=== PATIENT | male | born 1970 | race Caucasian/White ===

== ENCOUNTER 2020-10-02 16:03 | Outpatient (CLI) | payer OTHER, SELFPAY | END 2020-10-02 16:04 | disposition home or self-care (01) | LOC: ANHCOVIDVC 16:03 | PROVIDERS: PCP Internal Medicine | DX: Z23 Encounter for immunization (principal) | CPT/HCPCS: 0001A; 91300 ==

== ENCOUNTER 2020-10-09 09:29 | Emergency (ER) | payer OTHER, SELFPAY ==
--- NOTE | ~2020-10-09 | CT_ITS ---
EXAMINATION: CT abdomen pelvis w con DATE: 10/09/2020 10:46 INDICATION: Left flank pain for 2 months. Nausea, vomiting. TECHNIQUE: Computed tomography (CT) of the abdomen and pelvis was performed with 100 cc Omnipaque 350 intravenous contrast. Automated exposure control and iterative reconstruction technique were employe d. Exam dose: 753.35 mGy-cm total exam DLP. COMPARISON: 10/12/2018 CT abdomen pelvis FINDINGS: The lung bases are clear of infiltrate or consolidation. Normal heart size. No pericardial or pleural effusion. The liver, gallbladder, bile ducts, spleen, pancreas, pancreatic duct, and adrenal glands and kidneys appear normal. Moderate prostate enlargement. Prostate calcification. The urinary bladder is unremarkable. Normal caliber of the abdominal aorta. No intraperitoneal or retroperitoneal or pelvic mass lesion or adenopathy or ascites. Normal appendix. Diverticulosis of the colon; no CT evidence of diverticulitis. No polyps or signific ant bowel wall thickening, pneumatosis or intraperitoneal free air. There is degenerative spurring of the thoracic and lumbar spine. No suspicious osteolytic or osteobla stic lesion IMPRESSION: No urinary tract calculus or hydroureteronephrosis Normal appendix Diverticulosis of the colon; no CT evidence of diverticulitis Reviewed, dictated and finalized at [facility]. Reviewed, dictated and finalized at location A.
[2020-10-09 09:37] VITALS: BP 140/93; PULSE 92; RESP 20; TEMP 37.2; O2SAT 99
--- NOTE | 2020-10-09 09:52 | ED.ABDPAIN ---
HPI - Abdominal Pain General Chief Complaint: Abdominal Pain Stated Complaint: back pain Time Seen by Provider: 10/09/20 09:41 Source: patient Mode of arrival: ambulatory Limitations: no limitations History of Present Illness HPI narrative: This is a 50 year old male that presents to the ER for left flank pain over the last couple of months. Reports pain in the left flank and abdomen. It is achy in nature. Associated with nausea and vomiting. Reports he has also lost weight the last couple of months. Denies fever, dysuria, or hematuria. Related Data Home Medications Medication Instructions Recorded Confirmed aspirin 81 mg tablet,delayed 81 mg PO DAILY 06/11/19 09/18/20 release diclofenac sodium 1 % topical gel 2 gm TOPICAL QID 06/11/19 09/18/20 loratadine 10 mg tablet 10 mg PO DAILY 06/11/19 09/18/20 multivitamin,pt-udrn-xlrgrmcy 1 tablet PO DAILY 06/11/19 09/18/20 celecoxib 200 mg capsule 200 mg PO BID 11/09/19 09/18/20 cholecalciferol (vitamin D3) 125 2,000 unit PO DAILY cap 11/09/19 09/18/20 mcg (5,000 unit) capsule lactobacillus combination no.9 4 4,000 mmu cells PO DAILY 11/09/19 09/18/20 billion cell capsule mecobalamin (vitamin B12) 1,000 1,000 mcg PO DAILY 11/09/19 09/18/20 mcg chewable tablet prednisone 5 mg tablet 5 mg PO DAILY PRN 11/09/19 09/18/20 tofacitinib 11 mg tablet,extended 11 mg PO DAILY 11/09/19 09/18/20 release 24 hr folic acid 1 mg tablet 1 mg PO DAILY 05/30/20 09/18/20 gabapentin 300 mg capsule 900 mg PO DAILY cap 05/30/20 09/18/20 methotrexate sodium 2.5 mg tablet 2.5 mg PO WEEKLY tablet 05/30/20 09/18/20 tizanidine 4 mg tablet 4 mg PO ONCE tablet 05/30/20 09/18/20 Allergies Allergy/AdvReac Type Severity Reaction Status Date / Time No Known Allergies Allergy Verified 10/09/20 09:42 Review of Systems Review of Systems: Narrative: CONSTITUTIONAL: Denies fever CARDIOVASCULAR: Denies chest pain, or edema. RESPIRATORY: Denies dyspnea. GASTROINTESTINAL: Reports abdominal pain, nausea, vomiting GENITOURINARY: Denies dysuria or hematuria. SKIN: Denies rash MUSCULOSKELETAL: Reports back pain, joint pain, and myalgia. All systems reviewed & are unremarkable except as noted in HPI and below PMFSH Past Medical History Medical History (Updated 10/09/20 @ 11:38 by Samantha Martinez PA-C) Depression Encounter for monitoring testosterone replacement therapy GERD (gastroesophageal reflux disease) Heart murmur Hyperlipidemia due to dietary fat intake Hypertension Hypogonadism in male Insomnia Rheumatoid arthritis Sleep apnea Surgical History Surgical History (Updated 06/11/19 @ 13:22 by Izabela Lagunas, [facility]) H/O hernia repair Family History Family History (Updated 12/18/17 @ 11:14 by DOCTOR UNKNOWN) Father Hypertension Family history of elevated blood lipids Acute myocardial infarction Family history of malignant neoplasm of stomach Mother Hypertension Family history of elevated blood lipids Social History Social History Smoking status: Former smoker Smoking end date: 06/23/98 Alcohol intake: never Gender identity (if verbalized by the patient): Male Exam Narrative: Exam Narrative: GENERAL: Well-appearing, well-nourished, and in no acute distress. HEAD: Normocephalic, atraumatic. EYES: EOMI. CHEST: Clear to auscultation. No respiratory distress. No wheezes rales or rhonchi HEART: Regular rate and rhythm. No murmur heard. Normal peripheral pulses. ABDOMEN: Soft, nondistended, normal active bowel sounds. Tender to palpation of the left abdomen, without guarding. No CVA tenderness EXTREMITIES: Normal range of motion. No edema. SKIN: Warm, dry, no rash. NEURO: No focal deficits. Alert and oriented x3. PSYCH: Normal mood and affect Course Vital Signs Vital signs: Vital Signs Temperature 98.9 F 10/09/20 09:37 Pulse Rate 92 10/09/20 09:37 Respiratory Rate 20 10/09/20 09:37 Blood Pressure 140/93 H 10/09/20 09:37 Pulse Oximetr
[2020-10-09] MEDS: ONDANSETRON INJ 4 MG/2 ML VIAL IV PUSH (10:04)
[2020-10-09 10:15] LABS: Basophils Percent Auto 0.4 % (0.2-1.2); Eosinophils Absolute Auto 0.1 K/mm3 (0-0.3); Eosinophils Percent Auto 0.7 % (0-4.4); Hematocrit 49.5 % (42.0-52.0); Hemoglobin 16.5 g/dL (14.0-18.0); Immature Granulocyte Absolute 0.05 K/mm3 (0.00-0.031); Immature Granulocyte Percent A 0.6 % (0-0.5); Lymphocytes Absolute Auto 0.87 K/mm3 (0.9-3.2); Lymphocytes Percent Auto 10.3 % (18.3-44.2); Mean Corpuscular HGB Conc 33.3 g/dl (32-36); Mean Corpuscular Hemoglobin 30.4 pg (26-34); Mean Corpuscular Volume 91.3 fl (80-100); Mean Platelet Volume 10.2 fl (7.4-10.4); Monocytes Absolute Auto 0.8 K/mm3 (0.1-0.6); Monocytes Percent Auto 9.9 % (2.6-8.5); Neutrophils Absolute Auto 6.6 K/mm3 (1.3-6.7); Neutrophils Percent Auto 78.1 % (45.5-73.1); Platelet Count Result 314 k/mm3 (150-375); Red Blood Count 5.42 M/mm3 (4.6-6.20); Red Cell Distribution Width 14.2 % (11.5-14.5); White Blood Count 8.5 K/mm3 (4.5-10.0)
[2020-10-09 10:20] LABS: Add Urine Microscopic? YES; Appearance Urine Clear (Clear); Bacteria Urine Trace /hpf; Bilirubin Urine Negative (Negative); Blood Urine Negative (Negative); Color Urine Yellow (Yellow); Glucose Urine UA Negative (Negative); Ketones Urine 1+ mg/dL (Negative); Leukocyte Esterase Ur Negative LEU/UL (Negative); Mucus Urine Rare /lpf; Nitrate Urine Negative (Negative); Protein Urine Negative (Negative); RBC Urine 0-2 /hpf (0-2); Specific Grav Ur 1.018 (1.001-1.035); WBC Urine 0-3 /hpf
[2020-10-09 10:36] LABS: Potassium 3.9 mmol/L (3.4-5.0)
[2020-10-09 10:38] LABS: Alanine Aminotransferase 27 U/L (4-50); Albumin Level 4.8 g/dL (3.5-5.1); Alkaline Phosphatase 74 U/L (38-126); Anion Gap 8 mmol/L (8-16); Aspartate Amino Transferase 36 U/L (17-59); Bilirubin,Total 0.9 mg/dL (0.2-1.3); Blood Urea Nitrogen 20 mg/dL (9-20); Calcium 9.2 mg/dL (8.4-10.2); Carbon Dioxide 29 mmol/L (22-30); Chloride 101 mmol/L (98-107); Estimated CRCL calculation 82 ml/min; Estimated Glomerular Filt Rate > 60; Glucose 113 mg/dL (75-110); Lipase 113 U/L (23-300); Sodium 138 mmol/L (137-145)
[2020-10-09 10:59] LABS: Estimated CRCL calculation 74 ml/min; Estimated Glomerular Filt Rate > 60
[2020-10-09 11:51] VITALS: BP 143/66; PULSE 78; RESP 18; O2SAT 97
== END 2020-10-09 11:54 | disposition home or self-care (01) ==
PROVIDERS: Physician Assistant; Emergency Provider Emergency Medicine; PCP Internal Medicine
DX: R10.32 Left lower quadrant pain (principal); K21.9 Gastro-esophageal reflux disease without esophagitis; E78.5 Hyperlipidemia, unspecified; I10 Essential (primary) hypertension; M06.9 Rheumatoid arthritis, unspecified; R09.2 Respiratory arrest; F32.9 Major depressive disorder, single episode, unspecified; Z79.82 Long term (current) use of aspirin; Z87.891 Personal history of nicotine dependence; K57.90 Diverticulosis of intestine, part unspecified, without perforation or abscess without bleeding
CPT/HCPCS: 36415; 74177; 80053; 81001; 83690; 85025; 96374; 99284; J2405; Q9967

== ENCOUNTER 2020-10-10 10:27 | Outpatient (CLI) | payer OTHER, SELFPAY ==
--- NOTE | ~2020-10-10 | XR_ITS ---
EXAMINATION: XR chest 2V DATE: 10/10/2020 11:12 INDICATION: Abnormal weight loss. TECHNIQUE: Frontal and lateral views of the chest were obtained. COMPARISON: CT abdomen and pelvis 10/09/2020 FINDINGS: The chest demonstrates clear lungs without pneumonia, pleural effusion, or pneumothorax. Th e heart size is normal. IMPRESSION: 1. No acute cardiopulmonary disease. Reviewed, dictated and finalized at location B.
[2020-10-10 11:38] LABS: Prostate Specific Antigen 1.8 ng/mL (< OR = 4.0); Thyroid Stimulating Hormone 0.561 uIU/mL (0.465-4.680)
[2020-10-10 11:45] LABS: HIV 1/2 Ab P24 Ag Result Negative (Negative)
[2020-10-10 12:38] LABS: Hepatitis C Virus Antibody Negative (Negative)
== END 2020-10-10 10:28 | disposition home or self-care (01) ==
LOC: ANHLAB 10:29 → ANHIMG 11:02
PROVIDERS: PCP Internal Medicine; Visit Provider Nurse Practitioner
DX: R63.4 Abnormal weight loss (principal)
CPT/HCPCS: 36415; 71046; 84153; 84443; 86703; 86803; G0432

== ENCOUNTER 2020-10-16 11:22 | Outpatient (CLI) | payer OTHER, SELFPAY ==
--- NOTE | ~2020-10-16 | NM_ITS ---
EXAMINATION: NM hepatobiliary wo pharm DATE: 10/16/2020 14:18 CDT INDICATION: Right upper quadrant pain COMPARISON: Abdominal pain. TECHNIQUE: For mCi Tc-99m mebrofenin (Choletec) was administered intravenously. Scintigraphic images of the abdomen were obtained for one hour. At the 1 hour time point, the patient drank 8 oz Ensure, and imaging was continued for [60 minutes. Gallbladder ejection fraction was calculated by the techno logist. FINDINGS: There is normal clearance of radiotracer from the blood pool. There is homogeneous tracer u ptake by the liver. Activity progresses to the bowel and gallbladder. The gallbladder ejection fract ion is 67%. Note that with this technique, normal GBEF >= 33%. IMPRESSION: 1. Normal hepatobiliary scan. Reviewed, dictated and finalized at location B.
== END 2020-10-16 11:23 | disposition home or self-care (01) ==
PROVIDERS: PCP Internal Medicine; Visit Provider Nurse Practitioner
DX: K81.9 Cholecystitis, unspecified (principal)
CPT/HCPCS: 78226; A9537

== ENCOUNTER 2020-10-23 15:38 | Outpatient (CLI) | payer OTHER, SELFPAY | END 2020-10-23 15:39 | disposition home or self-care (01) | LOC: ANHCOVIDVC 15:38 | PROVIDERS: PCP Internal Medicine | DX: Z23 Encounter for immunization (principal) | CPT/HCPCS: 0002A; 91300 ==

== ENCOUNTER 2023-04-07 10:23 | Inpatient (IN) | payer OTHER, SELFPAY ==
[2023-04-07] VITALS (13 sets, daily range): BP systolic 135–168; BP diastolic 71–98; PULSE 114–137; RESP 16–26; TEMP 36.4–39.3; O2SAT 95–98; BMI 29.7
--- NOTE | ~2023-04-07 | XR_ITS ---
XR chest 1V portable 04/14/2023 11:09 Indication: Pulmonary edema. Postdialysis. Procedure: AP portable chest Comparison: 04/12/2023 Findings: Heart size normal. Left basilar atelectasis/scarring. No focal pneumonia, edema, pleural ef fusion or pneumothorax. Right IJ central line tip in the condyle aspect of the SVC. No acute osseous abnormality. Impression: 1: Left basilar atelectasis/scarring. Reviewed, dictated and finalized at location B. Impression: 1: Left basilar atelectasis/scarring.
--- NOTE | ~2023-04-07 | CT_ITS ---
EXAMINATION: CT abdomen pelvis wo con DATE: 04/13/2023 08:42 INDICATION: Salmonella. Bacteremia. TECHNIQUE: Computed tomography (CT) of the abdomen and pelvis was performed without intravenous contr ast. The dose-length product was 723.62 mGy-cm. Automated exposure control and iterative reconstruction technique were employed. COMPARISON: CT dated 04/07/2023. FINDINGS: Heart size normal. The liver, spleen, pancreas, adrenal glands and kidneys are unremarkable . Gallbladder wall is thickened with possible pericholecystic fluid. There is fluid throughout the sm all bowel and colon with air-fluid levels in the small bowel and colon. There is a rectal catheter pr esent. There is a Umanzor catheter present present. Mild-moderate lower thoracic and lumbar spondylosis . No acute osseous abnormality. There is mesenteric and ileocolic lymphadenopathy, likely reactive. IMPRESSION: 1. Air-fluid levels throughout the upper GI tract and colon without focal transitional obstructive si te. Mild colonic wall thickening distally. Findings suspicious for enterocolitis. 2: Gallbladder wall thickening with possible pericholecystic fluid. This could indicate interstitial edema, chronic liver disease or cholecystitis. 3: Trace pleural effusions with dependent atelectasis. 4: Mesenteric lymphadenopathy, likely reactive. Reviewed, dictated and finalized at location A. IMPRESSION: 1. Air-fluid levels throughout the upper GI tract and colon without focal trans itional obstructive site. Mild colonic wall thickening distally. Findings suspi cious for enterocolitis. 2: Gallbladder wall thickening with possible pericholecystic fluid. This could indicate interstitial edema, chronic liver disease or cholecystitis. 3: Trace pleural effusions with dependent atelectasis. 4: Mesenteric lymphadenopathy, likely reactive.
--- NOTE | ~2023-04-07 | XR_ITS ---
Portable chest x-ray Comparison: 10/10/2020 Clinical History: Abscess Findings: Lungs are clear, without focal consolidation or pleural effusion. Cardiomediastinal silho uette is stable. Bones and soft tissues are unremarkable. Impression: Clear lungs. Reviewed, dictated and finalized at location . Impression: Clear lungs.
--- NOTE | ~2023-04-07 | US_ITS ---
Limited Abdominal Sonogram: Real-time sonographic imaging of the right upper quadrant was performed. Clinical History: Right upper quadrant pain Findings: The liver appears normal with no evidence of mass lesion or bile duct dilatation. Main por niya vein demonstrates normal direction of flow. The gallbladder is well distended, and appears normal with no evidence of gallstone or wall thickening. The common bile duct measures 5 mm. The visualize d pancreas, aorta, and IVC are unremarkable. Impression: No significant abnormality seen. Reviewed, dictated and finalized at location M. Impression: No significant abnormality seen.
--- NOTE | ~2023-04-07 | CT_ITS ---
EXAMINATION: CTA chest abdomen pelvis DATE: 04/07/2023 11:57 INDICATION: Chest and abdominal pain. Nausea, vomiting and diarrhea. TECHNIQUE: Computed tomography angiography (CTA) of the chest, abdomen and pelvis was performed with 100 mL Omnipaque-350 intravenous contrast timed to evaluate the pulmonary arteries. Coronal maximum i ntensity projection 3D-reconstructions were created by the technologist. Automated exposure control a nd iterative reconstruction technique were employed. Exam dose: 1077.37 mGy-cm total exam DLP. COMPARISON: October 10, 2020 2 view chest October 09, 2020 CT abdomen pelvis FINDINGS: There is no evidence of pulmonary embolism. No thoracic aortic aneurysm or dissection. Normal heart size. No pericardial or pleural effusion. The esophagus is distended throughout with fluid. No pulmonary infiltrate or consolidation or pulmonary mass lesion is detected. There is diffuse hepatic steatosis. No hepatic, splenic, pancreatic, adrenal or renal space occupying mass lesion is detected. Normal caliber of the abdominal aorta. No intraperitoneal or retroperitoneal or pelvic mass lesion o r lymphadenopathy is detected. Moderate prostate enlargement and moderate diffuse thickening of the urinary bladder wall. Fluid levels are noted in the small bowel and particularly: Suggesting enterocolitis or adynamic ileu s. No bowel wall thickening, pneumatosis or intraperitoneal free air or portal venous gas. Normal appendix. Small fat-containing umbilical hernia. Small fat-containing left inguinal hernia. No suspicious osteolytic or osteoblastic lesions are noted. Spurring of the thoracic spine. Chronic appearing mild anterior wedging and loss of height of T12. Pr ominent degenerative disc disease in the lower cervical spine. IMPRESSION: Fluid levels in small bowel and particularly colon, suggesting enterocolitis Diffuse fluid distention of the esophagus suggesting reflux. Prominent fluid level in the stomach. Hepatic steatosis Moderate prostate enlargement Normal appendix Reviewed, dictated and finalized at [facility]. Reviewed, dictated and finalized at location B. IMPRESSION: Fluid levels in small bowel and particularly colon, suggesting ent erocolitis Diffuse fluid distention of the esophagus suggesting reflux. Prominent fluid le eliezer in the stomach. Hepatic steatosis Moderate prostate enlargement Normal appendix
--- NOTE | ~2023-04-07 | XR_ITS ---
XR chest port-a-cath/central 04/12/2023 10:13 Indication: Dialysis catheter insertion Procedure: AP portable chest Comparison: 04/11/2023 Findings: Heart size normal. No pulmonary edema, pleural effusion or suspected pneumothorax. Right IJ central venous catheter tip in the condyle aspect of the SVC. No acute osseous abnormality. There is left basilar atelectasis/scarring. Impression: 1: Left basilar atelectasis/scarring. Reviewed, dictated and finalized at location A. Impression: 1: Left basilar atelectasis/scarring.
--- NOTE | ~2023-04-07 | US_ITS ---
EXAMINATION: US renal BI DATE: 04/08/2023 13:35 INDICATION: Acute renal injury TECHNIQUE: Multiple ultrasound grayscale images of the kidneys were obtained. COMPARISON: None. FINDINGS: The right kidney measures 12.5 x 5.7 x 4.9 cm. The left kidney measures 4.2 x 6.0 x 4.9 cm. The kidne ys demonstrate normal echogenicity. There is no hydronephrosis in either kidney. No stones identifie d. The bladder is normal. IMPRESSION: 1. Normal kidneys without hydronephrosis. Reviewed, dictated and finalized at location A.
--- NOTE | ~2023-04-07 | XR_ITS ---
EXAMINATION: XR abdomen/kub 1V DATE: 04/08/2023 23:14 INDICATION: Generalized abdominal pain. TECHNIQUE: A supine view of the abdomen on 2 radiographs was obtained. COMPARISON: CT abdomen and pelvis 04/07/2023 FINDINGS: There are multiple dilated loops of small bowel. The colon is normal in caliber. IMPRESSION: 1. Dilated small bowel, likely adynamic ileus. Reviewed, dictated and finalized at location E.
--- NOTE | 2023-04-07 11:03 | ECG_ITS ---
Measurements Intervals [place] Rate: 133 P: 60 MT: 143 QRS: 90 QRSD: 106 T: 25 QT: 332 QTc: 496 Interpretive Statements SINUS TACHYCARDIA WITH OCCASIONAL SUPRAVENTRICULAR PREMATURE COMPLEXES ST DEVIATION AND MODERATE T-WAVE ABNORMALITY, CONSIDER ANTEROLATERAL ISCHEMIA [-0.1+ mV T WAVE IN V3-V6] RSR' V1 ST DEVIATION AND MODERATE T-WAVE ABNORMALITY, CONSIDER INFERIOR ISCHEMIA [-0.1+ mV T WAVE IN II/aVF] ABNORMAL ECG NO PREVIOUS ECG AVAILABLE FOR COMPARISON Electronically Signed On 04-07-2023 17:04:37 CDT by Juan Carlos Mcgovern M.D.
[2023-04-07] MEDS: LACTATED RINGERS 1,000 ML 999 ML IV CONT (11:17)
[2023-04-07] MEDS: MORPHINE SULFATE (*CRX) 4 MG/ML INJ IV PUSH (11:17)
[2023-04-07] MEDS: ONDANSETRON INJ 4 MG/2 ML VIAL IV PUSH ×3 (11:29→21:15)
[2023-04-07 11:30] LABS: Hematocrit 54.6 % (42.0-52.0); Hemoglobin 18.4 g/dL (14.0-18.0); Mean Corpuscular HGB Conc 33.7 g/dl (32-36); Mean Corpuscular Hemoglobin 31.4 pg (26-34); Mean Corpuscular Volume 93.2 fl (80-100); Mean Platelet Volume 9.9 fl (7.4-10.4); Platelet Count Result 322 k/mm3 (150-375); Red Blood Count 5.86 M/mm3 (4.6-6.20); Red Cell Distribution Width 14.1 % (11.5-14.5); White Blood Count 11.1 K/mm3 (4.5-10.0)
--- NOTE | 2023-04-07 11:40 | PC.NURSE ---
pt taken to CT at this time
[2023-04-07 11:42] LABS: Alanine Aminotransferase 94 U/L (6-50); Albumin Level 5.3 g/dL (3.5-5.1); Alkaline Phosphatase 67 U/L (38-126); Anion Gap 20 mmol/L (8-16); Aspartate Amino Transferase 51 U/L (17-59); Bilirubin,Total 1.1 mg/dL (0.2-1.3); Blood Urea Nitrogen 38 mg/dL (9-20); Calcium 9.6 mg/dL (8.4-10.2); Carbon Dioxide 19 mmol/L (22-30); Chloride 93 mmol/L (98-107); Estimated CRCL calculation 35 ml/min; Estimated Glomerular Filt Rate 28; Glucose 162 mg/dL (65-110); Lipase 23 U/L (23-300); Potassium 3.3 mmol/L (3.4-5.0); Sodium 132 mmol/L (137-145)
[2023-04-07 11:44] LABS: Prothrombin Time 14.1 Seconds (11.1-14.7)
[2023-04-07 11:45] LABS: Estimated CRCL calculation 33 ml/min; Estimated Glomerular Filt Rate 27
[2023-04-07 11:45] LABS: Partial Thromboplastin Time 29.4 SECONDS (22.3-36.8)
[2023-04-07 11:48] LABS: Appearance Urine Cloudy (Clear); Bacteria Urine None Seen /hpf; Bilirubin Urine 2+ (Negative); Blood Urine Trace (Negative); Color Urine Dark Yellow (Yellow); Glucose Urine UA Trace mg/dL (Negative); Hyaline Casts Urine Present /lpf; Ketones Urine Trace mg/dL (Negative); Leukocyte Esterase Ur Trace LEU/UL (Negative); Mucus Urine Present /lpf; Nitrate Urine Negative (Negative); Non Pathogenic Casts >20; Protein Urine 2+ mg/dL (Negative); Specific Grav Ur 1.033 (1.001-1.035); Squamous Epithelial Cell Urine Many /hpf (Few); WBC Urine 0-5 /hpf; White Blood Cell Casts Urine Present /lpf; pH Urine 5.5 (5.0-9.0)
[2023-04-07 11:53] LABS: Add Urine Microscopic? YES
--- NOTE | 2023-04-07 11:55 | PC.NURSE ---
pt returned to room 6 at this time
[2023-04-07 12:05] LABS: Band Neutrophils Percent 50 % (0-6); Basophils Absolute Manual 0.11 K/mm3 (0.0-0.1); Basophils Percent Manual 1 % (0-1); Lymphocytes Absolute Manual 0.77 K/mm3 (1.1-4.5); Metamyelocytes Percent 2 %; Monocytes Absolute Manual 1.11 K/mm3 (0.1-0.90); Monocytes Percent Manual 10 % (3-9); Myelocytes Percent 1 %; Neutrophils Absolute Manual 8.76 K/mm3 (1.3-6.7); Neutrophils Percent Manual 29 % (46-73); Nucleated Red Blood Cells 1 %; Platelet Estimate Adequate (Adequate); Total Cells Counted 100
[2023-04-07 12:06] LABS: Schistocytes None Seen (NORMAL)
--- NOTE | 2023-04-07 12:44 | ED.ABDPAIN ---
HPI - Abdominal Pain General Chief Complaint: Abdominal Pain Stated Complaint: abd pain Time Seen by Provider: 04/07/23 10:54 History of Present Illness HPI narrative: Patient is a 53-year-old male with history of rheumatoid arthritis who is on Humira that presents the ER with abdominal pain. Ongoing over the last 4 days. Epigastric radiating to the back. Associated with diarrhea. Reports anytime he eats or drinks something immediately comes out the other side. No known sick contacts. He has not been on antibiotics. Symptoms have continued to worsen so he presented to the ER. No reports of fever but has had chills. Denies chest pain/pressure. Related Data Home Medications Medication Instructions Recorded Confirmed diclofenac sodium 1 % topical gel 2 gm topical QID PRN Pain 06/11/19 04/07/23 (Voltaren) multivitamin,bh-qjyx-lynkkcoz 1 tablet PO DAILY 06/11/19 04/07/23 (Complete Multivitamin tablet) cholecalciferol (vitamin D3) 125 2,000 unit PO DAILY 11/09/19 04/07/23 mcg (5,000 unit) capsule mecobalamin (vitamin B12) 1,000 1,000 mcg PO DAILY 11/09/19 04/07/23 mcg chewable tablet prednisone 5 mg tablet 5 mg PO DAILY PRN joint stiffness 11/09/19 04/07/23 folic acid 1 mg tablet 1 mg PO DAILY 05/30/20 04/07/23 gabapentin 300 mg capsule 900 mg PO DAILY 05/30/20 04/07/23 methotrexate sodium 2.5 mg tablet 2.5 mg PO WEEKLY 05/30/20 04/07/23 tizanidine 4 mg tablet 4 mg PO HS 05/30/20 04/07/23 quetiapine 25 mg tablet (Seroquel) 25 mg PO QHS 11/13/20 04/07/23 metoclopramide HCl 5 mg tablet 10 mg PO DAILY 04/02/21 04/07/23 (Reglan) omeprazole 40 mg capsule,delayed 40 mg PO DAILY 04/02/21 04/07/23 release adalimumab 40 mg/0.8 mL See Rx Instructions subcut .COMPLEX 09/03/22 04/07/23 subcutaneous pen kit (Humira Pen) diclofenac sodium 75 mg 75 mg PO BID 11/25/22 04/07/23 tablet,delayed release Tylenol 1,000 mg PO DAILY 04/07/23 04/07/23 adalimumab 40 mg/0.4 mL 40 mg subcut PER PKG DIR 04/07/23 04/07/23 subcutaneous pen kit (Humira(CF) Pen) amitriptyline 25 mg tablet 25 mg PO DAILY 04/07/23 04/07/23 azelastine 137 mcg (0.1 %) nasal 1 spray intranasal Q12H PRN 04/07/23 04/07/23 spray aerosol allergies evolocumab 140 mg/mL subcutaneous 140 mg subcut MONTHLY 04/07/23 04/07/23 pen injector (Repatha SureClick) ezetimibe 10 mg tablet 10 mg PO DAILY 04/07/23 04/07/23 fexofenadine 180 mg tablet 180 mg PO DAILY 04/07/23 04/07/23 fluticasone propionate 50 2 spray intranasal BID PRN 04/07/23 04/07/23 mcg/actuation nasal allergies spray,suspension (Flonase Allergy Relief) hydrocodone 5 mg-acetaminophen 325 5 - 325 tablet PO Q6H PRN Pain 04/07/23 04/07/23 mg tablet lisinopril 10 mg tablet 10 mg PO DAILY 04/07/23 04/07/23 ondansetron 4 mg disintegrating 8 mg PO Q8H PRN nausea and vomiting 04/07/23 04/07/23 tablet tramadol 100 mg tablet,extended 100 mg PO DAILY 04/07/23 04/07/23 release 24 hr Allergies Allergy/AdvReac Type Severity Reaction Status Date / Time No Known Allergies Allergy Verified 04/07/23 10:50 Review of Systems Review of Systems: All systems reviewed & are unremarkable except as noted in HPI and below Constitutional: Constitutional: Reports chills, Reports fatigue and Denies fever(s) ENT: Denies nasal congestion and Denies sore throat Cardiovascular: Cardiovascular: Reports no additional cardiovascular complaints Respiratory: Respiratory: Reports no additional respiratory complaints Gastrointestinal: Gastrointestinal: Reports abdominal pain, Denies constipation, Reports diarrhea, Reports nausea and Denies vomiting Genitourinary: Genitourinary: Reports no additional male genitourinary complaints Musculoskeletal: Musculoskeletal: Reports no additional musculoskeletal complaints PMFSH Past Medical History Medical History Abdominal pain Chronic sinus complaints Depression Encounter for monitoring testosterone replacemen
[2023-04-07] MEDS: PIPERACILLN/TAZ 3.375GM/NS50ML 3.375 GM/50 ML BAG IVPB (13:11)
[2023-04-07 14:26] LABS: Reflex Lactic Acid Yes or No Add Lactic
[2023-04-07 14:56] LABS: Lactic Acid 3.3 mmol/L (0.7-2.0)
[2023-04-07 15:15] LABS: Troponin I 0.038 ng/mL (0.000-0.034)
--- NOTE | 2023-04-07 16:46 | ADMGEN ---
This patient, Dev Amaya, was admitted to IMU Room 214-01. Patient/family oriented to hospital policies and general routines including ID bracelet, bed and alarms, visiting hours, pain management, procedures, bathroom and other care routines, personal items, smoking policy, room service/diet, and visiting hours. Information on how to activate the Rapid Response Team has been discussed. Patient/Family are encouraged to report perceived risks to care and to ask questions if they do not understand what they are told or what they should do.
[2023-04-07] MEDS: SODIUM CHLORIDE 0.9% IV 1,000 ML 125 ML IV CONT (17:23)
[2023-04-07 17:36] LABS: Troponin I 0.045 ng/mL (0.000-0.034)
[2023-04-07] MEDS: ACETAMINOPHEN 325 MG TABLET 650 MG PO ×2 (17:45→19:25)
[2023-04-07 17:54] LABS: Toxigenic C. Diff NEGATIVE (NEGATIVE)
[2023-04-07] MEDS: PIPERACILLIN/TAZ 2.25G/NS 50ML 2.25 GM/50 ML BAG IVPB ×2 (18:41→23:31)
[2023-04-07 18:48] LABS: Lactic Acid Reflex 2.6 mmol/L (0.7-2.0)
[2023-04-07 18:55] LABS: Anion Gap 11 mmol/L (8-16); Blood Urea Nitrogen 34 mg/dL (9-20); Calcium 8.6 mg/dL (8.4-10.2); Carbon Dioxide 23 mmol/L (22-30); Chloride 95 mmol/L (98-107); Creatine Kinase 201 U/L (55-170); Estimated CRCL calculation 43 ml/min; Estimated Glomerular Filt Rate 42; Glucose 124 mg/dL (65-110); Magnesium 1.1 mg/dL (1.6-2.3); Potassium 2.9 mmol/L (3.4-5.0); Sodium 129 mmol/L (137-145)
--- NOTE | 2023-04-07 18:59 | PM.IMHP ---
H&P: HPI History of Present Illness Date/Time: 04/07/23 18:00 Chief Complaint: Abdominal pain, diarrhea. Narrative: This is a 53-year-old male with rheumatoid arthritis, obstructive sleep apnea, hypertension, hyperlipidemia, and gastroesophageal reflux disease who presented to the emergency department via private vehicle from home for evaluation of abdominal pain and diarrhea. The patient provides the following history. His provides additional information, with the patient's permission. Friday he complained to his that his stomach was upset and he had a couple of episodes of emesis that night. Friday he began having diarrhea and he reports having too numerous to count episodes of watery, yellow diarrhea. He has continued to have nausea and vomiting as well. He has also had chills, sweats, and subjective fevers. He has become increasingly weak and reports that he seems a bit confused with the fever. Antidiarrheals, Zofran, and ibuprofen have not helped. In the ED he had another episode of emesis which was dark dark brown. He has not had any recent travel and denies sick contacts. No recent antibiotic use. In the ED: Temperature has been as high as 102.8? F. Blood pressures have been stable. He has been in a sinus tachycardia since arrival with rates in the 1 teens to 130s. Labs were significant for WBC count of 11.1 (29% neutrophils and 50% bands noted on manual differential), hemoglobin 18.4, sodium 132, potassium 3.3, chloride 93, carbon dioxide 19, anion gap 20, BUN 38, creatinine 2.40, lactic acid 3.0, ALT 94, total CK 201, troponin 0.040, CRP 31.1, total protein 9.0, albumin 5.3, procalcitonin 2.8. CT of the chest, abdomen, pelvis showed fluid levels in the small bowel in particularly colon suggesting enterocolitis and diffuse fluid distention of the esophagus suggesting reflux with prominent fluid level in the stomach, hepatic steatosis, and moderate prostate enlargement. Review of Systems Review of Systems: Twelve systems were reviewed. No sinus congestion, sore throat, or cough. He does have occasional GERD symptoms which seems to have been worse recently. He does not typically take ibuprofen but did have some today. He is normally on acetaminophen and takes [place] and tramadol at home for his RA pain if needed. No history of ulcers. He has not noticed any dark stools or blood in the stool. Except as documented, all other systems were reviewed and are negative. [facility] Past Medical History Medical History (Updated 04/07/23 @ 23:21 by Shanda Dixon PA-C) Chronic sinus complaints Depression Gastroesophageal reflux disease Heart murmur Hyperlipidemia Hypertension Hypogonadism in male Immunocompromised patient Insomnia Rheumatoid arthritis Sleep apnea Surgical History Surgical History (Updated 04/07/23 @ 23:18 by Shanda Dixon PA-C) History of ventral hernia repair Family History Family History Father Hypertension Family history of elevated blood lipids Acute myocardial infarction Family history of malignant neoplasm of stomach Mother Hypertension Family history of elevated blood lipids Social History Social History (Updated 04/07/23 @ 23:19 by Shanda Dixon PA-C) Social History: Surrogate medical decision maker: Santo Amaya, spouse. Code status: Full code. Smoking packs per day: 1 Smoking cigarettes per day: 20.0 Years smoked: 20 Smoking pack-years: 20.00 Smoking status: Former smoker Smoking end date: 06/23/98 Alcohol intake: never Alcohol use details: Very rare alcohol use in moderation. Substance use: never Lack of Transportation: No Lack of Food: Never True Current Housing: Decline to Answer Concerned About Future Housing: No Difficulty Paying Gas/Electric Bills: No Difficulty Paying for Meds: No Currently Unemployed: YES Education: Decline to Answer Difficulty w/ Child
--- NOTE | 2023-04-07 19:19 | PC.NURSE ---
Mag 1.1. Message left with BERTHA Land. Report given to LUCRETIA Allan.
[2023-04-07 19:26] LABS: CRP 31.1 mg/dL (<1.0); Procalcitonin 2.8 ng/mL
[2023-04-07] MEDS: MAGNESIUM SULF 4 GM/WATER100ML 4 GM/100 ML BAG IVPB (20:50)
[2023-04-07] MEDS: POTASSIUM CHLORIDE 20 MEQ PACKET (FOR LIQUID) 40 MEQ PO (20:51)
[2023-04-07] MEDS: QUEtiapine FUMARATE 25 MG TABLET PO (20:52)
[2023-04-07] MEDS: PANTOPRAZOLE SODIUM IV 40 MG VIAL IV PUSH (20:53)
[2023-04-07] MEDS: POTASSIUM CHLORIDE INJ 40 MEQ in SODIUM CHLORIDE 0.9% IV 500 ML 130 MEQ IVPB (22:11)
[2023-04-08] VITALS (16 sets, daily range): BP systolic 144–165; BP diastolic 85–100; PULSE 96–135; RESP 20–22; TEMP 36.3–36.6; O2SAT 96–97
[2023-04-08] MEDS: ONDANSETRON INJ 4 MG/2 ML VIAL IV PUSH ×3 (01:50→20:38)
[2023-04-08 05:18] LABS: Hematocrit 46.1 % (42.0-52.0); Hemoglobin 16.4 g/dL (14.0-18.0); Mean Corpuscular HGB Conc 35.6 g/dl (32-36); Mean Corpuscular Hemoglobin 31.7 pg (26-34); Mean Corpuscular Volume 89.2 fl (80-100); Mean Platelet Volume 9.7 fl (7.4-10.4); Platelet Count Result 276 k/mm3 (150-375); Red Blood Count 5.17 M/mm3 (4.6-6.20); Red Cell Distribution Width 13.4 % (11.5-14.5); White Blood Count 12.7 K/mm3 (4.5-10.0)
[2023-04-08] MEDS: SODIUM CHLORIDE 0.9% IV 1,000 ML 100 ML IV CONT ×2 (05:22→18:09)
[2023-04-08] MEDS: PIPERACILLIN/TAZ 2.25G/NS 50ML 2.25 GM/50 ML BAG IVPB (05:22)
[2023-04-08 05:38] LABS: Alanine Aminotransferase 69 U/L (6-50); Albumin Level 4.4 g/dL (3.5-5.1); Alkaline Phosphatase 59 U/L (38-126); Anion Gap 17 mmol/L (8-16); Aspartate Amino Transferase 47 U/L (17-59); Bilirubin,Total 1.3 mg/dL (0.2-1.3); Blood Urea Nitrogen 38 mg/dL (9-20); Calcium 8.6 mg/dL (8.4-10.2); Carbon Dioxide 17 mmol/L (22-30); Chloride 95 mmol/L (98-107); Creatine Kinase 305 U/L (55-170); Estimated CRCL calculation 44 ml/min; Estimated Glomerular Filt Rate 37; Glucose 162 mg/dL (65-110); Magnesium 2.5 mg/dL (1.6-2.3); Phosphorus 2.3 mg/dL (2.5-4.5); Potassium 3.1 mmol/L (3.4-5.0); Sodium 129 mmol/L (137-145)
[2023-04-08 06:03] LABS: Band Neutrophils Percent 39 % (0-6); Basophils Absolute Manual 0.25 K/mm3 (0.0-0.1); Basophils Percent Manual 2 % (0-1); Lymphocytes Absolute Manual 2.15 K/mm3 (1.1-4.5); Metamyelocytes Percent 4 %; Monocytes Absolute Manual 2.03 K/mm3 (0.1-0.90); Monocytes Percent Manual 16 % (3-9); Neutrophils Absolute Manual 7.74 K/mm3 (1.3-6.7); Neutrophils Percent Manual 22 % (46-73); Platelet Estimate Adequate (Adequate); Schistocytes None Seen (NORMAL); Total Cells Counted 100
[2023-04-08 06:04] LABS: Atypical Lymphocytes Present
[2023-04-08 07:11] LABS: Free T4 Free Thyroxine Reflex 0.67 ng/dL (0.78-2.19)
[2023-04-08] MEDS: PANTOPRAZOLE SODIUM IV 40 MG VIAL IV PUSH ×2 (09:30→20:38)
--- NOTE | 2023-04-08 10:01 | PM.CNCAR ---
Assessment and Plan Assessment and plan (1) Elevated troponin: Code(s): R79.89 - Other specified abnormal findings of blood chemistry Status: Acute Assessment and Plan: Troponin levels minimally elevated and flat, not consistent with ACS. Probably related to sepsis. Could also be secondary to tachycardia. Cannot rule out underlying CAD. He does have some risk factors for CAD, so could consider outpatient stress testing to risk stratify him. Echo has been ordered and will be reviewed. Further recommendations to follow. For now, no further cardiac workup is indicated or recommended. (2) Tachycardia: Code(s): R00.0 - Tachycardia, unspecified Status: Acute Assessment and Plan: Probably related to physiologic stress/pain. Check thyroid levels. Monitor BMP daily and replace electrolytes as appropriate. (3) Acute kidney injury: Code(s): N17.9 - Acute kidney failure, unspecified Status: Acute Assessment and Plan: Secondary to dehydration from diarrhea, vomiting. Improving today. [facility] History of Present Illness History of Present Illness Consult date/time: 04/08/23 10:01 Requesting physician: Yakov Salazar MD Consult reason: Other (elevated troponin) Reason For Visit: Enteritis/KALPANA/Sepsis/Elevated Trop Narrative: Mr. Amyaa is a 53 year old male with rheumatoid arthritis, obstructive sleep apnea, hypertension, hyperlipidemia, and gastroesophageal reflux disease. He denies any cardiac history. He comes to the hospital because of abdominal pain, nausea, and diarrhea since Friday. He complained of some chest discomfort in the emergency department which prompted troponin levels to be drawn. He has not had any chest discomfort since his initial evaluation in the emergency department and denies any chest pain now. I have been asked to see him because of elevated troponin levels. Review of Systems Review of Systems: All systems reviewed & are unremarkable except as noted in HPI and below PMFSH Past Medical History Medical History Chronic sinus complaints Depression Gastroesophageal reflux disease Heart murmur Hyperlipidemia Hypertension Hypogonadism in male Immunocompromised patient Insomnia Rheumatoid arthritis Sleep apnea Surgical History Surgical History History of ventral hernia repair Family History Family History Father Hypertension Family history of elevated blood lipids Acute myocardial infarction Family history of malignant neoplasm of stomach Mother Hypertension Family history of elevated blood lipids Social History Social History Social History: Surrogate medical decision maker: Santo Amaya, spouse. Code status: Full code. Smoking packs per day: 1 Smoking cigarettes per day: 20.0 Years smoked: 20 Smoking pack-years: 20.00 Smoking status: Former smoker Smoking end date: 06/23/98 Alcohol intake: never Alcohol use details: Very rare alcohol use in moderation. Substance use: never Lack of Transportation: No Lack of Food: Never True Current Housing: Decline to Answer Concerned About Future Housing: No Difficulty Paying Gas/Electric Bills: No Difficulty Paying for Meds: No Currently Unemployed: YES Education: Decline to Answer Difficulty w/ Childcare or Family Care: No Additional living arrangements comments: Lives with spouse in [place]. They have a 17-year-old daughter. 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 Spiritual care concerns: No Meds Home Medications and Allergies Home Medications Medication Instructions Recorded Confirmed Type diclofenac sodium 1 % topical gel 2 gm topical QID PRN Pain 1
[2023-04-08] MEDS: MORPHINE SULFATE (*CRX) 2 MG/ML INJ IV PUSH (12:49)
[2023-04-08] MEDS: PIPERACILLN/TAZ 3.375GM/NS50ML 3.375 GM/50 ML BAG IVPB ×2 (12:50→18:09)
[2023-04-08] MEDS: POTASSIUM CHLORIDE INJ 40 MEQ in SODIUM CHLORIDE 0.9% IV 500 ML 130 MEQ IVPB (13:43)
--- NOTE | 2023-04-08 14:49 | PM.IMPN ---
Progress Note: A&P Assessment and Plan (1) Sepsis: Code(s): A41.9 - Sepsis, unspecified organism Status: Acute Assessment and Plan: The patient meets sepsis criteria with fever, tachycardia, leukocytosis with bandemia, lactic acidosis, and acute kidney injury. Secondary to enterocolitis. Lactic acid level has improved with IV fluids. Blood pressures have been stable. Blood in stool studies pending. Continue IV fluid, Zosyn (2) Enterocolitis: Code(s): K52.9 - Noninfective gastroenteritis and colitis, unspecified Status: Acute Assessment and Plan: Patient has acute abdomen pain, associated with nausea vomiting diarrhea Possible acute infective gastroenteritis Continue Zosyn. Stool studies pending. (3) Acute kidney injury: Code(s): N17.9 - Acute kidney failure, unspecified Status: Acute Assessment and Plan: Possible prerenal versus ATN due to sepsis Avoid nephrotoxin medication Monitor strict I/O. Renal ultrasound ordered, pending report (4) Gastroesophageal reflux disease: Code(s): K21.9 - Gastro-esophageal reflux disease without esophagitis Status: Acute Assessment and Plan: Has dark brown emesis in the ED concerning for coffee-ground emesis. Occult blood pending Start Protonix 40 mg IV b.i.d.. GI consulted. (5) Dehydration: Code(s): E86.0 - Dehydration Status: Acute Assessment and Plan: As above continue aggressive IV fluid rehydration (6) Elevated troponin: Code(s): R79.89 - Other specified abnormal findings of blood chemistry Status: Acute Assessment and Plan: troponins have been flat. EKG however shows ST deviation and moderate T-wave abnormalities concerning for possible anterolateral ischemia. Echocardiogram ordered. Cardiology was consulted by the ED physician and their input is appreciated. (7) Rheumatoid arthritis: Qualifiers: Rheumatoid arthritis location: unspecified site Rheumatoid factor presence: unspecified presence Qualified Code(s): M06.9 - Rheumatoid arthritis, unspecified Code(s): M06.9 - Rheumatoid arthritis, unspecified Status: Acute Assessment and Plan: Patient has chronic pain related to the same. He is immunocompromised as he is on biologics and prednisone. Continue steroids (may need to stress dose though not at this time). Hold methotrexate and Humira. (8) Immunocompromised patient: Code(s): D84.9 - Immunodeficiency, unspecified Status: Acute Assessment and Plan: As is above. (9) Hypertension: Qualifiers: Hypertension type: essential hypertension Qualified Code(s): I10 - Essential (primary) hypertension Code(s): I10 - Essential (primary) hypertension Status: Acute Assessment and Plan: Blood pressures were reviewed and they are stable. Hold antihypertensives for now and monitor closely. Subjective Date/time seen: 04/08/23 14:49 Exam Narrative: General: Ill-appearing male supine in bed. Weight: 90.6 kg. BMI: 30.4. HEENT: PERRL, EOMI. Sclera anicteric. Conjunctiva mildly injected. Tacky mucous membranes. Neck: Supple. Respiratory: Lungs are clear to auscultation bilaterally. Cardiovascular: Tachycardic with normal S1-S2. Soft murmur at the upper sternal border. Gastrointestinal: Abdomen is soft and nondistended with positive bowel sounds. He has mild tenderness to palpation throughout the abdomen. No guarding or rebound tenderness. Skin: Warm and dry. No rash or lesions on limited exam. Normal capillary refill. Extremities: No cyanosis, clubbing, or edema. Radial and pedal pulses intact. Neurological: Alert. Cranial nerves 2-12 are grossly intact. No gross focal deficits to casual conversation. Psychiatric: Cooperative with appropriate mood and flat affect. Objective Data Vital Signs Vital Signs: Vital Signs - 24 hr
--- NOTE | 2023-04-08 15:10 | WPDGICN ---
Assessment and Plan Assessment and plan (1) Enterocolitis: Code(s): K52.9 - Noninfective gastroenteritis and colitis, unspecified Status: Acute Assessment and Plan: Patient and his give a history of diarrhea for week or [address] scan imaging shows fluid in the small bowel raising the question of a enterocolitis. Plan is for stool cultures. Empiric antibiotics may be beneficial. Is uncertain if this is the etiology for his sepsis and confusion. Would defer invasive evaluation at present. Continue to monitor. (2) Confusion: Code(s): R41.0 - Disorientation, unspecified Status: Acute Assessment and Plan: Patient with significant confusion. He appears to be encephalopathic. Etiology for this unclear. He may benefit from tox screen or other analysis for other etiologic factors for his encephalopathy. (3) Severe sepsis: Code(s): A41.9 - Sepsis, unspecified organism; R65.20 - Severe sepsis without septic shock Status: Acute Assessment and Plan: Patient felt to be sepsis because of fever tachycardia leukocytosis. Empiric antibiotics in progress. Continue to monitor closely. (4) KALPANA (acute kidney injury): Code(s): N17.9 - Acute kidney failure, unspecified Status: Acute (5) Rheumatoid arthritis: Qualifiers: Rheumatoid arthritis location: unspecified site Rheumatoid factor presence: unspecified presence Qualified Code(s): M06.9 - Rheumatoid arthritis, unspecified Code(s): M06.9 - Rheumatoid arthritis, unspecified Status: Acute GI Consult Note Consult date/time: 04/08/23 15:10 Reason for consult: Diarrhea and possible coffee-ground emesis. HPI: Dev Amaya is a 53 year old male I am asked to see because of possible coffee-ground emesis. Patient history is obtained with the assistance of patient's . Patient is very confused unable to give any useful history. Apparently over the weekend Friday patient became confused with vague abdominal discomfort. For this reason he went to the emergency room. He was felt to have sepsis and was admitted the hospital. He is very confused unable to give any useful history. Patient's reports that over the last week or so he may have had loose diarrhea stools. He apparently had some nausea. Patient currently is confused and unable to add any history. Apparently gave a history of vomiting dark material that was concerning for possible coffee-ground material. In the emergency room a CT scan was performed. Fluid was noted in the small bowel suggesting an enterocolitis. Review of Systems Review of Systems: Review of systems noncontributory. [facility] Past Medical History Medical History Chronic sinus complaints Depression Gastroesophageal reflux disease Heart murmur Hyperlipidemia Hypertension Hypogonadism in male Immunocompromised patient Insomnia Rheumatoid arthritis Sleep apnea Surgical History Surgical History History of ventral hernia repair Family History Family History Father Hypertension Family history of elevated blood lipids Acute myocardial infarction Family history of malignant neoplasm of stomach Mother Hypertension Family history of elevated blood lipids Social History Social History Social History: Surrogate medical decision maker: Santo Amaya, spouse. Code status: Full code. Smoking packs per day: 1 Smoking cigarettes per day: 20.0 Years smoked: 20 Smoking pack-years: 20.00 Smoking status: Former smoker Smoking end date: 06/23/98 Alcohol intake: never Alcohol use details: Very rare alcohol use in moderation. Substance use: never Lack of Transportation: No Lack of
[2023-04-08] MEDS: METOCLOPRAMIDE HCL INJ 10 MG/2 ML VIAL IV PUSH (18:08)
[2023-04-08] MEDS: MORPHINE SULFATE (*CRX) 4 MG/ML INJ IV PUSH (20:38)
[2023-04-08] MEDS: QUEtiapine FUMARATE 25 MG TABLET PO (20:38)
[2023-04-08 21:24] LABS: Glucose Point of Care 174 mg/dl (65-105)
[2023-04-08 21:25] LABS: Hematocrit 51.9 % (42.0-52.0); Hemoglobin 18.3 g/dL (14.0-18.0); Mean Corpuscular HGB Conc 35.3 g/dl (32-36); Mean Corpuscular Hemoglobin 31.6 pg (26-34); Mean Corpuscular Volume 89.5 fl (80-100); Mean Platelet Volume 10.3 fl (7.4-10.4); Platelet Count Result 272 k/mm3 (150-375); Red Cell Distribution Width 14.2 % (11.5-14.5)
[2023-04-08 21:36] LABS: Alanine Aminotransferase 77 U/L (6-50); Albumin Level 4.8 g/dL (3.5-5.1); Alkaline Phosphatase 73 U/L (38-126); Anion Gap 24 mmol/L (8-16); Aspartate Amino Transferase 59 U/L (17-59); Bilirubin,Total 1.9 mg/dL (0.2-1.3); Blood Urea Nitrogen 55 mg/dL (9-20); Carbon Dioxide 14 mmol/L (22-30); Chloride 86 mmol/L (98-107); Estimated CRCL calculation 18 ml/min; Estimated Glomerular Filt Rate 13; Glucose 158 mg/dL (65-110); Potassium 3.2 mmol/L (3.4-5.0); Sodium 124 mmol/L (137-145)
[2023-04-08 21:36] LABS: Lactic Acid Reflex 2.1 mmol/L (0.7-2.0)
[2023-04-08 21:51] LABS: Creatine Kinase 654 U/L (55-170)
[2023-04-08] MEDS: HYDROcodone/acetaminophen (*CRX) 5-325 MG TABLET 1 TAB PO (22:15)
[2023-04-08 22:17] LABS: Alveolar/Arterial O2 Gradient 31.1 mmHg; Base Excess ABG -3.9 mEq/l (+/-2.0); Carboxyhemoglobin 0.2 % THb (0-2.0); Fractional Inspired Oxygen 21 %; HCO3 ABG 16.7 mEq/l (22.0-26.0); Methemoglobin ABG 0.4 %THb (0-1.5); Oxygen Content ABG 26.3 %vol (16.0-22.0); Oxygen Saturation ABG 97.6 % (95.0-100.0); Oxyhemoglobin 95.6 % THb (90.0-100.0); PO2 FiO2 Ratio Arterial Blood 4.33 %; Reduced Hemoglobin 3.8 %THb (0-5.0); Total Hemoglobin 19.6 g/dL (12.0-18.0); pH ABG 7.476 (7.350-7.450)
[2023-04-08 22:18] LABS: PCO2 ABG 23.1 mmHg (35.0-45.0)
[2023-04-08 22:19] LABS: Device ROOM AIR; Modified Allen's Test Pass; Site Drawn LEFT RADIAL
--- NOTE | 2023-04-08 23:12 | PM.EVENT ---
Event Note Event Note Event Note: 04/08/2023 at 22:25 Patient was admitted for intractable diarrhea, dehydration, sepsis with acute kidney injury. Nursing staff called because patient was experiencing increased muscle tightness and mottling to lower extremities. Stat labs were obtained which demonstrated significantly worsening BUN and creatinine his well as climbing white count and hemoglobin. I went to evaluate the patient. The patient's chart was reviewed. Patient is on normal saline at 100 mL an hour. Nursing staff tells me the patient had at least 2 L of stool output the night before. The exact amount of stool output throughout the day is not recorded as just the number of stools with documented. They had not been able to measure output of urine and due to patient's diarrhea. Patient has had essentially no urine output from the Umanzor catheter since placement. Patient has remained tachycardic since admission with heart rates in the 110s to 120s and respiratory rate has been around 22 persistently. Patient's (Santo) was at bedside and help provide some history. She became concerned because the patient seemed more confused. She also noticed that his legs were discolored any was noted to be mottled up to the thigh. The patient was able to answer orientation questions but was generally slow to respond. He reports that his abdominal pain is been pretty much stable since admission. He noted to have hyperactive bowel sounds slightly tympanic abdominal exam with generalized tenderness to palpation and nondistended. His lung sounds were still clear. He is currently afebrile. He is not diaphoretic his skin was cool to touch. The patient had 4-5 second cap refill of feet and 2-3 second cap refill of the fingers. [place] [address] hemoglobin had climbed from 16.4 -18.3. ABG demonstrated pH of 7.47 with pCO2 of 23 PO2 of 91 on room air. Like dry panel demonstrated worsening sodium 124 potassium 3.2 chloride 86 CO2 dropped from 20/3 down to 17 and now is 14. Lactic acid was relatively stable at 2.1. ALT was mildly increased and CK had doubled to 654. BUN had increased from 38-55 and creatinine at increased from 1.9-4.6 Telemetry was reviewed. KUB was performed and demonstrated possible adynamic ileus. Assessment and Plan: 1. Severe dehydration--patient has elevated BUN creatinine and hemoconcentration noted on other labs consistent with severe volume depletion. Patient is probably having more stool output the knees receiving in replacement. Will stop normal saline. Will give patient 2 L in LR bolus. Will change patient to a bicarb drip with 150 mEq sodium bicarb to run at 200 mL an hour after bolus completed. Will also give the patient 2 amps of sodium bicarb. 2. Severe sepsis due to Gram-negative bacteremia--will continue Zosyn but pharmacy will need to renally adjust given the patient's acutely worsening creatinine. Patient's blood pressures are remaining stable and tachycardia stable at this time. Will monitor closely. Patient is at high risk for decompensation. Will repeat CBC and CMP in a.m.. Will trend lactic acid. 3. Respiratory alkalosis secondary to metabolic acidosis--metabolic acidosis due to acute kidney injury likely ATN from sepsis, GI bicarb losses and volume depletion. Also some component of rhabdomyolysis is likely setting in. Will treat underlying acidosis with bicarb pushes and infusion as discussed above. Will monitor strict I&O's. Umanzor catheter has been placed to monitor urine output. Patient may need fecal management system. 4. Adynamic ileus--patient is not actively vomiting at this time. Will continue clear liquids if tolerated. 5. Metabolic encephalopathy--treat underlying causes as discussed above. Continue monitor. 6. Patient does have some mild hypokalemia. Will hold off on replacement at this time given the patient's acutely worsening renal function. Will reas
[2023-04-08] MEDS: LACTATED RINGERS 1,000 ML 999 ML IV CONT (23:14)
[2023-04-08] MEDS: SODIUM BICARBONATE 8.4% 50 MEQ/50 ML SYRINGE IV PUSH ×2 (23:15)
--- NOTE | 2023-04-08 23:27 | ECHO_ITS ---
Patient Info Name: Dev Amaya Age: 53 years : 1970 Gender: Male Ht: 68 in Wt: 199 lbs BSA: 2.11 m2 HR: 125 bpm BP: 153 / 85 mmHg Heart Rhythm: Sinus Rhythm, Tachycardia Technical Quality: Good Exam Date: 04/08/2023 11:15 AM Exam Location: [facility] Card Pulmonary Patient Status: Inpatient Admit Date: 04/07/2023 Staff Ordering Physician: Shanda Dixon PA-C [employer] Craftsman: Torrie Mckeon RDCS Attending Provider: Larry Nunn MD Referring Physician: Destiny TAVARES; Exam Type: CA echo doppler color flow Study Info Indications - ABN EKG, elevated troponin Complete two-dimensional, color flow and Doppler transthoracic echocardiogram is performed. Summary 1. Complete two-dimensional, color flow and Doppler transthoracic echocardiogram is performed. 2. Left ventricular chamber dimension is normal. 3. Left ventricular systolic function is normal, estimated at 60-65%. 4. There is mildly increased left ventricular wall thickness. 5. The left ventricular diastolic function is grade I diastolic dysfunction. 6. Right ventricular systolic function is normal. 7. There is trace mitral valve regurgitation. 8. There is trace tricuspid valve regurgitation. 9. There is trivial pericardial effusion. Left Ventricle Left ventricular chamber dimension is normal. Left ventricular systolic function is normal, estimated at 60-65%. There is mildly increased left ventricular wall thickness. The left ventricular diastolic function is grade I diastolic dysfunction. Right Ventricle Right ventricular chamber dimension is normal. Right ventricular systolic function is normal. Left Atria Left atrial chamber dimension is normal. Right Atria Right atrial chamber dimension is normal. Atrial Septum Intact interatrial septum visualized by color flow imaging. Aortic Valve The aortic valve is probable trileaflet. There is no aortic valve stenosis. There is no aortic valve regurgitation. There is mild aortic valve calcification. Pulmonic Valve The pulmonic valve is not well visualized. Mitral Valve There is trace mitral valve regurgitation. Tricuspid Valve There is trace tricuspid valve regurgitation. Pericardium/Pleural The pericardium appears epicardial fat pad. There is trivial pericardial effusion. Inferior Vena Cava Normal inferior vena cava with >50% collapse upon inspiration consistent with normal right atrial pressure, 3 mmHg. Aorta The aortic root size at the sinus of Valsalva is normal. Left Ventricular Outflow Tract Name Value Normal LVOT 2D LVOT Diameter 1.9 cm LVOT Doppler LVOT Peak Gradient 3 mmHg LVOT Mean Gradient 2 mmHg LVOT VTI 15 cm LVOT VTI/AV VTI Ratio 1.1 LVOT Stroke Volume 44 ml LVOT CO 10.7 l/min LVOT CI 5.1 l/min/m2 Pulmonic Valve Name Value Normal RVOT Doppler --------
--- NOTE | 2023-04-08 23:29 | PC.NURSE ---
Patient noted to be experiencing increased muscle tightness, mottling to bilateral lower extremities, and diaphoresis. Blood glucose obtained to rule out hypoglycemia and was found to be within normal limits. Shanda Dixon notified and stat labs ordered as well as chiu catheter placement. Patient noted to have worsening BUN and Creatinine as well as WBC and Hgb. Dr. Leyva at bedside to evaluate patient. Orders received. PRN morphine and norco give some relief for pain. Patient resting in bed and at bedside. All vitals stable at this time. Will continue to monitor.
[2023-04-08] MEDS: SODIUM BICARBONATE 8.4% 150 MEQ in DEXTROSE 5% 1,000 ML 950 ML IV CONT (23:38)
[2023-04-09] VITALS (18 sets, daily range): BP systolic 131–152; BP diastolic 93–110; PULSE 76–115; RESP 15–22; TEMP 36.3–36.6; O2SAT 95–98
[2023-04-09 00:23] LABS: Reflex Lactic Acid Yes or No Add Lactic
[2023-04-09] MEDS: LACTATED RINGERS 1,000 ML 999 ML IV CONT ×3 (00:28→14:05)
[2023-04-09 00:49] LABS: Lactic Acid 1.9 mmol/L (0.7-2.0)
[2023-04-09] MEDS: PIPERACILLIN/TAZ 2.25G/NS 50ML 2.25 GM/50 ML BAG IVPB ×2 (02:03→09:10)
[2023-04-09 03:05] LABS: Hematocrit 43.2 % (42.0-52.0); Hemoglobin 15.4 g/dL (14.0-18.0); Mean Corpuscular HGB Conc 35.6 g/dl (32-36); Mean Corpuscular Volume 87.1 fl (80-100); Mean Platelet Volume 10.2 fl (7.4-10.4); Platelet Count Result 211 k/mm3 (150-375); Red Blood Count 4.96 M/mm3 (4.6-6.20); Red Cell Distribution Width 13.8 % (11.5-14.5); White Blood Count 15.5 K/mm3 (4.5-10.0)
[2023-04-09 03:30] LABS: Alanine Aminotransferase 54 U/L (6-50); Alkaline Phosphatase 54 U/L (38-126); Anion Gap 14 mmol/L (8-16); Aspartate Amino Transferase 53 U/L (17-59); Bilirubin,Total 1.5 mg/dL (0.2-1.3); Blood Urea Nitrogen 61 mg/dL (9-20); Calcium 7.5 mg/dL (8.4-10.2); Carbon Dioxide 29 mmol/L (22-30); Chloride 83 mmol/L (98-107); Estimated CRCL calculation 17 ml/min; Estimated Glomerular Filt Rate 12; Glucose 161 mg/dL (65-110); Potassium 2.7 mmol/L (3.4-5.0); Sodium 126 mmol/L (137-145)
[2023-04-09 03:42] LABS: Total Cells Counted 100
[2023-04-09 03:43] LABS: Band Neutrophils Percent 22 % (0-6); Lymphocytes Percent Manual 11 % (18-44); Monocytes Absolute Manual 3.56 K/mm3 (0.1-0.90); Monocytes Percent Manual 23 % (3-9); Myelocytes Percent 3 %; Neutrophils Absolute Manual 8.52 K/mm3 (1.3-6.7); Neutrophils Percent Manual 33 % (46-73); Promyelocytes Percent 3 %
[2023-04-09 03:45] LABS: Atypical Lymphocytes Present; Platelet Estimate Adequate (Adequate); Schistocytes None Seen (NORMAL)
[2023-04-09 04:03] LABS: Creatine Kinase 520 U/L (55-170)
[2023-04-09] MEDS: METOCLOPRAMIDE HCL INJ 10 MG/2 ML VIAL IV PUSH (04:55)
[2023-04-09] MEDS: POTASSIUM CHLORIDE 20 MEQ ER TABLET 40 MEQ PO (04:55)
[2023-04-09] MEDS: SODIUM BICARBONATE 8.4% 150 MEQ in DEXTROSE 5% 1,000 ML 950 ML IV CONT (06:26)
--- NOTE | 2023-04-09 08:15 | WPDGIPROGNO ---
Progress Note: A&P Assessment and Plan (1) Enterocolitis: Code(s): K52.9 - Noninfective gastroenteritis and colitis, unspecified Status: Acute Assessment and Plan: Patient with apparent enterocolitis by imaging studies. Rather significant ongoing diarrhea. Associated with diffuse abdominal pain. This may be source of infection. Stool cultures are pending. Patient currently on broad-spectrum intravenous antibiotics. will continue to follow and treat conservatively for now. Await cultures. (2) Severe sepsis: Code(s): A41.9 - Sepsis, unspecified organism; R65.20 - Severe sepsis without septic shock Status: Acute Assessment and Plan: Patient appears to be septic. G negative bacilli noted on blood cultures. Etiology uncertain. Urinalysis and stool cultures are pending. (3) KALPANA (acute kidney injury): Code(s): N17.9 - Acute kidney failure, unspecified Status: Acute Assessment and Plan: Patient with significant renal insufficiency. Creatinine now 4.9. continue IV rehydration. Nephrology consult pending. (4) Confusion: Code(s): R41.0 - Disorientation, unspecified Status: Acute Assessment and Plan: Patient with significant confusion and encephalopathy yesterday. This appears to be improving. Hopefully with treatment of infection this will continue to improve. Subjective Date/time seen: 04/09/23 08:15 Interval history: Patient more alert today. Able to put together sentences. He appears to be appropriate at present. Much improved from yesterday. He still complains rather frequent ongoing diarrhea. He notes rather diffuse abdominal pain. Review of Systems Review of Systems: Review of systems noncontributory. Exam Narrative: Physical exam reveals patient be alert. Oriented x3. Vital signs stable. HEENT exam reveals no icterus. Lungs are clear to auscultation and percussion. Heart is without murmur or extra sounds. Abdomen bowel sounds are present soft but diffusely tender. No masses organomegaly appreciated. Objective Data Vital Signs Vital Signs: Vital Signs - 24 hr 04/08/23 12:00 04/08/23 16:22 04/08/23 10:00 Temperature 97.4 F L 97.5 F L Pulse Rate 120 H 114 H 124 H Respiratory Rate 20 22 H Blood Pressure 154/93 H 164/100 H Pulse Oximetry 97 97 Oxygen Delivery 04/08/23 12:00 04/08/23 14:00 04/08/23 16:00 Temperature Pulse Rate 121 H 120 H 117 H Respiratory Rate Blood Pressure Pulse Oximetry Oxygen Delivery 04/08/23 18:00 04/08/23 12:00 04/08/23 16:00 Temperature Pulse Rate 122 H Respiratory Rate Blood Pressure Pulse Oximetry Oxygen Delivery Room Air Room Air 04/08/23 19:27 04/08/23 20:00 04/08/23 22:31 Temperature 97.5 F L 97.7 F Pulse Rate 121 H 134 H 115 H Respiratory Rate 22 H 22 H 22 H Blood Pressure 144/98 H 146/90 H Pulse Oximetry 96 96 97 Oxygen Delivery Room Air 04/08/23 20:00 04/08/23 22:00 04/09/23 00:00 Temperature Pulse Rate 121 H 110 H 115 H Respiratory Rate 22 H Blood Pressure Pulse Oximetry 97 Oxygen Delivery Room Air 04/09/23 00:00 04/09/23 02:00 04/09/23 04:00 Temperature 97.8 F Pulse Rate 96 86 97 Respiratory Rate 22 H Blood Pressure 149/99 H Pulse Oximetry 98 Oxygen Delivery 04/09/23 04:00 04/09/23 04:00 04/09/23 06:00 Temperature Pulse Rate 97 101 H 111 H Respiratory Rate 22 H Blood Pressure Pulse Oximetry 98 Oxygen Delivery Room Air 04/09/23 08:11 Temperature 97.5 F L Pulse Rate 106 H Respiratory Rate 20 Blood Pressure 144/94 H Pulse Oximetry 95 Oxygen Delivery Intake/Output Intake/Output: Intake & Output 04/06/23 04/07/23 04/08/23 04/09/23 23:59 23:59 23:59 23:59 Intake Total 3200 4880 3700 Output Total 100 2200 2900 Balance 3100 2680 800 Meds/Results Medications: Active Medications Generic Name Dose Route Start Last
[2023-04-09] MEDS: PANTOPRAZOLE SODIUM IV 40 MG VIAL IV PUSH ×2 (09:03→21:16)
[2023-04-09] MEDS: GABAPENTIN 300 MG CAPSULE 900 MG PO (09:03)
[2023-04-09] MEDS: METOCLOPRAMIDE HCL 10 MG TABLET PO (09:05)
[2023-04-09] MEDS: DULoxetine HCL 60 MG CAPSULE.DR PO (09:05)
[2023-04-09] MEDS: FOLIC ACID 1 MG TABLET PO (09:05)
[2023-04-09] MEDS: LORATADINE 10 MG TABLET PO (09:06)
[2023-04-09] MEDS: predniSONE 5 MG TABLET PO (09:07)
[2023-04-09] MEDS: ONDANSETRON INJ 4 MG/2 ML VIAL IV PUSH ×3 (09:28→21:16)
--- NOTE | 2023-04-09 11:37 | ECG_ITS ---
Measurements Intervals Irene Rate: 99 P: 67 MA: 136 QRS: 78 QRSD: 114 T: 1 QT: 333 QTc: 429 Interpretive Statements SINUS RHYTHM LEFT ATRIAL ENLARGEMENT [-0.15mV P WAVE IN V1/V2] INCOMPLETE RIGHT BUNDLE BRANCH BLOCK [90+ ms QRS DURATION, TERMINAL R IN V1/V2, 40+ ms S IN I/aVL/V4/V5/V6] NONSPECIFIC ST ABNORMALITY ABNORMAL ECG COMPARED TO ECG 04/07/2023 11:12:04 HEART RATE HAS DECREASED AND ST ABNORMALITIES LESS PROMINENT Electronically Signed On 04-09-2023 18:30:49 CDT by Juan Carlos Mcgovern M.D.
[2023-04-09] MEDS: SULFAMETHOXAZOLE/TRIMETHOPRIM 400/80 MG TABLET 1 TAB PO ×2 (12:18→21:17)
[2023-04-09 12:27] LABS: Hematocrit 45.8 % (42.0-52.0); Hemoglobin 16.7 g/dL (14.0-18.0); Mean Corpuscular HGB Conc 36.5 g/dl (32-36); Mean Corpuscular Hemoglobin 31.2 pg (26-34); Mean Corpuscular Volume 85.4 fl (80-100); Mean Platelet Volume 10.8 fl (7.4-10.4); Platelet Count Result 213 k/mm3 (150-375); Red Blood Count 5.36 M/mm3 (4.6-6.20); Red Cell Distribution Width 13.6 % (11.5-14.5); White Blood Count 20.5 K/mm3 (4.5-10.0)
[2023-04-09 12:36] LABS: Lactic Acid Reflex 2.9 mmol/L (0.7-2.0)
[2023-04-09 12:40] LABS: Band Neutrophils Percent 20 % (0-6); INR 1.1; Lymphocytes Absolute Manual 3.69 K/mm3 (1.1-4.5); Lymphocytes Percent Manual 18 % (18-44); Monocytes Percent Manual 20 % (3-9); Neutrophils Absolute Manual 12.71 K/mm3 (1.3-6.7); Neutrophils Percent Manual 42 % (46-73); Platelet Estimate Adequate (Adequate); Prothrombin Time 14.9 Seconds (11.1-14.7); Total Cells Counted 100
[2023-04-09 12:41] LABS: Atypical Lymphocytes Present; Partial Thromboplastin Time 29.6 SECONDS (22.3-36.8); Schistocytes None Seen (NORMAL)
--- NOTE | 2023-04-09 12:44 | WPDCNINT ---
Assessment and Plan Assessment and plan (1) Enterocolitis: Code(s): K52.9 - Noninfective gastroenteritis and colitis, unspecified Status: Acute Assessment and Plan: Patient presented on 04/07 with severe diarrhea and abdominal pain after eating a pizza, denies any travel or sick contacts. Patient is on Humira so his immunocompromised -04/07: CTA abdomen and pelvis showed fluid levels in small bowel and particularly: Suggesting enterocolitis. Diffuse fluid distention of the esophagus suggesting reflux, prominent fluid level in the stomach, hepatic steatosis, moderate prostatic enlargement normal appendix 04/07/2023: Blood cultures positive for somnolent species -will switch Zosyn to ceftriaxone and Bactrim (04/09) -04/07 C diff is negative -04/09: Stool culture obtained and pending for some with Jaycee/again a, E coli, Campylobacter, Cryptosporidium and Giardia -fecal management system has been placed, -continue aggressive IV fluid hydration -with balance the GI losses and in insensible fluid losses with IV fluids (2) KALPANA (acute kidney injury): Code(s): N17.9 - Acute kidney failure, unspecified Status: Acute Assessment and Plan: Acute kidney injury likely related to dehydration, ATN, hypovolemia -metabolic acidosis due to bicarb losses in the stool -continue bicarb infusion at 50 mL/hour -continue LR at 150 mL/hour -total amount of fluids at 200 mL/hour -patient given 1 L IV fluid of LR in the ICU -monitor urine output, renal function electrolytes -nephrology has been consulted, agrees with above plan at this time 04/08: Ultrasound with normal kidneys without hydronephrosis (3) Dehydration: Code(s): E86.0 - Dehydration Status: Acute Assessment and Plan: Continue IV fluids as above (4) Severe sepsis: Code(s): A41.9 - Sepsis, unspecified organism; R65.20 - Severe sepsis without septic shock Status: Acute Assessment and Plan: Severe sepsis likely related to hypovolemia, Salmonella bacteremia -continue antibiotics as above -blood pressures have been stable -lactic acid is 2.9, will trend -continue aggressive IV fluids -discussed with Nephrology 04/08: Echocardiogram Summary ? 1. Complete two-dimensional, color flow and Doppler transthoracic echocardiogram is performed. ? 2. Left ventricular chamber dimension is normal. ? 3. Left ventricular systolic function is normal, estimated at 60-65%. ? 4. There is mildly increased left ventricular wall thickness. ? 5. The left ventricular diastolic function is grade I diastolic dysfunction. ? 6. Right ventricular systolic function is normal. ? 7. There is trace mitral valve regurgitation. ? 8. There is trace tricuspid valve regurgitation. ? 9. There is trivial pericardial effusion. (5) Electrolyte imbalance: Code(s): E87.8 - Other disorders of electrolyte and fluid balance, not elsewhere classified Status: Acute Assessment and Plan: Will replete potassium aggressively, likely due acidosis in GI losses (6) Elevated liver enzymes: Code(s): R74.8 - Abnormal levels of other serum enzymes Status: Acute Assessment and Plan: Elevated LFTs with elevated bilirubin -could be related to Salmonella hepatitis infection 04/07: Right upper quadrant ultrasound with no significant abnormality seen Plan DVT prophylaxis: Heparin SQ Stress ulcer prophylaxis: Protonix Nutrition: Clear liquids Code Status: Full code Critical Care Time Spent: 55 minute Discuss with hospitalist, Nephrology Due to a high probability of clinically significant, life threatening deterioration, the patient required my highest level of preparedness to intervene emergently and I personally spent this critical care time directly and personally managing the patient. This critical care time included obtaining a history; examining the patient; pulse oximetry; ordering and review of studies; arrangi
[2023-04-09 12:45] LABS: Alanine Aminotransferase 63 U/L (6-50); Albumin Level 4.3 g/dL (3.5-5.1); Alkaline Phosphatase 70 U/L (38-126); Anion Gap 23 mmol/L (8-16); Aspartate Amino Transferase 75 U/L (17-59); Bilirubin,Total 2.3 mg/dL (0.2-1.3); Blood Urea Nitrogen 70 mg/dL (9-20); Calcium 7.7 mg/dL (8.4-10.2); Carbon Dioxide 33 mmol/L (22-30); Chloride 66 mmol/L (98-107); Estimated CRCL calculation 13 ml/min; Estimated Glomerular Filt Rate 9; Glucose 155 mg/dL (65-110); Potassium 2.5 mmol/L (3.4-5.0); Sodium 122 mmol/L (137-145)
--- NOTE | 2023-04-09 12:45 | P.CONNP_ITS ---
Assessment and Plan Assessment and plan (1) KALPANA (acute kidney injury): Code(s): N17.9 - Acute kidney failure, unspecified Status: Acute Assessment and Plan: * suspect multifactorial etiology: * dehydration/volume depletion * ATN from infection (complicated by immunosuppression) * contrast exposure (CTA of abdomen on 04/07/23) * complicated by NSAID use SENIOR SUSTAINABILITY CONSULTANT * TIP-I use SENIOR SUSTAINABILITY CONSULTANT * trend of creatinine noted since admission: * 2.4mg/dl on admission * trended down to 1.7mg/dl * up to 4.9mg/dl this AM (04/09/23) * now 6.6mg/dl by most recent labs * since acidosis better, can back off/decreased bicarb fluid rate * initial metabolic acidosis on admission likely for KALPANA and GI loss * agree with aggressive volume resuscitation * renal ultrasound without obstruction * check urine studies and follow-up on CPK * remains at risk for CAMERA PROTOTYPING ENGINEER/dialysis -- however, still making good urine output * follow trend of repeat labs and UOP (2) Severe sepsis: Code(s): A41.9 - Sepsis, unspecified organism; R65.20 - Severe sepsis without septic shock Status: Acute Assessment and Plan: * secondary to severe hypovolemia from GI losses and Salmonella bactremia * complicated by immunocompromised status * on antibiotics * blood pressure stable at this time - no need for vasopressors * continue current therapy (3) Enterocolitis: Code(s): K52.9 - Noninfective gastroenteritis and colitis, unspecified Status: Acute Assessment and Plan: * severe diarrhea and abdominal pain on admission * admission imaging of CTA of abd/pelvis results noted * C.diff toxin negative * stool culture pending * follow stool output * continue agressive IVF hydration (4) Hypokalemia: Code(s): E87.6 - Hypokalemia Status: Acute Assessment and Plan: * due to bicarb fluids and ongoing GI losses * aggressively replete as needed * follow repeat K+ levels (5) Hyponatremia: Code(s): E87.1 - Hypo-osmolality and hyponatremia Status: Acute Assessment and Plan: * likely due to fluctuation volume status * checking urine electrolytes, TSH, cortisol, and SPEP/UPEP * follow trend with IVF hydration (6) Elevated liver enzymes: Code(s): R74.8 - Abnormal levels of other serum enzymes Status: Acute Assessment and Plan: * secondary to infection/bacteremia * RUQ ultrasound negative * follow trend of LFTs (7) Rheumatoid arthritis: Qualifiers: Rheumatoid arthritis location: unspecified site Rheumatoid factor presence: unspecified presence Qualified Code(s): M06.9 - Rheumatoid arthritis, unspecified Code(s): M06.9 - Rheumatoid arthritis, unspecified Status: Chronic Assessment and Plan: * holding immunosuppression medications (except prednisone) * continue supportive therapy Discussed case with Dr. Limon. Long extensive discussion (greater than 20 minutes) with the patient as well as his family at bedside regarding his acute kidney injury/acute renal failure in the context of volume depletion/dehydration from significant GI losses (diarrhea) complicated by his immunocompromised status and bacteremia/infection. The hope is with aggressive IV fluid resuscitation, antibiotic therapy, and ongoing supportive therapy that his renal function will recover. He appeared to voice understanding. I will continue follow the patient with you while he remains hospitalized and make further recommendations as deemed necessary. Thank you for allowing m
--- NOTE | 2023-04-09 12:45 | PM.CNNEP ---
Assessment and Plan Assessment and plan (1) KALPANA (acute kidney injury): Code(s): N17.9 - Acute kidney failure, unspecified Status: Acute Assessment and Plan: suspect multifactorial etiology: dehydration/volume depletion ATN from infection (complicated by immunosuppression) contrast exposure (CTA of abdomen on 04/07/23) complicated by NSAID use EVALUATION ANALYST TIP-I use EVALUATION ANALYST trend of creatinine noted since admission: 2.4mg/dl on admission trended down to 1.7mg/dl up to 4.9mg/dl this AM (04/09/23) now 6.6mg/dl by most recent labs since acidosis better, can back off/decreased bicarb fluid rate initial metabolic acidosis on admission likely for KALPANA and GI loss agree with aggressive volume resuscitation renal ultrasound without obstruction check urine studies and follow-up on CPK remains at risk for PRINTER SLOTTER OPERATOR/dialysis -- however, still making good urine output follow trend of repeat labs and UOP (2) Severe sepsis: Code(s): A41.9 - Sepsis, unspecified organism; R65.20 - Severe sepsis without septic shock Status: Acute Assessment and Plan: secondary to severe hypovolemia from GI losses and Salmonella bactremia complicated by immunocompromised status on antibiotics blood pressure stable at this time - no need for vasopressors continue current therapy (3) Enterocolitis: Code(s): K52.9 - Noninfective gastroenteritis and colitis, unspecified Status: Acute Assessment and Plan: severe diarrhea and abdominal pain on admission admission imaging of CTA of abd/pelvis results noted C.diff toxin negative stool culture pending follow stool output continue agressive IVF hydration (4) Hypokalemia: Code(s): E87.6 - Hypokalemia Status: Acute Assessment and Plan: due to bicarb fluids and ongoing GI losses aggressively replete as needed follow repeat K+ levels (5) Hyponatremia: Code(s): E87.1 - Hypo-osmolality and hyponatremia Status: Acute Assessment and Plan: likely due to fluctuation volume status checking urine electrolytes, TSH, cortisol, and SPEP/UPEP follow trend with IVF hydration (6) Elevated liver enzymes: Code(s): R74.8 - Abnormal levels of other serum enzymes Status: Acute Assessment and Plan: secondary to infection/bacteremia RUQ ultrasound negative follow trend of LFTs (7) Rheumatoid arthritis: Qualifiers: Rheumatoid arthritis location: unspecified site Rheumatoid factor presence: unspecified presence Qualified Code(s): M06.9 - Rheumatoid arthritis, unspecified Code(s): M06.9 - Rheumatoid arthritis, unspecified Status: Chronic Assessment and Plan: holding immunosuppression medications (except prednisone) continue supportive therapy Discussed case with Dr. Limon. Long extensive discussion (greater than 20 minutes) with the patient as well as his family at bedside regarding his acute kidney injury/acute renal failure in the context of volume depletion/dehydration from significant GI losses (diarrhea) complicated by his immunocompromised status and bacteremia/infection. The hope is with aggressive IV fluid resuscitation, antibiotic therapy, and ongoing supportive therapy that his renal function will recover. He appeared to voice understanding. I will continue follow the patient with you while he remains hospitalized and make further recommendations as deemed necessary. Thank you for allowing me to participate in the care of this patient. History of Present Illness Reason for Consult Consult date: 04/09/23 Reason for consult: acute renal failure Chief Complaint Chief complaint: Enteritis/KALPANA/Sepsis/Elevated Trop History of Present Illness Narrative: The patient is a 53-year-old male with a past medical history as outlined below who presented to [facility] Emergency Room approximately 2 days ago with complaints of abdo
[2023-04-09] MEDS: cefTRIAXone 2 GM/NS 100 ML 2 GM/100 ML BAG IVPB ×2 (12:53→21:17)
[2023-04-09] MEDS: LACTATED RINGERS 1,000 ML 150 ML IV CONT (13:33)
[2023-04-09] MEDS: POTASSIUM CHLORIDE INJ 40 MEQ in SODIUM CHLORIDE 0.9% IV 500 ML 130 MEQ IVPB ×2 (13:34→18:30)
[2023-04-09 13:43] LABS: Toxigenic C. Diff NEGATIVE (NEGATIVE)
--- NOTE | 2023-04-09 14:50 | PC.NURSE ---
This patient, Dev Amaya, was received from [ IMU [id number]] on 04/09/23 at 1223. Patient/family oriented to unit policies and routines
[2023-04-09 15:22] LABS: Reflex Lactic Acid Yes or No Add Lactic
--- NOTE | 2023-04-09 15:24 | PC.NURSE ---
1208- Dr. Limon( ICU prototype carpenter in room to assess pt) -New orders received and Orders to transfer pt to ICU; 1225 Pt transferred to ICU to room 7 via bed accompanied by and staff-Report given to Anjana BOYKIN
[2023-04-09] MEDS: ACETAMINOPHEN 325 MG TABLET 650 MG PO (15:34)
[2023-04-09] MEDS: HYDROcodone/acetaminophen (*CRX) 5-325 MG TABLET 1 TAB PO (16:41)
[2023-04-09] MEDS: SODIUM BICARBONATE 8.4% 150 MEQ in DEXTROSE 5% 1,000 ML 950 ML 50 MEQ IV CONT (16:43)
--- NOTE | 2023-04-09 16:44 | PM.IMPN ---
Progress Note: A&P Assessment and Plan (1) Sepsis: Code(s): A41.9 - Sepsis, unspecified organism Status: Acute Assessment and Plan: The patient meets sepsis criteria with fever, tachycardia, leukocytosis with bandemia, lactic acidosis, and acute kidney injury. Secondary to enterocolitis. monitor vitals BP HR etc lactic improving WCC still high stool culture show Samonella continue iv fluids continue iv rocephin and oral bactrim (2) Enterocolitis: Code(s): K52.9 - Noninfective gastroenteritis and colitis, unspecified Status: Acute Assessment and Plan: Patient has acute abdomen pain, associated with nausea vomiting diarrhea Possible acute infective gastroenteritis likely secondary to salmonella (3) Acute kidney injury: Code(s): N17.9 - Acute kidney failure, unspecified Status: Acute Assessment and Plan: Possible prerenal versus ATN due to sepsis Avoid nephrotoxin medication Creat worsening nephrology on board continue iv fluids continue iv sodium bicarbonate (4) Gastroesophageal reflux disease: Code(s): K21.9 - Gastro-esophageal reflux disease without esophagitis Status: Acute Assessment and Plan: Has dark brown emesis in the ED concerning for coffee-ground emesis. Occult blood pending Started Protonix 40 mg IV b.i.d.. GI consulted. (5) Dehydration: Code(s): E86.0 - Dehydration Status: Acute Assessment and Plan: As above continue aggressive IV fluid rehydration (6) Elevated troponin: Code(s): R79.89 - Other specified abnormal findings of blood chemistry Status: Acute Assessment and Plan: troponins have been flat. EKG however shows ST deviation and moderate T-wave abnormalities concerning for possible anterolateral ischemia. Echocardiogram ordered. Cardiology was consulted by the ED physician and their input is appreciated. (7) Rheumatoid arthritis: Qualifiers: Rheumatoid arthritis location: unspecified site Rheumatoid factor presence: unspecified presence Qualified Code(s): M06.9 - Rheumatoid arthritis, unspecified Code(s): M06.9 - Rheumatoid arthritis, unspecified Status: Acute Assessment and Plan: Patient has chronic pain related to the same. He is immunocompromised as he is on biologics and prednisone. Continue steroids (may need to stress dose though not at this time). Hold methotrexate and Humira. (8) Immunocompromised patient: Code(s): D84.9 - Immunodeficiency, unspecified Status: Acute Assessment and Plan: As is above. (9) Hypertension: Qualifiers: Hypertension type: essential hypertension Qualified Code(s): I10 - Essential (primary) hypertension Code(s): I10 - Essential (primary) hypertension Status: Acute Assessment and Plan: Blood pressures were reviewed and they are stable. Hold antihypertensives for now and monitor closely. Watch blood pressures carefully Plan HYpokalaemnia watch potassium levels correct with potassium rider Subjective Date/time seen: 04/09/23 16:44 Interval history: 53-year-old male with rheumatoid arthritis, obstructive sleep apnea, hypertension, hyperlipidemia, and gastroesophageal reflux disease who presented to the emergency department via private vehicle from home for evaluation of abdominal pain and diarrhea. The patient provides the following history. His provides additional information, with the patient's permission. Friday evening he complained to his that his stomach was upset and he had a couple of episodes of emesis that night. Friday he began having diarrhea and he reports having too numerous to count episodes of watery, yellow diarrhea. Pt having prefuse diarrhea today stool cultures positive for salmonella KALPANA, creat is going up slightly nephrology consulted hydrate with fluids and sodium bicarbona
--- NOTE | 2023-04-09 16:55 | PC.NURSE ---
1130- dr. anthony into see pt - updated md on decreased urine output, continues to have large amt liquid stool- BP elevated, and chest tightness. pt c/o generalized pain /cramping
[2023-04-09 17:39] LABS: Lactic Acid 1.8 mmol/L (0.7-2.0)
[2023-04-09 17:41] LABS: Anion Gap 16 mmol/L (8-16); Blood Urea Nitrogen 74 mg/dL (9-20); Carbon Dioxide 33 mmol/L (22-30); Chloride 73 mmol/L (98-107); Estimated CRCL calculation 14 ml/min; Estimated Glomerular Filt Rate 10; Glucose 122 mg/dL (65-110); Magnesium 2.6 mg/dL (1.6-2.3); Potassium 3.3 mmol/L (3.4-5.0); Sodium 122 mmol/L (137-145)
[2023-04-09] MEDS: LOPERAMIDE HCL 2 MG CAPSULE PO ×2 (18:04→21:16)
[2023-04-09] MEDS: CHOLESTYRAMINE (W/ SUGAR) 4 GM POWD.PACK PO (18:04)
[2023-04-09] MEDS: PROCHLORPERAZINE EDISYLATE 10 MG/2 ML VIAL IV PUSH (18:30)
[2023-04-09 18:38] LABS: Appearance Urine Cloudy (Clear); Bilirubin Urine 2+ (Negative); Blood Urine 3+ (Negative); Color Urine Dark Yellow (Yellow); Glucose Urine UA Negative (Negative); Ketones Urine Trace mg/dL (Negative); Leukocyte Esterase Ur Negative LEU/UL (NEGATIVE); Nitrate Urine Negative (Negative); Protein Urine 3+ mg/dL (Negative); Urobilinogen Urine 0.2 mg/dL (<2.0); pH Urine 5.5 (5.0-9.0)
[2023-04-09 18:46] LABS: Bacteria Urine None Seen /hpf; Need Manual Microscopic Reviewed; RBC Urine >100 /hpf (0-2); Squamous Epithelial Cell Urine Moderate /hpf (Few); WBC Urine 21-50 /hpf (0-3)
[2023-04-09 18:47] LABS: Add Urine Microscopic? YES
[2023-04-09 19:24] LABS: Creatinine Urine 91.5 mg/dL; Urea Random Urine 116 MG/DL
[2023-04-09 19:30] LABS: Sodium Urine Random 36 meq/L
[2023-04-09 19:31] LABS: Total Protein Urine Random 502 mg/dL; Ur Ttl Prot Creatinine Ratio 5.49 mg/mg (0-0.20)
[2023-04-09 20:05] LABS: Eosinophil Urine None Seen % (None Seen); Urine Eos QC 2nd Tech Confirmed
[2023-04-09] MEDS: HEPARIN SODIUM 5,000 UNITS/ML VIAL 5000 UNITS SUB-Q (21:15)
[2023-04-09] MEDS: MORPHINE SULFATE (*CRX) 4 MG/ML INJ IV PUSH (21:16)
[2023-04-09] MEDS: QUEtiapine FUMARATE 25 MG TABLET PO (21:17)
[2023-04-09] MEDS: LACTATED RINGERS 1,000 ML 170 ML IV CONT (21:17)
[2023-04-10] VITALS (17 sets, daily range): BP systolic 142–162; BP diastolic 87–110; PULSE 74–88; RESP 12–22; TEMP 36.4–36.9; O2SAT 92–98
[2023-04-10] MEDS: MORPHINE SULFATE (*CRX) 4 MG/ML INJ IV PUSH ×2 (01:58→08:43)
[2023-04-10] MEDS: LOPERAMIDE HCL 2 MG CAPSULE PO ×2 (01:58→20:53)
[2023-04-10] MEDS: LACTATED RINGERS 1,000 ML 170 ML IV CONT ×3 (03:18→15:43)
[2023-04-10] MEDS: HYDROcodone/acetaminophen (*CRX) 5-325 MG TABLET 1 TAB PO (04:33)
[2023-04-10 04:53] LABS: Mean Corpuscular HGB Conc 35.7 g/dl (32-36); Mean Corpuscular Hemoglobin 31.1 pg (26-34); Mean Corpuscular Volume 87.1 fl (80-100); Mean Platelet Volume 11.4 fl (7.4-10.4); Platelet Count Result 172 k/mm3 (150-375); Red Blood Count 4.82 M/mm3 (4.6-6.20); Red Cell Distribution Width 13.9 % (11.5-14.5); White Blood Count 21.2 K/mm3 (4.5-10.0)
[2023-04-10 05:19] LABS: Alanine Aminotransferase 58 U/L (6-50); Albumin Level 3.8 g/dL (3.5-5.1); Alkaline Phosphatase 67 U/L (38-126); Anion Gap 20 mmol/L (8-16); Aspartate Amino Transferase 71 U/L (17-59); Bilirubin,Total 1.9 mg/dL (0.2-1.3); Blood Urea Nitrogen 81 mg/dL (9-20); Calcium 6.9 mg/dL (8.4-10.2); Carbon Dioxide 34 mmol/L (22-30); Chloride 71 mmol/L (98-107); Creatine Kinase 357 U/L (55-170); Estimated CRCL calculation 10 ml/min; Estimated Glomerular Filt Rate 7; Glucose 122 mg/dL (65-110); Lipase 91 U/L (23-300); Magnesium 2.8 mg/dL (1.6-2.3); Phosphorus 8.9 mg/dL (2.5-4.5); Potassium 2.9 mmol/L (3.4-5.0); Sodium 125 mmol/L (137-145)
[2023-04-10 05:36] LABS: CRP 26.3 mg/dL (<1.0)
[2023-04-10 05:49] LABS: Band Neutrophils Percent 17 % (0-6); Hypochromasia 1+ (NORMAL); Lymphocytes Absolute Manual 4.45 K/mm3 (1.1-4.5); Monocytes Percent Manual 17 % (3-9); Neutrophils Absolute Manual 13.14 K/mm3 (1.3-6.7); Neutrophils Percent Manual 45 % (46-73); Platelet Estimate Adequate (Adequate); Schistocytes None Seen (NORMAL); Total Cells Counted 100
[2023-04-10 05:50] LABS: Tear Drop Cells 1+ (NORMAL)
[2023-04-10 06:53] LABS: Lactic Acid Reflex 1.8 mmol/L (0.7-2.0)
[2023-04-10] MEDS: predniSONE 5 MG TABLET PO (08:31)
[2023-04-10] MEDS: LORATADINE 10 MG TABLET PO (08:31)
[2023-04-10] MEDS: SULFAMETHOXAZOLE/TRIMETHOPRIM 400/80 MG TABLET 1 TAB PO ×2 (08:31→20:53)
[2023-04-10] MEDS: FOLIC ACID 1 MG TABLET PO (08:31)
[2023-04-10] MEDS: HEPARIN SODIUM 5,000 UNITS/ML VIAL 5000 UNITS SUB-Q ×2 (08:32→20:53)
[2023-04-10] MEDS: GABAPENTIN 300 MG CAPSULE 900 MG PO (08:32)
[2023-04-10] MEDS: cefTRIAXone 2 GM/NS 100 ML 2 GM/100 ML BAG IVPB ×2 (08:32→21:11)
[2023-04-10] MEDS: PANTOPRAZOLE SODIUM IV 40 MG VIAL IV PUSH ×2 (08:32→20:53)
[2023-04-10] MEDS: DULoxetine HCL 60 MG CAPSULE.DR PO (08:32)
[2023-04-10] MEDS: ONDANSETRON INJ 4 MG/2 ML VIAL IV PUSH ×3 (08:43→20:53)
[2023-04-10] MEDS: POTASSIUM CHLORIDE 20 MEQ ER TABLET 40 MEQ PO (10:03)
[2023-04-10] MEDS: POTASSIUM CHLORIDE INJ 40 MEQ in SODIUM CHLORIDE 0.9% IV 500 ML 130 MEQ IVPB ×2 (10:03→17:04)
--- NOTE | 2023-04-10 12:36 | PM.PNNEP ---
Progress Note: A&P Assessment and Plan (1) KALPANA (acute kidney injury): Code(s): N17.9 - Acute kidney failure, unspecified Status: Acute Assessment and Plan: renal function continues to worsen... suspect multifactorial etiology: dehydration/volume depletion ATN from infection (complicated by immunosuppression) contrast exposure (CTA of abdomen on 04/07/23) complicated by NSAID use EXTERMINATOR TERMITE TIP-I use EXTERMINATOR TERMITE since acidosis better, can back off/decrease bicarb fluid rate initial metabolic acidosis on admission likely for KALPANA and GI loss agree with ongoing aggressive volume resuscitation evaluation to date: renal ultrasound without obstruction urine electrolytes prerenal urine eosinophils negative CPK trending down remains at risk for NURSING PROGRAM DIRECTOR/dialysis follow trend of repeat labs and UOP (2) Severe sepsis: Code(s): A41.9 - Sepsis, unspecified organism; R65.20 - Severe sepsis without septic shock Status: Acute Assessment and Plan: secondary to severe hypovolemia from GI losses and Salmonella bactremia complicated by immunocompromised status on antibiotics blood pressure stable at this time - no need for vasopressors continue current therapy (3) Enterocolitis: Code(s): K52.9 - Noninfective gastroenteritis and colitis, unspecified Status: Acute Assessment and Plan: severe diarrhea and abdominal pain on admission admission imaging of CTA of abd/pelvis results noted C.diff toxin negative stool culture pending follow stool output continue agressive IVF hydration (4) Hypokalemia: Code(s): E87.6 - Hypokalemia Status: Acute Assessment and Plan: due to bicarb fluids and ongoing GI losses aggressively replete as needed follow repeat K+ levels (5) Hyponatremia: Code(s): E87.1 - Hypo-osmolality and hyponatremia Status: Acute Assessment and Plan: likely due to fluctuation volume status TSH and cortisol okay SPEP/UPEP pending follow trend with IVF hydration (6) Elevated liver enzymes: Code(s): R74.8 - Abnormal levels of other serum enzymes Status: Acute Assessment and Plan: secondary to infection/bacteremia RUQ ultrasound negative follow trend of LFTs (7) Rheumatoid arthritis: Qualifiers: Rheumatoid arthritis location: unspecified site Rheumatoid factor presence: unspecified presence Qualified Code(s): M06.9 - Rheumatoid arthritis, unspecified Code(s): M06.9 - Rheumatoid arthritis, unspecified Status: Chronic Assessment and Plan: holding immunosuppression medications (except prednisone) continue supportive therapy Discussed case with Dr. Limon. Long extensive discussion (greater than 20 minutes) with the patient as well as his family at bedside regarding his deteriorating renal function and my concern that he may require renal replacement therapy/dialysis if his kidney function continues to deteriorate, he runs into issues with volume overload, or uremia. He continues to maintain stable hemodynamics and remains on room air so I think we can continue aggressive IV fluid resuscitation for now. I explained in detail to the patient as well as family at bedside regarding what dialysis is, what would involve, the risks, benefits, pros, cons...etc. and they appeared to voice understanding. We will continue current therapy and follow the trend of repeat labs as well as his overall clinical status. Will continue to follow. Subjective Date/time seen: 04/10/23 12:36 Interval history: Follow-up for acute kidney injury/acute renal failure. Noted to have significant GI losses/diarrhea in the last 24 hours (5.5L); continues on aggressive IVF hydration; unfortunately, despite current therapy, renal function continues to deteriorate with fluctuating urine output; still has some abdominal pain and muscle aches but feels diarrhea has slowed justus
--- NOTE | 2023-04-10 12:36 | P.PNNP_ITS ---
Progress Note: A&P Assessment and Plan (1) KALPANA (acute kidney injury): Code(s): N17.9 - Acute kidney failure, unspecified Status: Acute Assessment and Plan: * renal function continues to worsen... * suspect multifactorial etiology: * dehydration/volume depletion * ATN from infection (complicated by immunosuppression) * contrast exposure (CTA of abdomen on 04/07/23) * complicated by NSAID use PALM AND BACK FORGER * TIP-I use PALM AND BACK FORGER * since acidosis better, can back off/decrease bicarb fluid rate * initial metabolic acidosis on admission likely for KALPANA and GI loss * agree with ongoing aggressive volume resuscitation * evaluation to date: * renal ultrasound without obstruction * urine electrolytes prerenal * urine eosinophils negative * CPK trending down * remains at risk for MANUFACTURERS AGENT/dialysis * follow trend of repeat labs and UOP (2) Severe sepsis: Code(s): A41.9 - Sepsis, unspecified organism; R65.20 - Severe sepsis without septic shock Status: Acute Assessment and Plan: * secondary to severe hypovolemia from GI losses and Salmonella bactremia * complicated by immunocompromised status * on antibiotics * blood pressure stable at this time - no need for vasopressors * continue current therapy (3) Enterocolitis: Code(s): K52.9 - Noninfective gastroenteritis and colitis, unspecified Status: Acute Assessment and Plan: * severe diarrhea and abdominal pain on admission * admission imaging of CTA of abd/pelvis results noted * C.diff toxin negative * stool culture pending * follow stool output * continue agressive IVF hydration (4) Hypokalemia: Code(s): E87.6 - Hypokalemia Status: Acute Assessment and Plan: * due to bicarb fluids and ongoing GI losses * aggressively replete as needed * follow repeat K+ levels (5) Hyponatremia: Code(s): E87.1 - Hypo-osmolality and hyponatremia Status: Acute Assessment and Plan: * likely due to fluctuation volume status * TSH and cortisol okay * SPEP/UPEP pending * follow trend with IVF hydration (6) Elevated liver enzymes: Code(s): R74.8 - Abnormal levels of other serum enzymes Status: Acute Assessment and Plan: * secondary to infection/bacteremia * RUQ ultrasound negative * follow trend of LFTs (7) Rheumatoid arthritis: Qualifiers: Rheumatoid arthritis location: unspecified site Rheumatoid factor presence: unspecified presence Qualified Code(s): M06.9 - Rheumatoid arthritis, unspecified Code(s): M06.9 - Rheumatoid arthritis, unspecified Status: Chronic Assessment and Plan: * holding immunosuppression medications (except prednisone) * continue supportive therapy Discussed case with Dr. Limon. Long extensive discussion (greater than 20 minutes) with the patient as well as his family at bedside regarding his deteriorating renal function and my concern that he may require renal replacement therapy/dialysis if his kidney function c ontinues to deteriorate, he runs into issues with volume overload, or uremia. He continues to maintain stable hemodynamics and remains on room air so I think we can continue aggressive IV fluid resuscitation for now. I explained in detail to the patient as well as family at bedside regarding what dialysis is, what would involve, the risks, benefits, pros, cons...etc. and they appeared to voice understanding. We will continue current therapy and follow the trend of repeat labs as well as his overall clinical status. Wi
--- NOTE | 2023-04-10 14:19 | WPDGIPROGNO ---
Progress Note: A&P Assessment and Plan (1) Salmonella enteritis: Code(s): A02.0 - Salmonella enteritis Status: Acute Assessment and Plan: Patient with salmonella sepsis. Salmonella growing in blood cultures. This is likely etiology for his infection. Will continue broad-spectrum antibiotics with Bactrim orally. Discussed with infection control nurse. Patient did eat at a restaurant several days prior to presentation which will be reviewed with [facility]. Continue broad-spectrum antibiotics and intensive care unit setting. (2) Confusion: Code(s): R41.0 - Disorientation, unspecified Status: Acute Assessment and Plan: Patient still with some confusion. Not thinking well but gradually improving compared to 2 days ago. (3) Immunocompromised patient: Code(s): D84.9 - Immunodeficiency, unspecified Status: Acute Assessment and Plan: Patient on Humira for RA. This may may made him immunocompromised more susceptible to infection potentially. (4) Rheumatoid arthritis: Qualifiers: Rheumatoid arthritis location: unspecified site Rheumatoid factor presence: unspecified presence Qualified Code(s): M06.9 - Rheumatoid arthritis, unspecified Code(s): M06.9 - Rheumatoid arthritis, unspecified Status: Chronic (5) Acute kidney injury: Code(s): N17.9 - Acute kidney failure, unspecified Status: Acute Assessment and Plan: Patient with acute renal injury. Nephrology following may have ATN. Appreciate their insight. Subjective Date/time seen: 04/10/23 14:19 Interval history: Patient alert. Able to converse. Quite a bit more oriented. Still states he is somewhat foggy. Difficulty with some details. He reports diarrhea has lessened. Still complains rather diffuse abdominal pain. Cultures have shown salmonella sepsis. Review of Systems Review of Systems: Review of systems noncontributory. Exam Narrative: Physical exam reveals patient to be alert. Vital signs stable. HEENT exam reveals no icterus. Lungs are clear. Heart without murmur. Abdomen bowel sounds are present soft he is diffusely tender. Extremities also without clubbing cyanosis or edema. Objective Data Vital Signs Vital Signs: Vital Signs - 24 hr 04/09/23 16:00 04/09/23 16:00 04/09/23 16:00 Temperature Pulse Rate 93 80 Respiratory Rate 16 Blood Pressure 148/97 H Pulse Oximetry 96 Oxygen Delivery Room Air 04/09/23 18:00 04/09/23 18:00 04/09/23 19:43 Temperature Pulse Rate 83 83 80 Respiratory Rate 18 18 Blood Pressure 146/99 H Pulse Oximetry 95 95 Oxygen Delivery Room Air 04/09/23 20:00 04/09/23 20:00 04/09/23 21:30 Temperature 97.3 F L Pulse Rate 76 78 80 Respiratory Rate 15 15 Blood Pressure 151/110 H 144/100 H Pulse Oximetry 98 97 Oxygen Delivery 04/09/23 22:00 04/09/23 22:00 04/09/23 23:28 Temperature Pulse Rate 78 78 79 Respiratory Rate 17 19 Blood Pressure 132/93 H Pulse Oximetry 95 96 Oxygen Delivery Room Air 04/10/23 00:00 04/10/23 00:00 04/10/23 02:00 Temperature 97.5 F L Pulse Rate 78 79 78 Respiratory Rate 16 Blood Pressure 145/88 H Pulse Oximetry 96 Oxygen Delivery 04/10/23 02:00 04/10/23 03:27 04/10/23 04:00 Temperature 97.7 F Pulse Rate 77 78 78 Respiratory Rate 16 16 15 Blood Pressure 145/100 H 150/102 H Pulse Oximetry 95 95 94 Oxygen Delivery Room Air 04/10/23 04:00 04/10/23 06:00 04/10/23 06:00 Temperature Pulse Rate 79 74 76 Respiratory Rate 16 Blood Pressure 144/99 H Pulse Oximetry 95 Oxygen Delivery 04/10/23 08:00 04/10/23 08:00 04/10/23 08:00 Temperature 97.9 F Pulse Rate 78 78 Respiratory Rate 19 Blood Pressure 147/107 H Pulse Oximetry 95 95 Oxygen Delivery Room Air 04/10/23 10:00 04/10/23 10:00 04/10/23 12:00 Temperature Pulse Rate 78 78 78 Respiratory Rate
--- NOTE | 2023-04-10 14:35 | WPDINTPN ---
Progress Note: A&P Assessment and Plan (1) Enterocolitis: Code(s): K52.9 - Noninfective gastroenteritis and colitis, unspecified Status: Acute Assessment and Plan: Patient presented on 04/07 with severe diarrhea and abdominal pain after eating a pizza, denies any travel or sick contacts. Patient is on Humira so his immunocompromised -04/07: CTA abdomen and pelvis showed fluid levels in small bowel and particularly: Suggesting enterocolitis. Diffuse fluid distention of the esophagus suggesting reflux, prominent fluid level in the stomach, hepatic steatosis, moderate prostatic enlargement normal appendix 04/07/2023: Blood cultures positive for Salmonella (sensitive to ceftriaxone and Bactrim) -continue ceftriaxone and Bactrim (04/09) -04/07 & 04/09 C diff is negative -04/09: Stool culture obtained and pending for some with some salmonella, Shigella, E coli, Campylobacter, Cryptosporidium and Giardia -fecal management system has been placed, -continue aggressive IV fluid hydration -will balance the GI losses and in insensible fluid losses with IV fluids (2) KALPANA (acute kidney injury): Code(s): N17.9 - Acute kidney failure, unspecified Status: Acute Assessment and Plan: Acute kidney injury likely related to dehydration, ATN, hypovolemia -metabolic acidosis due to bicarb losses in the stool -continue bicarb infusion at 30 mL/hour -continue LR at 170 mL/hour -total amount of fluids at 200 mL/hour -04/10: Will give additional IV fluid bolus of LR -monitor urine output, renal function electrolytes -discussed with Nephrology continue current management, if patient BUN creatinine continue to rise patient may require dialysis 04/08: Ultrasound with normal kidneys without hydronephrosis (3) Dehydration: Code(s): E86.0 - Dehydration Status: Acute Assessment and Plan: Continue IV fluids as above (4) Severe sepsis: Code(s): A41.9 - Sepsis, unspecified organism; R65.20 - Severe sepsis without septic shock Status: Acute Assessment and Plan: Severe sepsis likely related to hypovolemia, Salmonella bacteremia -continue antibiotics as above -blood pressures have been stable -lactic acid Ev -continue aggressive IV fluids -discussed with Nephrology 04/08: Echocardiogram Summary ? 1. Complete two-dimensional, color flow and Doppler transthoracic echocardiogram is performed. ? 2. Left ventricular chamber dimension is normal. ? 3. Left ventricular systolic function is normal, estimated at 60-65%. ? 4. There is mildly increased left ventricular wall thickness. ? 5. The left ventricular diastolic function is grade I diastolic dysfunction. ? 6. Right ventricular systolic function is normal. ? 7. There is trace mitral valve regurgitation. ? 8. There is trace tricuspid valve regurgitation. ? 9. There is trivial pericardial effusion. (5) Electrolyte imbalance: Code(s): E87.8 - Other disorders of electrolyte and fluid balance, not elsewhere classified Status: Acute Assessment and Plan: Will replete potassium aggressively, likely due acidosis in GI losses (6) Elevated liver enzymes: Code(s): R74.8 - Abnormal levels of other serum enzymes Status: Acute Assessment and Plan: Elevated LFTs with elevated bilirubin -could be related to Salmonella hepatitis infection -LFTs and bilirubin trending down, continue to monitor 04/07: Right upper quadrant ultrasound with no significant abnormality seen Plan DVT prophylaxis: Heparin SQ Stress ulcer prophylaxis: Protonix Nutrition: Clear liquids Code Status: Full code Critical Care Time Spent: 55 minute Discuss with hospitalist, Nephrology -discussed with patient and his at bedside and updated with patient's condition and plan of care. I also discussed with him regarding continue IV fluids at this time, the aware that patient may require dialysis if he does not start lilliam
[2023-04-10] MEDS: LACTATED RINGERS 1,000 ML 999 ML IV CONT (15:43)
[2023-04-10] MEDS: CHOLESTYRAMINE (W/ SUGAR) 4 GM POWD.PACK PO (17:04)
[2023-04-10] MEDS: QUEtiapine FUMARATE 25 MG TABLET PO (20:53)
[2023-04-10] MEDS: LACTATED RINGERS 1,000 ML 180 ML IV CONT (22:15)
[2023-04-11] VITALS (17 sets, daily range): BP systolic 116–168; BP diastolic 67–110; PULSE 90–102; RESP 14–23; TEMP 36.8–37.9; O2SAT 93–99
[2023-04-11] MEDS: LACTATED RINGERS 1,000 ML 180 ML IV CONT (03:48)
[2023-04-11] MEDS: HYDROmorphone HCL INJ (*CRX) 1 MG/ML SYR IV PUSH (04:43)
[2023-04-11 04:56] LABS: Hematocrit 38.7 % (42.0-52.0); Hemoglobin 13.5 g/dL (14.0-18.0); Mean Corpuscular HGB Conc 34.9 g/dl (32-36); Mean Corpuscular Volume 88.8 fl (80-100); Mean Platelet Volume 11.9 fl (7.4-10.4); Platelet Count Result 113 k/mm3 (150-375); Red Blood Count 4.36 M/mm3 (4.6-6.20); Red Cell Distribution Width 14.1 % (11.5-14.5); White Blood Count 24.9 K/mm3 (4.5-10.0)
[2023-04-11 05:04] LABS: Lactic Acid Reflex 1.5 mmol/L (0.7-2.0)
[2023-04-11 05:18] LABS: Alanine Aminotransferase 48 U/L (6-50); Albumin Level 3.5 g/dL (3.5-5.1); Alkaline Phosphatase 76 U/L (38-126); Anion Gap 17 mmol/L (8-16); Aspartate Amino Transferase 61 U/L (17-59); Bilirubin,Total 1.7 mg/dL (0.2-1.3); Blood Urea Nitrogen 93 mg/dL (9-20); Carbon Dioxide 35 mmol/L (22-30); Chloride 69 mmol/L (98-107); Creatine Kinase 236 U/L (55-170); Estimated CRCL calculation 9 ml/min; Estimated Glomerular Filt Rate 6; Glucose 91 mg/dL (65-110); Magnesium 2.6 mg/dL (1.6-2.3); Phosphorus 8.5 mg/dL (2.5-4.5); Potassium 3.1 mmol/L (3.4-5.0); Sodium 121 mmol/L (137-145)
[2023-04-11 06:18] LABS: Hepatitis B Surface Anti Res Negative
[2023-04-11 06:46] LABS: Hepatitis B Surface Antigen Negative (Negative)
[2023-04-11 07:53] LABS: Band Neutrophils Percent 11 % (0-6); Eosinophils Absolute Manual 0.49 K/mm3 (0.02-0.5); Eosinophils Percent Manual 2 % (0-4); Lymphocytes Absolute Manual 2.24 K/mm3 (1.1-4.5); Metamyelocytes Percent 6 %; Monocytes Absolute Manual 1.24 K/mm3 (0.1-0.90); Monocytes Percent Manual 5 % (3-9); Myelocytes Percent 4 %; Neutrophils Absolute Manual 18.42 K/mm3 (1.3-6.7); Neutrophils Percent Manual 63 % (46-73); Nucleated Red Blood Cells 1 %; Total Cells Counted 100
[2023-04-11 07:54] LABS: Platelet Estimate Decreased (Adequate); Schistocytes None Seen (NORMAL); Toxic Granulation Present (NORMAL)
[2023-04-11] MEDS: GABAPENTIN 300 MG CAPSULE 900 MG PO (08:11)
[2023-04-11] MEDS: CALCIUM GLUC 2,000 MG/NS 100ML 2,000 MG/100 ML BAG 100 MG IVPB (08:11)
[2023-04-11] MEDS: PANTOPRAZOLE SODIUM IV 40 MG VIAL IV PUSH ×2 (08:11→20:09)
[2023-04-11] MEDS: cefTRIAXone 2 GM/NS 100 ML 2 GM/100 ML BAG IVPB ×2 (08:11→20:09)
[2023-04-11] MEDS: DULoxetine HCL 60 MG CAPSULE.DR PO (08:11)
[2023-04-11] MEDS: POTASSIUM CHLORIDE INJ 40 MEQ in SODIUM CHLORIDE 0.9% IV 500 ML 130 MEQ IVPB ×2 (08:11→13:27)
[2023-04-11] MEDS: FOLIC ACID 1 MG TABLET PO (08:12)
[2023-04-11] MEDS: HEPARIN SODIUM 5,000 UNITS/ML VIAL 5000 UNITS SUB-Q ×2 (08:12→20:10)
[2023-04-11] MEDS: SULFAMETHOXAZOLE/TRIMETHOPRIM 400/80 MG TABLET 1 TAB PO (08:14)
[2023-04-11] MEDS: CHOLESTYRAMINE (W/ SUGAR) 4 GM POWD.PACK PO ×2 (08:30→17:44)
[2023-04-11] MEDS: SODIUM BICARBONATE 8.4% 150 MEQ in DEXTROSE 5% 1,000 ML 950 ML 30 MEQ IV CONT (08:31)
[2023-04-11] MEDS: POTASSIUM CHLORIDE 20 MEQ ER TABLET 40 MEQ PO ×2 (08:56→20:35)
--- NOTE | 2023-04-11 09:15 | P.PNNP_ITS ---
Progress Note: A&P Assessment and Plan (1) KALPANA (acute kidney injury): Code(s): N17.9 - Acute kidney failure, unspecified Status: Acute Assessment and Plan: * renal function continues to worsen... 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 * follow trend of repeat labs and UOP (2) Severe sepsis: Code(s): A41.9 - Sepsis, unspecified organism; R65.20 - Severe sepsis without septic shock Status: Acute Assessment and Plan: * secondary to severe hypovolemia from GI losses and Salmonella bactremia * complicated by immunocompromised status * on antibiotics * blood pressure stable at this time - no need for vasopressors * continue current therapy (3) Enterocolitis: Code(s): K52.9 - Noninfective gastroenteritis and colitis, unspecified Status: Acute Assessment and Plan: * severe diarrhea and abdominal pain on admission * admission imaging of CTA of abd/pelvis results noted * C.diff toxin negative * stool culture pending * follow stool output * continue agressive IVF hydration (4) Hypokalemia: Code(s): E87.6 - Hypokalemia Status: Acute Assessment and Plan: * due to bicarb fluids and ongoing GI losses * aggressively replete as needed * follow repeat K+ levels (5) Hyponatremia: Code(s): E87.1 - Hypo-osmolality and hyponatremia Status: Acute Assessment and Plan: * likely due to fluctuations volume status, GI losses, and fluid resuscitation * prerenal urine electrolytes noted * TSH and cortisol okay * SPEP/UPEP pending * follow trend with IVF hydration * may need to consider 3% saline use (6) Elevated liver enzymes: Code(s): R74.8 - Abnormal levels of other serum enzymes Status: Acute Assessment and Plan: * secondary to infection/bacteremia * RUQ ultrasound negative * follow trend of LFTs (7) Rheumatoid arthritis: Qualifiers: Rheumatoid arthritis location: unspecified site Rheumatoid factor presence: unspecified presence Qualified Code(s): M06.9 - Rheumatoid arthritis, unspecified Code(s): M06.9 - Rheumatoid arthritis, unspecified Status: Chronic Assessment and Plan: * holding immunosuppression medications (except prednisone) * continue supportive therapy Discussed case with Dr. Limon. Will continue to follow. Subjective Date/time seen: 04/11/23 09:15 Interval history: Follow-up for acute kidney injury/acute renal failure. Renal function continues to deteriorate but more urine output noted in the last 24 hours; however, he is now requiring 2L of supplemental oxygen; still with significant GI lossess/diarrhea but the patient thinks it seems to be slowing down; no acute distress noted at the time of my visit. Exam
--- NOTE | 2023-04-11 09:15 | PM.PNNEP ---
Progress Note: A&P Assessment and Plan (1) KALPANA (acute kidney injury): Code(s): N17.9 - Acute kidney failure, unspecified Status: Acute Assessment and Plan: renal function continues to worsen... 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 follow trend of repeat labs and UOP (2) Severe sepsis: Code(s): A41.9 - Sepsis, unspecified organism; R65.20 - Severe sepsis without septic shock Status: Acute Assessment and Plan: secondary to severe hypovolemia from GI losses and Salmonella bactremia complicated by immunocompromised status on antibiotics blood pressure stable at this time - no need for vasopressors continue current therapy (3) Enterocolitis: Code(s): K52.9 - Noninfective gastroenteritis and colitis, unspecified Status: Acute Assessment and Plan: severe diarrhea and abdominal pain on admission admission imaging of CTA of abd/pelvis results noted C.diff toxin negative stool culture pending follow stool output continue agressive IVF hydration (4) Hypokalemia: Code(s): E87.6 - Hypokalemia Status: Acute Assessment and Plan: due to bicarb fluids and ongoing GI losses aggressively replete as needed follow repeat K+ levels (5) Hyponatremia: Code(s): E87.1 - Hypo-osmolality and hyponatremia Status: Acute Assessment and Plan: likely due to fluctuations volume status, GI losses, and fluid resuscitation prerenal urine electrolytes noted TSH and cortisol okay SPEP/UPEP pending follow trend with IVF hydration may need to consider 3% saline use (6) Elevated liver enzymes: Code(s): R74.8 - Abnormal levels of other serum enzymes Status: Acute Assessment and Plan: secondary to infection/bacteremia RUQ ultrasound negative follow trend of LFTs (7) Rheumatoid arthritis: Qualifiers: Rheumatoid arthritis location: unspecified site Rheumatoid factor presence: unspecified presence Qualified Code(s): M06.9 - Rheumatoid arthritis, unspecified Code(s): M06.9 - Rheumatoid arthritis, unspecified Status: Chronic Assessment and Plan: holding immunosuppression medications (except prednisone) continue supportive therapy Discussed case with Dr. Limon. Will continue to follow. Subjective Date/time seen: 04/11/23 09:15 Interval history: Follow-up for acute kidney injury/acute renal failure. Renal function continues to deteriorate but more urine output noted in the last 24 hours; however, he is now requiring 2L of supplemental oxygen; still with significant GI lossess/diarrhea but the patient thinks it seems to be slowing down; no acute distress noted at the time of my visit. Exam Narrative: General: ill apearring male in NAD Heart: normal S1 and S2; no rub Lungs: clear to auscultation Abdomen: soft, +TTP, nondistended, hypoactive bowel sounds Extremities: no cyanosis or clubbing; no edema Skin: warm and intact Objective Data Vital Signs Vital Signs: Vital Signs Temp Pulse Resp BP Pulse Ox O2 Del Method O2 Flow Rate 04/11/23 08:00 94 04/11/23 08:00 94 Nasal Cannula 2 04/11/23 08:21 99.1 F 95 19 147/102 H 94 04/11/23 06:00
--- NOTE | 2023-04-11 09:46 | WPDINTPN ---
Progress Note: A&P Assessment and Plan (1) Enterocolitis: Code(s): K52.9 - Noninfective gastroenteritis and colitis, unspecified Status: Acute Assessment and Plan: Patient presented on 04/07 with severe diarrhea and abdominal pain after eating a pizza, denies any travel or sick contacts. Patient is on Humira so his immunocompromised -04/07: CTA abdomen and pelvis showed fluid levels in small bowel and particularly: Suggesting enterocolitis. Diffuse fluid distention of the esophagus suggesting reflux, prominent fluid level in the stomach, hepatic steatosis, moderate prostatic enlargement normal appendix 04/07/2023: Blood cultures positive for Salmonella (sensitive to ceftriaxone and Bactrim) -04/07 & 04/09 C diff is negative -04/09: Stool culture negative for E coli, Shiga toxins, Campylobacter, Cryptosporidium and Giardia. Salmonella and shigella culture pending 04/10: Repeat blood cultures pending -continue ceftriaxone (04/09). Discontinue Bactrim 04/11: Added Levaquin IV (renally dosed) -fecal management system in place with green liquid stool -continue aggressive IV fluid hydration -will balance the GI losses and in insensible fluid losses with IV fluids (2) KALPANA (acute kidney injury): Code(s): N17.9 - Acute kidney failure, unspecified Status: Acute Assessment and Plan: Acute kidney injury likely related to dehydration, ATN, hypovolemia -metabolic acidosis due to bicarb losses in the stool -discontinue bicarb infusion (04/11) -continue LR at 200 mL/hour -courage p.o. intake -monitor urine output, renal function electrolytes -discussed with Nephrology continue current management, if patient BUN creatinine continue to rise patient may require dialysis 04/08: Ultrasound with normal kidneys without hydronephrosis (3) Dehydration: Code(s): E86.0 - Dehydration Status: Acute Assessment and Plan: Continue aggressive IV fluid hydration (4) Severe sepsis: Code(s): A41.9 - Sepsis, unspecified organism; R65.20 - Severe sepsis without septic shock Status: Acute Assessment and Plan: Severe sepsis likely related to hypovolemia, Salmonella bacteremia -continue antibiotics as above -blood pressures have been stable -lactic acid has been normal -continue aggressive IV fluids -discussed with Nephrology 04/08: Echocardiogram Summary ? 1. Complete two-dimensional, color flow and Doppler transthoracic echocardiogram is performed. ? 2. Left ventricular chamber dimension is normal. ? 3. Left ventricular systolic function is normal, estimated at 60-65%. ? 4. There is mildly increased left ventricular wall thickness. ? 5. The left ventricular diastolic function is grade I diastolic dysfunction. ? 6. Right ventricular systolic function is normal. ? 7. There is trace mitral valve regurgitation. ? 8. There is trace tricuspid valve regurgitation. ? 9. There is trivial pericardial effusion. (5) Electrolyte imbalance: Code(s): E87.8 - Other disorders of electrolyte and fluid balance, not elsewhere classified Status: Acute Assessment and Plan: Will replete potassium aggressively, likely due acidosis in GI losses (6) Elevated liver enzymes: Code(s): R74.8 - Abnormal levels of other serum enzymes Status: Acute Assessment and Plan: Elevated LFTs with elevated bilirubin -could be related to Salmonella hepatitis infection -LFTs and bilirubin trending down, continue to monitor 04/07: Right upper quadrant ultrasound with no significant abnormality seen Plan DVT prophylaxis: Heparin SQ Stress ulcer prophylaxis: Protonix Nutrition: Clear liquids Code Status: Full code Critical Care Time Spent: 34 minutes Discuss with Nephrology -discussed with patient and his at bedside and updated with patient's condition and plan of care. I also discussed with him regarding continue IV fluids at this time, the aware th
[2023-04-11] MEDS: LACTATED RINGERS 1,000 ML 200 ML IV CONT ×3 (09:48→20:34)
[2023-04-11] MEDS: LOPERAMIDE HCL 2 MG CAPSULE PO ×2 (09:50→20:23)
[2023-04-11] MEDS: levoFLOXacin 750 MG/D5W 150 ML 750 MG/150 ML BAG 100 MG IVPB (11:34)
[2023-04-11] MEDS: LORATADINE 10 MG TABLET PO (11:34)
--- NOTE | 2023-04-11 15:42 | PM.IMPN ---
Progress Note: A&P Assessment and Plan (1) Sepsis: Code(s): A41.9 - Sepsis, unspecified organism Status: Acute (2) Enterocolitis: Code(s): K52.9 - Noninfective gastroenteritis and colitis, unspecified Status: Acute (3) Acute kidney injury: Code(s): N17.9 - Acute kidney failure, unspecified Status: Acute (4) Gastroesophageal reflux disease: Code(s): K21.9 - Gastro-esophageal reflux disease without esophagitis Status: Acute (5) Dehydration: Code(s): E86.0 - Dehydration Status: Acute (6) Elevated troponin: Code(s): R79.89 - Other specified abnormal findings of blood chemistry Status: Acute (7) Rheumatoid arthritis: Qualifiers: Rheumatoid arthritis location: unspecified site Rheumatoid factor presence: unspecified presence Qualified Code(s): M06.9 - Rheumatoid arthritis, unspecified Code(s): M06.9 - Rheumatoid arthritis, unspecified Status: Chronic (8) Immunocompromised patient: Code(s): D84.9 - Immunodeficiency, unspecified Status: Acute (9) Hypertension: Qualifiers: Hypertension type: essential hypertension Qualified Code(s): I10 - Essential (primary) hypertension Code(s): I10 - Essential (primary) hypertension Status: Acute Plan 53-year-old male with rheumatoid arthritis, obstructive sleep apnea, hypertension, hyperlipidemia, and gastroesophageal reflux disease who presented to the emergency department via private vehicle from home for evaluation of abdominal pain and diarrhea. The patient provides the following history. His provides additional information, with the patient's permission. Friday evening he complained to his that his stomach was upset and he had a couple of episodes of emesis that night. Friday he began having diarrhea and he reports having too numerous to count episodes of watery, yellow diarrhea. Stool culture positive for Salmonella CTA levels in small bowel suggesting colitis. Diffuse fluid distention of the esophagus suggesting reflux, prominent fluid level in stomach hepatic steatosis moderate prostatic enlargement normal appendix. Blood culture positive for Salmonella C diff negative Stool culture negative for E coli Shiga toxin Campylobacter Cryptosporidium and Giardia all negative. KALPANA nephrology on board creatinine continues to worsen and 9.3 today. Ultrasound with normal kidneys without hydronephrosis On bicarbonate drip Hyponatremia Hyperkalemia Severe sepsis related to diarrhea and hypovolemia EF 60-65% grade 1 diastolic dysfunction This electrolyte immediate replace as needed Elevated liver enzymes DVT prophylaxis heparin Code status full code Subjective Date/time seen: 04/11/23 15:42 Interval history: 53-year-old male with rheumatoid arthritis, obstructive sleep apnea, hypertension, hyperlipidemia, and gastroesophageal reflux disease who presented to the emergency department via private vehicle from home for evaluation of abdominal pain and diarrhea. The patient provides the following history. His provides additional information, with the patient's permission. Friday evening he complained to his that his stomach was upset and he had a couple of episodes of emesis that night. Friday he began having diarrhea and he reports having too numerous to count episodes of watery, yellow diarrhea. Pt having prefuse diarrhea today stool cultures positive for salmonella KALPANA, creat is going up slightly nephrology consulted hydrate with fluids and sodium bicarbonate drip lactate [place] [id number] continue to hydrate start bactrim and iv rocephin prednisone started since pt has history of RA cdiff is negative ct abdomen reviewed by GI Pt accepted to ICU for closer monitoring 04/11/2023:feels weak, abdomen is sore, stillhavign diarrhea. some nausea, no vomiting. Review of Systems Review of Systems: Al
--- NOTE | 2023-04-11 15:46 | WPDGIPROGNO ---
Progress Note: A&P Assessment and Plan (1) Salmonella enteritis: Code(s): A02.0 - Salmonella enteritis Status: Acute Assessment and Plan: Patient with Salmonella in the blood stream. Appears to be the etiology for his sepsis. Broad-spectrum antibiotic coverage present. Continue antibiotics and close observation. Will need IV rehydration. (2) Elevated liver enzymes: Code(s): R74.8 - Abnormal levels of other serum enzymes Status: Acute Assessment and Plan: Elevated LFTs are gradually improving. Suspect this is related to sepsis. Plan to continue monitor LFTs. (3) Severe sepsis: Code(s): A41.9 - Sepsis, unspecified organism; R65.20 - Severe sepsis without septic shock Status: Acute Assessment and Plan: Patient now in the ICU because rather severe sepsis. Continued ICU observation therapy. WBC 24.9 today. (4) KALPANA (acute kidney injury): Code(s): N17.9 - Acute kidney failure, unspecified Status: Acute Assessment and Plan: Patient's renal function has deteriorated. BUN 93 creatinine 9.3 today nephrology service following. May have ATN. Subjective Date/time seen: 04/11/23 15:46 Interval history: Patient alert and well oriented at present. He states he still feels a little bit foggy. Removed ports no significant diarrhea over the last day. Still complains rather diffuse abdominal pain. Pain appears well controlled with pain medications. Review of Systems Review of Systems: Review of systems noncontributory. Exam Narrative: Physical exam reveals patient be alert. Vital signs stable. Comfortable at rest. HEENT exam reveals no icterus. Lungs are clear. Heart without murmur. Abdomen is somewhat quiet. Abdomen is somewhat tense. No localized tenderness at present. He may have recently received pain medications. Objective Data Vital Signs Vital Signs: Vital Signs - 24 hr 04/10/23 16:00 04/10/23 16:00 04/10/23 16:00 Temperature 98.2 F Pulse Rate 84 81 Respiratory Rate 16 Blood Pressure 149/87 H Pulse Oximetry 97 94 Oxygen Delivery Room Air Oxygen Flow Rate 04/10/23 18:00 04/10/23 18:00 04/10/23 20:00 Temperature 98.5 F Pulse Rate 87 87 87 Respiratory Rate 18 19 Blood Pressure 162/102 H 155/96 H Pulse Oximetry 98 94 Oxygen Delivery Oxygen Flow Rate 04/10/23 20:00 04/10/23 20:00 04/10/23 20:00 Temperature Pulse Rate 88 85 87 Respiratory Rate 19 Blood Pressure Pulse Oximetry 94 Oxygen Delivery Room Air Oxygen Flow Rate 04/10/23 22:00 04/10/23 22:00 04/10/23 23:14 Temperature Pulse Rate 83 83 87 Respiratory Rate 14 13 Blood Pressure 142/99 H Pulse Oximetry 94 94 Oxygen Delivery CPAP Oxygen Flow Rate 0 04/10/23 21:55 04/10/23 21:50 04/11/23 00:00 Temperature 98.3 F Pulse Rate 86 90 Respiratory Rate 19 19 Blood Pressure 149/101 H Pulse Oximetry 94 94 94 Oxygen Delivery Autopap Room Air Oxygen Flow Rate 04/11/23 00:00 04/11/23 02:00 04/11/23 02:00 Temperature Pulse Rate 91 94 95 Respiratory Rate 23 H Blood Pressure Pulse Oximetry 94 Oxygen Delivery Oxygen Flow Rate 04/11/23 03:41 04/11/23 01:30 04/11/23 04:00 Temperature 99.0 F Pulse Rate 94 91 97 Respiratory Rate 14 16 23 H Blood Pressure 142/94 H Pulse Oximetry 94 94 93 Oxygen Delivery CPAP Autopap Oxygen Flow Rate 04/11/23 04:00 04/11/23 06:00 04/11/23 06:00 Temperature Pulse Rate 95 93 93 Respiratory Rate 18 Blood Pressure 142/78 H Pulse Oximetry 94 Oxygen Delivery Oxygen Flow Rate 04/11/23 08:21 04/11/23 08:00 04/11/23 08:00 Temperature 99.1 F Pulse Rate 95 94 Respiratory Rate 19 Blood Pressure 147/102 H Pulse Oximetry 94 94 Oxygen Delivery Nasal Cannula Oxygen Flow Rate 2 04/11/23 10:00 04/11/23 12:00 04/11/23 10:00 Temperature 99.8 F H 99.7 F H Pulse Rate 93 100 93 R
[2023-04-11] MEDS: ONDANSETRON INJ 4 MG/2 ML VIAL IV PUSH (20:02)
[2023-04-11] MEDS: QUEtiapine FUMARATE 25 MG TABLET PO (20:23)
[2023-04-11] MEDS: HYDROcodone/acetaminophen (*CRX) 5-325 MG TABLET 1 TAB PO (20:24)
[2023-04-12] VITALS (28 sets, daily range): BP systolic 140–179; BP diastolic 88–116; PULSE 78–97; RESP 13–22; TEMP 36.6–37.7; O2SAT 90–98
[2023-04-12 00:54] LABS: Glucose Point of Care 77 mg/dl (65-105)
[2023-04-12] MEDS: LOPERAMIDE HCL 2 MG CAPSULE PO ×4 (02:28→20:29)
[2023-04-12] MEDS: LACTATED RINGERS 1,000 ML 200 ML IV CONT ×4 (02:28→18:56)
[2023-04-12] MEDS: HYDROcodone/acetaminophen (*CRX) 5-325 MG TABLET 1 TAB PO ×3 (02:28→14:01)
[2023-04-12 02:36] LABS: Glucose Point of Care 83 mg/dl (65-105)
[2023-04-12] MEDS: ONDANSETRON INJ 4 MG/2 ML VIAL IV PUSH (03:54)
[2023-04-12 04:18] LABS: Hematocrit 39.3 % (42.0-52.0); Hemoglobin 13.9 g/dL (14.0-18.0); Immature Platelet Fraction Pct 20.3 % (0.9-11.2); Mean Corpuscular HGB Conc 35.4 g/dl (32-36); Mean Corpuscular Hemoglobin 30.9 pg (26-34); Mean Corpuscular Volume 87.3 fl (80-100); Platelet Count Result 78 k/mm3 (150-375); Red Cell Distribution Width 14.3 % (11.5-14.5)
[2023-04-12 04:26] LABS: Lactic Acid Reflex 1.6 mmol/L (0.7-2.0)
[2023-04-12 04:31] LABS: Alanine Aminotransferase 49 U/L (6-50); Albumin Level 3.6 g/dL (3.5-5.1); Alkaline Phosphatase 100 U/L (38-126); Aspartate Amino Transferase 70 U/L (17-59); Bilirubin,Total 2.3 mg/dL (0.2-1.3); Blood Urea Nitrogen 106 mg/dL (9-20); Calcium 6.6 mg/dL (8.4-10.2); Carbon Dioxide 30 mmol/L (22-30); Chloride 67 mmol/L (98-107); Creatine Kinase 198 U/L (55-170); Glucose 72 mg/dL (65-110); Magnesium 2.8 mg/dL (1.6-2.3); Phosphorus 9.6 mg/dL (2.5-4.5); Potassium 4.1 mmol/L (3.4-5.0)
[2023-04-12 04:32] LABS: Anion Gap 22 mmol/L (8-16); Sodium 119 mmol/L (137-145)
[2023-04-12 04:49] LABS: Band Neutrophils Percent 5 % (0-6); Eosinophils Percent Manual 1 % (0-4); Metamyelocytes Percent 6 %; Monocytes Percent Manual 18 % (3-9); Neutrophils Percent Manual 61 % (46-73); Total Cells Counted 100
[2023-04-12 04:50] LABS: Nucleated Red Blood Cells 3 %; Platelet Estimate Decreased (Adequate)
[2023-04-12 04:51] LABS: Schistocytes None Seen (NORMAL)
[2023-04-12 04:56] LABS: CRP 22.4 mg/dL (<1.0)
[2023-04-12] MEDS: hydrALAZINE HCL 20 MG/ML VIAL 10 MG IV PUSH ×2 (05:07→18:52)
[2023-04-12 05:20] LABS: Estimated CRCL calculation 8 ml/min; Estimated Glomerular Filt Rate 5
[2023-04-12 07:41] LABS: Glucose Point of Care 84 mg/dl (65-105)
[2023-04-12] MEDS: GABAPENTIN 300 MG CAPSULE 900 MG PO (08:09)
[2023-04-12] MEDS: DULoxetine HCL 60 MG CAPSULE.DR PO (08:10)
[2023-04-12] MEDS: SACCHAROMYCES BOULARDII 250 MG CAPSULE PO ×3 (08:10→16:41)
[2023-04-12] MEDS: LORATADINE 10 MG TABLET PO (08:10)
[2023-04-12] MEDS: LOPERAMIDE HCL 2 MG CAPSULE 4 MG PO (08:10)
[2023-04-12] MEDS: FOLIC ACID 1 MG TABLET PO (08:10)
[2023-04-12] MEDS: predniSONE 5 MG TABLET PO (08:10)
[2023-04-12] MEDS: HEPARIN SODIUM 5,000 UNITS/ML VIAL 5000 UNITS SUB-Q (08:11)
[2023-04-12] MEDS: PANTOPRAZOLE SODIUM IV 40 MG VIAL IV PUSH ×2 (08:11→20:29)
[2023-04-12] MEDS: cefTRIAXone 2 GM/NS 100 ML 2 GM/100 ML BAG IVPB ×2 (08:11→20:28)
--- NOTE | 2023-04-12 08:45 | WPDINTPN ---
Progress Note: A&P Assessment and Plan (1) Enterocolitis: Code(s): K52.9 - Noninfective gastroenteritis and colitis, unspecified Status: Acute Assessment and Plan: Patient presented on 04/07 with severe diarrhea and abdominal pain after eating a pizza, denies any travel or sick contacts. Patient is on Humira so his immunocompromised -04/07: CTA abdomen and pelvis showed fluid levels in small bowel and particularly: Suggesting enterocolitis. Diffuse fluid distention of the esophagus suggesting reflux, prominent fluid level in the stomach, hepatic steatosis, moderate prostatic enlargement normal appendix 04/07/2023: Blood cultures positive for Salmonella (sensitive to ceftriaxone and Bactrim) -04/07 & 04/09 C diff is negative -04/09: Stool culture negative for E coli, Shiga toxins, Campylobacter, Cryptosporidium and Giardia. Salmonella and shigella culture pending 04/10: Repeat blood cultures, preliminary results are negative x2 -continue ceftriaxone (04/09). Continue Levaquin (04/11) 04/11 Bactrim discontinue -Florastor added -continue cholestyramine -will discuss with GI regarding octreotide -fecal management system in place with green liquid stool -continue aggressive IV fluid hydration -will balance the GI losses and in insensible fluid losses with IV fluids (2) KALPANA (acute kidney injury): Code(s): N17.9 - Acute kidney failure, unspecified Status: Acute Assessment and Plan: Acute kidney injury likely related to dehydration, ATN, hypovolemia -metabolic acidosis due to bicarb losses in the stool -discontinue bicarb infusion (04/11) -continue LR at 200 mL/hour -courage p.o. intake -monitor urine output, renal function electrolytes -discussed with Nephrology continue current management, -04/[address] dialysis catheter today and start dialysis 04/08: Ultrasound with normal kidneys without hydronephrosis (3) Dehydration: Code(s): E86.0 - Dehydration Status: Acute Assessment and Plan: Continue aggressive IV fluid hydration (4) Severe sepsis: Code(s): A41.9 - Sepsis, unspecified organism; R65.20 - Severe sepsis without septic shock Status: Acute Assessment and Plan: Severe sepsis likely related to hypovolemia, Salmonella bacteremia -continue antibiotics as above -blood pressures have been stable -lactic acid has been normal -continue aggressive IV fluids -discussed with Nephrology 04/08: Echocardiogram Summary ? 1. Complete two-dimensional, color flow and Doppler transthoracic echocardiogram is performed. ? 2. Left ventricular chamber dimension is normal. ? 3. Left ventricular systolic function is normal, estimated at 60-65%. ? 4. There is mildly increased left ventricular wall thickness. ? 5. The left ventricular diastolic function is grade I diastolic dysfunction. ? 6. Right ventricular systolic function is normal. ? 7. There is trace mitral valve regurgitation. ? 8. There is trace tricuspid valve regurgitation. ? 9. There is trivial pericardial effusion. (5) Electrolyte imbalance: Code(s): E87.8 - Other disorders of electrolyte and fluid balance, not elsewhere classified Status: Acute Assessment and Plan: Hypokalemia resolved, likely due acidosis and GI loss (6) Elevated liver enzymes: Code(s): R74.8 - Abnormal levels of other serum enzymes Status: Acute Assessment and Plan: Elevated LFTs with elevated bilirubin -could be related to Salmonella hepatitis infection -LFTs and bilirubin trending down, continue to monitor 04/07: Right upper quadrant ultrasound with no significant abnormality seen Plan DVT prophylaxis: Heparin SQ Stress ulcer prophylaxis: Protonix Nutrition: Clear liquids Code Status: Full code Critical Care Time Spent: 35 minutes Discussed with Nephrology, will dialyze today -discussed with patient and his at bedside and updated with patient's co
--- NOTE | 2023-04-12 09:03 | WPDGIPROGNO ---
Progress Note: A&P Assessment and Plan (1) Salmonella enteritis: Code(s): A02.0 - Salmonella enteritis Status: Acute Assessment and Plan: Salmonella sepsis identified with Salmonella in the bloodstream. Imaging studies reveal enteritis presumed to be secondary to Salmonella. Stool cultures in progress. Diarrhea persists. Patient currently on broad-spectrum antibiotic coverage which will continue. (2) Confusion: Code(s): R41.0 - Disorientation, unspecified Status: Acute Assessment and Plan: Patient markedly confused disoriented on presentation this appears to be improving. (3) Immunocompromised patient: Code(s): D84.9 - Immunodeficiency, unspecified Status: Acute Assessment and Plan: Patient has been on Humira for rheumatoid arthritis. Perhaps this may have predisposed to infection. (4) Sepsis: Code(s): A41.9 - Sepsis, unspecified organism Status: Acute Assessment and Plan: Salmonella sepsis identified. Currently on antibiotics. WBC remains elevated. WBC 30 K today. (5) KALPANA (acute kidney injury): Code(s): N17.9 - Acute kidney failure, unspecified Status: Acute Assessment and Plan: Acute renal failure. Nephrology following. This he has subsequent electrolyte imbalance and significant azotemia. (6) Elevated liver enzymes: Code(s): R74.8 - Abnormal levels of other serum enzymes Status: Acute Assessment and Plan: LFTs likely elevated because of sepsis, Will continue to monitor. Subjective Date/time seen: 04/12/23 09:03 Interval history: Patient alert and appears oriented today. States his abdominal pain has lessened. Still having diarrhea. Review of Systems Review of Systems: Review of systems noncontributory. Exam Narrative: Physical exam reveals patient to be alert. He is afebrile and anicteric. Lungs are clear. Heart without murmur. Abdomen modestly softer. Significant tenderness at present. Extremities without clubbing or edema. Objective Data Vital Signs Vital Signs: Vital Signs - 24 hr 04/11/23 10:00 04/11/23 12:00 04/11/23 10:00 Temperature 99.8 F H 99.7 F H Pulse Rate 93 100 93 Respiratory Rate 18 19 Blood Pressure 168/105 H 168/105 H Pulse Oximetry 94 93 Oxygen Delivery Oxygen Flow Rate Fraction of Inspired Oxygen 04/11/23 12:00 04/11/23 12:00 04/11/23 14:00 Temperature Pulse Rate 98 99 Respiratory Rate Blood Pressure Pulse Oximetry 93 Oxygen Delivery Nasal Cannula Oxygen Flow Rate 2 Fraction of Inspired Oxygen 04/11/23 14:00 04/11/23 16:00 04/11/23 16:00 Temperature 99.4 F Pulse Rate 98 102 H Respiratory Rate 22 H Blood Pressure 152/98 H Pulse Oximetry 95 95 Oxygen Delivery Nasal Cannula Oxygen Flow Rate 2 Fraction of Inspired Oxygen 04/11/23 16:00 04/11/23 18:00 04/11/23 18:00 Temperature 99.9 F H 99.8 F H Pulse Rate 97 101 H 102 H Respiratory Rate 20 19 Blood Pressure 116/67 167/98 H Pulse Oximetry 99 93 Oxygen Delivery Oxygen Flow Rate Fraction of Inspired Oxygen 04/11/23 20:15 04/11/23 20:30 04/11/23 20:00 Temperature 100.2 F H Pulse Rate 98 101 H Respiratory Rate 18 Blood Pressure 167/110 H Pulse Oximetry 93 94 Oxygen Delivery Nasal Cannula Autopap Oxygen Flow Rate 1 Fraction of Inspired Oxygen 04/11/23 20:00 04/11/23 20:30 04/11/23 22:00 Temperature 99.6 F Pulse Rate 96 98 Respiratory Rate 17 21 H Blood Pressure 140/86 Pulse Oximetry 94 94 93 Oxygen Delivery Nasal Cannula Autopap Oxygen Flow Rate 1 Fraction of Inspired Oxygen 04/12/23 00:00 04/12/23 00:00 04/11/23 20:00 Temperature 99.4 F Pulse Rate 81 101 H Respiratory Rate 18 Blood Pressure 159/88 H Pulse Oximetry 92 92 Oxygen Delivery Nasal Cannula Oxygen Flow Rate 1 Fraction of Inspired Oxygen 04/11/23 22:00 04/12/23
[2023-04-12] MEDS: LORazepam INJ (*CRX) 2 MG/ML VIAL 1 MG IV PUSH (09:43)
--- NOTE | 2023-04-12 10:51 | P.PCNBED_ITS ---
Procedures Hemodialysis Catheter Placement Right IJ: Discussed w/ patient and/or surrogate, the non-emergent placement of a hemodialysis catheter, including it's clinincal necessity/indication & associated potential risks & complications.: Yes The patient and/or surrogate understand(s) and acknowledge(s) the need to proceed with hemodialysis catheter insertion as an important element of the patient's clinical management.: Yes Consent: Consent was obtained from the and his . HD Catheter Date: 04/12/23 HD Catheter Time: 09:25 Pre-procedural Time-Out was completed immediately before starting the procedure and confirmed: Patient Identification, Site, Procedure, Patient Position and the Availability of Requisite Equipment.: Yes Patient Position: supine Patient Placed on Monitor/Pulse Ox: Yes Provider Prep: mask, sterile gown, sterile gloves, Max. sterile barrier precautions, cap and hand hygiene Hemodialysis Catheter Prep: Chlorhexidine scrub Local Anesthesia Used: lidocaine 1% Amount of anesthesia used (mL): 4 Ultrasound Used for Placement: Yes Hemodialysis Catheter Inserted: triple Kyr[place]z: 14 Length (cm): 16 Depth of Insertion (cm): 16 Post Procedure: sutured in place, good blood return, all ports aspirated, flushed, capped, transparent dressing, hemostatic product, antimicrobial product, securement product and aseptic technique maintained throughout procedure Post Procedure X-Ray: tip of catheter in good position and no pneumothorax seen Patient Tolerated Procedure: well Complications: none
[2023-04-12] MEDS: CHOLESTYRAMINE (W/ SUGAR) 4 GM POWD.PACK PO ×2 (11:31→16:42)
[2023-04-12] MEDS: CENTRAL LINE FLUSH 10 ML IV PUSH ×3 (14:19→20:29)
--- NOTE | 2023-04-12 14:35 | PM.IMPN ---
Progress Note: A&P Assessment and Plan (1) Sepsis: Code(s): A41.9 - Sepsis, unspecified organism Status: Acute (2) Enterocolitis: Code(s): K52.9 - Noninfective gastroenteritis and colitis, unspecified Status: Acute (3) Acute kidney injury: Code(s): N17.9 - Acute kidney failure, unspecified Status: Acute (4) Gastroesophageal reflux disease: Code(s): K21.9 - Gastro-esophageal reflux disease without esophagitis Status: Acute (5) Dehydration: Code(s): E86.0 - Dehydration Status: Acute (6) Elevated troponin: Code(s): R79.89 - Other specified abnormal findings of blood chemistry Status: Acute (7) Rheumatoid arthritis: Qualifiers: Rheumatoid arthritis location: unspecified site Rheumatoid factor presence: unspecified presence Qualified Code(s): M06.9 - Rheumatoid arthritis, unspecified Code(s): M06.9 - Rheumatoid arthritis, unspecified Status: Chronic (8) Immunocompromised patient: Code(s): D84.9 - Immunodeficiency, unspecified Status: Acute (9) Hypertension: Qualifiers: Hypertension type: essential hypertension Qualified Code(s): I10 - Essential (primary) hypertension Code(s): I10 - Essential (primary) hypertension Status: Acute Plan 53-year-old male with rheumatoid arthritis, obstructive sleep apnea, hypertension, hyperlipidemia, and gastroesophageal reflux disease who presented to the emergency department via private vehicle from home for evaluation of abdominal pain and diarrhea. The patient provides the following history. His provides additional information, with the patient's permission. Friday evening he complained to his that his stomach was upset and he had a couple of episodes of emesis that night. Friday he began having diarrhea and he reports having too numerous to count episodes of watery, yellow diarrhea. Stool culture positive for Salmonella Blood culture positive for Salmonella CTA levels in small bowel suggesting colitis. Diffuse fluid distention of the esophagus suggesting reflux, prominent fluid level in stomach hepatic steatosis moderate prostatic enlargement normal appendix. Blood culture positive for Salmonella C diff negative Stool culture negative for E coli Shiga toxin Campylobacter Cryptosporidium and Giardia all negative. Stool culture positive for Salmonella KALPANA nephrology on board creatinine continues to worsen. The urine output has picked up some creatinine continues to increase. Plans for dialysis noted Ultrasound with normal kidneys without hydronephrosis On bicarbonate drip Hyponatremia worsened plans for dialysis noted Hyperkalemia Severe sepsis related to diarrhea and hypovolemia EF 60-65% grade 1 diastolic dysfunction This electrolyte immediate replace as needed Elevated liver enzymes DVT prophylaxis heparin Code status full code Subjective Date/time seen: 04/12/23 14:35 Interval history: 53-year-old male with rheumatoid arthritis, obstructive sleep apnea, hypertension, hyperlipidemia, and gastroesophageal reflux disease who presented to the emergency department via private vehicle from home for evaluation of abdominal pain and diarrhea. The patient provides the following history. His provides additional information, with the patient's permission. Friday evening he complained to his that his stomach was upset and he had a couple of episodes of emesis that night. Friday he began having diarrhea and he reports having too numerous to count episodes of watery, yellow diarrhea. Pt having prefuse diarrhea today stool cultures positive for salmonella KALPANA, creat is going up slightly nephrology consulted hydrate with fluids and sodium bicarbonate drip lactate [place] [id number] continue to hydrate start bactrim and iv rocephin prednisone started since pt has history of RA cdiff is negative ct abdomen
--- NOTE | 2023-04-12 15:30 | PM.PNNEP ---
Progress Note: A&P Assessment and Plan (1) KALPANA (acute kidney injury): Code(s): N17.9 - Acute kidney failure, unspecified Status: Acute Assessment and Plan: renal function continues to worsen... suspect multifactorial etiology: dehydration/volume depletion ATN from infection (complicated by immunosuppression) contrast exposure (CTA of abdomen on 04/07/23) complicated by NSAID use RISK CONTROL SPECIALIST TIP-I use RISK CONTROL SPECIALIST agree with ongoing aggressive volume resuscitation evaluation to date: renal ultrasound without obstruction urine electrolytes prerenal urine eosinophils negative CPK trending down due to worsening renal function with possible uremia (due to confusion), initiate HD today plan further fluid boluses during dialysis treatment follow trend of repeat labs and UOP for possible recovery (2) Severe sepsis: Code(s): A41.9 - Sepsis, unspecified organism; R65.20 - Severe sepsis without septic shock Status: Acute Assessment and Plan: secondary to severe hypovolemia from GI losses/diarrhea and Salmonella bacteremia complicated by immunocompromised status on antibiotics blood pressure stable at this time - no need for vasopressors continue current therapy (3) Enterocolitis: Code(s): K52.9 - Noninfective gastroenteritis and colitis, unspecified Status: Acute Assessment and Plan: severe diarrhea and abdominal pain on admission admission imaging of CTA of abd/pelvis results noted C.diff toxin negative stool culture with Salmonella follow stool output continue aggressive IVF hydration (4) Hypokalemia: Code(s): E87.6 - Hypokalemia Status: Acute Assessment and Plan: due to bicarb fluids and ongoing GI losses aggressively replete as needed follow repeat K+ levels (5) Hyponatremia: Code(s): E87.1 - Hypo-osmolality and hyponatremia Status: Acute Assessment and Plan: likely due to fluctuations volume status, GI losses, and fluid resuscitation prerenal urine electrolytes noted TSH and cortisol okay SPEP/UPEP pending follow trend with IVF hydration dialysis should help -- adjust sodium bath to prevent overcorrection (6) Elevated liver enzymes: Code(s): R74.8 - Abnormal levels of other serum enzymes Status: Acute Assessment and Plan: secondary to infection/bacteremia RUQ ultrasound negative follow trend of LFTs (7) Rheumatoid arthritis: Qualifiers: Rheumatoid arthritis location: unspecified site Rheumatoid factor presence: unspecified presence Qualified Code(s): M06.9 - Rheumatoid arthritis, unspecified Code(s): M06.9 - Rheumatoid arthritis, unspecified Status: Chronic Assessment and Plan: holding immunosuppression medications (except prednisone) continue supportive therapy Discussed case with Dr. Limon. Will continue to follow. Subjective Date/time seen: 04/12/23 15:30 Interval history: Follow-up for acute kidney injury/acute renal failure. Seen earlier today and currently -- tolerating dialysis treatment at the time of my visit (seen on HD at ~ 3:20PM); urine output a bit better but continues to have significant GI losses/diarrhea ans notge by I/Os; renal function continues to deteriorated as well and night nurses report patient was having on/off issues with confusion; drinking fluids including Gatorade and is not as thirsty as he once was; family at bedside and we discussed the situation. Exam Narrative: General: ill appearing male in NAD Heart: normal S1 and S2; no rub Lungs: clear to auscultation Abdomen: soft, +TTP, nondistended, hypoactive bowel sounds Extremities: no cyanosis or clubbing; no edema Skin: no rash Objective Data Vital Signs Vital Signs: Vital Signs Temp Pulse Resp BP Pulse Ox O2 Del Method O2 Flow Rate 04/12/23 15:30 96 155/99 H 04/12/23 14:50 1
--- NOTE | 2023-04-12 15:30 | P.PNNP_ITS ---
Progress Note: A&P Assessment and Plan (1) KALPANA (acute kidney injury): Code(s): N17.9 - Acute kidney failure, unspecified Status: Acute Assessment and Plan: * renal function continues to worsen... * suspect multifactorial etiology: * dehydration/volume depletion * ATN from infection (complicated by immunosuppression) * contrast exposure (CTA of abdomen on 04/07/23) * complicated by NSAID use NAIL FEEDER * TIP-I use NAIL FEEDER * agree with ongoing aggressive volume resuscitation * evaluation to date: * renal ultrasound without obstruction * urine electrolytes prerenal * urine eosinophils negative * CPK trending down * due to worsening renal function with possible uremia (due to confusion), initiate HD today * plan further fluid boluses during dialysis treatment * follow trend of repeat labs and UOP for possible recovery (2) Severe sepsis: Code(s): A41.9 - Sepsis, unspecified organism; R65.20 - Severe sepsis without septic shock Status: Acute Assessment and Plan: * secondary to severe hypovolemia from GI losses/diarrhea and Salmonella bacteremia * complicated by immunocompromised status * on antibiotics * blood pressure stable at this time - no need for vasopressors * continue current therapy (3) Enterocolitis: Code(s): K52.9 - Noninfective gastroenteritis and colitis, unspecified Status: Acute Assessment and Plan: * severe diarrhea and abdominal pain on admission * admission imaging of CTA of abd/pelvis results noted * C.diff toxin negative * stool culture with Salmonella * follow stool output * continue aggressive IVF hydration (4) Hypokalemia: Code(s): E87.6 - Hypokalemia Status: Acute Assessment and Plan: * due to bicarb fluids and ongoing GI losses * aggressively replete as needed * follow repeat K+ levels (5) Hyponatremia: Code(s): E87.1 - Hypo-osmolality and hyponatremia Status: Acute Assessment and Plan: * likely due to fluctuations volume status, GI losses, and fluid resuscitation * prerenal urine electrolytes noted * TSH and cortisol okay * SPEP/UPEP pending * follow trend with IVF hydration * dialysis should help -- adjust sodium bath to prevent overcorrection (6) Elevated liver enzymes: Code(s): R74.8 - Abnormal levels of other serum enzymes Status: Acute Assessment and Plan: * secondary to infection/bacteremia * RUQ ultrasound negative * follow trend of LFTs (7) Rheumatoid arthritis: Qualifiers: Rheumatoid arthritis location: unspecified site Rheumatoid factor presence: unspecified presence Qualified Code(s): M06.9 - Rheumatoid arthritis, unspecified Code(s): M06.9 - Rheumatoid arthritis, unspecified Status: Chronic Assessment and Plan: * holding immunosuppression medications (except prednisone) * continue supportive therapy Discussed case with Dr. Limon. Will continue to follow. Subjective Date/time seen: 04/12/23 15:30 Interval history: Follow-up for acute kidney injury/acute renal failure. Seen earlier today and currently -- tolerating dialysis treatment at the time of my visit (seen on HD at ~ 3:20PM); urine output a bit better but continues to have significant GI losses/diarrhea ans notge by I/Os; renal function continues to deteriorated as well and night nurses report patient was having on/off issues with confusion; drinking fluids including Gatorade and is not as thirsty as he once was; fami
[2023-04-12] MEDS: SODIUM CHLORIDE 0.9% IV 1,000 ML 999 ML IV CONT (16:37)
[2023-04-12] MEDS: SODIUM CHLORIDE 0.9% IV 1,000 ML 500 ML (16:37)
[2023-04-12] MEDS: FLUTICASONE PROPIONATE 0.05% NA SPR 16 GM BTL (*BKC) 2 SPRAY NASAL (20:28)
[2023-04-12] MEDS: QUEtiapine FUMARATE 25 MG TABLET PO (20:29)
[2023-04-12] MEDS: LABETALOL HCL INJ 100 MG/20 ML VIAL 20 MG IV PUSH (20:30)
[2023-04-13] VITALS (27 sets, daily range): BP systolic 120–186; BP diastolic 53–126; PULSE 80–104; RESP 12–24; TEMP 35.6–37.9; O2SAT 95–97
[2023-04-13] MEDS: LACTATED RINGERS 1,000 ML 200 ML IV CONT ×5 (00:16→20:29)
[2023-04-13] MEDS: LOPERAMIDE HCL 2 MG CAPSULE PO (00:16)
[2023-04-13 00:57] LABS: Glucose Point of Care 89 mg/dl (65-105)
[2023-04-13 04:28] LABS: Glucose Point of Care 93 mg/dl (65-105)
[2023-04-13] MEDS: CENTRAL LINE FLUSH 10 ML IV PUSH ×3 (06:16→20:10)
[2023-04-13 06:25] LABS: Hematocrit 40.8 % (42.0-52.0); Immature Platelet Fraction Pct 27.6 % (0.9-11.2); Mean Corpuscular HGB Conc 34.3 g/dl (32-36); Mean Corpuscular Hemoglobin 30.7 pg (26-34); Mean Corpuscular Volume 89.5 fl (80-100); Platelet Count Result 87 k/mm3 (150-375); Red Blood Count 4.56 M/mm3 (4.6-6.20); Red Cell Distribution Width 14.7 % (11.5-14.5); White Blood Count 36.5 K/mm3 (4.5-10.0)
[2023-04-13 06:33] LABS: Lactic Acid Reflex 1.6 mmol/L (0.7-2.0)
[2023-04-13 06:51] LABS: Alanine Aminotransferase 52 U/L (6-50); Albumin Level 3.6 g/dL (3.5-5.1); Alkaline Phosphatase 142 U/L (38-126); Anion Gap 17 mmol/L (8-16); Aspartate Amino Transferase 73 U/L (17-59); Bilirubin,Total 2.4 mg/dL (0.2-1.3); Blood Urea Nitrogen 74 mg/dL (9-20); Calcium 7.5 mg/dL (8.4-10.2); Carbon Dioxide 27 mmol/L (22-30); Chloride 80 mmol/L (98-107); Creatine Kinase 136 U/L (55-170); Glucose 90 mg/dL (65-110); Magnesium 2.9 mg/dL (1.6-2.3); Phosphorus 8.5 mg/dL (2.5-4.5); Potassium 4.2 mmol/L (3.4-5.0); Sodium 124 mmol/L (137-145)
[2023-04-13 07:10] LABS: CRP 23.7 mg/dL (<1.0); Estimated CRCL calculation 9 ml/min; Estimated Glomerular Filt Rate 6
[2023-04-13 07:18] LABS: Band Neutrophils Percent 12 % (0-6); Lymphocytes Absolute Manual 1.09 K/mm3 (1.1-4.5); Lymphocytes Percent Manual 3 % (18-44); Monocytes Absolute Manual 5.84 K/mm3 (0.1-0.90); Monocytes Percent Manual 16 % (3-9); Neutrophils Absolute Manual 26.64 K/mm3 (1.3-6.7); Neutrophils Percent Manual 61 % (46-73); Total Cells Counted 100
[2023-04-13 07:19] LABS: Blastocytes 1 %; Metamyelocytes Percent 2 %; Myelocytes Percent 1 %; Nucleated Red Blood Cells 4 %; Platelet Estimate Decreased (Adequate); Promyelocytes Percent 4 %; Schistocytes None Seen (NORMAL)
--- NOTE | 2023-04-13 08:46 | WPDINTPN ---
Progress Note: A&P Assessment and Plan (1) Enterocolitis: Code(s): K52.9 - Noninfective gastroenteritis and colitis, unspecified Status: Acute Assessment and Plan: Patient presented on 04/07 with severe diarrhea and abdominal pain after eating a pizza, denies any travel or sick contacts. Patient is on Humira so his immunocompromised -04/07: CTA abdomen and pelvis showed fluid levels in small bowel and particularly: Suggesting enterocolitis. Diffuse fluid distention of the esophagus suggesting reflux, prominent fluid level in the stomach, hepatic steatosis, moderate prostatic enlargement normal appendix 04/07/2023: Blood cultures positive for Salmonella (sensitive to ceftriaxone and Bactrim) -04/07 & 04/09 C diff is negative -04/09: Stool culture negative for E coli, Shiga toxins, Campylobacter, Cryptosporidium and Giardia. Salmonella positive and shigella culture pending 04/10: Repeat blood cultures, negative x2 -continue ceftriaxone (04/09). 04/13: Will discontinue Levaquin as monotherapy should be adequate as dual coverage carries a risk of C. Diff 04/11 Bactrim discontinue - -continue cholestyramine and Florastor -discussed with GI, Dr Daigle stated there no ruled of octreotide at this time -fecal management system in place with green liquid stool -continue aggressive IV fluid hydration -will balance the GI losses and in insensible fluid losses with IV fluids (2) Salmonella enteritis: Code(s): A02.0 - Salmonella enteritis Status: Acute Assessment and Plan: Repeat CT scan of abdomen pelvis on 04/13/2023 IMPRESSION: 1. Air-fluid levels throughout the upper GI tract and colon without focal transitional obstructive site. Mild colonic wall thickening distally. Findings suspicious for enterocolitis. 2: Gallbladder wall thickening with possible pericholecystic fluid. This could indicate interstitial edema, chronic liver disease or cholecystitis. 3: Trace pleural effusions with dependent atelectasis. 4:? Mesenteric lymphadenopathy, likely reactive. Continue treatment as above (3) KALPANA (acute kidney injury): Code(s): N17.9 - Acute kidney failure, unspecified Status: Acute Assessment and Plan: Acute kidney injury likely related to dehydration, ATN, hypovolemia -metabolic acidosis due to bicarb losses in the stool -discontinue bicarb infusion (04/11) -continue LR at 200 mL/hour -courage p.o. intake -monitor urine output, renal function electrolytes -discussed with Nephrology continue current management, -04/[address] dialysis catheter and started on dialysis without fluid removal -dialysis per Nephrology 04/08: Ultrasound with normal kidneys without hydronephrosis (4) Dehydration: Code(s): E86.0 - Dehydration Status: Acute Assessment and Plan: Continue aggressive IV fluid hydration (5) Severe sepsis: Code(s): A41.9 - Sepsis, unspecified organism; R65.20 - Severe sepsis without septic shock Status: Acute Assessment and Plan: Severe sepsis likely related to hypovolemia, Salmonella bacteremia -continue antibiotics as above -blood pressures have been stable -WBC count and CRP continue to be elevated -continue aggressive IV fluids -discussed with Nephrology 04/08: Echocardiogram Summary ? 1. Complete two-dimensional, color flow and Doppler transthoracic echocardiogram is performed. ? 2. Left ventricular chamber dimension is normal. ? 3. Left ventricular systolic function is normal, estimated at 60-65%. ? 4. There is mildly increased left ventricular wall thickness. ? 5. The left ventricular diastolic function is grade I diastolic dysfunction. ? 6. Right ventricular systolic function is normal. ? 7. There is trace mitral valve regurgitation. ? 8. There is trace tricuspid valve regurgitation. ? 9. There is trivial pericardial effusion. (6) Electrolyte imbalance: Code(s): E87.8 - Other disorders of electroly
[2023-04-13] MEDS: PANTOPRAZOLE SODIUM IV 40 MG VIAL IV PUSH ×2 (09:03→20:10)
[2023-04-13] MEDS: cefTRIAXone 2 GM/NS 100 ML 2 GM/100 ML BAG IVPB ×2 (09:03→20:10)
[2023-04-13] MEDS: GABAPENTIN 300 MG CAPSULE 900 MG PO (09:10)
[2023-04-13] MEDS: LORATADINE 10 MG TABLET PO (09:11)
[2023-04-13] MEDS: DULoxetine HCL 60 MG CAPSULE.DR PO (09:11)
[2023-04-13] MEDS: FOLIC ACID 1 MG TABLET PO (09:12)
[2023-04-13] MEDS: SACCHAROMYCES BOULARDII 250 MG CAPSULE PO ×2 (09:12→14:44)
--- NOTE | 2023-04-13 09:59 | WPDGIPROGNO ---
Progress Note: A&P Assessment and Plan (1) Salmonella enteritis: Code(s): A02.0 - Salmonella enteritis Status: Acute Assessment and Plan: Salmonella enteritis confirmed. Stool cultures positive for Salmonella as are blood cultures. Continue broad-spectrum antibiotic coverage. Likely this contributes to his ongoing profuse diarrhea. May benefit from Lomotil to diminish frequency of stools. I am somewhat concerned about off-label use of octreotide which has been discussed. Patient's sepsis may be ongoing. White count now at 36 K. (2) Confusion: Code(s): R41.0 - Disorientation, unspecified Status: Acute Assessment and Plan: Patient's mental status has improved. No longer appears confused. (3) Immunocompromised patient: Code(s): D84.9 - Immunodeficiency, unspecified Status: Acute Assessment and Plan: Patient may have some difficulty fighting infection with his probable immunocompromised state. He has been on Humira for rheumatoid arthritis. (4) Acute kidney injury: Code(s): N17.9 - Acute kidney failure, unspecified Status: Acute Assessment and Plan: Patient with acute renal failure. Nephrology service following. Dialysis has been implemented. Under their direction. (5) Rheumatoid arthritis: Qualifiers: Rheumatoid arthritis location: unspecified site Rheumatoid factor presence: unspecified presence Qualified Code(s): M06.9 - Rheumatoid arthritis, unspecified Code(s): M06.9 - Rheumatoid arthritis, unspecified Status: Chronic (6) Leukocytosis: Code(s): D72.829 - Elevated white blood cell count, unspecified Status: Acute Subjective Date/time seen: 04/13/23 09:59 Interval history: Patient remains in the ICU. Comfortable at rest today. Fecal containment bag in place. Patient reports abdominal pain has improved. Now on dialysis. Review of Systems Review of Systems: Review of systems noncontributory. Exam Narrative: Physical exam reveals patient comfortable at rest. HEENT exam unremarkable. Vital signs are stable. Lungs are clear. Heart without murmur. Abdomen softer than previous exams. Bowel sounds are present no localized tenderness. Fecal containment bag with large amount liquid stool. Extremities without clubbing cyanosis or edema. Objective Data Vital Signs Vital Signs: Vital Signs - 24 hr 04/12/23 10:00 04/12/23 10:00 04/12/23 12:00 Temperature Pulse Rate 96 95 Respiratory Rate 16 Blood Pressure 152/104 H Pulse Oximetry 94 95 Oxygen Delivery Nasal Cannula Oxygen Flow Rate 1 04/12/23 12:00 04/12/23 12:00 04/12/23 14:00 Temperature 98.5 F Pulse Rate 88 92 90 Respiratory Rate 13 17 Blood Pressure 145/104 H 153/102 H Pulse Oximetry 90 95 Oxygen Delivery Oxygen Flow Rate 04/12/23 14:00 04/12/23 15:00 04/12/23 15:15 Temperature Pulse Rate 90 93 95 Respiratory Rate Blood Pressure 154/101 H 155/97 H Pulse Oximetry Oxygen Delivery Oxygen Flow Rate 04/12/23 14:50 04/12/23 14:50 04/12/23 15:30 Temperature 97.8 F Pulse Rate 87 96 Respiratory Rate 22 H Blood Pressure 155/108 H 155/99 H Pulse Oximetry 96 Oxygen Delivery Oxygen Flow Rate 1 04/12/23 15:45 04/12/23 16:00 04/12/23 16:15 Temperature Pulse Rate 97 93 93 Respiratory Rate Blood Pressure 158/101 H 163/100 H 151/91 H Pulse Oximetry Oxygen Delivery Oxygen Flow Rate 04/12/23 16:30 04/12/23 16:00 04/12/23 16:00 Temperature 98.4 F Pulse Rate 92 93 92 Respiratory Rate 13 Blood Pressure 161/98 H 163/100 H Pulse Oximetry 97 Oxygen Delivery Oxygen Flow Rate 04/12/23 16:00 04/12/23 16:45 04/12/23 17:00 Temperature Pulse Rate 95 92 Respiratory Rate Blood Pressure 171/100 H 157/110 H Pulse Oximetry 96 Oxygen Delivery Nasal Cannula Oxygen Flow Rate 1 04/12/23 17:15 04/12/23 17:30
[2023-04-13] MEDS: CHOLESTYRAMINE (W/ SUGAR) 4 GM POWD.PACK PO ×2 (12:00→18:48)
--- NOTE | 2023-04-13 12:11 | PM.PNNEP ---
Progress Note: A&P Assessment and Plan (1) KALPANA (acute kidney injury): Code(s): N17.9 - Acute kidney failure, unspecified Status: Acute Assessment and Plan: suspect multifactorial etiology: dehydration/volume depletion ATN from infection (complicated by immunosuppression) contrast exposure (CTA of abdomen on 04/07/23) complicated by NSAID use [employer] TIP-I use [employer] HE[employer] agree with ongoing aggressive volume resuscitation evaluation to date: renal ultrasound without obstruction urine electrolytes prerenal urine eosinophils negative CPK trending down due to worsening renal function with possible uremia (due to confusion), initiated on HD on 04/12/23 HD today as well (to maximize clearance of uremic toxins) follow trend of repeat labs and UOP for possible recovery (2) Severe sepsis: Code(s): A41.9 - Sepsis, unspecified organism; R65.20 - Severe sepsis without septic shock Status: Acute Assessment and Plan: secondary to severe hypovolemia from GI losses/diarrhea and Salmonella bacteremia complicated by immunocompromised status on antibiotics blood pressure stable at this time - no need for vasopressors continue current therapy (3) Enterocolitis: Code(s): K52.9 - Noninfective gastroenteritis and colitis, unspecified Status: Acute Assessment and Plan: severe diarrhea and abdominal pain on admission admission imaging of CTA of abd/pelvis results noted C.diff toxin negative stool culture with Salmonella follow stool output continue aggressive IVF hydration (4) Hypokalemia: Code(s): E87.6 - Hypokalemia Status: Acute Assessment and Plan: due to bicarb fluids and ongoing GI losses aggressively replete as needed follow repeat K+ levels (5) Hyponatremia: Code(s): E87.1 - Hypo-osmolality and hyponatremia Status: Acute Assessment and Plan: likely due to fluctuations volume status, GI losses, and fluid resuscitation prerenal urine electrolytes noted TSH and cortisol okay SPEP/UPEP pending follow trend with IVF hydration dialysis should help -- adjusting sodium bath to prevent overcorrection (6) Elevated liver enzymes: Code(s): R74.8 - Abnormal levels of other serum enzymes Status: Acute Assessment and Plan: secondary to infection/bacteremia RUQ ultrasound negative follow trend of LFTs (7) Rheumatoid arthritis: Qualifiers: Rheumatoid arthritis location: unspecified site Rheumatoid factor presence: unspecified presence Qualified Code(s): M06.9 - Rheumatoid arthritis, unspecified Code(s): M06.9 - Rheumatoid arthritis, unspecified Status: Chronic Assessment and Plan: holding immunosuppression medications (except prednisone) continue supportive therapy Will continue to follow. Subjective Date/time seen: 04/13/23 12:11 Interval history: Follow-up for acute kidney injury/acute renal failure. Tolerated dialysis yesterday and tolerating dialysis treatment at this time (seen on HD at 12:00PM); still with signicant stool output of almost 9000cc in the last 24 hours; concerning that his urine output has dropped off in the last 24 hours as well; reports improvement in abdominal pain as well; still with elevated WBC and CRP; no acute distress voiced. Exam Narrative: General: ill appearing male in NAD Heart: normal S1 and S2; no rub Lungs: clear to auscultation Abdomen: soft, mild TTP, nondistended, hypoactive bowel sounds Extremities: no cyanosis or clubbing; no edema Skin: no nodules Objective Data Vital Signs Vital Signs: Vital Signs Temp Pulse Resp BP Pulse Ox O2 Del Method O2 Flow Rate 04/13/23 12:00 99.0 F 91 21 H 162/101 H 96 04/13/23 10:00 99.4 F 94 22 H 156/98 H 96 04/13/23 12:00 95 04/13/23 10:00 94 04/13/23 12:45 96 142/93 H 04/13/23 12:30 87 152/1
--- NOTE | 2023-04-13 12:11 | P.PNNP_ITS ---
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 use [employer]ICIAL * TIP-I use [employer] * agree with ongoing aggressive volume resuscitation * evaluation to date: * renal ultrasound without obstruction * urine electrolytes prerenal * urine eosinophils negative * CPK trending down * due to worsening renal function with possible uremia (due to confusion), initiated on HD on 04/12/23 * HD today as well (to maximize clearance of uremic toxins) * follow trend of repeat labs and UOP for possible recovery (2) Severe sepsis: Code(s): A41.9 - Sepsis, unspecified organism; R65.20 - Severe sepsis without septic shock Status: Acute Assessment and Plan: * secondary to severe hypovolemia from GI losses/diarrhea and Salmonella bacteremia * complicated by immunocompromised status * on antibiotics * blood pressure stable at this time - no need for vasopressors * continue current therapy (3) Enterocolitis: Code(s): K52.9 - Noninfective gastroenteritis and colitis, unspecified Status: Acute Assessment and Plan: * severe diarrhea and abdominal pain on admission * admission imaging of CTA of abd/pelvis results noted * C.diff toxin negative * stool culture with Salmonella * follow stool output * continue aggressive IVF hydration (4) Hypokalemia: Code(s): E87.6 - Hypokalemia Status: Acute Assessment and Plan: * due to bicarb fluids and ongoing GI losses * aggressively replete as needed * follow repeat K+ levels (5) Hyponatremia: Code(s): E87.1 - Hypo-osmolality and hyponatremia Status: Acute Assessment and Plan: * likely due to fluctuations volume status, GI losses, and fluid resuscitation * prerenal urine electrolytes noted * TSH and cortisol okay * SPEP/UPEP pending * follow trend with IVF hydration * dialysis should help -- adjusting sodium bath to prevent overcorrection (6) Elevated liver enzymes: Code(s): R74.8 - Abnormal levels of other serum enzymes Status: Acute Assessment and Plan: * secondary to infection/bacteremia * RUQ ultrasound negative * follow trend of LFTs (7) Rheumatoid arthritis: Qualifiers: Rheumatoid arthritis location: unspecified site Rheumatoid factor presence: unspecified presence Qualified Code(s): M06.9 - Rheumatoid arthritis, unspecified Code(s): M06.9 - Rheumatoid arthritis, unspecified Status: Chronic Assessment and Plan: * holding immunosuppression medications (except prednisone) * continue supportive therapy Will continue to follow. Subjective Date/time seen: 04/13/23 12:11 Interval history: Follow-up for acute kidney injury/acute renal failure. Tolerated dialysis yesterday and tolerating dialysis treatment at this time (seen on HD at 12:00PM); still with signicant stool output of almost 9000cc in the last 24 hours; concerning that his urine output has dropped off in the last 24 hours as well; reports improvement in abdominal pain as well; still with elevated WBC and CRP; no acute distress voiced. Exam Narrative: General: ill appearing male in NAD Heart: normal S1 and
--- NOTE | 2023-04-13 12:38 | PM.IMPN ---
Progress Note: A&P Assessment and Plan (1) Sepsis: Code(s): A41.9 - Sepsis, unspecified organism Status: Acute (2) Enterocolitis: Code(s): K52.9 - Noninfective gastroenteritis and colitis, unspecified Status: Acute (3) Acute kidney injury: Code(s): N17.9 - Acute kidney failure, unspecified Status: Acute (4) Gastroesophageal reflux disease: Code(s): K21.9 - Gastro-esophageal reflux disease without esophagitis Status: Acute (5) Dehydration: Code(s): E86.0 - Dehydration Status: Acute (6) Elevated troponin: Code(s): R79.89 - Other specified abnormal findings of blood chemistry Status: Acute (7) Rheumatoid arthritis: Qualifiers: Rheumatoid arthritis location: unspecified site Rheumatoid factor presence: unspecified presence Qualified Code(s): M06.9 - Rheumatoid arthritis, unspecified Code(s): M06.9 - Rheumatoid arthritis, unspecified Status: Chronic (8) Immunocompromised patient: Code(s): D84.9 - Immunodeficiency, unspecified Status: Acute (9) Hypertension: Qualifiers: Hypertension type: essential hypertension Qualified Code(s): I10 - Essential (primary) hypertension Code(s): I10 - Essential (primary) hypertension Status: Acute Plan 53-year-old male with rheumatoid arthritis, obstructive sleep apnea, hypertension, hyperlipidemia, and gastroesophageal reflux disease who presented to the emergency department via private vehicle from home for evaluation of abdominal pain and diarrhea. The patient provides the following history. His provides additional information, with the patient's permission. Friday evening he complained to his that his stomach was upset and he had a couple of episodes of emesis that night. Friday he began having diarrhea and he reports having too numerous to count episodes of watery, yellow diarrhea. Stool culture positive for Salmonella Blood culture positive for Salmonella CTA levels in small bowel suggesting colitis. Diffuse fluid distention of the esophagus suggesting reflux, prominent fluid level in stomach hepatic steatosis moderate prostatic enlargement normal appendix. Blood culture positive for Salmonella C diff negative Stool culture negative for E coli Shiga toxin Campylobacter Cryptosporidium and Giardia all negative. Stool culture positive for Salmonella Repeat CT 04/13 with findings of enterocolitis KALPANA nephrology on board creatinine continues to worsen. The urine output has picked up some creatinine continues to increase. Initiation of dialysis 04/12/2023. Urine output continues to be poor Ultrasound with normal kidneys without hydronephrosis On receive IV hydration Hyponatremia worsened started on dialysis 04/12/2023. Hyperkalemia Severe sepsis related to diarrhea and hypovolemia EF 60-65% grade 1 diastolic dysfunction This electrolyte immediate replace as needed Elevated liver enzymes DVT prophylaxis heparin Code status full code Subjective Date/time seen: 04/13/23 12:38 Interval history: 53-year-old male with rheumatoid arthritis, obstructive sleep apnea, hypertension, hyperlipidemia, and gastroesophageal reflux disease who presented to the emergency department via private vehicle from home for evaluation of abdominal pain and diarrhea. The patient provides the following history. His provides additional information, with the patient's permission. Friday evening he complained to his that his stomach was upset and he had a couple of episodes of emesis that night. Friday he began having diarrhea and he reports having too numerous to count episodes of watery, yellow diarrhea. Pt having prefuse diarrhea today stool cultures positive for salmonella KALPANA, creat is going up slightly nephrology consulted hydrate with fluids and sodium bicarbonate drip lactate [place] [id number] continue to hydrate start
[2023-04-13] MEDS: LABETALOL HCL INJ 100 MG/20 ML VIAL 20 MG IV PUSH (14:44)
[2023-04-13] MEDS: hydrALAZINE HCL 20 MG/ML VIAL 10 MG IV PUSH (16:31)
[2023-04-13] MEDS: DICLOFENAC SODIUM 1% 100 GM GEL (*BKC) 1 APPLIC TOPICAL (16:35)
[2023-04-13] MEDS: QUEtiapine FUMARATE 25 MG TABLET PO (20:10)
[2023-04-14] VITALS (16 sets, daily range): BP systolic 120–170; BP diastolic 65–110; PULSE 74–105; RESP 16–25; TEMP 36.5–37.5; O2SAT 94–97; BMI 27.6
[2023-04-14] MEDS: LACTATED RINGERS 1,000 ML 200 ML IV CONT ×2 (01:25→06:06)
[2023-04-14] MEDS: ONDANSETRON INJ 4 MG/2 ML VIAL IV PUSH ×3 (02:55→18:14)
[2023-04-14 05:28] LABS: Hematocrit 42.6 % (42.0-52.0); Hemoglobin 15.2 g/dL (14.0-18.0); Mean Corpuscular HGB Conc 35.7 g/dl (32-36); Mean Corpuscular Hemoglobin 30.8 pg (26-34); Mean Corpuscular Volume 86.4 fl (80-100); Platelet Count Result 103 k/mm3 (150-375); Red Blood Count 4.93 M/mm3 (4.6-6.20); Red Cell Distribution Width 14.4 % (11.5-14.5); White Blood Count 43.1 K/mm3 (4.5-10.0)
[2023-04-14 05:44] LABS: Alanine Aminotransferase 54 U/L (6-50); Albumin Level 3.9 g/dL (3.5-5.1); Alkaline Phosphatase 264 U/L (38-126); Anion Gap 20 mmol/L (8-16); Aspartate Amino Transferase 66 U/L (17-59); Bilirubin,Total 2.7 mg/dL (0.2-1.3); Blood Urea Nitrogen 66 mg/dL (9-20); Carbon Dioxide 26 mmol/L (22-30); Chloride 78 mmol/L (98-107); Creatine Kinase 79 U/L (55-170); Glucose 111 mg/dL (65-110); Magnesium 2.9 mg/dL (1.6-2.3); Phosphorus 10.4 mg/dL (2.5-4.5); Potassium 4.4 mmol/L (3.4-5.0); Sodium 124 mmol/L (137-145)
[2023-04-14 05:52] LABS: Estimated CRCL calculation 10 ml/min; Estimated Glomerular Filt Rate 6
[2023-04-14] MEDS: CENTRAL LINE FLUSH 10 ML IV PUSH ×3 (05:54→18:10)
[2023-04-14 05:58] LABS: CRP 21.4 mg/dL (<1.0)
[2023-04-14] MEDS: LABETALOL HCL INJ 100 MG/20 ML VIAL 20 MG IV PUSH (06:03)
[2023-04-14 08:00] LABS: Band Neutrophils Percent 14 % (0-6); Eosinophils Absolute Manual 0.43 K/mm3 (0.02-0.5); Eosinophils Percent Manual 1 % (0-4); Lymphocytes Absolute Manual 1.29 K/mm3 (1.1-4.5); Metamyelocytes Percent 4 %; Monocytes Absolute Manual 2.58 K/mm3 (0.1-0.90); Monocytes Percent Manual 6 % (3-9); Myelocytes Percent 2 %; Neutrophils Percent Manual 70 % (46-73); Nucleated Red Blood Cells 2 %; Total Cells Counted 100
[2023-04-14 08:01] LABS: Platelet Estimate Decreased (Adequate); Schistocytes None Seen (NORMAL)
[2023-04-14 08:03] LABS: Dohle Bodies Present (NORMAL); Toxic Granulation Present (NORMAL)
--- NOTE | 2023-04-14 08:10 | WPDINTPN ---
Progress Note: A&P Assessment and Plan (1) Enterocolitis: Code(s): K52.9 - Noninfective gastroenteritis and colitis, unspecified Status: Acute Assessment and Plan: Patient presented on 04/07 with severe diarrhea and abdominal pain after eating a pizza, denies any travel or sick contacts. Patient is on Humira so his immunocompromised -04/07: CTA abdomen and pelvis showed fluid levels in small bowel and particularly: Suggesting enterocolitis. Diffuse fluid distention of the esophagus suggesting reflux, prominent fluid level in the stomach, hepatic steatosis, moderate prostatic enlargement normal appendix 04/07/2023: Blood cultures positive for Salmonella (sensitive to ceftriaxone and Bactrim) -04/07 & 04/09 C diff is negative -04/09: Stool culture negative for E coli, Shiga toxins, Campylobacter, Cryptosporidium and Giardia. Salmonella positive and shigella culture pending 04/10: Repeat blood cultures, negative x2 -continue ceftriaxone (04/09). 04/13: Will discontinue Levaquin as monotherapy should be adequate as dual coverage carries a risk of C. Diff 04/11 Bactrim discontinued -continue cholestyramine and Florastor -discussed with GI, Dr Daigle stated there no ruled of octreotide at this time -check stool electrolytes -fecal management system in place with green liquid stool -continue aggressive IV fluid hydration -will balance the GI losses and in insensible fluid losses with IV fluids (2) Salmonella enteritis: Code(s): A02.0 - Salmonella enteritis Status: Acute Assessment and Plan: Repeat CT scan of abdomen pelvis on 04/13/2023 IMPRESSION: 1. Air-fluid levels throughout the upper GI tract and colon without focal transitional obstructive site. Mild colonic wall thickening distally. Findings suspicious for enterocolitis. 2: Gallbladder wall thickening with possible pericholecystic fluid. This could indicate interstitial edema, chronic liver disease or cholecystitis. 3: Trace pleural effusions with dependent atelectasis. 4:? Mesenteric lymphadenopathy, likely reactive. Continue treatment as above (3) KALPANA (acute kidney injury): Code(s): N17.9 - Acute kidney failure, unspecified Status: Acute Assessment and Plan: Acute kidney injury likely related to dehydration, ATN, hypovolemia -metabolic acidosis due to bicarb losses in the stool -discontinue bicarb infusion (04/11) -continue LR at 200 mL/hour -courage p.o. intake -monitor urine output, renal function electrolytes -discussed with Nephrology continue current management, -04/[address] dialysis catheter and started on dialysis without fluid removal -dialysis per Nephrology 04/08: Ultrasound with normal kidneys without hydronephrosis (4) Dehydration: Code(s): E86.0 - Dehydration Status: Acute Assessment and Plan: Continue aggressive IV fluid hydration (5) Severe sepsis: Code(s): A41.9 - Sepsis, unspecified organism; R65.20 - Severe sepsis without septic shock Status: Acute Assessment and Plan: Severe sepsis likely related to hypovolemia, Salmonella bacteremia -continue antibiotics as above -blood pressures have been stable -WBC count and CRP continues to be elevated -continue aggressive IV fluids -discussed with Nephrology 04/08: Echocardiogram Summary ? 1. Complete two-dimensional, color flow and Doppler transthoracic echocardiogram is performed. ? 2. Left ventricular chamber dimension is normal. ? 3. Left ventricular systolic function is normal, estimated at 60-65%. ? 4. There is mildly increased left ventricular wall thickness. ? 5. The left ventricular diastolic function is grade I diastolic dysfunction. ? 6. Right ventricular systolic function is normal. ? 7. There is trace mitral valve regurgitation. ? 8. There is trace tricuspid valve regurgitation. ? 9. There is trivial pericardial effusion. (6) Electrolyte imbalance: Code(s): E87.8 -
[2023-04-14] MEDS: GABAPENTIN 300 MG CAPSULE 900 MG PO (08:25)
[2023-04-14] MEDS: DULoxetine HCL 60 MG CAPSULE.DR PO (08:25)
[2023-04-14] MEDS: LORATADINE 10 MG TABLET PO (08:25)
[2023-04-14] MEDS: PANTOPRAZOLE SODIUM IV 40 MG VIAL IV PUSH (08:25)
[2023-04-14] MEDS: FOLIC ACID 1 MG TABLET PO (08:25)
[2023-04-14] MEDS: cefTRIAXone 2 GM/NS 100 ML 2 GM/100 ML BAG IVPB (08:25)
[2023-04-14] MEDS: LOPERAMIDE HCL 2 MG CAPSULE PO ×2 (08:25→16:54)
[2023-04-14] MEDS: SACCHAROMYCES BOULARDII 250 MG CAPSULE PO ×3 (08:25→16:54)
--- NOTE | 2023-04-14 09:38 | ECG_ITS ---
Measurements Intervals [place] Rate: 75 P: 44 [place]: 144 QRS: 81 QRSD: 108 T: 23 QT: 377 QTc: 423 Interpretive Statements SINUS RHYTHM WITHIN NORMAL LIMITS COMPARED TO ECG 04/09/2023 11:42:31 T-WAVE ABNORMALITY HAS IMPROVED Electronically Signed On 04-14-2023 14:53:11 CDT by Mino Storm M.D.
[2023-04-14] MEDS: ALTEPLASE 2 MG VIAL (CATHFLO) IV PUSH ×2 (10:14→10:15)
--- NOTE | 2023-04-14 10:34 | P.PNNP_ITS ---
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 * agree with ongoing aggressive volume resuscitation * evaluation to date: * renal ultrasound without obstruction * urine electrolytes prerenal * urine eosinophils negative * CPK trending down * due to worsening renal function with possible uremia (due to confusion), initiated on HD on 04/12/23 * attempted HD today but discontinued -- will reassess tomorrow * follow trend of repeat labs and UOP for possible recovery (2) Severe sepsis: Code(s): A41.9 - Sepsis, unspecified organism; R65.20 - Severe sepsis without septic shock Status: Acute Assessment and Plan: * secondary to severe hypovolemia from GI losses/diarrhea and Salmonella bacteremia * complicated by immunocompromised status * on antibiotics * blood pressure stable at this time - no need for vasopressors * continue current therapy (3) Enterocolitis: Code(s): K52.9 - Noninfective gastroenteritis and colitis, unspecified Status: Acute Assessment and Plan: * severe diarrhea and abdominal pain on admission * admission imaging of CTA of abd/pelvis results noted * C.diff toxin negative * stool culture with Salmonella * follow stool output * continue aggressive IVF hydration (4) Hypokalemia: Code(s): E87.6 - Hypokalemia Status: Acute Assessment and Plan: * due to bicarb fluids and ongoing GI losses * aggressively replete as needed * follow repeat K+ levels (5) Hyponatremia: Code(s): E87.1 - Hypo-osmolality and hyponatremia Status: Acute Assessment and Plan: * likely due to fluctuations volume status, GI losses, and fluid resuscitation * prerenal urine electrolytes noted * TSH and cortisol okay * SPEP/UPEP pending * follow trend with IVF hydration * dialysis should help -- adjusting sodium bath to prevent overcorrection (6) Elevated liver enzymes: Code(s): R74.8 - Abnormal levels of other serum enzymes Status: Acute Assessment and Plan: * secondary to infection/bacteremia * RUQ ultrasound negative * follow trend of LFTs (7) Rheumatoid arthritis: Qualifiers: Rheumatoid arthritis location: unspecified site Rheumatoid factor presence: unspecified presence Qualified Code(s): M06.9 - Rheumatoid arthritis, unspecified Code(s): M06.9 - Rheumatoid arthritis, unspecified Status: Chronic Assessment and Plan: * holding immunosuppression medications (except prednisone) * continue supportive therapy Discussed case with Dr. Limon. Will continue to follow. Subjective Date/time seen: 04/14/23 10:34 Interval history: Follow-up for acute kidney injury/acute renal failure. Tolerated dialysis yesterday without any issues/porblems; attempted dialysis earlier this morning but aborted due to patient's complaints of chest tightness along with diaphoresis; still with significant stool output of almost [id number] in the last 24 hours; concerning that his urine output has dropped off in the last 24 - 48 hours as well; no other issues/events overnight or earlier this AM. Exam Narrative:
--- NOTE | 2023-04-14 10:34 | PM.PNNEP ---
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 APICULTURE TEACHER agree with ongoing aggressive volume resuscitation evaluation to date: renal ultrasound without obstruction urine electrolytes prerenal urine eosinophils negative CPK trending down due to worsening renal function with possible uremia (due to confusion), initiated on HD on 04/12/23 attempted HD today but discontinued -- will reassess tomorrow follow trend of repeat labs and UOP for possible recovery (2) Severe sepsis: Code(s): A41.9 - Sepsis, unspecified organism; R65.20 - Severe sepsis without septic shock Status: Acute Assessment and Plan: secondary to severe hypovolemia from GI losses/diarrhea and Salmonella bacteremia complicated by immunocompromised status on antibiotics blood pressure stable at this time - no need for vasopressors continue current therapy (3) Enterocolitis: Code(s): K52.9 - Noninfective gastroenteritis and colitis, unspecified Status: Acute Assessment and Plan: severe diarrhea and abdominal pain on admission admission imaging of CTA of abd/pelvis results noted C.diff toxin negative stool culture with Salmonella follow stool output continue aggressive IVF hydration (4) Hypokalemia: Code(s): E87.6 - Hypokalemia Status: Acute Assessment and Plan: due to bicarb fluids and ongoing GI losses aggressively replete as needed follow repeat K+ levels (5) Hyponatremia: Code(s): E87.1 - Hypo-osmolality and hyponatremia Status: Acute Assessment and Plan: likely due to fluctuations volume status, GI losses, and fluid resuscitation prerenal urine electrolytes noted TSH and cortisol okay SPEP/UPEP pending follow trend with IVF hydration dialysis should help -- adjusting sodium bath to prevent overcorrection (6) Elevated liver enzymes: Code(s): R74.8 - Abnormal levels of other serum enzymes Status: Acute Assessment and Plan: secondary to infection/bacteremia RUQ ultrasound negative follow trend of LFTs (7) Rheumatoid arthritis: Qualifiers: Rheumatoid arthritis location: unspecified site Rheumatoid factor presence: unspecified presence Qualified Code(s): M06.9 - Rheumatoid arthritis, unspecified Code(s): M06.9 - Rheumatoid arthritis, unspecified Status: Chronic Assessment and Plan: holding immunosuppression medications (except prednisone) continue supportive therapy Discussed case with Dr. Limon. Will continue to follow. Subjective Date/time seen: 04/14/23 10:34 Interval history: Follow-up for acute kidney injury/acute renal failure. Tolerated dialysis yesterday without any issues/porblems; attempted dialysis earlier this morning but aborted due to patient's complaints of chest tightness along with diaphoresis; still with significant stool output of almost [id number] in the last 24 hours; concerning that his urine output has dropped off in the last 24 - 48 hours as well; no other issues/events overnight or earlier this AM. Exam Narrative: General: ill appearing male in NAD Heart: normal S1 and S2; no rub Lungs: clear to auscultation Abdomen: soft, mild TTP, nondistended, hypoactive bowel sounds Extremities: no cyanosis or clubbing; no edema Skin: fluctuating LE mottling noted Objective Data Vital Signs Vital Signs: Vital Signs Temp Pulse Resp BP Pulse Ox O2 Del Method O2 Flow Rate 04/14/23 08:00 84 04/14/23 08:00 97 Room Air 04/14/23 08:00 98.7 F 84 23 H 139/94 H 97 04/14/23 06
[2023-04-14] MEDS: CHOLESTYRAMINE (W/ SUGAR) 4 GM POWD.PACK PO ×2 (10:50→18:10)
[2023-04-14] MEDS: LACTATED RINGERS 1,000 ML 250 ML IV CONT ×2 (11:15→17:45)
[2023-04-14 11:34] LABS: Toxigenic C. Diff NEGATIVE (NEGATIVE)
--- NOTE | 2023-04-14 14:32 | PM.TDS ---
Transfer Discharge Sum: Prov Provider Date of admission: 04/07/23 14:15 Primary care physician: Hi Salmon DO Admitting clinician: Larry Nunn MD Consults: 04/07/23 Consult to Physician Routine Comment: Consulting Provider: Husam Daigle calliope player/MD group to consult: GI promotions intern Reason for consultation: enterocolitis, possible coffee ground emesis Has provider been notified: Yes Consult to Physician Routine Comment: spoke with Afia Hoover @[id number](,) Consulting Provider: Afia Hoover calliope player/MD group to consult: dimmitt Reason for consultation: elevated trop Has provider been notified: Yes 04/09/23 Consult to Physician Routine Comment: Consulting Provider: Susanna Limon Reason for consultation: Sepsis, lactic acidosis Has provider been notified: Yes Consult to Physician Routine Comment: Spoke with the Dr and notified them of consult Consulting Provider: Estefania Fonseca calliope player/MD group to consult: nephrology Reason for consultation: KALPANA, azotemia, creat 4.9 Has provider been notified: Yes DS: Admitting Diagnosis Discharge Date 04/14/2023 Admitting Diagnosis sepsis DS: Discharge Diagnosis Discharge Diagnosis (1) Sepsis: Code(s): A41.9 - Sepsis, unspecified organism Status: Acute (2) Enterocolitis: Code(s): K52.9 - Noninfective gastroenteritis and colitis, unspecified Status: Acute (3) Acute kidney injury: Code(s): N17.9 - Acute kidney failure, unspecified Status: Acute (4) Gastroesophageal reflux disease: Code(s): K21.9 - Gastro-esophageal reflux disease without esophagitis Status: Acute (5) Dehydration: Code(s): E86.0 - Dehydration Status: Acute (6) Elevated troponin: Code(s): R79.89 - Other specified abnormal findings of blood chemistry Status: Acute (7) Rheumatoid arthritis: Qualifiers: Rheumatoid arthritis location: unspecified site Rheumatoid factor presence: unspecified presence Qualified Code(s): M06.9 - Rheumatoid arthritis, unspecified Code(s): M06.9 - Rheumatoid arthritis, unspecified Status: Chronic (8) Immunocompromised patient: Code(s): D84.9 - Immunodeficiency, unspecified Status: Acute (9) Hypertension: Qualifiers: Hypertension type: essential hypertension Qualified Code(s): I10 - Essential (primary) hypertension Code(s): I10 - Essential (primary) hypertension Status: Acute Transfer Discharge Sum: Med Medications Active and Home Medications: Home Medications diclofenac sodium 1 % topical gel (Voltaren) 2 gm topical QID PRN Pain 06/11/19 [History Confirmed 04/07/23] multivitamin,[id number] (Complete Multivitamin tablet) 1 tablet PO DAILY 06/11/19 [History Confirmed 04/07/23] cholecalciferol (vitamin D3) 125 mcg (5,000 unit) capsule 2,000 unit PO DAILY 11/09/19 [History Confirmed 04/07/23] mecobalamin (vitamin B12) 1,000 mcg chewable tablet 1,000 mcg PO DAILY 11/09/19 [History Confirmed 04/07/23] prednisone 5 mg tablet 5 mg PO DAILY PRN joint stiffness 11/09/19 [History Confirmed 04/07/23] folic acid 1 mg tablet 1 mg PO DAILY 05/30/20 [History Confirmed 04/07/23] gabapentin 300 mg capsule 900 mg PO DAILY 05/30/20 [History Confirmed 04/07/23] methotrexate sodium 2.5 mg tablet 2.5 mg PO WEEKLY 05/30/20 [History Confirmed 04/07/23] tizanidine 4 mg tablet 4 mg PO HS 05/30/20 [History Confirmed 04/07/23] quetiapine 25 mg tablet (Seroquel) 25 mg PO QHS 11/13/20 [History Confirmed 04/07/23] metoclopramide HCl 5 mg tablet (Reglan) 10 mg PO DAILY 04/02/21 [History Confirmed 04/07/23] needle (disp) 18 G 18 gauge x 1 1/2 (BD Regular Bevel [place]) #100 ea 04/02/21 [Rx Confirmed 04/07/23] omeprazole 40 mg capsule,delayed release 40 mg PO DAILY 04/02/21 [History Confirmed 04/07/23] syringe with needle 3 mL 25 x 1 1/2 (BD Luer-Renata Syringe) #100 ea 04/02/21 [Rx Confirmed 04/07/23] syringe with needle
--- NOTE | 2023-04-14 14:51 | WPDGIPROGNO ---
Progress Note: A&P Assessment and Plan (1) Salmonella enteritis: Code(s): A02.0 - Salmonella enteritis Status: Acute Assessment and Plan: patient with salmonella enteritis. Salmonella in blood stream and stool samples. Currently on broad-spectrum antibiotic coverage. He continues to have rather perfuse watery stools. Fecal containment bag in place. Continue supportive care for now. I understand patient is be transferred to [facility] for ongoing care with Infectious Disease consultants available at that institution. (2) Leukocytosis: Code(s): D72.829 - Elevated white blood cell count, unspecified Status: Acute Assessment and Plan: Markedly elevated leukocytosis. Continue to monitor. Continue antibiotics. (3) Immunocompromised patient: Code(s): D84.9 - Immunodeficiency, unspecified Status: Acute Assessment and Plan: Patient has been on Humira for RA. Likely this contributes to immuno deficiency and likely susceptible to infections. (4) Acute kidney injury: Code(s): N17.9 - Acute kidney failure, unspecified Status: Acute Assessment and Plan: Patient with ATN. Acute renal failure. Nephrology following. Attempted dialysis today we limited by patient's symptoms. (5) Rheumatoid arthritis: Qualifiers: Rheumatoid arthritis location: unspecified site Rheumatoid factor presence: unspecified presence Qualified Code(s): M06.9 - Rheumatoid arthritis, unspecified Code(s): M06.9 - Rheumatoid arthritis, unspecified Status: Chronic (6) Elevated liver enzymes: Code(s): R74.8 - Abnormal levels of other serum enzymes Status: Acute Assessment and Plan: Elevated LFTs noted. Suspect this is related to infectious process. Continue to monitor and follow. Subjective Date/time seen: 04/14/23 14:51 Interval history: Patient alert and relatively comfortable. Fecal containment bag in place. He got somewhat sick with dialysis today. Denies any significant abdominal pain. He remains afebrile. Review of Systems Review of Systems: Review of systems noncontributory. Exam Narrative: Physical exam reveals patient to be alert. Vital signs stable. HEENT exam reveals no icterus. Lungs are clear to auscultation and percussion. Heart is without murmur or extra sounds. Abdomen is soft bowel sounds are present. No localized tenderness. No masses noted Objective Data Vital Signs Vital Signs: Vital Signs - 24 hr 04/13/23 14:57 04/13/23 16:00 04/13/23 16:00 Temperature 100 F H 100.3 F H Pulse Rate 80 85 Respiratory Rate 19 16 Blood Pressure 149/97 H 151/101 H Pulse Oximetry 96 96 96 Oxygen Delivery Nasal Cannula Oxygen Flow Rate 2 Fraction of Inspired Oxygen 04/13/23 16:00 04/13/23 18:00 04/13/23 18:00 Temperature 99.7 F H Pulse Rate 88 88 84 Respiratory Rate 12 Blood Pressure 142/90 H Pulse Oximetry 97 Oxygen Delivery Oxygen Flow Rate Fraction of Inspired Oxygen 04/13/23 20:00 04/13/23 20:00 04/13/23 20:00 Temperature 100 F H Pulse Rate 99 92 92 Respiratory Rate 18 18 Blood Pressure 147/91 H Pulse Oximetry 95 95 Oxygen Delivery Nasal Cannula Oxygen Flow Rate 2 Fraction of Inspired Oxygen 24 04/13/23 22:00 04/13/23 22:00 04/14/23 00:00 Temperature 99.8 F H 99.3 F Pulse Rate 98 97 100 Respiratory Rate 16 18 Blood Pressure 135/74 140/95 H Pulse Oximetry 97 96 Oxygen Delivery Oxygen Flow Rate Fraction of Inspired Oxygen 04/14/23 00:00 04/14/23 00:00 04/14/23 02:00 Temperature Pulse Rate 100 102 H 94 Respiratory Rate 18 Blood Pressure Pulse Oximetry 96 Oxygen Delivery Nasal Cannula Oxygen Flow Rate 3 Fraction of Inspired Oxygen 04/14/23 02:00 04/14/23 04:00 04/14/23 04:00 Temperature 99.3 F 99.2 F Pulse Rate 95 95 96 Respiratory Rate 20 20 16 Blood Pressure 152/95 H 152/97 H Pulse
[2023-04-14 16:15] LABS: Abnormal Protein Band 1 0.1 g/dL; Albumin 3.1 g/dL (3.8-4.8); Alpha 1 Globulin 0.8 g/dL (0.2-0.3); Alpha 2 Globulin 1.1 g/dL (0.5-0.9); Beta 1 Globulin 0.4 g/dL (0.4-0.6); Gamma Globulin 0.6 g/dL (0.8-1.7); Protein, Total 6.3 g/dL (6.1-8.1)
[2023-04-15 19:35] LABS: Hepatitis B Core Ab Total Nonreactive (Nonreactive)
[2023-04-17 11:37] LABS: Chloride, Feces 90; Potassium, Feces 5.1
[2023-04-17 11:38] LABS: Sodium, Feces 88
[2023-04-21 20:46] LABS: Creatinine, Random Urine 117 mg/dL (20-320); Total Protein/Creatinine Ratio 6017 mg/g creat (25-148)
== END 2023-04-14 19:10 | disposition short-term general hospital (02) | DRG 871 ==
LOC: ANHED 11:18 → ANHIMU 15:19 → ANHICU 04-09 12:25
PROVIDERS: Family Medicine; Hospitalist; Internal Medicine; Internal Medicine Gastroenterology; Internal Medicine Nephrology; Physician Assistant; Admitting Provider Internal Medicine; Emergency Provider Emergency Medicine; PCP Internal Medicine; Visit Provider Internal Medicine
DX: A02.1 Salmonella sepsis (principal); G93.41 Metabolic encephalopathy; N17.0 Acute kidney failure with tubular necrosis; K56.0 Paralytic ileus; E87.20 Acidosis, unspecified; E87.1 Hypo-osmolality and hyponatremia; A02.0 Salmonella enteritis; R65.20 Severe sepsis without septic shock; E87.6 Hypokalemia; E86.1 Hypovolemia; E86.0 Dehydration; E78.5 Hyperlipidemia, unspecified; I10 Essential (primary) hypertension; M06.9 Rheumatoid arthritis, unspecified; K21.9 Gastro-esophageal reflux disease without esophagitis; R01.1 Cardiac murmur, unspecified; R07.89 Other chest pain; R74.8 Abnormal levels of other serum enzymes; R79.89 Other specified abnormal findings of blood chemistry; G47.30 Sleep apnea, unspecified; F32.A Depression, unspecified; Z87.891 Personal history of nicotine dependence; Z79.620 Long term (current) use of immunosuppressive biologic
CPT/HCPCS: 36415; 36600; 71045; 71275; 74018; 74174; 74176; 76705; 76775; 80048; 80053; 81001; 81050; 82375; 82438; 82533; 82550; 82570; 82805; 82948; 83050; 83605; 83690; 83735; 84100; 84145; 84155; 84156; 84165; 84166; 84300; 84302; 84311; 84439; 84443; 84484; 84540; 85025; 85027; 85055; 85610; 85730; 85999; 86140; 86704; 86706; 87040; 87045; 87077; 87186; 87269; 87272; 87340; 87427; 87449; 87493; 93005; 93306; 96365; 96375; 99285; A9270; C1751; C1752; C9113; G0257; J0360; J0613; J0696; J0780; J1170; J1644; J1956; J2060; J2270; J2405; J2543; J2765; J2997; J3475; J3480; J7030; J7040; J7070; J7120; J7512; P9047; Q9967

== ENCOUNTER 2023-09-19 08:18 | Outpatient (CLI) | payer OTHER, SELFPAY ==
[2023-09-19 08:51] LABS: Basophils Absolute Auto 0.1 K/mm3 (0.0-0.1); Basophils Percent Auto 0.6 % (0.2-1.2); Eosinophils Absolute Auto 0.2 K/mm3 (0-0.3); Eosinophils Percent Auto 1.2 % (0-4.4); Hematocrit 33.2 % (42.0-52.0); Hemoglobin 10.4 g/dL (14.0-18.0); Immature Granulocyte Absolute 0.21 K/mm3 (0.00-0.031); Immature Granulocyte Percent A 1.3 % (0-0.5); Lymphocytes Absolute Auto 3.33 K/mm3 (0.9-3.2); Lymphocytes Percent Auto 20.4 % (18.3-44.2); Mean Corpuscular HGB Conc 31.3 g/dl (32-36); Mean Corpuscular Hemoglobin 28.6 pg (26-34); Mean Corpuscular Volume 91.2 fl (80-100); Mean Platelet Volume 10.9 fl (7.4-10.4); Monocytes Absolute Auto 1.8 K/mm3 (0.1-0.6); Neutrophils Absolute Auto 10.7 K/mm3 (1.3-6.7); Neutrophils Percent Auto 65.5 % (45.5-73.1); Platelet Count Result 388 k/mm3 (150-375); Red Blood Count 3.64 M/mm3 (4.6-6.20); Red Cell Distribution Width 17.7 % (11.5-14.5); Reticulocyte Hemoglobin Conten 31.8 pg (28.2-36.6); Reticulocyte Percent 3.96 % (0.7-4.3); Reticulocytes Absolute 0.14 10^6/uL (0.02-0.10); White Blood Count 16.3 K/mm3 (4.5-10.0)
[2023-09-19 09:07] LABS: Alanine Aminotransferase 25 U/L (6-50); Albumin Level 1.6 g/dL (3.5-5.1); Alkaline Phosphatase 120 U/L (38-126); Anion Gap -1 mmol/L (4-12); Aspartate Amino Transferase 30 U/L (17-59); Bilirubin,Total 0.1 mg/dL (0.2-1.3); Blood Urea Nitrogen 18 mg/dL (9-20); Calcium 7.1 mg/dL (8.4-10.2); Carbon Dioxide 21 mmol/L (22-30); Chloride 113 mmol/L (98-107); Cholesterol 102 mg/dL (0-200); Estimated Glomerular Filt Rate > 60; Glucose 86 mg/dL (65-110); HDL Direct 32 mg/dL; Magnesium 1.1 mg/dL (1.6-2.3); Potassium 3.1 mmol/L (3.4-5.0); Sodium 133 mmol/L (137-145); Triglycerides 80 mg/dL (<150)
[2023-09-19 09:16] LABS: Iron 38 ug/dL (49-181)
[2023-09-19 09:27] LABS: LDL Cholesterol Direct 71 mg/dL
[2023-09-19 09:29] LABS: Percent Iron Saturation 23 % (20-50)
[2023-09-19 12:27] LABS: Folic Acid > 20.0 ng/mL (2.76->20); Vitamin B12 > 1000.0 pg/mL (239-931)
== END 2023-09-19 08:19 | disposition home or self-care (01) ==
LOC: ANHLAB 08:20
PROVIDERS: PCP Internal Medicine; Visit Provider Clinical Nurse Specialist
DX: E78.5 Hyperlipidemia, unspecified (principal); A02.0 Salmonella enteritis; A41.9 Sepsis, unspecified organism; E87.1 Hypo-osmolality and hyponatremia; E87.6 Hypokalemia; I10 Essential (primary) hypertension; M06.9 Rheumatoid arthritis, unspecified; R74.8 Abnormal levels of other serum enzymes
CPT/HCPCS: 36415; 80053; 80061; 82607; 82746; 83540; 83550; 83735; 84443; 85025; 85046

== ENCOUNTER 2023-09-23 09:59 | Outpatient (CLI) | payer OTHER, SELFPAY ==
[2023-09-23 14:39] LABS: Appearance Urine Clear (Clear); Bilirubin Urine Negative (Negative); Blood Urine Negative (Negative); Color Urine Yellow (Yellow); Glucose Urine UA Negative (Negative); Ketones Urine Negative (Negative); Leukocyte Esterase Ur Negative LEU/UL (Negative); Nitrate Urine Negative (Negative); Protein Urine Negative (Negative); Specific Grav Ur 1.013 (1.001-1.035); Urobilinogen Urine 0.2 mg/dL (<2.0); pH Urine 5.5 (5.0-9.0)
[2023-09-23 14:57] LABS: Add Urine Microscopic? NO
[2023-09-23 14:58] LABS: Creatinine Urine 66.7 mg/dL; Total Protein Urine Random 10 mg/dL; Ur Ttl Prot Creatinine Ratio 0.15 mg/mg (0-0.20)
== END 2023-09-23 10:00 | disposition home or self-care (01) ==
LOC: ANHGOSHLAB 10:01
PROVIDERS: PCP Internal Medicine; Visit Provider Internal Medicine
DX: N17.9 Acute kidney failure, unspecified (principal); E88.09 Other disorders of plasma-protein metabolism, not elsewhere classified
CPT/HCPCS: 81003; 82570; 84156

== ENCOUNTER 2023-09-25 13:57 | Outpatient (CLI) | payer OTHER, SELFPAY ==
--- NOTE | ~2023-09-25 | MR_ITS ---
EXAMINATION: MR brain/brain stem wo/w con DATE: 09/25/2023 14:56 INDICATION: Disorientation, unspecified. Generalized headache. Memory loss. TECHNIQUE: Magnetic resonance imaging (MRI) of the brain and brainstem was performed without and with 14 mL MultiHance intravenous contrast. COMPARISON: None. FINDINGS: There is no intracranial hemorrhage, acute infarction, or abnormal intracranial mass lesion . The ventricles are normal in size. There is mild mucosal thickening in the paranasal sinuses. The o rbits are normal. The mastoid air cells are normal. IMPRESSION: 1. Normal brain. Reviewed, dictated and finalized at location A. IMPRESSION: 1. Normal brain.
== END 2023-09-25 13:58 ==
LOC: MICIMG 13:59
PROVIDERS: PCP Internal Medicine; Visit Provider Clinical Nurse Specialist
DX: R41.0 Disorientation, unspecified (principal); R41.3 Other amnesia
CPT/HCPCS: 70553; A9577

== ENCOUNTER 2023-10-17 07:43 | Outpatient (CLI) | payer OTHER, SELFPAY ==
[2023-10-17 08:20] LABS: Anion Gap -3 mmol/L (4-12); Blood Urea Nitrogen 23 mg/dL (9-20); Calcium 7.4 mg/dL (8.4-10.2); Carbon Dioxide 29 mmol/L (22-30); Chloride 109 mmol/L (98-107); Estimated Glomerular Filt Rate 53; Glucose 75 mg/dL (65-110); Magnesium 1.8 mg/dL (1.6-2.3); Potassium 4.1 mmol/L (3.4-5.0); Sodium 135 mmol/L (137-145)
== END 2023-10-17 07:44 | disposition home or self-care (01) ==
PROVIDERS: PCP Internal Medicine
DX: R19.7 Diarrhea, unspecified (principal)
CPT/HCPCS: 36415; 80048; 83735; 84100

== ENCOUNTER 2023-12-22 08:30 | Outpatient (CLI) | payer OTHER, SELFPAY ==
[2023-12-22 08:56] LABS: Basophils Absolute Auto 0.1 K/mm3 (0.0-0.1); Basophils Percent Auto 1.1 % (0.2-1.2); Eosinophils Absolute Auto 0.3 K/mm3 (0-0.3); Eosinophils Percent Auto 2.4 % (0-4.4); Hematocrit 39.4 % (42.0-52.0); Hemoglobin 12.4 g/dL (14.0-18.0); Immature Granulocyte Absolute 0.36 K/mm3 (0.00-0.031); Immature Granulocyte Percent A 3.1 % (0-0.5); Lymphocytes Absolute Auto 2.42 K/mm3 (0.9-3.2); Lymphocytes Percent Auto 21.2 % (18.3-44.2); Mean Corpuscular HGB Conc 31.5 g/dl (32-36); Mean Corpuscular Hemoglobin 29.5 pg (26-34); Mean Corpuscular Volume 93.8 fl (80-100); Mean Platelet Volume 9.4 fl (7.4-10.4); Neutrophils Absolute Auto 7.2 K/mm3 (1.3-6.7); Neutrophils Percent Auto 63.2 % (45.5-73.1); Platelet Count Result 275 k/mm3 (150-375); Red Cell Distribution Width 16.5 % (11.5-14.5); White Blood Count 11.4 K/mm3 (4.5-10.0)
[2023-12-22 09:36] LABS: Free T4 Free Thyroxine 0.57 ng/mL (0.78-2.19)
[2023-12-22 10:04] LABS: Anion Gap 5 mmol/L (4-12); Blood Urea Nitrogen 25 mg/dL (9-20); Calcium 9.5 mg/dL (8.4-10.2); Carbon Dioxide 27 mmol/L (22-30); Chloride 106 mmol/L (98-107); Estimated Glomerular Filt Rate 45; Glucose 92 mg/dL (65-110); Potassium 4.3 mmol/L (3.4-5.0); Sodium 138 mmol/L (137-145)
[2023-12-27 08:28] LABS: Testosterone Free 125.7 pg/mL (35.0-155.0); Testosterone Total 810 ng/dL (250-1100)
== END 2023-12-22 08:31 | disposition home or self-care (01) ==
LOC: ANHLAB 08:31
PROVIDERS: PCP Internal Medicine; Visit Provider Internal Medicine
DX: R60.1 Generalized edema (principal); E87.1 Hypo-osmolality and hyponatremia; N17.9 Acute kidney failure, unspecified; D64.9 Anemia, unspecified
CPT/HCPCS: 36415; 80048; 82728; 84402; 84403; 84439; 85025

== ENCOUNTER 2024-01-06 07:10 | Outpatient (CLI) | payer OTHER, SELFPAY ==
[2024-01-06 08:03] LABS: Prostate Specific Antigen 1.2 ng/mL (< OR = 4.0)
== END 2024-01-06 07:11 | disposition home or self-care (01) ==
LOC: ANHLAB 07:11
PROVIDERS: PCP Internal Medicine; Visit Provider Internal Medicine
DX: Z12.5 Encounter for screening for malignant neoplasm of prostate (principal)
CPT/HCPCS: 36415; 84153; G0103

== ENCOUNTER 2024-02-16 07:03 | Outpatient (CLI) | payer OTHER, SELFPAY ==
[2024-02-16 07:26] LABS: Basophils Absolute Auto 0.2 K/mm3 (0.0-0.1); Basophils Percent Auto 1.2 % (0.2-1.2); Eosinophils Absolute Auto 0.6 K/mm3 (0-0.3); Eosinophils Percent Auto 4.4 % (0-4.4); Hematocrit 36.9 % (42.0-52.0); Hemoglobin 12.5 g/dL (14.0-18.0); Immature Granulocyte Absolute 0.18 K/mm3 (0.00-0.031); Immature Granulocyte Percent A 1.2 % (0-0.5); Lymphocytes Absolute Auto 2.15 K/mm3 (0.9-3.2); Lymphocytes Percent Auto 14.7 % (18.3-44.2); Mean Corpuscular HGB Conc 33.9 g/dl (32-36); Mean Corpuscular Hemoglobin 29.6 pg (26-34); Mean Corpuscular Volume 87.2 fl (80-100); Mean Platelet Volume 9.2 fl (7.4-10.4); Monocytes Absolute Auto 1.6 K/mm3 (0.1-0.6); Neutrophils Absolute Auto 9.9 K/mm3 (1.3-6.7); Neutrophils Percent Auto 67.5 % (45.5-73.1); Platelet Count Result 376 k/mm3 (150-375); Red Blood Count 4.23 M/mm3 (4.6-6.20); White Blood Count 14.7 K/mm3 (4.5-10.0)
[2024-02-16 07:41] LABS: Alanine Aminotransferase 30 U/L (6-50); Albumin Level 4.3 g/dL (3.5-5.1); Alkaline Phosphatase 117 U/L (38-126); Anion Gap 11 mmol/L (4-12); Aspartate Amino Transferase 45 U/L (17-59); Bilirubin,Total 0.5 mg/dL (0.2-1.3); Blood Urea Nitrogen 34 mg/dL (9-20); Calcium 9.2 mg/dL (8.4-10.2); Carbon Dioxide 26 mmol/L (22-30); Chloride 100 mmol/L (98-107); Estimated Glomerular Filt Rate 28; Glucose 82 mg/dL (65-110); Potassium 4.2 mmol/L (3.4-5.0); Sodium 137 mmol/L (137-145)
== END 2024-02-16 07:04 | disposition home or self-care (01) ==
LOC: ANHLAB 07:04
PROVIDERS: PCP Internal Medicine; Visit Provider Internal Medicine
DX: D64.9 Anemia, unspecified (principal); D72.829 Elevated white blood cell count, unspecified; N18.9 Chronic kidney disease, unspecified
CPT/HCPCS: 36415; 80053; 85025

== ENCOUNTER 2024-05-04 06:37 | Outpatient (CLI) | payer OTHER, SELFPAY ==
[2024-05-04 08:15] LABS: Basophils Absolute Auto 0.1 K/mm3 (0.0-0.1); Basophils Percent Auto 0.9 % (0.2-1.2); Eosinophils Absolute Auto 0.2 K/mm3 (0-0.3); Eosinophils Percent Auto 2.1 % (0-4.4); Hematocrit 39.3 % (42.0-52.0); Immature Granulocyte Absolute 0.12 K/mm3 (0.00-0.031); Immature Granulocyte Percent A 1.3 % (0-0.5); Lymphocytes Absolute Auto 2.59 K/mm3 (0.9-3.2); Lymphocytes Percent Auto 27.2 % (18.3-44.2); Mean Corpuscular HGB Conc 33.1 g/dl (32-36); Mean Corpuscular Hemoglobin 30.4 pg (26-34); Mean Corpuscular Volume 91.8 fl (80-100); Mean Platelet Volume 10.1 fl (7.4-10.4); Monocytes Percent Auto 10.2 % (2.6-8.5); Neutrophils Absolute Auto 5.6 K/mm3 (1.3-6.7); Neutrophils Percent Auto 58.3 % (45.5-73.1); Nucleated Red Blood Cells Perc 0.2 % (0.0-0.2); Platelet Count Result 283 k/mm3 (150-375); Red Blood Count 4.28 M/mm3 (4.6-6.20); Red Cell Distribution Width 16.7 % (11.5-14.5); White Blood Count 9.5 K/mm3 (4.5-10.0)
[2024-05-04 08:31] LABS: Alanine Aminotransferase 30 U/L (6-50); Albumin Level 4.3 g/dL (3.5-5.1); Alkaline Phosphatase 76 U/L (38-126); Anion Gap 8 mmol/L (4-12); Aspartate Amino Transferase 40 U/L (17-59); Bilirubin,Total 0.7 mg/dL (0.2-1.3); Blood Urea Nitrogen 24 mg/dL (9-20); Calcium 9.1 mg/dL (8.4-10.2); Carbon Dioxide 28 mmol/L (22-30); Chloride 101 mmol/L (98-107); Estimated Glomerular Filt Rate 45; Glucose 85 mg/dL (65-110); Potassium 4.2 mmol/L (3.4-5.0); Sodium 137 mmol/L (137-145)
[2024-05-04 08:55] LABS: Prostate Specific Antigen 1.6 ng/mL (< OR = 4.0)
== END 2024-05-04 06:38 | disposition home or self-care (01) ==
LOC: ANHLAB 06:37
PROVIDERS: PCP Internal Medicine; Visit Provider Internal Medicine
DX: E29.1 Testicular hypofunction (principal); N18.31 Chronic kidney disease, stage 3a; Z51.81 Encounter for therapeutic drug level monitoring; Z79.890 Hormone replacement therapy
CPT/HCPCS: 36415; 80053; 84153; 84402; 84403; 85025; G0103

== ENCOUNTER 2024-06-03 06:37 | Outpatient (CLI) | payer OTHER, SELFPAY ==
[2024-06-03 07:30] LABS: Cholesterol 323 mg/dL (0-200); HDL Direct 42 mg/dL; Triglycerides 399 mg/dL (<150)
[2024-06-03 07:31] LABS: Anion Gap 5 mmol/L (4-12); Blood Urea Nitrogen 30 mg/dL (9-20); Calcium 9.3 mg/dL (8.4-10.2); Carbon Dioxide 27 mmol/L (22-30); Chloride 105 mmol/L (98-107); Estimated Glomerular Filt Rate 45; Glucose 95 mg/dL (65-110); Lipase 102 U/L (23-300); Potassium 4.2 mmol/L (3.4-5.0); Sodium 137 mmol/L (137-145)
[2024-06-03 07:40] LABS: LDL Cholesterol Direct 183 mg/dL
[2024-06-03 07:49] LABS: Hemoglobin A1C 5.8 % (<5.7)
[2024-06-12 18:23] LABS: Apolipoprotein B 174 mg/dL
== END 2024-06-03 06:38 | disposition home or self-care (01) ==
PROVIDERS: PCP Internal Medicine; Visit Provider Internal Medicine Gastroenterology
DX: N18.9 Chronic kidney disease, unspecified (principal); R10.84 Generalized abdominal pain; E78.5 Hyperlipidemia, unspecified; R73.9 Hyperglycemia, unspecified
CPT/HCPCS: 36415; 80048; 80061; 82172; 83036; 83690

== ENCOUNTER 2024-08-09 06:59 | Outpatient (CLI) | payer OTHER, SELFPAY ==
--- OUTSIDE RECORDS SUMMARY | 2024-08-09 07:02 | XMS_ITS | Clinical Summary ---
Author Organization [facility] al Address [address] [place] [address] Care Team Providers Care Fig Caprifier Name Role Phone Hi Salmon DO Primary Care Provider [phone] Estefani Ch MD Unavailable [phone] Gabe Luna MD Unavailable [phone] Allergies Active Allergy Reactions Criticality Noted Date Comments Ceftriaxone Hives,Itching,Rash,O ther (See comments) High 04/16/2023 Medications acidophilus-pec tin, citrus 100 million cell-10 mg capsuleIndicati ons:adjunct therapy for irritable bowel syndrome Take by mouth Active folic acid (FOLVITE) 1 mg tabletIndicatio ns:Folate Deficiency Take 1 tablet (1,000 mcg total) by mouth daily Active QUEtiapine (SEROquel) 25 mg tabletIndicatio ns:Generalized Anxiety Disorder Take 1 tablet (25 mg total) by mouth nightly Active azelastine (ASTELIN) 137 mcg (0.1 %) nasal sprayIndication s:Seasonal Allergic Rhinitis Administer 1 spray into each nostril 2 (two) times a day Use in each nostril as directed Active amitriptyline (ELAVIL) 25 mg tabletIndicatio ns:anxiety Take 1 tablet (25 mg total) by mouth nightly Active predniSONE (DELTASONE) 5 mg tabletIndicatio ns:Anti-inflamm atory Take 1 tablet (5 mg) by mouth daily Take by mouth as directed 30 tablet [address] (CYMBALTA) 60 mg capsuleIndicati ons:Generalized Anxiety Disorder Take 1 capsule (60 mg total) by mouth daily 30 capsule 1 4 Active cyanocobalamin (Vitamin B-12) 1,000 mcg tabletIndicatio ns:Prevention of Vitamin B12 Deficiency Take 0.5 tablets (500 mcg total) by mouth daily 30 tablet 5 4 Active tocilizumab (ACTEMRA) 200 mg/10 mL (20 mg/mL) solution Infuse 8 mg/kg into a venous catheter every 28 (twenty-eight) days Active azaTHIOprine (IMURAN) 50 mg tablet Take 1 tablet (50 mg total) by mouth daily Active traMADoL (ULTRAM) 50 mg tablet Take 2 tablets (100 mg total) by mouth daily Active acetaminophen 500 mg capsule Take 2 capsules (1,000 mg total) by mouth daily Active ze-ova-lxfan-K1 -lycopen-lutein 135-29-274-300 mcg tablet Take 1 tablet by mouth daily Active diclofenac sodium (VOLTAREN) 1 % gel Apply 2 g topically daily Active testosterone cypionate (DEPO-TESTOTERO NE) 200 mg/mL injection Inject 0.6 mL (120 mg total) into the muscle as instructed every 7 days 4 Active gabapentin (NEURONTIN) 600 mg tabletIndicatio ns:Neuropathic Pain Take 1 tablet (600 mg total) by mouth nightly Pt takes 3 tablets- 900 mg 30 capsule 4 Active cholecalciferol (VITAMIN D-3) 2000 unit capsuleIndicati ons:Vitamin D Deficiency Take 1 capsule (2,000 Units total) by mouth daily 30 capsule 5 4 Active copper gluconate 2 mg tablet Take 2 mg by mouth daily Recheck copper level in 4-6 months. 4 Active tiZANidine (ZANAFLEX) 4 mg tablet Take 1 tablet (4 mg total) by mouth nightly 4 Active rOPINIRole (REQUIP) 0.5 mg tablet Take 1 tablet by mouth nightly 30 tablet 4 Active sodium bicarbonate 650 mg tabletIndicatio ns:metabolic acidosis Take 1 tablet (650 mg total) by mouth daily 60 tablet 2 4 Active hyoscyamine (LEVSIN) 0.125 mg SL tablet Take 1 tablet (0.125 mg total) by mouth every 8 (eight) hours as needed for cramping (abdominal pain) Place under the tongue 30 tablet 4 Active pancrelipase (Creon) 24,000 units of lipase capsule Take 3 capsules by mouth 3 (three) times a day with meals AND 2 capsules 3 (three) times a day. With snacks.. 450 capsule 2 5 Active ezetimibe (ZETIA) 10 mg tablet Take 1 tablet (10 mg total) by mouth daily 5 Active hydroCHLOROthia zide (HYDRODIURIL) 25 mg tablet 1 tablet (25 mg total) 4 Active nebivoloL (BYSTOLIC) 5 mg tablet 1 tablet (5 mg total) 5 Active amLODIPine (NORVASC) 10 mg tablet 1 tablet (10 mg total) 5 Active famotidine (PEPCID) 40 mg tablet Take 1 tablet (40 mg total) by mouth daily 30 tablet 5 5 07/20/19 26 Active lidocaine (LIDODERM) 5 % Place 1 patch on the skin daily Remove & discard patch within 12 hours or as directed by . 20 patch 4 07/20/19 25 Discontin ued(Thera py completed ) colestipoL (COLESTID) 1 gram tablet Take 2 tablets by mouth twice daily 120 tablet 5 4 07/20/19 25 Discontin ued(Thera py completed ) scopolamine 1 mg over 3 days patch 3 day 4 07/20/19 25 Discontin ued(Thera py completed ) omeprazole (PriLOSEC) 20 mg capsule Take 1 capsule (20 mg total) by mouth daily 30 minutes before breakfast. 30 capsule 2 4 07/20/19 25 Discontin ued(Alter sharda therapy) Active Problems Problem Noted Date Diagnosed Date Intellectual disability 03/22/2024 Mood disorder 03/22/2024 Fever with chills 02/17/2024 Assessment & Plan (02/20/2024 2:33 PM CDT): Patient presents with a couple of days of fatigue, malaise, chest tightness and fever to 101.5 the evening of 02/15 in setting of citrobacter bacteremia earlier this month attributed to CVC since removed. Possibly recurrent bacteremia vs viral illness; ED work-up largely unremarkable with neg RVP, UA, CXR, CT CAP non-con though increased leukocytosis - blood cx BGTD - ID consulted - TTE which was normal - MRI spine given back pain which showed no discitis/OM. However, with active synovitis in facets of L5. Degenerative changes of C spine with severe spinal canal stenosis at c5-c6. Degenerative changes L spine, most prominent at l4-l5. - sent fungal serologies with histoplasma urine Ag, histoplasma serum Ab, blastomyces antibody, cryptococcal antigen, and coccidioides - sent bartonella given exposures and immunocompromised status -Empiric rishi started (02/16-02/17)--> erta (02/17-02/18)--> cipro (02/18- ) per ID recs. Likely 2 week course and monitor clinical course Neuropathy 02/17/2024 Assessment & Plan (02/20/2024 10:57 AM CDT): -Continue home gabapentin, cymbalta, requip, amitriptyline - stop tizanidine while on Cipro given side effect profile Gram-negative bacteremia 01/27/2024 Assessment & Plan (01/31/2024 11:37 AM CDT): Patient with fever overnight with rigors, chills. No localizing symptoms except for mild URI symptoms preceding admission which have resolved. Patient does have spencer catheter which on presentation was concerning for infectious source which has been removed by IR. Did have recurrent fevers after initiation of antibiotics, with cultures re-drawn 24 hr afterwards -f/u blood cultures from catheter -- now growing citrobacter freundii, and peripheral x2 - NGTD -serial blood cultures daily until clearance -vanc/zosyn --> vanc/meropenem --> meropenem --> ertapenem for ease of dosing -ID consulted: ok to switch to ciprofloxacin 750 mg BID x14 days total course Acute renal failure superimp osed on stage 3 chronic kidney disease 01/27/2024 Assessment & Plan (02/19/2024 12:43 PM CDT): Cr up to 3 last admit from BL ~1.3-1.8. Improved to 2 on discharge. Stable on this presentation at 2.0 -S/p IVF in ED; encourage po intake -Trend renal function -Avoid renal toxins, NSAIDs, renally dose meds Assessment & Plan (01/31/2024 11:37 AM CDT): History of CKD after acute renal failure requiring HD in setting of salmonella enteritis c/b sepsis. Patient with baseline Cr appearing to be in the range of 1.5-1.6. -Cr elevated though now downtrending from peak 3.00 -> 2.00 -d/c vanc and zosyn, started meropenem -started LR with Cr elevation and new diarrhea likely also contributing -managing diarrhea with PRN loperamide with C diff negative; improving -continue to monitor, avoid nephrotoxins Odynophagia 12/09/2023 Elevated alkaline phosphatase level 10/29/2023 Assessment & Plan (10/31/2023 10:46 AM CDT): ALP, GGT elevated. MRE in 07/2023 showed chronic left hemiliver atrophy, biliary dilation and portal occlusion. - MRCP with mild prominence of proximal CBD, but otherwise unrevealing. No further work-up indicated at this time. Malnutrition compromising bodily function (CMS/H CC) 10/27/2023 Assessment & Plan (10/31/2023 10:45 AM CDT): Multiple micronutrient deficiencies likely related to diarrhea with significant anasarca. - GI consulted, SB enteroscopy 10/27 & biopsy unrevealing. Pending: AMA, ASMA, serum A1AT as well as 24h stool A1AT (if possible). - No PICC d/t CKD. S/p Spencer placement 10/28 by IR. - RD consult for TPN initiation: started TPN 10/28. No e/o refeeding. - D/c home today Anemia 10/27/2023 Assessment & Plan (10/27/2023 8:08 PM CDT): Folate and B12 normal. Iron labs consistent with AOCD - continue folate/B12 supplementation - transfuse for Hgb < 7 Lower extremity edema 08/11/2023 Assessment & Plan (10/31/2023 10:46 AM CDT): With significant lower extremity pain. 2/ hypoalbuminemia. - Continue Lasix 20 mg every other day - Continue tizanidine, ropinirole, gabapentin Assessment & Plan (08/12/2023 4:58 PM FLOORS BUFFER): After receiving IVF for KALPANA, patient developed pitting b/l LUCHO likely due to hypoalbuminemia Normal echo 05/09/23 -OT lymphedema c/s Esophageal candidiasis (CMS/HCC) 08/07/2023 Assessment & Plan (08/14/2023 3:35 PM FLOORS BUFFER): - EGD (08/07) w/concerns for esophageal candidiasis. Biopsies taken. - Pt given 400mg PO fluconazole on 08/07. Plan: Continue 200mg fluconazole daily (08/08 - 08/28). Plan 21d course Asymptomatic bacteriuria 08/04/2023 Assessment & Plan (08/07/2023 12:54 PM FLOORS BUFFER): UA showing 11-20 WBC and 1+ LE however patient is asymptomatic denying dysuria, urinary frequency/urgency, difficulty urinating, or other urinary symptoms. Likely asymptomatic bacteriuria not requiring treatment at this time. - Urine Cx with NGTD - Started tamsulosin 0.4mg (08/05) with no improvement in symptoms, stopped 08/07 KALPANA (acute kidney injury) 08/03/2023 Assessment & Plan (08/20/2023 8:32 AM FLOORS BUFFER): Noted to have elevated Cr to 1.66 on 08/02 with baseline ~1. Suspect pre-renal initially given ongoing watery diarrhea as well as periods of NPO status for diagnostic procedures. Was hypotensive on 08/01 and received 1 L NS with BP improvement however Cr nichelle to 1.8 now 1.75. Suspect possible ATN. - Avoid hypotension - Given 1 L LR on 08/04 - Renal US (08/08) with no acute abnormalities. - FeNa >1% indicating intrinsic KALPANA. - S/p mIVF with LR @ 75 cc/hr (08/07-08/08). -S/p to 25% albumin 25g X3 doses due to BLE pitting edema. - Cr 1.66 -> 1.8 -> 1.75 -> 1.51 -> 1.63 -> 2.03 -> 1.85 -> 1.81->1.71-->1.39-->1.46--> 1.73 -> 1.43 -> 1.39 - CTM Electrolyte imbalance 07/30/2023 Assessment & Plan (08/16/2023 12:44 PM FLOORS BUFFER): Improved All resolved Hypokalemia, hypophosphatemia, hypomagnesemia Continue to monitor and replace Chronic diarrhea 07/24/2023 Assessment & Plan (02/20/2024 10:55 AM CDT): F/b GI Dr Ch -Continue home creon, colestipol -Monitor while on ABX - ordered c diff given fever of unknown origin; although lab unable to run d/t formed sample Assessment & Plan (01/30/2024 3:00 PM CDT): Chronic diarrhea for which he follows with Dr. Ch with GI. This has improved greatly chronically and currently is well controlled. No recent worsening of symptoms at this time prior to admission. -continue pancrelipase 53634 units TID, colestipol 2g BID -with worsening diarrhea with antibiotics, suspect abx mediated though also some concern for c diff -c diff negative -started loperamide PRN with improvement in symptoms Assessment & Plan (10/27/2023 8:09 PM CDT): - Continue Lomotil, Imodium, Creon, tincture of opium, colestipol, fiber Assessment & Plan (08/18/2023 10:09 AM FLOORS BUFFER): Improving a little bit following deterioration 08/14/23, per patient, related to PET scan contrast The patient presents with 3 years of diarrhea that significantly worsened in March 2023. On admission reports 15 to 20 bowel movements per day and an associated 70-pound weight loss. His condition deteriorated in March 2023 when he was hospitalized for Salmonella gastroenteritis and bacteremia, which was complicated by severe sepsis and acute kidney injury requiring temporary hemodialysis. A colonoscopy performed on 05/01/23 revealed a single ulcer in the terminal ileum (identified as an aphthous ulcer via biopsy) and a grossly normal colon with negative biopsies. MR enterography conducted on 05/14/23 showed possible mild colitis. Previous workups were notable for negative Celiac disease labs, negative stool O&P and Giardia tests, a negative tagged WBC scan on 05/14, and elevated Saccharomyces cerevisiae IgG and IgA antibodies (37.4 and 38.9, respectively). An EGD performed on 07/07/23 revealed a normal esophagus, stomach, and duodenum. There has been no improvement in his symptoms with antibiotics or steroids. The patient presents for a second opinion regarding his persistent diarrhea; he also reports intermittent facial flushing, headaches, and difficulty swallowing since his diarrhea worsened in March. Differential diagnosis includes gastrointestinal amyloidosis (highest suspicion per GI), neuroendocrine tumor/carcinoid syndrome, other neuroendocrine processes related to an occult malignancy, and GI vasculitis. GI is following Diagnostic Workup --CT neck/chest (07/23): No evidence of malignancy --Serum chromogranin A: Elevated at 272 --MARIEL: Negative --ANCA: Negative --SPEP: small IgG paraproteinemia --24-hour urine 5-HIAA: 7.4, normal --UPEP: No paraprotein detected --S/p Flexible sigmoidoscopy on 07/31 with biopsies taken with normal pathology, neg congo red --S/p EGD and colonoscopy on 08/07. EGD was suspicious for esophageal candidiasis, biopsies taken. Colonoscopy demonstrated congestion and irregularity in the terminal ileum, biopsies taken. --Pathology results: reactive changes, no celiac, no H pylori, no amyloidosis, no microscopic colitis --VCE prelim 08/07/23: No discrete mass, very prominent intestinal lymphangectasia +/- villous edema throughout the small intestine. --PET/dotatate scan 08/13/23: no neuroendocrine lesion --Alpha 1 antitrypsin serum 178. stool alpha 1 antitrypsin 47. --Calcitonin 08/13/23: 5.2 WNL --Pending VIP, and enterocyte Ab, ordered 08/13/23 -S/p MRI enterogram 08/16/23: Interval improvement in small bowel dilatation without transition point or mass identified. Interval development of nonspecific pancolitis. Findings outside sales representative insurance of remote injury to the left hemiliver. -Follow up with GI. Ordered fecal fat and fecal elastase. Possible dc this week -Follow VIP, enterocyte Ab(28-56 days, GI ordered and will follow) -Continue loperamide 4 mg QID, lomotil 2.5 mg QID, opium 6mg Q6, psyllium BID Normal anion gap metabolic acidosis 07/24/2023 Assessment & Plan (02/17/2024 8:54 PM CDT): Likely 2/2 CKD -Cont sodium bicarb Assessment & Plan (08/12/2023 4:46 PM FLOORS BUFFER): Resolved Most likely 2/2 ongoing severe diarrhea, diarrhea improved Continue sodium bicarb Rheumatoid arthritis 07/24/2023 Assessment & Plan (02/20/2024 10:56 AM CDT): -Continue pred 5 - cont voltaren gel -Home Imuran remains on hold since last admit -Last dose of Actemra reportedly ~1.5 months ago - hold meds until abx course complete Assessment & Plan (01/27/2024 7:06 PM CDT): Patient with history of RA on azathioprine + prednisone. Patient currently presenting with fever, though is well appearing, will hold azathioprine pending infectious workup. -continue prednisone 5 -hold azathioprine Assessment & Plan (07/29/2023 3:03 PM FLOORS BUFFER): Follows with Dr. Gabe Luna ([facility]). He was previously on MTX and Humira which were both stopped during his admission for septic shock in March 2023. 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 He was eventually transitioned to prednisone 60 mg q day. His outpatient ID physician had been tapering his dose by 5 mg every 2 weeks; he was taking 30 mg of prednisone q day at the time of admission -Endocrine consult: recommended decreasing prednisone dose by 5 mg q week until he is down to a maintenance dose of 5 mg q day - Prednisone taper: 20 mg (08/02-08/08), 15 mg (08/09-08/15), 10mg (08/16-08/21), 5mg daily (08/22 - till outpatient follow up Difficulty swallowing 07/24/2023 Assessment & Plan (08/12/2023 4:54 PM FLOORS BUFFER): Possible due to esophageal candidiasis, versus motility disorder, versus mechanical cause S/p EGD 08/07/23 showing esoph candidiasis The patient's reported several months of intermittent difficulty with swallowing foods and liquids. Patient reports feeling that solids and liquids get stuck in his throat and that his symptoms improve with repeat swallows --METER/RELAY TECHNICIAN evaluation: oral mechanism evaluation is within functional limits; no signs or symptoms of aspiration with thin liquids. Recommend regular diet with regular/thin liquids -- niacin and zinc pending for tongue pain -Fluconazole for esoph candidiasis Leukocytosis 07/24/2023 Assessment & Plan (10/27/2023 8:07 PM CDT): Chronic, stable, appears to be driven by whatever process is driving his diarrheal illness/malnutrition - daily monitoring Assessment & Plan (08/04/2023 2:00 PM FLOORS BUFFER): Likely 2/ steroids Negative infectious workup, continue to monitor, improving Severe protein-calorie malnutrition (CMS/HCC) Assessment & Plan (08/02/2023 2:25 PM FLOORS BUFFER): Follow dietitian service recommendation Hypocalcemia 07/22/2023 Assessment & Plan (08/12/2023 4:49 PM FLOORS BUFFER): Normal when corrected for mild hypoalbuminemia, around 8.3 Possible due to nutritional deficiency from diarrhea/absorption Hypomagnesemia 06/18/2023 Hypokalemia 05/29/2023 Atrial fibrillation (CMS/HCC) 04/16/2023 Hemodialysis patient (CMS/HCC) 04/15/2023 Immunocompromised patient 04/15/2023 Salmonella enteritis 04/14/2023 Generalized abdominal pain 10/16/2020 Overview (10/16/2020): Added automatically from request for surgery [id number] Chronic pain syndrome 10/12/2020 Carpal tunnel syndrome on right 03/27/2020 Spondylosis of cervical spine 03/27/2020 Encounter for therapeutic drug monitoring 2017 Upper respiratory tract infection 05/25/2012 Encounters Date Type Department Care Team Description 07/26/2024 6:25 AM FLOORS BUFFER - 07/26/2024 11:59 PM FLOORS BUFFER Hospital Encounter [id number] [place] [address] Chronic kidney disease, unspecified CKD stage Discharge Disposition: Discharge to home or self care 07/21/2024 Telephone [facility] Nephrology [address] [place] [address] Advanced Medicine 5th [place] [address] Cynthia Bustamante 07/20/2024 5:45 PM FLOORS BUFFER Lab [facility] [address] [place] [phone] Chronic kidney disease, unspecified CKD stage 07/20/2024 2:15 PM FLOORS BUFFER Office Visit [facility] Nephrology [address] [place] [address] Advanced Medicine 5th [place] [address] [place] [address] Calixto Cr MD Hypomagnesemia (Primary Dx); Chronic kidney disease, unspecified CKD stage 05/11/2024 2:19 PM FLOORS BUFFER - 05/11/2024 11:59 PM FLOORS BUFFER Hospital Encounter [facility] [address] [place] [address] Estefani Ch MD LLQ abdominal pain Discharge Disposition: Discharge to home or self care 05/11/2024 2:00 PM FLOORS BUFFER Office Visit [facility] Gastroenterology [address] [facility] Medicine [address]th [place] [address] [place] [address] Estefani Ch MD Chronic kidney disease, unspecified CKD stage 05/11/2024 Documentation [facility] Gastroenterology [address] [facility] [address]th [place] [address] [place] [address] Lucio Nicolas, ASSESSMENT NURSE Lab Results from Last 3 Months Immunizations Immunization Administration Dates Next Due Influenza, Quadrivalent, Spl it, Intramuscular 02/14/2019 Influenza, Quadrivalent, Spl it, Preservative Free, Intramuscular 03/16/2023,03/03/2022,02/27/2020,03/16 Influenza, Trivalent, IM (MDV) 03/25/2021,2016,04/05/2013 Influenza, Trivalent, Preser vative Free, Intramuscular 03/30/2016,04/10/2015,05/25/2012 PPD TEST 09/20/2011 Pfizer SARS-CoV-2 Monovalent Vaccination (12+ Yrs) PURPLE 10/02/2020 Pneumococcal Polysaccharide PPV23 03/27/2019 Tdap 05/28/2017 ZOSTER Recombinant 04/18/2019,02/14/2019 Surgical History Surgery Date Site/Laterality Comments HERNIA REPAIR TUNNELED LINE PLACEMENT > 5 YEARS 10/29/2023 N/A UPPER GASTROINTESTINAL ENDOSCOPY COLONOSCOPY REMOVE TUNNELED LINE 01/27/2024 Left Medical History Medical History Date Comments Sleep apnea Hypertension High cholesterol GERD (gastroesophageal reflux disease) Colon polyp Dysphagia Odynophagia Family History Medical History Relation Name Comments Arthritis Father Family history of arthritis - (Added by TW Conv) Cancer Father Esophageal cancer Father Stomach cancer Father Relation Name Status Comments Father Social History Tobacco Use Types Packs/Day Years Used Date Smoking Tobacco: Former Cigarettes Q uit: 10/16/1998 Smokeless Tobacco: Never Tobacco Cessation:Counseling Given: Not Answered Alcohol Use Standard Drinks/Week Comments Not Currently 0 (1 standard drink = 0.6 oz pur e alcohol) OASIS D0700: Social Isolation Answer Da te Recorded Frequency of experiencing loneliness or isolatio n Never 12/26/2023 [facility] Utilities Answer Date Recorded In the past 12 months has th e electric, gas, oil, or water company threatened to shut off services in your home? No 02/18/2024 Social Connection and Isolat ion Panel [NHANES] Answer Date Recorded In a typical week, how many times do you talk on the phone with family, friends, or neighbors? More than three times a week 02/18/2024 How often do you get togethe r with friends or relatives? More than three times a week 02/18/2024 How often do you attend chur ch or yarsani services? More than 4 times per year 02/18/2024 Do you belong to any clubs o r organizations such as mandaeism groups, unions, fraternal or athletic groups, or school groups? No 02/18/2024 How often do you attend meet ings of the clubs or organizations you belong to? Never 02/18/2024 Are you , , di vorced, , never , or living with a partner? 02/18/2024 AUDIT-C Answer Date Recorded Q1: How often do you have a drink containing alcohol? Never 12/31/2023 Q2: How many drinks containi ng alcohol do you have on a typical day when you are drinking? Patient does not drink Q3: How often do you have si x or more drinks on one occasion? Never 12/31/2023 Overall Financial Resource Strain (CARDIA) Answe r Date Recorded How hard is it for you to pa y for the very basics like food, housing, medical care, and heating? Not very hard 02/18/2024 PHQ-2 Answer Date Recorded PHQ-2 Total Score 0 10/29/2023 Hunger Vital Sign Answer Date Recorded Within the past 12 months, y ou worried that your food would run out before you got the money to buy more. Never true 02/18/20 24 Within the past 12 months, t he food you bought just didn't last and you didn't have money to get more. Never true 02/18/2024 PRAPARE - Transportation Answer Date Re corded In the past 12 months, has l ack of transportation kept you from medical appointments or from getting medications? No 01/22 In the past 12 months, has l ack of transportation kept you from meetings, work, or from getting things needed for daily living? No 02/18/2024 Housing Stability Vital Sign Answer Jomar e Recorded In the last 12 months, was t here a time when you were not able to pay the mortgage or rent on time? No 11/03/2023 In the last 12 months, how many places have you lived? 1 11/03/2023 In the last 12 months, was t here a time when you did not have a steady place to sleep or slept in a nursing home (including now)? No 11/03/2023 Housing Stability Vital Sign Answer Jomar e Recorded In the last 12 months, was t here a time when you were not able to pay the mortgage or rent on time? No 02/18/2024 In the past 12 months, how m any times have you moved where you were living? 0 02/18/2024 At any time in the past 12 m [facility], were you homeless or living in a nursing home (including now)? No 02/18/2024 Personal Safety Answer Date Recorded Have you ever been in or are you currently in a harmful physical or emotional relationship or is someone making you feel afraid or unsafe? Denies 02/17/2024 Sex and Gender Information Value Date Recorded Sex Assigned at Not on file Legal Sex Male 1:31 AM FLOORS BUFFER Gender Identity Male 09/30/2023 7:18 AM CDT Sexual Orientation Straight 09/30/2023 7: 18 AM CDT Obstetrics History Last Filed Vital Signs Vital Sign Reading Time Taken Comments Blood Pressure 135/83 07/20/2024 2:09 PM FLOORS BUFFER Pulse 62 07/20/2024 2:09 PM FLOORS BUFFER Temperature 36.7 C (98 F) 05/11/2024 1:13 PM FLOORS BUFFER Respiratory Rate 16 05/11/2024 1:13 PM FLOORS BUFFER Oxygen Saturation 96% 05/11/2024 1:13 PM FLOORS BUFFER Inhaled Oxygen Concentration - - Weight 98 kg (216 lb) 07/20/2024 2:09 PM FLOORS BUFFER Height 172.7 cm (5' 8 ) 07/20/2024 2:09 PM FLOORS BUFFER Body Mass Index 32.84 07/20/2024 2:09 PM FLOORS BUFFER Plan of Treatment Health Maintenance Due Date Last Done Comments Hepatitis C Screening 1970 Prostate Cancer Screening-PSA 1970 Hepatitis B Screening 02/24/1986 Regular Well Visit/Exam 18-64 02/24/1986 Pneumococcal vaccine <65 (2 of 2 - PCV) 03/27/2020 03/27/2019 Covid-19 Vaccine (2 - Pfizer risk series) 10/23/2020 10/02/2020 Influenza Vaccine (#1) 2024 , 03/03/2022, 03/25/2021, Additional history exists Depression Screening 10/20/2024 10/21/2023, 07/21/19 DTaP/Tdap/Td Vaccine (2 - Td or Tdap) 05/28/2027 05/28/2017 Colon Cancer Screening-Colonoscopy 08/07/2033 08/07/2023 Zoster Vaccine Completed 04/18/2019, 02/14/2019 Colon Cancer Screening-CT Colonography Discontinued 08/07/2023, 07/31/2023 Colon Cancer Screening-DNA Stool Discontinued 08/07/19, 07/31/2023 Colon Cancer Screening-FIT Discontinued 08/07/2023, Colon Cancer Screening-Sigmoidoscopy Discontinued 08/07/2023, 07/31/2023 Procedures Procedure Name Priority Date/Time Associated Diagnosis Comments US RETROPERITONEAL COMPLETE Schedule Routine, Read Routine (OP Routine) 07/26/2024 7:36 AM FLOORS BUFFER Chronic kidney disease, unspecified CKD stage EGFR Routine 07/20/2024 3:16 PM FLOORS BUFFER Chronic kidney disease, unspecified CKD stage PTH Routine 07/20/2024 3:16 PM FLOORS BUFFER Chronic kidney disease, unspecified CKD stage VITAMIN D 25 HYDROXY Routine 07/20/2024 3:16 PM FLOORS BUFFER Chronic kidney disease, unspecified CKD stage COMPREHENSIVE METABOLIC PANEL Routine 07/20/2024 3:16 PM FLOORS BUFFER Chronic kidney disease, unspecified CKD stage CRP (ACUTE PHASE) Routine 07/20/2024 3:1 6 PM FLOORS BUFFER Chronic kidney disease, unspecified CKD stage URIC ACID Routine 07/20/2024 3:16 PM FLOORS BUFFER Chronic kidney disease, unspecified CKD stage PHOSPHORUS Routine 07/20/2024 3:16 PM FLOORS BUFFER Chronic kidney disease, unspecified CKD stage CT ABDOMEN PELVIS WO CONTRAST Schedule Routine, Read Routine (OP Routine) 05/11/2024 3:05 PM FLOORS BUFFER LLQ abdominal pain COLONOSCOPY 08/07/2023 8:46 AM FLOORS BUFFER from Last 3 Months or Most Recently Relevant to Health Maintenance Results * US Retroperitoneal Complete (07/26/2024 7:36 AM FLOORS BUFFER) Anatomical Region Laterality Modality Abdomen N/A Ultrasound 07/26/2024 8:33 AM FLOORS BUFFER Impressions 07/26/2024 8:33 AM FLOORS BUFFER NO SIGN OF RENAL CYSTS, NO MASS, NO EVIDENCE OF RENAL CALCIFICATION. PROSTATOMEGALY WITH POSSIBLE URINARY RETENTION Electronically signed by: Rajesh Oliveira M.D. Narrative 07/26/2024 8:33 AM FLOORS BUFFER EXAMINATION: US RETROPERITONEAL COMPLETE HISTORY: Chronic renal disease ORDER DATE: 07/26/2024 7:15 AM TECHNIQUE: The ultrasound study of both kidneys was performed with vascular duplex imaging with Doppler color flow and spectral analysis. Measurements were obtained and the collecting systems were evaluated. FINDINGS: The right renal outline was normal in appearance. Echogenicity of the renal cortex is unremarkable. The right kidney measured 118 x 48 x 58 mm . The left renal outline was normal in appearance. Echogenicity of the renal cortex is unremarkable. The left kidney measured 16 x 52 x 51 mm . There was no hydronephrosis. Renal vascular duplex imaging indicated perfusion within each kidney. The urinary bladder was unremarkable. Prevoid volume 732 mL enlarged prostate noted volume 28.5 mL Procedure Note Rajesh Oliveira MD - 07/26/2024 EXAMINATION: US RETROPERITONEAL COMPLETE HISTORY: Chronic renal disease ORDER DATE: 07/26/2024 7:15 AM TECHNIQUE: The ultrasound study of both kidneys was performed with vascular duplex imaging with Doppler color flow and spectral analysis. Measurements were obtained and the collecting systems were evaluated. FINDINGS: The right renal outline was normal in appearance. Echogenicity of the renal cortex is unremarkable. The right kidney measured 118 x 48 x 58 mm . The left renal outline was normal in appearance. Echogenicity of the renal cortex is unremarkable. The left kidney measured 16 x 52 x 51 mm . There was no hydronephrosis. Renal vascular duplex imaging indicated perfusion within each kidney. The urinary bladder was unremarkable. Prevoid volume 732 mL enlarged prostate noted volume 28.5 mL IMPRESSION: NO SIGN OF RENAL CYSTS, NO MASS, NO EVIDENCE OF RENAL CALCIFICATION. PROSTATOMEGALY WITH POSSIBLE URINARY RETENTION Electronically signed by: Rajesh Oliveira M.D. us Jerod Hathaway MD IMG US PROCEDURES Final Resu lt * (ABNORMAL) eGFR (07/20/2024 3:16 PM FLOORS BUFFER) eGFR 48(L) >=60 mL/min/1. 73 m2 Comment: Interpretive Data Reference Interval Normal >/= 90 mL/min/1.73m2 Mildly decreased* 60 - 89 mL/min/1.73m2 Mildly to moderately decreased 45 - 59 mL/min/1.73m2 Moderately to severely decreased 30 - 44 mL/min/1.73m2 Severely decreased 15 - 29 mL/min/1.73m2 Kidney Failure < 15 mL/min/1.73m2 *Relative to young adult level Estimated glomerular filtration rate is determined by the 2020 CKD-EPI equation recommended by the National Kidney Foundation (A Unifying Approach to GFR Estimation: Recommendations of the NKF-ASK Task Force on Reassessing the Inclusion of Race in Diagnosing Kidney Disease, JASN 202). The CKD-EPI equation should not be used for patients with unstable renal function and has not been validated in children and those over 70. Current interpretive data was last reviewed 2021. Blood 07/20/2024 3:16 PM FLOORS BUFFER 07/20/2024 3:53 PM FLOORS BUFFER us Jerod Hathaway MD LAB BLOOD ORDERABLES Final R esult Performing Organization Address City/[facility]/ZIP Co de Phone Number [facility] [place] [address] * Vitamin D 25 hydroxy (07/20/2024 3:16 PM FLOORS BUFFER) Vitamin D 25-OH 45 30 - 80 ng/mL Blood 07/20/2024 3:16 PM FLOORS BUFFER 07/20/2024 3:43 PM FLOORS BUFFER us Jerod Hathaway MD LAB BLOOD ORDERABLES Final R esult Performing Organization Address [facility] Co de Phone Number [facility] [place] [address] * CRP (acute phase) (07/20/2024 3:16 PM FLOORS BUFFER) CRP 0.8 <=10.0 mg/L Blood 07/20/2024 3:16 PM FLOORS BUFFER 07/20/2024 3:43 PM FLOORS BUFFER us Jerod Hathaway MD LAB BLOOD ORDERABLES Final R esult Performing Organization Address City/[facility] Co de Phone Number [facility] [place] [address] * Uric acid (07/20/2024 3:16 PM FLOORS BUFFER) Uric acid 7.9 3.0 - 8.0 mg/dL Blood 07/20/2024 3:16 PM FLOORS BUFFER 07/20/2024 3:43 PM FLOORS BUFFER us Jerod Hathaway MD LAB BLOOD ORDERABLES Final R esult Performing Organization Address City/[facility]/ZIP Co de Phone Number [facility] [place] [address] * Phosphorus (07/20/2024 3:16 PM FLOORS BUFFER) [facility] Phosphorus, pl 3.3 2.3 - 4.5 mg/dL Blood 07/20/2024 3:1 6 PM FLOORS BUFFER 07/20/2024 3:43 PM FLOORS BUFFER Jerod Hathaway MD LAB BLOOD ORDERABLES Final R esult Performing Organization Address City/[facility] Co de Phone Number [facility] Department [place] [address] * PTH (07/20/2024 3:16 PM FLOORS BUFFER) [facility] PTH 33 15 - 65 pg/mL Blood 07/20/2024 3:16 PM FLOORS BUFFER 07/20/2024 3:43 PM FLOORS BUFFER Jerod Hathaway MD LAB BLOOD ORDERABLES Final R esult Performing Organization Address City/[facility] de Phone Number [facility] [place] [address] * (ABNORMAL) Comprehensive metabolic panel (07/20/2024 3:16 PM FLOORS BUFFER) [facility] Sodium 137 135 - 145 mmol/L Potassium, pl 4.6 3.3 - 4.9 mmol/L [facility] Chloride 98 97 - 110 mmol/L [facility] CO2 29 22 - 32 mmol/L [facility] Anion gap 10 2 - 15 mmol/L [facility] BUN 28(H) 6 - 25 mg/dL [facility] Creatinine 1.65(H) 0.80 - 1.30 mg/dL [facility] Glucose 85 70 - 199 mg/dL [facility] Comment: Interpretive Data Fasting glucose >/= 126 mg/dl is diagnostic for diabetes. Fasting is defined as no caloric intake for at least 8 hours. Fasting glucose between 100 mg/dl to 125 mg/dl is diagnostic of prediabetes. In a patient with classic symptoms of hyperglycemia or hyperglycemic crisis, a random glucose >/= 200 mg/dl is diagnostic for diabetes. In the absence of unequivocal hyperglycemia, results should be confirmed by repeat testing. The classification and Diagnosis of Diabetes Diabetes Care 2021; 46: S19-S40. Current interpretive data was last revised 2022. Calcium 9.9 8.5 - 10.3 mg/dL [facility] Bilirubin, total 0.4 0.1 - 1.2 mg/dL [facility] Protein, pl 8.0 6.5 - 8.5 g/dL [facility] Albumin 4.6 3.5 - 5.0 g/dL [facility] Alk phos 83 40 - 130 Units/L [facility] ALT 40 7 - 55 Units/L [facility] AST 38 10 - 50 Units/L [facility] Blood 07/20/2024 3:16 PM FLOORS BUFFER 07/20/2024 3:43 PM FLOORS BUFFER us Jerod Hathaway MD LAB BLOOD ORDERABLES Final R esult [facility] Department [place] [address] * CT Abd/Pelvis w/o contrast (05/11/2024 3:05 PM FLOORS BUFFER) Anatomical Region Laterality Modality Body N/A Computed Tomogra phy 05/11/2024 3:08 PM FLOORS BUFFER Impressions 05/11/2024 3:08 PM FLOORS BUFFER [address]. No CT correlate for abdominal pain. Electronically signed by: Nav Hernadez M.D. Narrative 05/11/2024 3:08 PM FLOORS BUFFER EXAMINATION: Computed tomography of the abdomen/pelvis without intravenous contrast HISTORY: Left lower quadrant abdominal pain TECHNIQUE: Transaxial computed tomographic images of the abdomen/pelvis were obtained without intravenous contrast according to the standard protocol after the uneventful administration of 0 mL Opti-Ray 350 intravenous contrast. COMPARISON: 02/17/2024 FINDINGS: The lung bases are clear. Heart size is normal. There is no pericardial effusion. No focal liver lesions or biliary ductal dilatation. Normal appearance of the gallbladder. The pancreas is normal. Normal appearance of the spleen. Both adrenal glands are normal. There is no hydronephrosis. There is mild bilateral perinephric stranding, unchanged, likely related to prior inflammatory or infectious process. No renal calculi. Normal appearance of the bladder. The prostate is mildly enlarged. There is no abnormal bowel wall thickening or dilatation. Stool and gas is seen throughout the colon. The appendix is normal appearing. There is a tiny fat-containing umbilical hernia which is unchanged. Mild stranding within the represent sequela prior fat necrosis. No abdominal or pelvic lymphadenopathy. No free fluid or gas. Bone windows show no suspicious lytic or blastic lesions. Procedure Note Nav Hernadez MD - 05/11/2024 EXAMINATION: Computed tomography of the abdomen/pelvis without intravenous contrast HISTORY: Left lower quadrant abdominal pain TECHNIQUE: Transaxial computed tomographic images of the abdomen/pelvis were obtained without intravenous contrast according to the standard protocol after the uneventful administration of 0 mL Opti-Ray 350 intravenous contrast. COMPARISON: 02/17/2024 FINDINGS: The lung bases are clear. Heart size is normal. There is no pericardial effusion. No focal liver lesions or biliary ductal dilatation. Normal appearance of the gallbladder. The pancreas is normal. Normal appearance of the spleen. Both adrenal glands are normal. There is no hydronephrosis. There is mild bilateral perinephric stranding, unchanged, likely related to prior inflammatory or infectious process. No renal calculi. Normal appearance of the bladder. The prostate is mildly enlarged. There is no abnormal bowel wall thickening or dilatation. Stool and gas is seen throughout the colon. The appendix is normal appearing. There is a tiny fat-containing umbilical hernia which is unchanged. Mild stranding within the represent sequela prior fat necrosis. No abdominal or pelvic lymphadenopathy. No free fluid or gas. Bone windows show no suspicious lytic or blastic lesions. IMPRESSION: 1. No CT correlate for abdominal pain. Electronically signed by: Nav Hernadez M.D. us Estefani Ch MD IMG CT PROCEDURES Final Resu lt * COLONOSCOPY (08/07/2023 8:46 AM FLOORS BUFFER) Anatomical Region Laterality Modality Other Narrative Procedure Note Alexandra Flaherty MD - 08/07/2023 8:46 AM [facility] Patient Name: Dev Amaya Procedure Date: 08/07/2023 8:46 AM Date of : 1970 Admit Type: Inpatient Age: 53 Gender: Male Attending MD: Alexandra Flaherty M.D. Room: [facility] ENDOSCOPY Note Status: Finalized Procedure: Colonoscopy Indications: Chronic diarrhea Referring MD: Providers: Alexandra Flaherty M.D., Juan Piña M.D. Medicines: Monitored Anesthesia Care Complications: No immediate complications. Estimated Blood Loss: Estimated blood loss: none. Procedure: Pre-Anesthesia Assessment: - ASA Grade Assessment: III - A patient with severe systemic disease. - The risks and benefits of the procedure and the sedation options and risks were discussed with the patient. All questions were answered and informed consent was obtained. - Immediately prior to administration ofmedications, the patient was re-assessed for adequacy to receive sedatives. The benefits, risks and alternatives of theprocedure and sedation were discussed and informed consentwas obtained. All questions were answered. Please referto the signed informed consent document in the medical record. The scope was passed under direct vision.The CF [id number] Endoscope was introduced through the anus and advanced to the the terminal ileum,with identification of the appendiceal orifice and IC valve. The colonoscopy was performed without difficulty. The patient tolerated the procedurewell. The quality of the bowel preparation was adequateto identify polyps 6 mm and larger in size. The bowel preparation used was GoLYTELY via split dose instruction. Findings: The perianal and digital rectal examinations were normal. The colon (entire examined portion) appeared normal. Biopsies weretaken with a cold forceps for histology. A patchy area of the terminal ileum was congested. Biopsies weretaken with a cold forceps for histology. The exam was otherwise without abnormality on direct and retroflexion views. Impression: - The entire examined colon is normal. Biopsied. - Congested mucosa in the terminal ileum.Biopsied. - The examination was otherwise normal on directand retroflexion views. Recommendation: - [facility] - Advance diet as tolerated. - Continue present medications. - Await pathology results. Electronically signed by Alexandra Flaherty MD Alexandra Flaherty M.D. 08/07/2023 9:19:52 AM Number of Addenda: 0 Note Initiated On: 08/07/2023 8:46 AM Recognized by the [employer] for promoting quality in endoscopy us Alexandra Flaherty MD ENDOSCOPY PROCEDURES Final Res ult from Last 3 Months or Most Recently Relevant to Health Maintenance Insurance [facility] PL[facility] Advance Directives For more information, please contact: [phone] * Full Code (Latest Code Status on File) Date Activated Date Inactivated Comments 02/17/2024 8:30 PM 02/20/2024 5:50 PM * Full Code Date Activated Date Inactivated Comments 01/27/2024 6:14 PM 01/31/2024 4:48 PM * Full Code Date Activated Date Inactivated Comments 12/31/2023 10:39 AM 12/31/2023 4:31 PM * Full Code Date Activated Date Inactivated Comments 10/27/2023 7:51 PM 10/31/2023 2:31 PM * Full Code Date Activated Date Inactivated Comments 08/07/2023 8:01 AM 08/20/2023 3:03 PM Care Teams Fig Caprifier Relationship Specialty Start Date End Date Hi Salmon DO PCP - General Internal Medicine 07/30/23 Estefani Ch MD [address] [facility] [address] [place] [address] Referring Physician Gastroenterology 09/10/23 Gabe Luna MD [address] [address] Consulting Physician Rheumatology 10/22/23
--- OUTSIDE RECORDS SUMMARY | 2024-08-09 07:03 | XMS_ITS | Encounter Summary ---
Author Organization [facility] Address [address] [place] [address] Phone Care Team Providers Care Aerophysicist Name Role Phone Hi Salmon DO Primary Care Provider [phone] Estefani Ch MD Unavailable [phone] Gabe Luna MD Unavailable [phone] Encounter Details Date Type Department Care Team (Late st Contact Info) Description 01/02/2024 Documentation [facility] Gastroenterology [address] [facility] [address] 12th [place] [address] [place] [id number] Estefani Ch MD [address] [place] [address] Social History Tobacco Use Types Packs/Day Years Used Date Smoking Tobacco: Former Cigarettes Q uit: 10/16/1998 Smokeless Tobacco: Never Alcohol Use Standard Drinks/Week Comments Not Currently 0 (1 standard drink = 0.6 oz pur e alcohol) OASIS D0700: Social Isolation Answer Da te Recorded Frequency of experiencing loneliness or isolatio n Never 12/26/2023 [facility] Utilities Answer Date Recorded In the past 12 months has th e electric, gas, oil, or water [employer] threatened to shut off services in your home? No 11/03/2023 Social Connection and Isolat ion Panel [NHANES] Answer Date Recorded In a typical week, how many times do you talk on the phone with family, friends, or neighbors? More than three times a week 11/03/2023 How often do you get togethe r with friends or relatives? More than three times a week 11/03/2023 How often do you attend chur ch or methodist services? More than 4 times per year 11/03/2023 Do you belong to any clubs o r organizations such as zoroastrianism groups, unions, fraternal or athletic groups, or school groups? No 11/03/2023 How often do you attend meet ings of the clubs or organizations you belong to? Never 11/03/2023 Are you , , di vorced, , never , or living with a partner? 11/03/2023 AUDIT-C Answer Date Recorded Q1: How often [...] food, housing, medical care, and heating? Not hard at all 11/03/2023 PHQ-2 Answer Date Recorded PHQ-2 Total Score 0 10/29/2023 Hunger Vital Sign Answer Date Recorded Within the past 12 months, y ou worried that your food would run out before you got the money to buy more. Never true 11/03/19 24 Within the past 12 months, t he food you bought just didn't last and you didn't have money to get more. Never true 11/03/2023 PRAPARE - Transportation Answer Date Re corded In the past 12 months, has l ack of transportation kept you from medical appointments or from getting medications? No 10/21 In the past 12 months, has l ack of transportation kept you from meetings, work, or from getting things needed for daily living? No 11/03/2023 Housing Stability Vital Sign Answer [...] place to sleep or slept in a half-way (including now)? No 11/03/2023 Personal Safety Answer Date Recorded Have you ever been in or are you currently in a harmful physical or emotional relationship or is someone making you feel afraid or unsafe? 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 difficile suspected 01/28/2024 01/28/202401/27 5:30 PM CDT COVID: Suspected 02/17/2024 02/17/2024 02/17/2024 5:45 PM CDT C. difficile suspected 02/19/2024 02/19/202402/18 9:43 PM CDT Diarrhea Comment:Having formed stool, diarrhea is resolved 02/20/2024 02/20/2024 02/20/2024 6:47 AM CDT documented as of this encounter Care Teams Aerophysicist Relationship Specialty Start Date End Date Hi Salmon DO PCP - General Internal Medicine 07/30/23 Estefani Ch MD [address] [place] [address] Referring Physician Gastroenterology 09/10/23 Gabe Luna MD [address] [id number] Consulting Physician Rheumatology 10/22/23 documented as of this encounter
--- OUTSIDE RECORDS SUMMARY | 2024-08-09 07:03 | XMS_ITS | Clinical Summary ---
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 Gender Identity Not on file Sexual Orientation Not on file Plan of Treatment Health Maintenance Due Date Last Done Comments Hepatitis C Virus (HCV) Screening 1970 Hepatitis B Immunization (1 of 3 - 19+ 3-dose series) 02/24/1987 Colonoscopy 02/24/2013 Colorectal Cancer Screening 02/24/2013 Cologuard 02/24/2018 Immunochemical Fecal Occult Blood 02/24/2018 Pneumococcal Immunization (50+ years) (2 of 2 - PCV) 03/27/2020 03/27/2019 PSA Discussion 02/24/2023 Influenza Immunization (#1) 02/22/202411/2019, 02/14/2019, 03/16/2018, Additional history exists SARS-COV-2 Immunization ( - 2023- season) 2024 Respiratory Syncytial Virus (RSV) Immunization (Adult) (1 - 1-dose 75+ series) 02/24/2043 DTaP/Tdap/Td Immunization Discontinued 05/28/2017 TdaP Immunization Completed 05/28/2017 Pneumococcal Immunization Combined Discontinued 03/27/2019 Zoster Immunization Completed 04/18/2019, 9 Meningococcal Immunization (ACWY) Aged Out No longer eligible based on patient's age to complete this topic Rotavirus Immunization Aged Out No lo nger eligible based on patient's age to complete this topic
--- OUTSIDE RECORDS SUMMARY | 2024-08-09 07:03 | XMS_ITS | Clinical Summary ---
Author Organization [facility] Address [facility] [place] [address] Care Team Providers Care Internet Site Designer Name Role Phone Unavailable Primary Care Provider Unavailabl e Social History Tobacco Use Types Packs/Day Years Used Date Smoking Tobacco: Never Assessed Sex and Gender Information Value Date Recorded Sex Assigned at Not on file Legal Sex Male 8:10 PM CDT Gender Identity Not on file Sexual Orientation Not on file Plan of Treatment Health Maintenance Due Date Last Done Comments Colorectal Cancer Screening Colonoscopy (10 Years) 1970 Annual Physical 02/24/1971 Hepatitis C 02/24/1986 DTaP, Tdap and Td Vaccines ( 1 - Tdap) 02/24/1987 Hepatitis B Vaccines (1 of 3 - 19+ 3-dose series) 02/24/1987 Zoster Vaccines (1 of 2) 02/24/2018 COVID-19 Vaccine (2023-2 5 season) 2024 Influenza Adult (#1) 2024 Meningococcal B Vaccine Aged Out No l onger eligible based on patient's age to complete this topic Meningococcal Vaccine Aged Out No juan jose harsh eligible based on patient's age to complete this topic Pneumococcal Vaccine: Pediat rics (0 to 5 Years) and At-Risk Patients (6 to 64 Years) Aged Out No longer eligible b ased on patient's age to complete this topic RSV Immunizations Under 20 Months Aged Out No longer eligible based on patient's age to complete this topic
--- OUTSIDE RECORDS SUMMARY | 2024-08-09 07:03 | XMS_ITS | Referral Summary ---
Author Organization [facility] [employer] Address [address] [place] [address] Care Team Providers Care Sausage Wrapper Name Role Phone Unavailable Primary Care Provider Unavailabl e Source Comments [facility],non-owned Affiliates and Associated Physician Practices is amultiple site organization consisting of ambulatory clinics and hospital sitesin [place], [place], [place] and [place]. This disclosure is being madepursuant to the Care Everywhere program and may not contain all information available regarding this patient. Last updated 18.[facility] [employer] Allergies Active Allergy Reactions Criticality Noted Date Comments Ceftriaxone Rash,Renal Injury High 04/16/2023 Medications * Be aware that medications may not be up to date on this document. Alwaysverify current medications with the patient. Medication Sig Dispensed Refills Start Date End Date Status QUEtiapine (SEROquel) 25 MG tablet Take 1 (one) tablet by mouth at bedtime Active petrolatum (Aquaphor;Hydroph or) Apply to affected area as needed for Dry Skin 454 g 06/11/2023 Active gabapentin (Neurontin) 300 MG capsule Take 1 (one) capsule by mouth 2 times daily 60 capsule 2 06/18/2023 Active simethicone (Mylicon) 80 MG chew tablet Take 1 (one) tablet by mouth 4 times daily as needed for Gas Pain 60 tablet 2 06/18/2023 Active rOPINIRole (Requip) 0.5 MG tabletIndications :Restless Leg Syndrome Take 1 (one) tablet by mouth at bedtime Reasons: Restless Leg Syndrome 30 tablet 2 06/18/2023 Active DULoxetine (Cymbalta) 60 MG capsuleIndication s:Rheumatoid arthritis involving multiple sites, unspecified whether rheumatoid factor present (HCC),Encounter for therapeutic drug monitoring,Encoun ter for long-term (current) use of high-risk medication Take 1 (one) capsule by mouth once daily 30 capsule 2 06/18/2023 Active ondansetron (Zofran) 4 MG tablet Take 2 (two) tablets by mouth every 6 hours as needed for Nausea/Vomiting 180 tablet 2 06/18/2023 Active thiamine (Vitamin B-1) 100 MG tablet Take 1 (one) tablet by mouth once daily 60 tablet 2 06/18/2023 Active famotidine (Pepcid) 20 MG tablet Take 1 (one) tablet by mouth at bedtime 30 tablet 4 06/18/2023 Active loperamide (Imodium) 2 MG capsule Take 2 (two) capsules by mouth 4 times daily 250 capsule 2 06/18/2023 Active Crofelemer 125 MG Take 125 mg by mouth 2 times daily 60 tablet 1 06/18/2023 Active opium (Opium Tincture) 10 MG/ML (1%) solutionIndicatio ns:Sepsis due to Salmonella species with acute renal failure without septic shock, unspecified acute renal failure type (HCC) Take 0.6 mL by mouth every 6 hours 118 mL 06/19/2023 Active predniSONE (Deltasone) 10 MG tablet Take 1 (one) tablet by mouth once daily 30 tablet 2 06/26/2023 Active predniSONE (Deltasone) 5 MG tablet Take 1 (one) tablet by mouth once daily 30 tablet 2 06/26/2023 Active predniSONE (Deltasone) 20 MG tablet Take 1 (one) tablet by mouth once daily 60 tablet 1 06/26/2023 Active baclofen (Lioresal) 10 MG tabletIndications :Intractable Hiccups,Muscle Spasm Take 1 (one) tablet by mouth 3 times daily as needed for Muscle Spasms May cause drowsiness. Reasons: Hiccups that are Hard to Cure, Muscle Spasm 90 tablet 2 07/10/2023 Active sodium bicarbonate 650 MG tablet Take 2 (two) tablets by mouth 3 times daily 180 tablet 2 07/10/2023 Active nystatin (Mycostatin) 973784 UNIT/ML suspension Take 1 mL by mouth 4 times daily 473 mL 07/10/2023 Active hydrocortisone (Anusol-HC) 25 MG suppository Insert 1 (one) suppository into the rectum 2 times daily 60 suppository 07/10/2023 Active Additional Information Patient not taking.Reported on 07/10/2023 diphenoxylate-atr opine (Lomotil) 2.5-0.025 MG tablet Take 1 (one) tablet by mouth 4 times daily as needed for Diarrhea 120 tablet 07/10/2023 Active amitriptyline (Elavil) 25 MG tablet Take 1 (one) tablet by mouth at bedtime 30 tablet 1 07/17/2023 Active potassium chloride ER (Klor-Con M) 20 MEQ tablet Take 1 (one) tablet by mouth once daily 6 tablet 07/17/2023 Active Active Problems Problem Noted Date Diagnosed Date Diarrhea, unspecified type 06/18/2023 Hypomagnesemia 06/18/2023 Hypokalemia 05/29/2023 Atrial fibrillation 04/16/2023 Salmonella bacteremia 04/15/2023 Acute kidney injury (KALPANA) with acute tubular nec rosis (ATN) 04/15/2023 Hemodialysis patient 04/15/2023 Immunocompromised patient 04/15/2023 Salmonella enteritis 04/14/2023 Rheumatoid arthritis involving multiple sites Encounter for long-term (cur rent) use of high-risk medication 10/28/2017 Encounter for therapeutic drug monitoring 2017 Resolved Problems Problem Noted Date Diagnosed Date Resolved Date Dehydration 05/29/2023 06/12/2023 Diarrhea 04/14/2023 05/28/2023 Immunizations Name Administration Dates Next Due FLU VACCINE TRI IIV3 SPLIT I M (FLUVIRIN) 03/25/2021,04/03/2017,04/05/2013 INFLUENZA VACCINE, QUADR. (A FLURIA, FLUZONE QUADRIVALENT; 6MO+) (IIV4) 02/14/2019 INFLUENZA VACCINE, QUADR. (F LUZONE; FLULAVAL; FLUARIX; AFLURIA QUADRIVALENT; 6MO+), 0.5 ML (IIV4) 03/16/2023,03/03/2022,02/27/2020,2017 INFLUENZA VACCINE, TRIV. (FL UZONE; FLULAVAL; FLUARIX; AFLURIA TRIVALENT; 6MO+), 0.5 ML (IIV3) 03/30/2016,04/10/2015 PNEUMOCOCCAL PPV VACCINE 03/27/2019 TDAP, HISTORIC VACCINE 05/28/2017 Zoster Hzv Vacc Recombinant Inj Im 04/18/2019, Social History Tobacco Use Types Packs/Day Years Used Date Smoking Tobacco: Never Passive Smoke Exposure: Never Smokeless Tobacco: Never Tobacco Cessation:Counseling Given: Not Answered Alcohol Use Standard Drinks/Week Comments Not Currently 0 (1 standard drink = 0.6 oz pur e alcohol) AUDIT-C Answer Date Recorded Q1: How often do you have a drink containing alcohol? Never 05/29/2023 Q2: How many drinks containi ng alcohol do you have on a typical day when you are drinking? Patient does not drink Q3: How often do you have si x or more drinks on one occasion? Never 05/29/2023 Overall Financial Resource Strain (CARDIA) Answe r Date Recorded How hard is it for you to pa y for the very basics like food, housing, medical care, and heating? Not hard at all 05/29/2023 PHQ-2 Answer Date Recorded Patient Health Questionnaire-2 Score 0 07/17/2023 [facility] - Occupational Stress Questionnaire Answer Date Recorded Do you feel stress - tense, restless, nervous, or anxious, or unable to sleep at night because your mind is troubled all the time - these days? Only a little 05/29/2023 Hunger Vital Sign Answer Date Recorded Within the past 12 months, y ou worried that your food would run out before you got the money to buy more. Never true 05/29/20 23 Within the past 12 months, t he food you bought just didn't last and you didn't have money to get more. Never true 05/29/2023 PRAPARE - Transportation Answer Date Re corded In the past 12 months, has l ack of transportation kept you from medical appointments or from getting medications? No 12/2022 In the past 12 months, has l ack of transportation kept you from meetings, work, or from getting things needed for daily living? No 05/29/2023 Housing Stability Vital Sign Answer Jomar e Recorded In the last 12 months, was t here a time when you were not able to pay the mortgage or rent on time? No 05/29/2023 In the last 12 months, how many places have you lived? 1 05/29/2023 In the last 12 months, was t here a time when you did not have a steady place to sleep or slept in a senior care (including now)? No 05/29/2023 Housing Stability Vital Sign Answer Jomar e Recorded In the last 12 months, was t here a time when you were not able to pay the mortgage or rent on time? No 05/29/2023 Number of Times Moved in the Last Year Not on fi le 05/29/2023 Homeless in the Last Year Not on file 2022 Sex and Gender Information Value Date Recorded Sex Assigned at Male 05/29/2023 8:17 AM CONTRACTING SUPPORT SPECIALIST Gender Identity Male 05/29/2023 8:17 AM CONTRACTING SUPPORT SPECIALIST Sexual Orientation Not on file Last Filed Vital Signs Vital Sign Reading Time Taken Comments Blood Pressure 132/77 07/17/2023 10:54 AM CONTRACTING SUPPORT SPECIALIST Pulse 103 07/17/2023 10:54 AM CONTRACTING SUPPORT SPECIALIST Temperature 37.3 C (99.1 F) 07/17/2023 10:54 AM CONTRACTING SUPPORT SPECIALIST Respiratory Rate 18 07/17/2023 10:54 AM CONTRACTING SUPPORT SPECIALIST Oxygen Saturation 100% 07/17/2023 10:54 AM CONTRACTING SUPPORT SPECIALIST Inhaled Oxygen Concentration - - Weight 73 kg (161 lb) 07/17/2023 9:27 AM CONTRACTING SUPPORT SPECIALIST Height 167.6 cm (5' 6 ) 07/17/2023 9:27 AM CONTRACTING SUPPORT SPECIALIST Body Mass Index 25.99 07/17/2023 9:27 AM CONTRACTING SUPPORT SPECIALIST Functional Status Functional Status Response Date of Assess ment Is person deaf or have serious hearing difficult y? No 05/29/2023 Is person blind or have serious difficulty seein g? No 05/29/2023 Does person have serious dif ficulty walking/climbing stairs? No 05/29/2023 Does person have difficulty dressing/bathing? No 05/29/2023 Does person have difficulty doing errands alone? No 05/29/2023 Cognitive Status Response Date of Assessm ent Does person have difficulty concentrating/remembering/making decisions? No 05/29/2023 Plan of Treatment Not on file Procedures Procedure Name Priority Date/Time Associated Diagnosis Comments COMPREHENSIVE METABOLIC PANEL STAT 07/17/2023 9:20 AM CONTRACTING SUPPORT SPECIALIST Diarrhea, unspecified type LIPID PROFILE Routine 05/12/2023 6:54 AM CONTRACTING SUPPORT SPECIALIST ENDOSCOPY, COLON, DIAGNOSTIC Routine 05/01/2023 11:19 AM CONTRACTING SUPPORT SPECIALIST HIV-1 HIV-2 ANTIBODY + HIV P24 AG PANEL AM Draw 04/15/2023 8:31 PM CDT HEPATITIS C ANTIBODY Routine 09/23/2017 3:56 PM CDT from Last 3 Months or Most Recently Relevant to Health Maintenance Results * (ABNORMAL) COMPREHENSIVE METABOLIC PANEL (07/17/2023 9:20 AM CONTRACTING SUPPORT SPECIALIST) Glucose 107(H) 70 - 105 mg/dL 07/17/2023 10:[address] [facility] Sodium 143 136 - 145 mmol/L 07/17/2023 10:[address] [facility] Potassium 3.5 3.5 - 5.1 mmol/L 07/17/2023 10:[address] [facility] Chloride 118(H) 98 - 107 mmol/L 07/17/2023 10:[address] [facility] CO2 17(L) 22 - 29 mmol/L 07/17/2023 10:[address] [facility] Calcium 7.5(L) 8.4 - 10.4 mg/dL 07/17/2023 10:[address] [facility] Anion Gap 8 6 - 16 mmol/L 07/17/2023 10:[address] [facility] BUN 13 7 - 26 mg/dL 07/17/2023 10:[address] [facility] Creatinine 0.93 0.72 - 1.25 mg/dL 07/17/2023 10:[address] [facility] Alkaline Phosphatase 214(H) 40 - 150 U/L 07/17/2023 10:[address] [facility] ALT 76(H) 0 - 55 U/L 07/17/2023 10:[address] [facility] AST 34 5 - 34 U/L 07/17/2023 10:[address] [facility] Protein Total 4.0(L) 6.4 - 8.3 gm/dL 07/17/2023 10:[address] [facility] Albumin 2.1(L) 3.4 - 5.0 gm/dL 07/17/2023 10:[address] [facility] Bilirubin Total 0.2 0.2 - 1.2 mg/dL 07/17/2023 10:[address] [facility] eGFR by CKD-EPI >90 >=90 mL/min/1.7 3 m2 07/17/2023 10:[address] [facility] Blood BLOOD SPECIMEN / Unknown Venipuncture / Unknown 07/17/2023 9:20 AM CONTRACTING SUPPORT SPECIALIST 07/17/2023 9:45 AM CONTRACTING SUPPORT SPECIALIST Torrie Martin MD LAB - CHEMIS TRY ORDERABLES Performing Organization Address [facility] de Phone Number [facility] [address] [place], [place] [id number] * (ABNORMAL) LIPID PROFILE (05/12/2023 6:54 AM CONTRACTING SUPPORT SPECIALIST) Cholesterol 124 <200 mg/dL 05/12/2023 7:[address] [facility] Triglycerides 195(H) <150 mg/dL 05/12/2023 7:[address] [facility] HDL Cholesterol 23(L) >40 mg/dL 3 7:[address] [facility] LDL Calculated 62 <130 mg/dL 05/12/2023 7:[address] [facility] VLDL Calculated 39(H) <=30 mg/dL 3 7:[address] [facility] Chol HDL Ratio 5.4(H) <4.5 05/12/2023 7:[address] [facility] LDL/HDL Ratio 2.7 <5.0 05/12/2023 7:[address] [facility] Blood BLOOD SPECIMEN / Unknown Lab Venipuncture / Unknown 05/12/2023 6:54 AM CONTRACTING SUPPORT SPECIALIST 05/12/2023 7:02 AM CONTRACTING SUPPORT SPECIALIST Daniel Croft MD LAB - CHEMISTRY [place] Performing Organization Address City/[facility]/ZIP Co de Phone Number [facility] [address] [phone] * ENDOSCOPY, COLON, DIAGNOSTIC (05/01/2023 11:19 AM CONTRACTING SUPPORT SPECIALIST) Report Endoscopy POC _ Patient Name: Dev Amaya Procedure Date: 05/01/2023 11:19 AM Date of : 1970 Admit Type: Inpatient Age: 53 Gender: Male Ethnicity: Not or Race: White Attending MD: Rickie Colon MD, [id number] _ Procedure: Colonoscopy Indications: Clinically significant diarrhea of unexplained origin Providers: Rickie Colon MD (Doctor), Zane Mijares RN Patient Profile: 53yo male with diarrhea. Negative work-up. On immunosuppressio n. Here for colonoscopy Referring MD: Hi Salmon (Referring MD) Medicines: Monitored Anesthesia Care Complications: No immediate complications. _ Estimated Blood Loss: Estimated blood loss: none. Procedure: Pre-Anesthesia Assessment: - Prior to the procedure, a History and Physical was performed, and patient medications, allergies and sensitivities were reviewed. The patient's tolerance of previous anesthesia was reviewed. - The risks and benefits of the procedure and the sedation options and risks were discussed with the patient. All questions were answered and informed consent was obtained. - Prior Anticoagulants: The patient has taken no anticoagulant or antiplatelet agents. - Prior Aspirin/ NSAID therapy: The patient has taken no aspirin or NSAID medications. After I obtained informed consent, the scope was passed under direct vision. Throughout the procedure, the patient's blood pressure, pulse, and oxygen saturations were monitored continuously. The Colonoscope was introduced through the anus and advanced to the terminal ileum. The colonoscopy was performed without difficulty. The patient tolerated the procedure well. The quality of the bowel preparation was evaluated using the BBPS ([place] Bowel Preparation Scale) with scores of: Right Colon = 3, Transverse Colon = 3 and Left Colon = 3 (entire mucosa seen well with no residual staining, small fragments of stool or opaque liquid). The total BBPS score equals 9. The terminal ileum, ileocecal valve, appendiceal orifice, and rectum were photographed. Impression: - A single (solitary) ulcer in the terminal ileum. Biopsied. - The entire examined colon is normal. Biopsied. - The distal rectum and anal verge are normal on retroflexion view. Findings: The perianal and digital rectal examinations were normal. The terminal ileum contained a single (solitary) two mm ulcer. No bleeding was present. No stigmata of recent bleeding were seen. Biopsies were taken in the terminal ileum with a cold forceps for histology. The colon (entire examined portion) appeared normal. Biopsies were taken with a cold forceps for histology. The retroflexed view of the distal rectum and anal verge was normal and showed no anal or rectal abnormalities. _ Recommendation: - Discharge patient to home. - Patient has a contact number available for emergencies. The signs and symptoms of potential delayed complications were discussed with the patient. Return to normal activities tomorrow. Written discharge instructions were provided to the patient. - Resume previous diet. - Await pathology results. - Repeat colonoscopy in 10 years for screening purposes. Procedure Code(s): --- Professional --- 89921, Colonoscopy, flexible; with biopsy, single or multiple --- Technical --- 69323, Colonoscopy, flexible; with biopsy, single or multiple Diagnosis Code(s): --- Professional --- K63.3, Ulcer of intestine R19.7, Diarrhea, unspecified --- Technical --- K63.3, Ulcer of intestine R19.7, Diarrhea, unspecified CPT copyright 2020 [employer]. All rights reserved. The codes documented in this report are preliminary and upon loan documents closer review may be revised to meet current compliance requirements. ___ Rickie Colon MD 05/01/2023 12:47:16 PM Number of Addenda: 0 Note Initiated On: 05/01/2023 11:19 AM [facility] 05/01/2023 11:1 9 AM CONTRACTING SUPPORT SPECIALIST Narrative Procedure Note Rickie Colon MD - 05/01/2023 12:48 PM CST Colonoscopy done for diarrhea. Normal colon. Single small ulcer in theTI. Biopsies taken from TI and random colon biopsies. f/u path. Rickie Colon MD GI PROCEDURE ORDER THOMAS Performing Organization Address City/State/[facility] Co de Phone Number [facility] * HIV-1 HIV-2 ANTIBODY + HIV P24 AG PANEL (04/15/2023 8:31 PM CDT) HIV1/2 Ab + P24 Ag Non Reactive Non Reactive 04/15/2023 9:16 PM CDT [facility] Blood BLOOD SPECIMEN / Unknown Lab Venipuncture / Unknown 04/15/2023 8:31 PM CDT 04/15/2023 8:36 PM CDT Narrative [facility] - 04/15/2023 9:16 PM CDT No Laboratory evidence of HIV infection. Uzma Bazzi MD LAB - CHEMISTRY [place] [facility] [address] [place] [address] * HEPATITIS C ANTIBODY (09/23/2017 3:56 PM CDT) Hepatitis C Virus Antibody 0.1 0.0 - 0.9 s/co ratio [facility] ([facility]) Comment: Negative: < 0.8 Indeterminate: 0.8 - 0.9 Positive: > 0.9 The CDC recommends that a positive HCV antibody result be followed up with a HCV Nucleic Acid Amplification test (124199). Blood specimen (specimen) BLOOD SPECIMEN / Unknown 09/23/2017 3:56 PM CDT 09/23/2017 Narrative [facility] ([facility]) - 09/24/2017 7:13 AM CDT Performed at: 01 - [facility] [address] [place], [place] [id number] Vice President Of Human Resources: Jarod Webster PhD, Phone: [phone] Kayla Cardona MD LAB - CHEMISTR Y ORDERABLES [facility] ([facility]) [address] [place] [address] from Last 3 Months or Most Recently Relevant to Health Maintenance Advance Directives * Full Code (Latest Code Status on File) Date Activated Date Inactivated Comments 06/18/2023 7:21 PM 06/19/2023 2:36 PM * Full Code Date Activated Date Inactivated Comments 05/29/2023 7:46 PM 06/11/2023 5:17 PM * Full Code Date Activated Date Inactivated Comments 04/14/2023 11:13 PM 05/23/2023 6:23 PM * Full Code Date Activated Date Inactivated Comments 04/14/2023 10:20 PM 04/14/2023 11:13 PM
--- OUTSIDE RECORDS SUMMARY | 2024-08-09 07:03 | XMS_ITS | Clinical Summary ---
Author Organization [facility] Mama Address [address] [place] [address] Care Team Providers Care Welfare Worker Name Role Phone Unavailable Primary Care Provider Unavailabl e Source Comments [facility],non-owned Affiliates and Associated Physician Practices is amultiple site organization consisting of ambulatory clinics and hospital sitesin [place], [place], [place] and [place]. This disclosure is being madepursuant to the Care Everywhere program and may not contain all information available regarding this patient. Last updated 18.[facility] Mama Allergies Active Allergy Reactions Criticality Noted Date [...] 180 tablet 2 07/10/2023 Active nystatin (Mycostatin) 818631 UNIT/ML suspension Take 1 mL by mouth [...] Recorded Patient Health Questionnaire-2 Score 0 07/17/2023 [facility] - Occupational Stress [...] place to sleep or slept in a [place] facility (including now)? No 05/29/2023 Housing Stability Vital [...] Sex Assigned at Male 05/29/2023 8:17 AM [employer] Gender Identity Male 05/29/2023 8:17 AM [employer] Sexual Orientation Not on file Last Filed Vital Signs Vital Sign Reading Time Taken Comments Blood Pressure 132/77 07/17/2023 10:54 AM [employer] Pulse 103 07/17/2023 10:54 AM [employer] Temperature 37.3 C (99.1 F) 07/17/2023 10:54 AM [employer] Respiratory Rate 18 07/17/2023 10:54 AM [employer] Oxygen Saturation 100% 07/17/2023 10:54 AM [employer] Inhaled Oxygen Concentration - - Weight 73 kg (161 lb) 07/17/2023 9:27 AM [employer] Height 167.6 cm (5' 6 ) 07/17/2023 9:27 AM [employer] Body Mass Index 25.99 07/17/2023 9:27 AM [employer] Plan of Treatment Health Maintenance Due Date Last Done Comments COLOGUARD (AGES 45-75) - COLON CA SCREENING 1970 CT COLONOGRAPHY - COLON CA SCREENING 1970 FIT - COLON CA SCREENING 1970 FLEX SIG - COLON CA SCREENING 1970 HEPATITIS B VACCINE (1 of 3 - Risk Dialysis 4-dose series) 1988 PNEUMOCOCCAL VACCINE 50+ (2 of 2 - PCV) 03/27/2020 03/27/2019 COVID-19 VACCINE ( season) 2024 02/15/2022, 05/20/2021, 10/23/2020, Additional history exists INFLUENZA VACCINE (#1) 2024 3, 03/03/2022, 03/25/2021, Additional history exists DEPRESSION SCREENING 06/23/2024 06/26/2023, 05/29/20 23 SCREENING FOR DIABETES 07/17/2026 4, 07/10/2023, 07/03/2023, Additional history exists DTAP/TDAP/TD VACCINES (2 - Td or Tdap) 05/28/2027 05/28/2017 LIPID TESTING 05/12/2028 05/12/2023 COLON MONITORING 05/01/2033 05/01/2023, 02/2023, 05/01/2023 COLONOSCOPY - COLON CA SCREENING 08/07/2033 08/07/2023, 05/01/2023, 05/01/2023, Additional history exists Colorectal Cancer Screening 08/07/2033 HEPATITIS C SCREENING Completed 09/23/2017, 018 ZOSTER VACCINE Completed 04/18/2019, 02/14/2019 HIV SCREENING Completed 04/15/2023 HIB VACCINE Aged Out No longer eligi ble based on patient's age to complete this topic HPV VACCINE Aged Out No longer eligi ble based on patient's age to complete this topic MENINGOCOCCAL (Group B) VACCINE Aged Out No longer eligible based on patient's age to complete this topic MENINGOCOCCAL VACCINE Aged Out No juan jose harsh eligible based on patient's age to complete this topic Procedures Procedure Name Priority Date/Time Associated Diagnosis Comments COMPREHENSIVE METABOLIC PANEL STAT 07/17/2023 9:20 AM [employer] Diarrhea, unspecified type LIPID PROFILE Routine 05/12/2023 6:54 AM [employer] ENDOSCOPY, COLON, DIAGNOSTIC Routine 05/01/2023 11:19 AM [employer] HIV-1 HIV-2 ANTIBODY + HIV P24 AG PANEL AM Draw 04/15/2023 8:31 PM CDT HEPATITIS C ANTIBODY Routine 09/23/2017 3:56 PM CDT from Last 3 Months or Most Recently Relevant to Health Maintenance Results * (ABNORMAL) COMPREHENSIVE METABOLIC PANEL (07/17/2023 9:20 AM [facility]) Glucose 107(H) 70 - 105 mg/dL 07/17/2023 10:13 AM [facility] Sodium 143 136 - 145 mmol/L 07/17/2023 10:13 AM [facility] Potassium 3.5 3.5 - 5.1 mmol/L 07/17/2023 10:13 AM [facility] Chloride 118(H) 98 - 107 mmol/L 07/17/2023 10:13 AM [facility] CO2 17(L) 22 - 29 mmol/L 07/17/2023 10:13 AM [facility] Calcium 7.5(L) 8.4 - 10.4 mg/dL 07/17/2023 10:13 AM [facility] Anion Gap 8 6 - 16 mmol/L 07/17/2023 10:13 AM [facility] BUN 13 7 - 26 mg/dL 07/17/2023 10:13 AM [facility] Creatinine 0.93 0.72 - 1.25 mg/dL 07/17/2023 10:13 AM [facility] Alkaline Phosphatase 214(H) 40 - 150 U/L 07/17/2023 10:13 AM [facility] ALT 76(H) 0 - 55 U/L 07/17/2023 10:13 AM [facility] AST 34 5 - 34 U/L 07/17/2023 10:13 AM [facility] Protein Total 4.0(L) 6.4 - 8.3 gm/dL 07/17/2023 10:13 AM [facility] Albumin 2.1(L) 3.4 - 5.0 gm/dL 07/17/2023 10:13 AM [facility] Bilirubin Total 0.2 0.2 - 1.2 mg/dL 07/17/2023 10:13 AM [facility] eGFR by CKD-EPI >90 >=90 mL/min/1.7 3 m2 07/17/2023 10:13 AM [facility] Blood BLOOD SPECIMEN / Unknown Venipuncture / Unknown 07/17/2023 9:20 AM [facility] 07/17/2023 9:45 AM [facility] Torrie Martin MD LAB - CHEMIS TRY ORDERABLES Performing Organization Address [facility] Co de Phone Number [facility] [address] [phone] * (ABNORMAL) LIPID PROFILE (05/12/2023 6:54 AM [employer]) Cholesterol 124 <200 mg/dL 05/12/2023 7:32 AM [employer] [facility] Triglycerides 195(H) <150 mg/dL 05/12/2023 7:32 AM [employer] [facility] HDL Cholesterol 23(L) >40 mg/dL 3 7:32 AM [employer] [facility] LDL Calculated 62 <130 mg/dL 05/12/2023 7:32 AM [employer] [facility] VLDL Calculated 39(H) <=30 mg/dL 3 7:32 AM [facility] Chol HDL Ratio 5.4(H) <4.5 05/12/2023 7:32 AM [employer] [facility] LDL/HDL Ratio 2.7 <5.0 05/12/2023 7:32 AM [facility] Blood BLOOD SPECIMEN / Unknown Lab Venipuncture / Unknown 05/12/2023 6:54 AM [employer] 05/12/2023 7:02 AM [employer] Daniel Croft MD LAB - CHEMISTRY [place] Performing Organization Address [facility] Co de Phone Number [facility] [address] [place], [place] [phone] * ENDOSCOPY, COLON, DIAGNOSTIC (05/01/2023 11:19 AM [employer]) Report Endoscopy POC _ Patient Name: Dev Amaya Procedure Date: 05/01/2023 11:19 AM Date of : 1970 Admit Type: Inpatient Age: 53 Gender: Male Ethnicity: Not or Race: White Attending MD: Rickie Colon MD, [id number] _ Procedure: Colonoscopy Indications: Clinically significant diarrhea [...] bowel preparation was evaluated using the BBPS ([place] Bowel Preparation Scale) with scores of: Right [...] screening purposes. Procedure Code(s): --- Professional --- 95061, Colonoscopy, flexible; with biopsy, single or multiple --- Technical --- 44922, Colonoscopy, flexible; with biopsy, single or multiple Diagnosis Code(s): --- Professional --- K63.3, Ulcer of intestine R19.7, Diarrhea, unspecified --- Technical --- K63.3, Ulcer of intestine R19.7, Diarrhea, unspecified CPT copyright 2020 [employer]. All rights reserved. The codes documented in this report are preliminary and upon camp recreation specialist review may be revised to meet current compliance requirements. ___ Rickie Colon MD 05/01/2023 12:47:16 PM Number of Addenda: 0 Note Initiated On: 05/01/2023 11:19 AM [facility] 05/01/2023 11:1 9 AM [employer] Narrative Procedure Note Rickie Colon MD - 05/01/2023 12:48 PM CST Colonoscopy done for diarrhea. Normal colon. Single small ulcer in theTI. Biopsies taken from TI and random colon biopsies. f/u path. Rickie Colon MD GI PROCEDURE ORDER [facility]OMAS [facility] * HIV-1 HIV-2 ANTIBODY + HIV P24 AG PANEL (04/15/2023 8:31 PM CDT) HIV1/2 Ab + P24 Ag Non Reactive Non Reactive 04/15/2023 9:16 PM CDT [facility] Blood BLOOD SPECIMEN / Unknown Lab Venipuncture / Unknown 04/15/2023 8:31 PM CDT 04/15/2023 8:36 PM CDT Narrative [facility] - 04/15/2023 9:16 PM CDT No Laboratory evidence of HIV infection. Uzma Bazzi MD LAB - CHEMISTRY [place] [facility] [address] [place] [address] * HEPATITIS C ANTIBODY (09/23/2017 3:56 PM CDT) Hepatitis C Virus Antibody 0.1 0.0 - 0.9 s/co ratio [facility] ([facility]) Comment: Negative: < 0.8 Indeterminate: 0.8 - 0.9 Positive: > 0.9 The CDC recommends that a positive HCV antibody result be followed up with a HCV Nucleic Acid Amplification test (588859). Blood specimen (specimen) BLOOD SPECIMEN / Unknown 09/23/2017 3:56 PM CDT 09/23/2017 Narrative [facility] ([facility]) - 09/24/2017 7:13 AM CDT Performed at: 01 - [facility] [address], [place] [id number] [facility] Supervisor: Jarod Webster PhD, Phone: [phone] Kayla Cardona MD LAB - CHEMISTR Y ORDERABLES [facility] ([facility]) [address] [place] [address] from Last 3 Months or Most [...]
--- OUTSIDE RECORDS SUMMARY | 2024-08-09 07:03 | XMS_ITS | Patient Health Summary ---
Author Organization [facility] Address [address] [place] [address] Care Team Providers Care Master Machinist Name Role Phone Unavailable Primary Care Provider Unavailabl e Note from [facility],non-owned Affiliates and Associated Physician Practices is amultiple site organization consisting of ambulatory clinics and hospital sitesin [place], [place], [place] and [place]. This disclosure is being madepursuant to the Care Everywhere program and may not contain all information available regarding this patient. Last updated 18.[facility] Allergies * Ceftriaxone(Rash,Renal Injury) -High Criticality Medications * Be aware that medications may not be up to date on this document. Alwaysverify current medications with the patient. * QUEtiapine (SEROquel) 25 MG tablet Take 1 (one) tablet by mouth at bedtime * petrolatum (Aquaphor;Hydrophor)(Started 06/11/2023) Apply to affected area as needed for Dry Skin * gabapentin (Neurontin) 300 MG capsule(Started 06/18/2023) Take 1 (one) capsule by mouth 2 times daily 2 refills by 06/17/2024 * simethicone (Mylicon) 80 MG chew tablet(Started 06/18/2023) Take 1 (one) tablet by mouth 4 times daily as needed for Gas Pain 2 refills by 06/17/2024 * rOPINIRole (Requip) 0.5 MG tablet(Started 06/18/2023) Take 1 (one) tablet by mouth at bedtime Reasons: Restless Leg Syndrome 2 refills by 06/17/2024 * DULoxetine (Cymbalta) 60 MG capsule(Started 06/18/2023) Take 1 (one) capsule by mouth once daily 2 refills by 06/17/2024 * ondansetron (Zofran) 4 MG tablet(Started 06/18/2023) Take 2 (two) tablets by mouth every 6 hours as needed for Nausea/Vomiting 2 refills by 06/17/2024 * thiamine (Vitamin B-1) 100 MG tablet(Started 06/18/2023) Take 1 (one) tablet by mouth once daily 2 refills by 06/17/2024 * famotidine (Pepcid) 20 MG tablet(Started 06/18/2023) Take 1 (one) tablet by mouth at bedtime 4 refills by 06/17/2024 * loperamide (Imodium) 2 MG capsule(Started 06/18/2023) Take 2 (two) capsules by mouth 4 times daily 2 refills by 06/17/2024 * Crofelemer 125 MG(Started 06/18/2023) Take 125 mg by mouth 2 times daily 1 refill by 06/17/2024 * opium (Opium Tincture) 10 MG/ML (1%) solution(Started 06/19/2023) Take 0.6 mL by mouth every 6 hours * predniSONE (Deltasone) 10 MG tablet(Started 06/26/2023) Take 1 (one) tablet by mouth once daily 2 refills by 06/25/2024 * predniSONE (Deltasone) 5 MG tablet(Started 06/26/2023) Take 1 (one) tablet by mouth once daily 2 refills by 06/25/2024 * predniSONE (Deltasone) 20 MG tablet(Started 06/26/2023) Take 1 (one) tablet by mouth once daily 1 refill by 06/25/2024 * baclofen (Lioresal) 10 MG tablet(Started 07/10/2023) Take 1 (one) tablet by mouth 3 times daily as needed for Muscle Spasms May cause drowsiness. Reasons: Hiccups that are Hard to Cure, Muscle Spasm 2 refills by 07/09/2024 * sodium bicarbonate 650 MG tablet(Started 07/10/2023) Take 2 (two) tablets by mouth 3 times daily 2 refills by 07/09/2024 * nystatin (Mycostatin) 519442 UNIT/ML suspension(Started 07/10/2023) Take 1 mL by mouth 4 times daily * hydrocortisone (Anusol-HC) 25 MG suppository(Started 07/10/2023) Insert 1 (one) suppository into the rectum 2 times daily * diphenoxylate-atropine (Lomotil) 2.5-0.025 MG tablet(Started 07/10/2023) Take 1 (one) tablet by mouth 4 times daily as needed for Diarrhea * amitriptyline (Elavil) 25 MG tablet(Started 07/17/2023) Take 1 (one) tablet by mouth at bedtime 1 refill by 07/16/2024 * potassium chloride ER (Klor-Con M) 20 MEQ tablet(Started 07/17/2023) Take 1 (one) tablet by mouth once daily Active Problems Problem Noted Date Diagnosed Date [...] Dehydration 05/29/2023 06/12/2023 Diarrhea 04/14/2023 05/28/2023 Immunizations * FLU VACCINE TRI IIV3 SPLIT IM (FLUVIRIN)(Given 03/25/2021, 04/03/2017, 04/05/2013) * INFLUENZA VACCINE, QUADR. (AFLURIA, FLUZONE QUADRIVALENT; 6MO+) (IIV4)(Given 02/14/2019) * INFLUENZA VACCINE, QUADR. (FLUZONE; FLULAVAL; FLUARIX; AFLURIA QUADRIVALENT; 6MO+), 0.5 ML (IIV4)(Given 03/16/2023, 03/03/2022, 02/27/2020, 03/16/2018) * INFLUENZA VACCINE, TRIV. (FLUZONE; FLULAVAL; FLUARIX; AFLURIA TRIVALENT; 6MO+), 0.5 ML (IIV3)(Given 03/30/2016, 04/10/2015) * PNEUMOCOCCAL PPV VACCINE(Given 03/27/2019) * TDAP, HISTORIC VACCINE(Given 05/28/2017) * Zoster Hzv Vacc Recombinant Inj Im(Given 04/18/2019, 02/14/2019) Social History Tobacco Use Types Packs/Day Years [...] Recorded Patient Health Questionnaire-2 Score 0 07/17/2023 [facility] - Occupational Stress [...] medical appointments or from getting medications? No 12/0 12/2022 In the past 12 months, has [...] place to sleep or slept in a group home (including now)? No 05/29/2023 Housing Stability Vital [...] Sex Assigned at Male 05/29/2023 8:17 AM REFRACTORY MANAGER Gender Identity Male 05/29/2023 8:17 AM REFRACTORY MANAGER Sexual Orientation Not on file Last Filed Vital Signs Vital Sign Reading Time Taken Comments Blood Pressure 132/77 07/17/2023 10:54 AM REFRACTORY MANAGER Pulse 103 07/17/2023 10:54 AM REFRACTORY MANAGER Temperature 37.3 C (99.1 F) 07/17/2023 10:54 AM REFRACTORY MANAGER Respiratory Rate 18 07/17/2023 10:54 AM REFRACTORY MANAGER Oxygen Saturation 100% 07/17/2023 10:54 AM REFRACTORY MANAGER Inhaled Oxygen Concentration - - Weight 73 kg (161 lb) 07/17/2023 9:27 AM REFRACTORY MANAGER Height 167.6 cm (5' 6 ) 07/17/2023 9:27 AM REFRACTORY MANAGER Body Mass Index 25.99 07/17/2023 9:27 AM REFRACTORY MANAGER Procedures * CK BLOOD(Performed 07/17/2023) Performed for Diarrhea, unspecified type * C-REACTIVE PROTEIN(Performed 07/17/2023) Performed for Diarrhea, unspecified type * ERYTHROCYTE SEDIMENTATION RATE(Performed 07/17/2023) Performed for Diarrhea, unspecified type * MAGNESIUM BLOOD(Performed 07/17/2023) Performed for Diarrhea, unspecified type * COMPREHENSIVE METABOLIC PANEL(Performed 07/17/2023) Performed for Diarrhea, unspecified type * CBC W/O DIFFERENTIAL(Performed 07/17/2023) Performed for Diarrhea, unspecified type * MAGNESIUM BLOOD(Performed 07/10/2023) Performed for Diarrhea, unspecified type * VITAMIN B12(Performed 07/10/2023) Performed for Diarrhea, unspecified type * FOLATE(Performed 07/10/2023) Performed for Diarrhea, unspecified type * COMPREHENSIVE METABOLIC PANEL(Performed 07/10/2023) Performed for Hypomagnesemia * CBC W AUTO DIFFERENTIAL(Performed 07/10/2023) Performed for Hypomagnesemia * PATHOLOGY TISSUE EXAM (STL)(Performed 07/07/2023) Performed for Diarrhea, unspecified type * TX EGD FLEX TRANSORAL W BX SNGL OR MULT(Performed 07/07/2023) * TX ED EGD FLEX TRANSORAL DX(Performed 07/07/2023) * EGD(Performed 07/07/2023) Performed for Dysphagia, unspecified type * HYDROXYINDOLACETIC ACID 5 URINE TIMED(Performed 07/06/2023) Performed for Hypomagnesemia, Diarrhea, unspecified type, Hypokalemia, Immunocompromised patient ([facility]), Hemodialysis patient ([facility]), Acute kidney injury ([place]) with acute tubular necrosis (ATN) ([facility]), Salmonella bacteremia, Salmonella enteritis, Encounter for therapeutic drug monitoring, Encounter for long-term (current) use of high-risk medication * CBC W AUTO DIFFERENTIAL(Performed 07/03/2023) Performed for Anemia, unspecified type * CHROMOGRANIN A(Performed 07/03/2023) Performed for Diarrhea, unspecified type * GASTRIN(Performed 07/03/2023) Performed for Diarrhea, unspecified type * MAGNESIUM BLOOD(Performed 07/03/2023) Performed for Diarrhea, unspecified type * COMPREHENSIVE METABOLIC PANEL(Performed 07/03/2023) Performed for Diarrhea, unspecified type * CULTURE BLOOD(Performed 06/26/2023) Performed for Diarrhea, unspecified type, Anemia, unspecified type, Hypomagnesemia, Hypokalemia, Immunocompromised patient (HCC), Hemodialysis patient (HCC), Acute kidney injury ([place]) with acute tubular necrosis (ATN) ([facility]), Salmonella bacteremia, Salmonella enteritis, Encounter for therapeutic drug monitoring, Encounter for long-term (current) use of high-risk medication * CULTURE BLOOD(Performed 06/26/2023) Performed for Diarrhea, unspecified type * E COLI SHIGA-LIKE TOXIN(Performed 06/26/2023) Performed for Diarrhea, unspecified type * CULTURE STOOL PANEL(Performed 06/26/2023) Performed for Diarrhea, unspecified type * CULTURE STOOL+ECOLI SHIGA-LIKE TOXIN (BEAKER)(Performed 06/26/2023) Performed for Diarrhea, unspecified type * CARDIAC RHYTHM STRIP ORDER(Performed 06/26/2023) * PHOSPHORUS BLOOD(Performed 06/26/2023) Performed for Diarrhea, unspecified type * MAGNESIUM BLOOD(Performed 06/26/2023) Performed for Diarrhea, unspecified type * COMPREHENSIVE METABOLIC PANEL(Performed 06/26/2023) Performed for Diarrhea, unspecified type * CBC W AUTO DIFFERENTIAL(Performed 06/26/2023) Performed for Anemia, unspecified type * PATHOLOGY PERIPHERAL SMEAR REVIEW(Performed 06/19/2023) Performed for Hypomagnesemia * DIFFERENTIAL MANUAL(Performed 06/19/2023) Performed for Hypomagnesemia * MAGNESIUM BLOOD(Performed 06/19/2023) Performed for Hypomagnesemia * COMPREHENSIVE METABOLIC PANEL(Performed 06/19/2023) Performed for Hypomagnesemia * CBC W AUTO DIFFERENTIAL(Performed 06/19/2023) Performed for Hypomagnesemia * MAGNESIUM BLOOD(Performed 06/18/2023) Performed for Hypomagnesemia * COMPREHENSIVE METABOLIC PANEL(Performed 06/18/2023) Performed for Hypomagnesemia * DIFFERENTIAL MANUAL(Performed 06/18/2023) Performed for Salmonella enteritis, Hypokalemia, Intractable diarrhea * CBC W AUTO DIFFERENTIAL(Performed 06/18/2023) Performed for Salmonella enteritis, Hypokalemia, Intractable diarrhea * PHOSPHORUS BLOOD(Performed 06/18/2023) Performed for Salmonella enteritis, Hypokalemia, Intractable diarrhea * COMPREHENSIVE METABOLIC PANEL(Performed 06/18/2023) Performed for Salmonella enteritis, Hypokalemia, Intractable diarrhea * MAGNESIUM BLOOD(Performed 06/18/2023) Performed for Salmonella enteritis, Hypokalemia, Intractable diarrhea * CBC W/O DIFFERENTIAL(Performed 06/11/2023) * BASIC METABOLIC PANEL (CALCIUM TOTAL)(Performed 06/11/2023) * CK BLOOD(Performed 06/10/2023) * MAGNESIUM BLOOD(Performed 06/10/2023) * CBC W/O DIFFERENTIAL(Performed 06/10/2023) * BASIC METABOLIC PANEL (CALCIUM TOTAL)(Performed 06/10/2023) * CARDIAC RHYTHM STRIP ORDER(Performed 06/09/2023) * MAGNESIUM BLOOD(Performed 06/09/2023) * BASIC METABOLIC PANEL (CALCIUM TOTAL)(Performed 06/09/2023) * DIFFERENTIAL MANUAL(Performed 06/09/2023) * CBC W AUTO DIFFERENTIAL(Performed 06/09/2023) * CBC W/O DIFFERENTIAL(Performed 06/08/2023) * BASIC METABOLIC PANEL (CALCIUM TOTAL)(Performed 06/08/2023) * CBC W/O DIFFERENTIAL(Performed 06/07/2023) * BASIC METABOLIC PANEL (CALCIUM TOTAL)(Performed 06/07/2023) * HGB HCT PANEL(Performed 06/06/2023) * FERRITIN(Performed 06/06/2023) * IRON + TRANSFERRIN PANEL(Performed 06/06/2023) * CBC W/O DIFFERENTIAL(Performed 06/06/2023) * BASIC METABOLIC PANEL (CALCIUM TOTAL)(Performed 06/06/2023) * BASIC METABOLIC PANEL (CALCIUM TOTAL)(Performed 06/05/2023) * DIFFERENTIAL MANUAL(Performed 06/04/2023) * CBC W AUTO DIFFERENTIAL(Performed 06/04/2023) * BASIC METABOLIC PANEL (CALCIUM TOTAL)(Performed 06/04/2023) * XR CHEST 1VW PORTABLE(Performed 06/03/2023) Performed for Shortness of breath * CBC W/O DIFFERENTIAL(Performed 06/03/2023) * RENAL FUNCTION PANEL(Performed 06/03/2023) * NM HEPATOBILIARY W EF(Performed 06/02/2023) Performed for Salmonella bacteremia, Abdominal pain, RUQ (right upper quadrant) * DIFFERENTIAL MANUAL(Performed 06/02/2023) * MAGNESIUM BLOOD(Performed 06/02/2023) * RENAL FUNCTION PANEL(Performed 06/02/2023) * CBC W AUTO DIFFERENTIAL(Performed 06/02/2023) * MAGNESIUM BLOOD(Performed 06/01/2023) * CBC W/O DIFFERENTIAL(Performed 06/01/2023) * RENAL FUNCTION PANEL(Performed 06/01/2023) * DIFFERENTIAL MANUAL(Performed 05/31/2023) * RENAL FUNCTION PANEL(Performed 05/31/2023) * CBC W AUTO DIFFERENTIAL(Performed 05/31/2023) * CULTURE BLOOD(Performed 05/30/2023) * CULTURE BLOOD(Performed 05/30/2023) * EKG 12-LEAD(Performed 05/30/2023) Performed for Dehydration * TSH REFLEX FREE T4(Performed 05/30/2023) * PHOSPHORUS BLOOD(Performed 05/30/2023) * MAGNESIUM BLOOD(Performed 05/30/2023) * COMPREHENSIVE METABOLIC PANEL(Performed 05/30/2023) * CBC W/O DIFFERENTIAL(Performed 05/30/2023) * DIFFERENTIAL MANUAL(Performed 05/29/2023) Performed for Salmonella enteritis * MAGNESIUM BLOOD(Performed 05/29/2023) Performed for Salmonella enteritis * CBC W AUTO DIFFERENTIAL(Performed 05/29/2023) Performed for Salmonella enteritis * COMPREHENSIVE METABOLIC PANEL(Performed 05/29/2023) Performed for Salmonella enteritis * CARDIAC RHYTHM STRIP ORDER(Performed 05/26/2023) * DIFFERENTIAL MANUAL(Performed 05/23/2023) * CBC W AUTO DIFFERENTIAL(Performed 05/23/2023) * MAGNESIUM BLOOD(Performed 05/23/2023) * RENAL FUNCTION PANEL(Performed 05/23/2023) * DIFFERENTIAL MANUAL(Performed 05/22/2023) * CBC W AUTO DIFFERENTIAL(Performed 05/22/2023) * MAGNESIUM BLOOD(Performed 05/22/2023) * RENAL FUNCTION PANEL(Performed 05/22/2023) * PT EVAL AND TREAT(Performed 05/21/2023) * OT EVAL AND TREAT(Performed 05/21/2023) * DIFFERENTIAL MANUAL(Performed 05/21/2023) * CBC W AUTO DIFFERENTIAL(Performed 05/21/2023) * MAGNESIUM BLOOD(Performed 05/21/2023) * RENAL FUNCTION PANEL(Performed 05/21/2023) * DIFFERENTIAL MANUAL(Performed 05/20/2023) * CBC W AUTO DIFFERENTIAL(Performed 05/20/2023) * MAGNESIUM BLOOD(Performed 05/20/2023) * RENAL FUNCTION PANEL(Performed 05/20/2023) * DIFFERENTIAL MANUAL(Performed 05/19/2023) * CBC W AUTO DIFFERENTIAL(Performed 05/19/2023) * MAGNESIUM BLOOD(Performed 05/19/2023) * RENAL FUNCTION PANEL(Performed 05/19/2023) * DIFFERENTIAL MANUAL(Performed 05/18/2023) * CBC W AUTO DIFFERENTIAL(Performed 05/18/2023) * MAGNESIUM BLOOD(Performed 05/18/2023) * RENAL FUNCTION PANEL(Performed 05/18/2023) * ERYTHROCYTE SEDIMENTATION RATE(Performed 05/17/2023) * DIFFERENTIAL MANUAL(Performed 05/17/2023) * CBC W AUTO DIFFERENTIAL(Performed 05/17/2023) * MAGNESIUM BLOOD(Performed 05/17/2023) * RENAL FUNCTION PANEL(Performed 05/17/2023) * DIFFERENTIAL MANUAL(Performed 05/16/2023) * CBC W AUTO DIFFERENTIAL(Performed 05/16/2023) * MAGNESIUM BLOOD(Performed 05/16/2023) * RENAL FUNCTION PANEL(Performed 05/16/2023) * O+P RST RFLXED(Performed 05/15/2023) * O+P PANEL(Performed 05/15/2023) * GIARDIA CRYPTOSPORIDIUM ANTIGEN PANEL(Performed 05/15/2023) * RENAL FUNCTION PANEL(Performed 05/15/2023) * DIFFERENTIAL MANUAL(Performed 05/15/2023) * CBC W AUTO DIFFERENTIAL(Performed 05/15/2023) * MAGNESIUM BLOOD(Performed 05/15/2023) * RENAL FUNCTION PANEL(Performed 05/15/2023) * MRI ENTEROGRAPHY(Performed 05/14/2023) Performed for Diarrhea, unspecified type * NM INFECTION SCAN(Performed 05/14/2023) Performed for Sepsis due to Salmonella species with acute renal failure without septic shock, unspecified acute renal failure type (HCC) * DIFFERENTIAL MANUAL(Performed 05/14/2023) * CBC W AUTO DIFFERENTIAL(Performed 05/14/2023) * MAGNESIUM BLOOD(Performed 05/14/2023) * RENAL FUNCTION PANEL(Performed 05/14/2023) * DIFFERENTIAL MANUAL(Performed 05/13/2023) * CBC W AUTO DIFFERENTIAL(Performed 05/13/2023) * MAGNESIUM BLOOD(Performed 05/13/2023) * RENAL FUNCTION PANEL(Performed 05/13/2023) * CELIAC DISEASE COMPREHENSIVE(Performed 05/12/2023) * VAS ISRA ABD DOPPLER AO IVC ILIAC(Performed 05/12/2023) Performed for Salmonella bacteremia * US ABDOMEN COMPLETE(Performed 05/12/2023) Performed for Salmonella enteritis, Gram-negative bacteremia * LIPID PROFILE(Performed 05/12/2023) * DIFFERENTIAL MANUAL(Performed 05/12/2023) * CBC W AUTO DIFFERENTIAL(Performed 05/12/2023) * MAGNESIUM BLOOD(Performed 05/12/2023) * RENAL FUNCTION PANEL(Performed 05/12/2023) * DIFFERENTIAL MANUAL(Performed 05/11/2023) * CBC W AUTO DIFFERENTIAL(Performed 05/11/2023) * MAGNESIUM BLOOD(Performed 05/11/2023) * RENAL FUNCTION PANEL(Performed 05/11/2023) * URINE MICROSCOPIC ONLY(Performed 05/10/2023) * URINALYSIS REFLEX TO MICROSCOPIC NO CULTURE(Performed 05/10/2023) * CULTURE URINE(Performed 05/10/2023) * DIFFERENTIAL MANUAL(Performed 05/10/2023) * CBC W AUTO DIFFERENTIAL(Performed 05/10/2023) * MAGNESIUM BLOOD(Performed 05/10/2023) * RENAL FUNCTION PANEL(Performed 05/10/2023) * ECHO RASTA COMPLETE(Performed 05/09/2023) Performed for Gram-negative bacteremia * CCL SOLUTION STRATEGIST DIAGNOSTIC RASTA(Performed 05/09/2023) * DIFFERENTIAL MANUAL(Performed 05/09/2023) * CBC W AUTO DIFFERENTIAL(Performed 05/09/2023) * MAGNESIUM BLOOD(Performed 05/09/2023) * RENAL FUNCTION PANEL(Performed 05/09/2023) * E COLI SHIGA-LIKE TOXIN(Performed 05/08/2023) * CULTURE STOOL PANEL(Performed 05/08/2023) * CULTURE STOOL+ECOLI SHIGA-LIKE TOXIN (BEAKER)(Performed 05/08/2023) * CULTURE BLOOD(Performed 05/08/2023) * CULTURE BLOOD(Performed 05/08/2023) * DIFFERENTIAL MANUAL(Performed 05/08/2023) Performed for Salmonella bacteremia * CBC W AUTO DIFFERENTIAL(Performed 05/08/2023) Performed for Salmonella bacteremia * CELIAC DISEASE COMPREHENSIVE(Performed 05/08/2023) * MAGNESIUM BLOOD(Performed 05/08/2023) * RENAL FUNCTION PANEL(Performed 05/08/2023) * OSZON-0-[id number] FECES(Performed 05/07/2023) * POTASSIUM FECES(Performed 05/07/2023) * SODIUM FECES(Performed 05/07/2023) * O+P RST RFLXED(Performed 05/07/2023) * O+P PANEL(Performed 05/07/2023) * DIFFERENTIAL MANUAL(Performed 05/07/2023) Performed for Salmonella bacteremia * CBC W AUTO DIFFERENTIAL(Performed 05/07/2023) Performed for Salmonella bacteremia * MAGNESIUM BLOOD(Performed 05/07/2023) * RENAL FUNCTION PANEL(Performed 05/07/2023) * POTASSIUM FECES(Performed 05/06/2023) * OSMOLALITY FECES(Performed 05/06/2023) * SODIUM FECES(Performed 05/06/2023) * DIFFERENTIAL MANUAL(Performed 05/06/2023) Performed for Sepsis due to Salmonella species with acute renal failure without septic shock, unspecified acute renal failure type (HCC) * INFLAMMATORY BOWEL DISEASE PANEL(Performed 05/06/2023) * CBC W AUTO DIFFERENTIAL(Performed 05/06/2023) Performed for Sepsis due to Salmonella species with acute renal failure without septic shock, unspecified acute renal failure type (HCC) * MAGNESIUM BLOOD(Performed 05/06/2023) * RENAL FUNCTION PANEL(Performed 05/06/2023) * MAGNESIUM BLOOD(Performed 05/05/2023) * RENAL FUNCTION PANEL(Performed 05/05/2023) * IRON + TRANSFERRIN PANEL(Performed 05/04/2023) * ERYTHROCYTE SEDIMENTATION RATE(Performed 05/04/2023) * MAGNESIUM BLOOD(Performed 05/04/2023) * RENAL FUNCTION PANEL(Performed 05/04/2023) * FAT QUALITATIVE FECES RANDOM(Performed 05/03/2023) * OSMOLALITY FECES(Performed 05/03/2023) * C-REACTIVE PROTEIN(Performed 05/03/2023) * TSH REFLEX FREE T4(Performed 05/03/2023) * MAGNESIUM BLOOD(Performed 05/03/2023) * RENAL FUNCTION PANEL(Performed 05/03/2023) * DIFFERENTIAL MANUAL(Performed 05/02/2023) * MAGNESIUM BLOOD(Performed 05/02/2023) * CBC W AUTO DIFFERENTIAL(Performed 05/02/2023) * RENAL FUNCTION PANEL(Performed 05/02/2023) * PATHOLOGY TISSUE EXAM (STL)(Performed 05/01/2023) Performed for Diarrhea, unspecified type * TX COLONOSCOPY,BIOPSY(Performed 05/01/2023) Performed for Diarrhea, unspecified type * TX COLONOSCOPY, DIAGNOSTIC(Performed 05/01/2023) Performed for Diarrhea, unspecified type * ENDOSCOPY, COLON, DIAGNOSTIC(Performed 05/01/2023) * DIFFERENTIAL MANUAL(Performed 05/01/2023) * MAGNESIUM BLOOD(Performed 05/01/2023) * CBC W AUTO DIFFERENTIAL(Performed 05/01/2023) * RENAL FUNCTION PANEL(Performed 05/01/2023) * DIFFERENTIAL MANUAL(Performed 04/30/2023) * MAGNESIUM BLOOD(Performed 04/30/2023) * CBC W AUTO DIFFERENTIAL(Performed 04/30/2023) * RENAL FUNCTION PANEL(Performed 04/30/2023) * CALPROTECTIN FECAL(Performed 04/29/2023) * C DIFFICILE GDH AG + TOXIN A+B(Performed 04/29/2023) * DIFFERENTIAL MANUAL(Performed 04/29/2023) * HERPES SIMPLEX 1+2 AB IGG SPEC(Performed 04/29/2023) * CYTOMEGALOVIRUS ANTIBODY IGG/IGM BLOOD(Performed 04/29/2023) * MAGNESIUM BLOOD(Performed 04/29/2023) * CBC W AUTO DIFFERENTIAL(Performed 04/29/2023) * RENAL FUNCTION PANEL(Performed 04/29/2023) * DIFFERENTIAL MANUAL(Performed 04/28/2023) * MAGNESIUM BLOOD(Performed 04/28/2023) * CBC W AUTO DIFFERENTIAL(Performed 04/28/2023) * RENAL FUNCTION PANEL(Performed 04/28/2023) * DIFFERENTIAL MANUAL(Performed 04/27/2023) * MAGNESIUM BLOOD(Performed 04/27/2023) * CBC W AUTO DIFFERENTIAL(Performed 04/27/2023) * RENAL FUNCTION PANEL(Performed 04/27/2023) * DIFFERENTIAL MANUAL(Performed 04/26/2023) * MAGNESIUM BLOOD(Performed 04/26/2023) * CBC W AUTO DIFFERENTIAL(Performed 04/26/2023) * RENAL FUNCTION PANEL(Performed 04/26/2023) * GLUCOSE - POINT OF CARE(Performed 04/25/2023) * DIFFERENTIAL MANUAL(Performed 04/25/2023) * MAGNESIUM BLOOD(Performed 04/25/2023) * CBC W AUTO DIFFERENTIAL(Performed 04/25/2023) * RENAL FUNCTION PANEL(Performed 04/25/2023) * E COLI SHIGA-LIKE TOXIN(Performed 04/24/2023) * CULTURE STOOL PANEL(Performed 04/24/2023) * CULTURE STOOL+ECOLI SHIGA-LIKE TOXIN (BEAKER)(Performed 04/24/2023) * DIFFERENTIAL MANUAL(Performed 04/24/2023) * CBC W AUTO DIFFERENTIAL(Performed 04/24/2023) * MAGNESIUM BLOOD(Performed 04/24/2023) * RENAL FUNCTION PANEL(Performed 04/24/2023) * DIFFERENTIAL MANUAL(Performed 04/23/2023) * MAGNESIUM BLOOD(Performed 04/23/2023) * CBC W AUTO DIFFERENTIAL(Performed 04/23/2023) * RENAL FUNCTION PANEL(Performed 04/23/2023) * DIFFERENTIAL MANUAL(Performed 04/22/2023) * MAGNESIUM BLOOD(Performed 04/22/2023) * CBC W AUTO DIFFERENTIAL(Performed 04/22/2023) * RENAL FUNCTION PANEL(Performed 04/22/2023) * DIFFERENTIAL MANUAL(Performed 04/21/2023) * MAGNESIUM BLOOD(Performed 04/21/2023) * CBC W AUTO DIFFERENTIAL(Performed 04/21/2023) * RENAL FUNCTION PANEL(Performed 04/21/2023) * DIFFERENTIAL MANUAL(Performed 04/20/2023) * MAGNESIUM BLOOD(Performed 04/20/2023) * CBC W AUTO DIFFERENTIAL(Performed 04/20/2023) * RENAL FUNCTION PANEL(Performed 04/20/2023) * EKG 12-LEAD(Performed 04/19/2023) Performed for Encounter for therapeutic drug monitoring * EKG 12-LEAD(Performed 04/19/2023) Performed for Encounter for therapeutic drug monitoring * DIFFERENTIAL MANUAL(Performed 04/19/2023) * MAGNESIUM BLOOD(Performed 04/19/2023) * CBC W AUTO DIFFERENTIAL(Performed 04/19/2023) * RENAL FUNCTION PANEL(Performed 04/19/2023) * DIFFERENTIAL MANUAL(Performed 04/18/2023) * COMPREHENSIVE METABOLIC PANEL(Performed 04/18/2023) * MAGNESIUM BLOOD(Performed 04/18/2023) * CBC W AUTO DIFFERENTIAL(Performed 04/18/2023) * RENAL FUNCTION PANEL(Performed 04/17/2023) * COMPREHENSIVE METABOLIC PANEL(Performed 04/17/2023) * BASIC METABOLIC PANEL (CALCIUM TOTAL)(Performed 04/17/2023) * HEMODIALYSIS INPATIENT(Performed 04/17/2023) * DIFFERENTIAL MANUAL(Performed 04/17/2023) * PHOSPHORUS BLOOD(Performed 04/17/2023) * MAGNESIUM BLOOD(Performed 04/17/2023) * COMPREHENSIVE METABOLIC PANEL(Performed 04/17/2023) * CBC W AUTO DIFFERENTIAL(Performed 04/17/2023) * BASIC METABOLIC PANEL (CALCIUM TOTAL)(Performed 04/16/2023) * BASIC METABOLIC PANEL (CALCIUM TOTAL)(Performed 04/16/2023) * ECHO COMPLETE W CONTRAST(Performed 04/16/2023) Performed for Sepsis due to Salmonella species with acute renal failure without septic shock, unspecified acute renal failure type (HCC) * EKG 12-LEAD(Performed 04/16/2023) Performed for Salmonella enteritis * PT EVAL AND TREAT(Performed 04/16/2023) * OT EVAL AND TREAT(Performed 04/16/2023) * LACTIC ACID BLOOD(Performed 04/16/2023) * BASIC METABOLIC PANEL (CALCIUM TOTAL)(Performed 04/16/2023) * PATHOLOGY PERIPHERAL SMEAR REVIEW(Performed 04/16/2023) * PHOSPHORUS BLOOD(Performed 04/16/2023) * DIFFERENTIAL MANUAL(Performed 04/16/2023) * MAGNESIUM BLOOD(Performed 04/16/2023) * COMPREHENSIVE METABOLIC PANEL(Performed 04/16/2023) * CBC W AUTO DIFFERENTIAL(Performed 04/16/2023) * COMPREHENSIVE METABOLIC PANEL(Performed 04/15/2023) * HIV-1 HIV-2 ANTIBODY + HIV P24 AG PANEL(Performed 04/15/2023) * BASIC METABOLIC PANEL (CALCIUM TOTAL)(Performed 04/15/2023) * BASIC METABOLIC PANEL (CALCIUM TOTAL)(Performed 04/15/2023) * US ABDOMEN LIMITED(Performed 04/15/2023) Performed for Gallbladder anomaly * HEPATITIS B SURFACE ANTIGEN W RFLX CONFIRMATION(Performed 04/15/2023) * HEPATITIS B SURFACE ANTIBODY QUANT(Performed 04/15/2023) * BASIC METABOLIC PANEL (CALCIUM TOTAL)(Performed 04/15/2023) * HEMODIALYSIS INPATIENT(Performed 04/15/2023) * PHOSPHORUS BLOOD(Performed 04/15/2023) * DIFFERENTIAL MANUAL(Performed 04/15/2023) * LACTIC ACID BLOOD(Performed 04/15/2023) * MAGNESIUM BLOOD(Performed 04/15/2023) * COMPREHENSIVE METABOLIC PANEL(Performed 04/15/2023) * CBC W AUTO DIFFERENTIAL(Performed 04/15/2023) * CULTURE BLOOD(Performed 04/15/2023) * LACTIC ACID BLOOD(Performed 04/14/2023) * CK BLOOD(Performed 04/14/2023) * DIFFERENTIAL MANUAL(Performed 04/14/2023) * COMPREHENSIVE METABOLIC PANEL(Performed 04/14/2023) * C-REACTIVE PROTEIN(Performed 04/14/2023) * MAGNESIUM BLOOD(Performed 04/14/2023) * CBC W AUTO DIFFERENTIAL(Performed 04/14/2023) * CULTURE BLOOD(Performed 04/14/2023) * US ABDOMEN COMPLETE(Performed 07/02/2018) Performed for Rheumatoid arthritis with rheumatoid factor of multiple sites without organ or systems involvement (HCC), Elevated liver enzymes * XR PELVIS W BILAT HIP 2VW(Performed 06/19/2018) Performed for Rheu arthritis w rheu factor mult site w/o org/sys involv (HCC), Low back pain, unspecified back pain laterality, unspecified chronicity, with sciatica presence unspecified, Other chronic pain, Insomnia due to medical condition * XR LUMBAR SPINE 2 OR 3VW(Performed 06/19/2018) Performed for Rheu arthritis w rheu factor mult site w/o org/sys involv (HCC), Low back pain, unspecified back pain laterality, unspecified chronicity, with sciatica presence unspecified, Other chronic pain, Insomnia due to medical condition * URINALYSIS MICROSCOPIC ONLY REFLEXED(Performed 04/29/2018) * URINALYSIS REFLEX MICROSCOPIC REFLEX CULTURE(Performed 04/29/2018) * ERYTHROCYTE SEDIMENTATION RATE(Performed 04/29/2018) Performed for Rheumatoid arthritis involving multiple sites, unspecified rheumatoid factor presence, Encounter for long-term (current) use of high-risk medication, Encounter for therapeutic drug monitoring * COMPREHENSIVE METABOLIC PANEL(Performed 04/29/2018) Performed for Rheumatoid arthritis involving multiple sites, unspecified rheumatoid factor presence, Encounter for long-term (current) use of high-risk medication, Encounter for therapeutic drug monitoring * C-REACTIVE PROTEIN(Performed 04/29/2018) Performed for Rheumatoid arthritis involving multiple sites, unspecified rheumatoid factor presence, Encounter for long-term (current) use of high-risk medication, Encounter for therapeutic drug monitoring * CBC W/O DIFFERENTIAL(Performed 04/29/2018) Performed for Rheumatoid arthritis involving multiple sites, unspecified rheumatoid factor presence, Encounter for long-term (current) use of high-risk medication, Encounter for therapeutic drug monitoring * URINALYSIS MICROSCOPIC ONLY REFLEXED(Performed 03/02/2018) * URINALYSIS REFLEX MICROSCOPIC REFLEX CULTURE(Performed 03/02/2018) * C-REACTIVE PROTEIN(Performed 03/02/2018) Performed for Rheumatoid arthritis involving multiple sites, unspecified rheumatoid factor presence, Encounter for long-term (current) use of high-risk medication, Encounter for therapeutic drug monitoring * ERYTHROCYTE SEDIMENTATION RATE(Performed 03/02/2018) Performed for Rheumatoid arthritis involving multiple sites, unspecified rheumatoid factor presence, Encounter for long-term (current) use of high-risk medication, Encounter for therapeutic drug monitoring * COMPREHENSIVE METABOLIC PANEL(Performed 03/02/2018) Performed for Rheumatoid arthritis involving multiple sites, unspecified rheumatoid factor presence, Encounter for long-term (current) use of high-risk medication, Encounter for therapeutic drug monitoring * CBC W/O DIFFERENTIAL(Performed 03/02/2018) Performed for Rheumatoid arthritis involving multiple sites, unspecified rheumatoid factor presence, Encounter for long-term (current) use of high-risk medication, Encounter for therapeutic drug monitoring * IMAGING/RADIOLOGY/XRAY RESULTS ORDER(Performed 01/21/2018) * URINALYSIS MICROSCOPIC ONLY REFLEXED(Performed 12/29/2017) * URINALYSIS REFLEX MICROSCOPIC REFLEX CULTURE(Performed 12/29/2017) * CBC W AUTO DIFFERENTIAL(Performed 12/29/2017) * C-REACTIVE PROTEIN(Performed 12/29/2017) Performed for Rheumatoid arthritis involving multiple sites, unspecified rheumatoid factor presence, Encounter for long-term (current) use of high-risk medication, Encounter for therapeutic drug monitoring * ERYTHROCYTE SEDIMENTATION RATE(Performed 12/29/2017) Performed for Rheumatoid arthritis involving multiple sites, unspecified rheumatoid factor presence, Encounter for long-term (current) use of high-risk medication, Encounter for therapeutic drug monitoring * COMPREHENSIVE METABOLIC PANEL(Performed 12/29/2017) Performed for Rheumatoid arthritis involving multiple sites, unspecified rheumatoid factor presence, Encounter for long-term (current) use of high-risk medication, Encounter for therapeutic drug monitoring * LAB RESULTS ORDER(Performed 11/20/2017) * LDH BLOOD(Performed 11/11/2017) Performed for Rheumatoid arthritis involving multiple sites, unspecified rheumatoid factor presence, Encounter for long-term (current) use of high-risk medication, Encounter for therapeutic drug monitoring * CK BLOOD(Performed 11/11/2017) Performed for Rheumatoid arthritis involving multiple sites, unspecified rheumatoid factor presence, Encounter for long-term (current) use of high-risk medication, Encounter for therapeutic drug monitoring * QUANTIFERON IN TUBE REFLEXED(Performed 09/23/2017) * MARIEL BLOOD SCREEN W/REFLEX TITER(Performed 09/23/2017) * C-REACTIVE PROTEIN(Performed 09/23/2017) * HEPATITIS B SURFACE ANTIGEN W RFLX CONFIRMATION(Performed 09/23/2017) * ALDOLASE(Performed 09/23/2017) * CK BLOOD(Performed 09/23/2017) * ERYTHROCYTE SEDIMENTATION RATE(Performed 09/23/2017) * URIC ACID BLOOD(Performed 09/23/2017) * QUANTIFERON TB-GOLD(Performed 09/23/2017) * CYCLIC CITRUL PEPTIDE ANTIBODY IGG/IGA (CCP)(Performed 09/23/2017) * HEPATITIS C ANTIBODY(Performed 09/23/2017) * VITAMIN D 25-HYDROXY(Performed 09/23/2017) * SCLERODERMA 70 (SCL) ANTIBODY(Performed 09/23/2017) * OLIVARES (SM) ANTIBODY AFIA(Performed 09/23/2017) * FERTILIZER PROCESSING SUPERVISOR ANTIBODY(Performed 09/23/2017) * CHROMATIN ANTIBODY(Performed 09/23/2017) * HISTONE ANTIBODY(Performed 09/23/2017) * HLA TYPING B27(Performed 09/23/2017) * RHEUMATOID FACTOR BLOOD QUANTITATIVE(Performed 09/23/2017) * COMPLEMENT C3(Performed 09/23/2017) * TSH(Performed 09/23/2017) * T4 FREE(Performed 09/23/2017) * COMPLEMENT C4(Performed 09/23/2017) * DNA ANTIBODY DS CRITHIDIA IFA(Performed 09/23/2017) * SS-A/SS-B (SJOGREN'S) ANTIBODY PANEL(Performed 09/23/2017) * CBC W/O DIFFERENTIAL(Performed 09/23/2017) * URINALYSIS MICROSCOPIC ONLY REFLEXED(Performed 09/23/2017) * URINALYSIS W/MICROSCOPIC NO CULTURE(Performed 09/23/2017) * COMPREHENSIVE METABOLIC PANEL(Performed 09/23/2017) * HLA TYPING B27(Performed 09/23/2017) * DNA ANTIBODY DS CRITHIDIA IFA(Performed 09/23/2017) * QUANTIFERON TB-GOLD(Performed 09/23/2017) * QUANTIFERON TB-GOLD(Performed 09/23/2017) * HISTONE ANTIBODY(Performed 09/23/2017) * CYCLIC CITRULLINATED PEPTIDE(CCP) AB IGG(Performed 09/23/2017) * MARIEL BLOOD SCREEN W/REFLEX TITER(Performed 09/23/2017) * HEPATITIS C ANTIBODY(Performed 09/23/2017) * HEPATITIS B SURFACE ANTIGEN W RFLX CONFIRMATION(Performed 09/23/2017) * T4 FREE(Performed 09/23/2017) * TSH(Performed 09/23/2017) * URINALYSIS W/MICROSCOPIC NO CULTURE(Performed 09/23/2017) * ERYTHROCYTE SEDIMENTATION RATE(Performed 09/23/2017) * CBC W/O DIFFERENTIAL(Performed 09/23/2017) * COMPREHENSIVE METABOLIC PANEL(Performed 09/23/2017) * VITAMIN D 25-HYDROXY(Performed 09/23/2017) * URINALYSIS MICROSCOPIC ONLY REFLEXED(Performed 09/23/2017) * C-REACTIVE PROTEIN(Performed 09/23/2017) * URIC ACID BLOOD(Performed 09/23/2017) * CK BLOOD(Performed 09/23/2017) * RHEUMATOID FACTOR BLOOD QUANTITATIVE(Performed 09/23/2017) * COMPLEMENT C4(Performed 09/23/2017) * COMPLEMENT C3(Performed 09/23/2017) * CHROMATIN ANTIBODY(Performed 09/23/2017) * ALDOLASE(Performed 09/23/2017) * SCLERODERMA 70 (SCL) ANTIBODY(Performed 09/23/2017) * OLIVARES (SM) ANTIBODY AFIA(Performed 09/23/2017) * SS-A/SS-B (SJOGREN'S) ANTIBODY PANEL(Performed 09/23/2017) * FERTILIZER PROCESSING SUPERVISOR ANTIBODY(Performed 09/23/2017) * STREP A SCREEN - POINT OF CARE (AMB) STL(Performed 06/06/2017) Performed for Acute streptococcal pharyngitis Results * C-REACTIVE PROTEIN (07/17/2023 9:20 AM REFRACTORY MANAGER) Only the most recent of8 resultswithin the time period is included. C-Reactive Protein <0.04 <=0.50 mg/dL 07/17/2023 11:22 AM REFRACTORY MANAGER [facility] Blood BLOOD SPECIMEN / Unknown Venipuncture / Unknown 07/17/2023 9:20 AM REFRACTORY MANAGER 07/17/2023 9:45 AM REFRACTORY MANAGER Torrie Martin MD LAB - CHEMIS TRY ORDERABLES [facility] [address] [place] [address] * ERYTHROCYTE SEDIMENTATION RATE (07/17/2023 9:20 AM REFRACTORY MANAGER) Only the most recent of8 resultswithin the time period is included. Pathologist [facility] Erythrocyte Sedimentation Rate Automated <1 0 - 20 MM/HR 07/17/2023 12:20 PM [facility] Blood BLOOD SPECIMEN / Unknown Venipuncture / Unknown 07/17/2023 9:20 AM REFRACTORY MANAGER 07/17/2023 9:45 AM REFRACTORY MANAGER Torrie Martin MD LAB - HEMATO LOGY ORDERABLES [facility] [address], [place] [id number] * (ABNORMAL) CBC W/O DIFFERENTIAL (07/17/2023 9:20 AM REFRACTORY MANAGER) Only the most recent of13 resultswithin the time period is included. Pathologist [facility] WBC 14.8(H) 4.0 - 10.7 x10E9/L 07/17/2023 9:53 AM [facility] RBC Count 3.29(L) 4.30 - 5.80 x10E12/L 07/17/2023 9:53 AM [facility] Hemoglobin 9.8(L) 13.3 - 17.5 g/dL 07/17/2023 9:53 AM [facility] Hematocrit 32.6(L) 38.7 - 51.1 % 07/17/2023 9:53 AM [facility] MCV 99.1(H) 80.0 - 98.0 fL 07/17/2023 9:53 AM [facility] MCH 29.8 26.7 - 33.6 pg 07/17/2023 9:53 AM [facility] MCHC 30.1(L) 31.7 - 36.3 g/dL 07/17/2023 9:53 AM [facility] RDW-CV 18.6(H) 11.3 - 14.8 % 07/17/2023 9:53 AM [facility] Platelet Count 247 150 - 420 x10E9/L 07/17/2023 9:53 AM [facility] MPV 10.4 7.8 - 11.4 fL 07/17/2023 9:53 AM [facility] NRBC 4.2(H) <=0.0 /100 WBC 07/17/2023 9:53 AM [facility] Blood BLOOD SPECIMEN / Unknown Venipuncture / Unknown 07/17/2023 9:20 AM REFRACTORY MANAGER 07/17/2023 9:45 AM [facility] Torrie Martin MD LAB - HEMATO LOGY ORDERABLES [facility] [address] [place] [address] * (ABNORMAL) COMPREHENSIVE METABOLIC PANEL (07/17/2023 9:20 AM [facility]) Only the most recent of21 resultswithin the time period is included. Glucose 107(H) 70 - 105 mg/dL 07/17/2023 10:13 AM [facility] Sodium 143 136 - 145 mmol/L 07/17/2023 10:13 AM [facility] Potassium 3.5 3.5 - 5.1 mmol/L 07/17/2023 10:13 AM [facility] Chloride 118(H) 98 - 107 mmol/L 07/17/2023 10:13 AM [facility] CO2 17(L) 22 - 29 mmol/L 07/17/2023 10:13 AM [facility] Calcium 7.5(L) 8.4 - 10.4 mg/dL 07/17/2023 10:13 AM [facility] Anion Gap 8 6 - 16 mmol/L 07/17/2023 10:13 AM [facility] BUN 13 7 - 26 mg/dL 07/17/2023 10:13 AM [facility] Creatinine 0.93 0.72 - 1.25 mg/dL 07/17/2023 10:13 AM [facility] Alkaline Phosphatase 214(H) 40 - 150 U/L 07/17/2023 10:13 AM [facility] ALT 76(H) 0 - 55 U/L 07/17/2023 10:13 AM [facility] AST 34 5 - 34 U/L 07/17/2023 10:13 AM [facility] Protein Total 4.0(L) 6.4 - 8.3 gm/dL 07/17/2023 10:13 AM [facility] Albumin 2.1(L) 3.4 - 5.0 gm/dL 07/17/2023 10:13 AM [facility] Bilirubin Total 0.2 0.2 - 1.2 mg/dL 07/17/2023 10:13 AM [facility] eGFR by CKD-EPI >90 >=90 mL/min/1.7 3 m2 07/17/2023 10:13 AM [facility] Blood BLOOD SPECIMEN / Unknown Venipuncture / Unknown 07/17/2023 9:20 AM REFRACTORY MANAGER 07/17/2023 9:45 AM REFRACTORY MANAGER Torrie Martin MD LAB - CHEMIS TRY ORDERABLES Performing Organization Address City/[facility] Co de Phone Number [facility] [address] [place], [place] [id number] * (ABNORMAL) MAGNESIUM BLOOD (07/17/2023 9:20 AM REFRACTORY MANAGER) Only the most recent of53 resultswithin the time period is included. Magnesium 1.0(LL) 1.6 - 2.6 mg/dL 07/17/2023 11:08 AM [facility] Blood BLOOD SPECIMEN / Unknown Venipuncture / Unknown 07/17/2023 9:20 AM REFRACTORY MANAGER 07/17/2023 9:45 AM REFRACTORY MANAGER Torrie Martin MD LAB - CHEMIS TRY ORDERABLES [facility] [address] [place] [id number] * CK BLOOD (07/17/2023 9:20 AM REFRACTORY MANAGER) Only the most recent of6 resultswithin the time period is included. CK 45 30 - 200 U/L 07/17/2023 11:12 AM REFRACTORY MANAGER [facility] Blood BLOOD SPECIMEN / Unknown Venipuncture / Unknown 07/17/2023 9:20 AM REFRACTORY MANAGER 07/17/2023 9:45 AM REFRACTORY MANAGER Torrie Martin MD LAB - CHEMIS TRY ORDERABLES [facility] [address] [place] [address] * (ABNORMAL) CBC W AUTO DIFFERENTIAL (07/10/2023 9:38 AM REFRACTORY MANAGER) Only the most recent of48 resultswithin the time period is included. WBC 12.9(H) 4.0 - 10.7 x10E9/L 07/10/2023 9:54 AM [facility] RBC Count 3.59(L) 4.30 - 5.80 x10E12/L 07/10/2023 9:54 AM [facility] Hemoglobin 10.6(L) 13.3 - 17.5 g/dL 07/10/2023 9:54 AM [facility] Hematocrit 35.0(L) 38.7 - 51.1 % 07/10/2023 9:54 AM [facility] MCV 97.5 80.0 - 98.0 fL 07/10/2023 9:54 AM [facility] MCH 29.5 26.7 - 33.6 pg 07/10/2023 9:54 AM [facility] MCHC 30.3(L) 31.7 - 36.3 g/dL 07/10/2023 9:54 AM [facility] RDW-CV 18.9(H) 11.3 - 14.8 % 07/10/2023 9:54 AM [facility] Platelet Count 278 150 - 420 x10E9/L 07/10/2023 9:54 AM [facility] MPV 10.0 7.8 - 11.4 fL 07/10/2023 9:54 AM [facility] Neutrophil % 67.2 41.0 - 74.0 % 07/10/2023 9:54 AM [facility] Lymphocyte % 19.6 17.0 - 47.0 % 07/10/2023 9:54 AM [facility] Monocyte % 9.9 3.0 - 11.0 % 07/10/2023 9:54 AM [facility] Eosinophil % 0.4 0.0 - 7.0 % 07/10/2023 9:54 AM [facility] Basophil % 0.2 0.0 - 1.6 % 07/10/2023 9:54 AM [facility] Immature Granulocytes % 2.7(H) 0.0 - 1.0 % 07/10/2023 9:54 AM [facility] Neutrophil Absolute 8.66(H) 1.60 - 7.50 x10E9/L 07/10/2023 9:54 AM [facility] Lymphocyte Absolute 2.53 1.00 - 4.40 x10E9/L 07/10/2023 9:54 AM [facility] Monocyte Absolute 1.28(H) 0.15 - 1.00 x10E9/L 07/10/2023 9:54 AM [facility] Eosinophil Absolute 0.05 0.00 - 0.60 x10E9/L 07/10/2023 9:54 AM [facility] Basophil Absolute 0.03 0.00 - 0.13 x10E9/L 07/10/2023 9:54 AM [facility] NRBC 2.2(H) <=0.0 /100 WBC 07/10/2023 9:54 AM [facility] Blood BLOOD SPECIMEN / Unknown Venipuncture / Unknown 07/10/2023 9:38 AM REFRACTORY MANAGER 07/10/2023 9:48 AM [facility] Torrie Martin MD LAB - HEMATO LOGY ORDERABLES [facility] [address] [place] [address] * FOLATE (07/10/2023 9:38 AM [facility]) [facility] Signature Folate >20.0 7.0 - 31.4 ng/mL 07/10/2023 10:58 AM [facility] Blood BLOOD SPECIMEN / Unknown Venipuncture / Unknown 07/10/2023 9:38 AM REFRACTORY MANAGER 07/10/2023 9:48 AM REFRACTORY MANAGER Torrie Martin MD LAB - CHEMIS TRY ORDERABLES Performing Organization Address City/[facility] Co de Phone Number [facility] [address] [place] [address] * VITAMIN B12 (07/10/2023 9:38 AM REFRACTORY MANAGER) Vitamin B12 410 213 - 816 pg/mL 07/10/2023 10:58 AM REFRACTORY MANAGER [facility] Blood BLOOD SPECIMEN / Unknown Venipuncture / Unknown 07/10/2023 9:38 AM REFRACTORY MANAGER 07/10/2023 9:48 AM REFRACTORY MANAGER Torrie Martin MD LAB - CHEMIS TRY ORDERABLES Performing Organization Address [facility] de Phone Number [facility] [address] [place] [phone] * PATHOLOGY TISSUE EXAM (STL) (07/07/2023 8:49 AM REFRACTORY MANAGER) Only the most recent of2 resultswithin the time period is included. Case Report Surgical Pathology Report Case: [id number] Authorizing Provider: Rickie Colon MD Collected: 07/07/2023 08:49 AM Ordering Location: [facility] Received: 07/07/2023 09:41 AM Pathologist: Gerardo Portillo MD Specimens: A) - Small Bowel Biopsy B) - Gastric Biopsy C) - Esophageal Biopsy 07/08/2023 1:55 PM REFRACTORY MANAGER [facility] Final Diagnosis Small bowel biopsy: - Unremarkable small bowel fragments Gastric biopsy: - Unremarkable gastric body-type mucosa Esophageal biopsy: - Mild chronic active esophagitis - No goblet cell metaplasia, dysplasia, or carcinoma identified - No fungi seen 07/08/2023 1:55 PM REFRACTORY MANAGER [facility] Clinical History R19.7 The examined esophagus, stomach, and duodenal appeared endoscopically normal. 07/08/2023 1:55 PM REFRACTORY MANAGER [facility] Gross Description The requisition and specimens are identified with the patient's name (Dev Amaya). A. Received in formalin, specimen A , small bowel biopsy, are five castro-white friable tissue fragments (0.2-0.3 cm, 0.5 x 0.3 x 0.2 cm in aggregate) submitted in toto in cassette A1. B. Received in formalin, specimen B gastric biopsy, are two castro-white tissue fragments (0.2-0.4 cm, 0.4 x 0.4 x 0.2 cm in aggregate) submitted in toto in cassette B1. C. Received in formalin, specimen C , esophageal biopsy, are four castro-white tissue fragments (0.2-0.6 cm, 0.6 x 0.4 x 0.1 cm in aggregate) submitted in toto in cassette C1. /IKD 07/08/2023 1:55 PM [facility] Microscopic Description A. Where intact and well oriented, the villi appear to be of appropriate length. B. Microscopic examination substantiates the diagnosis above. C. The specimen consists of bland stratified squamous epithelium with occasional infiltrative lymphocytes and rare neutrophils. A PAS-F stain is performed on sections of block C1 with appropriate control. No fungi are highlighted. 07/08/2023 1:55 PM [facility] Pathologist Location at [facility] 07/08/2023 1:55 PM [facility] Disclaimer All histochemical and/or immunohistochemical results are interpreted with controls that demonstrate appropriate staining reactions before reporting results. Note on use of immunocytochemistry reagents: This test was developed and its performance characteristic determined by [facility], Department of Laboratory Medicine. It has not been cleared or approved by the U.S. Food and Drug Administration (FDA). The FDA has determined that such clearance or approval is not necessary. The test is used for clinical purpose. It should not be regarded as investigational or for research. This laboratory is certified to perform high complexity testing. The performance characteristics of the IHC/LEROY assays have been validated on formalin-fixed paraffin embedded tissues only. The assays have not been validated on decalcified tissues. Results should be interpreted with caution. 07/08/2023 1:55 PM [facility] Embedded Images 07/08/2023 1:55 PM [facility] Pathology/Cytology ENTEROTOMY OF SMALL BOWEL FOR BIOPSY / Unknown 07/07/2023 8:49 AM REFRACTORY MANAGER 07/07/2023 9:41 AM REFRACTORY MANAGER Miscellaneous samples (specimen) GASTRIC BIOPSY SPECIMEN / Unknown 07/07/2023 8:51 AM REFRACTORY MANAGER 07/07/2023 9:41 AM REFRACTORY MANAGER Miscellaneous samples (specimen) ESOPHAGEAL BIOPSY SPECIMEN / Unknown 07/07/2023 8:52 AM REFRACTORY MANAGER 07/07/2023 9:41 AM REFRACTORY MANAGER Rickie Colon MD LAB - PATHOLOGY/CY CHEPEOGY ORDERABLES [facility] [address] [id number] * EGD (07/07/2023 7:33 AM REFRACTORY MANAGER) Report Endoscopy POC _ Patient Name: Dev Amaya Procedure Date: 07/07/2023 7:33 AM Date of : 1970 Admit Type: Outpatient Age: 53 Gender: Male Ethnicity: Not or Race: White Attending MD: Rickie Colon MD, [id number] _ Procedure: Upper GI endoscopy Indications: Diarrhea Providers: Rickie Colon MD (Doctor), Nino Dumont RN, Sunshine Cavazos RN Patient Profile: 53yo male with dysphagia and diarrhea here for EGD Referring MD: Hi Salmon (Referring MD) Medicines: [...] taken no aspirin or NSAID medications. After obtaining informed consent, the endoscope was passed under direct vision. Throughout the procedure, the patient's blood pressure, pulse, and oxygen saturations were monitored continuously. The Endoscope was introduced through the mouth, and advanced to the second part of duodenum. Moderate sedation was administered for [ ' minutes The upper GI endoscopy was accomplished without difficulty. The patient tolerated the procedure well. Impression: - Normal esophagus. Biopsied. - Z-line regular, 39 cm from the incisors. - Normal stomach. Biopsied. - Normal examined duodenum. Biopsied. Findings: The examined esophagus was normal. Biopsies were taken with a cold forceps for histology. The Z-line was regular and was found 39 cm from the incisors. The entire examined stomach was normal. Biopsies were taken with a cold forceps for histology. The examined duodenum was normal. Biopsies were taken with a cold forceps for histology. _ Recommendation: - Discharge patient to home. - Patient has a contact number available for emergencies. The signs and symptoms of potential delayed complications were discussed with the patient. Return to normal activities tomorrow. Written discharge instructions were provided to the patient. - Resume previous diet. - Await pathology results. Procedure Code(s): --- Professional --- 26565, Esophagogastroduo denoscopy, flexible, transoral; with biopsy, single or multiple --- Technical --- 48246, Esophagogastroduo denoscopy, flexible, transoral; with biopsy, single or multiple Diagnosis Code(s): --- Professional --- R19.7, Diarrhea, unspecified --- Technical --- R19.7, Diarrhea, unspecified CPT copyright 2020 [employer]. All rights reserved. The codes documented in this report are preliminary and upon dial mounter review may be revised to meet current compliance requirements. ___ Rickie Colon MD 07/07/2023 8:56:03 AM Number of Addenda: 0 Note Initiated On: 07/07/2023 7:33 AM [facility] 07/07/2023 7:33 AM REFRACTORY MANAGER Narrative Procedure Note Rickie Colon MD - 07/07/2023 8:57 AM CST EGD done for dysphagia/diarrhea. Normal esophagus s/p biopsy. Normalstomach s/p biopsy. Normal duodenum s/p biopsy. f/u path. Rickie Colon MD GI PROCEDURE ORDER [facility] * HYDROXYINDOLACETIC ACID 5 URINE TIMED (07/06/2023 1:20 AM REFRACTORY MANAGER) 5-HIAA 24 Hour Urine 2.0 Undefined mg/L 07/10/2023 5:08 PM REFRACTORY MANAGER [facility] ([facility]) Comment: This test was developed and its performance characteristics determined by [facility]. It has not been cleared or approved by the Food and Drug Administration. 5-HIAA 24 Hour Urine 3.8 0.0 - 14.9 mg/24 hr 07/10/2023 5:08 PM REFRACTORY MANAGER [facility] ([facility]) Urine TIMED URINE SPECIMEN / Unknown Timed Urine Volume Measurement / Unknown 07/06/2023 1:20 AM REFRACTORY MANAGER 07/07/2023 1:21 PM REFRACTORY MANAGER Narrative [facility] ([facility]) - 07/10/2023 5:08 PM REFRACTORY MANAGER Performed at: [address] [place] [id number] Dry Wall Plasterer: David Winter MD, Phone: [phone] Uzma Bazzi MD LAB - URINE CHEMISTR Y ORDERABLES Performing Organization Address [facility] de Phone Number [facility] ([facility]) [address] [place] [address] * (ABNORMAL) CHROMOGRANIN A (07/03/2023 10:57 AM REFRACTORY MANAGER) [facility] Chromogranin A 316.3(H) 0.0 - 101.8 ng/mL 07/08/2023 12:09 PM [facility] ([facility]) Comment: Chromogranin A performed by [employer] KRYPTOR methodology Values obtained with different assay methods or kits cannot be used interchangeably. Blood BLOOD SPECIMEN / Unknown Venipuncture / Unknown 07/03/2023 10:57 AM REFRACTORY MANAGER 07/03/2023 11:09 AM [facility] ([facility]) - 07/08/2023 12:09 PM REFRACTORY MANAGER Test(s) [id number] A This test was developed and its performance characteristics determined by [facility]. It has not been cleared or approved by the Food and Drug Administration. Performed at: [address] [place] [id number] Dry Wall Plasterer: David Winter MD, Phone: [phone] Uzma Bazzi MD LAB - CHEMISTRY ORDE RABLES Performing Organization Address City/[facility] Co de Phone Number [facility] ([facility]) [address] [place] [address] * GASTRIN (07/03/2023 10:57 AM REFRACTORY MANAGER) Gastrin 38 0 - 115 pg/mL 07/05/2023 10:06 PM REFRACTORY MANAGER [facility] ([facility]) Comment: Siemens Immulite 2000 Immunochemiluminometric assay (ICMA) Values obtained with different assay methods or kits cannot be used interchangeably. Results cannot be interpreted as absolute evidence of the presence or absence of malignant disease. Blood BLOOD SPECIMEN / Unknown Venipuncture / Unknown 07/03/2023 10:57 AM REFRACTORY MANAGER 07/03/2023 11:08 AM REFRACTORY MANAGER Narrative [facility] ([facility]) - 07/05/2023 10:06 PM REFRACTORY MANAGER Performed at: [facility] [id number] Dry Wall Plasterer: David Winter MD, Phone: [phone] Uzma Bazzi MD LAB - CHEMISTRY [place] Performing Organization Address City/[facility]/ZIP Co de Phone Number [facility]) [address] [place] [address] * CULTURE BLOOD (06/26/2023 11:26 AM REFRACTORY MANAGER) Only the most recent of8 resultswithin the time period is included. Culture No growth day 5 ZANE 07/01/2023 5:00 PM REFRACTORY MANAGER [facility]CRO[facility] Blood PERIPHERAL BLOOD / Unknown Venipuncture / Unknown 06/26/2023 11:26 AM REFRACTORY MANAGER 06/26/2023 1:56 PM REFRACTORY MANAGER Uzma Bazzi MD LAB - MICROBIOLOGY O RDERALUIS CARLOS [facility] MICROBIOLOG[facility] [address] [place] [address], [facility] [phone] * E COLI SHIGA-LIKE TOXIN (06/26/2023 10:49 AM REFRACTORY MANAGER) Only the most recent of3 resultswithin the time period is included. Shiga Toxin Negative for E. coli Shiga-like toxin. Negative 06/27/2023 1:03 PM REFRACTORY MANAGER [facility]CRO[facility]OLOG[facility] Stool STOOL SPECIMEN / Unknown Collection / Unknown 06/26/2023 10:49 AM REFRACTORY MANAGER 06/26/2023 12:15 PM REFRACTORY MANAGER Uzma Bazzi MD LAB - MICROBIOLOGY O TANIYA Performing Organization Address City/[facility]/ZIP Co de Phone Number [facility] MICROBIOLOG[facility] [address] [place] [address], [facility] [phone] * CULTURE STOOL PANEL (06/26/2023 10:49 AM REFRACTORY MANAGER) Only the most recent of3 resultswithin the time period is included. Culture No growth Salmonella, Shigella, Campylobacter, Escherichia coli O157:h7 or Yersinia ZANE 06/28/2023 10:50 AM REFRACTORY MANAGER [facility] MICROBIOLOG[facility] Stool STOOL SPECIMEN / Unknown Collection / Unknown 06/26/2023 10:49 AM REFRACTORY MANAGER 06/26/2023 12:15 PM REFRACTORY MANAGER Uzma Bazzi MD LAB - MICROBIOLOGY O TANIYA Performing Organization Address [facility] Co de Phone Number [facility]CROBIOLOG[facility] [address] [place], [place] [address] [phone] * CARDIAC RHYTHM STRIP ORDER (06/26/2023 10:17 AM REFRACTORY MANAGER) Only the most recent of3 resultswithin the time period is included. Narrative 06/26/2023 10:17 AM REFRACTORY MANAGER Ordered by an unspecified provider. Scanned Document CARDIAC SERVICES ORD ERABLES * PHOSPHORUS BLOOD (06/26/2023 9:20 AM REFRACTORY MANAGER) Only the most recent of6 resultswithin the time period is included. Phosphorus 2.8 2.3 - 4.7 mg/dL 06/26/2023 9:44 AM REFRACTORY MANAGER [facility] Blood BLOOD SPECIMEN / Unknown Venipuncture / Unknown 06/26/2023 9:20 AM REFRACTORY MANAGER 06/26/2023 9:23 AM REFRACTORY MANAGER Uzma Bazzi MD LAB - CHEMISTRY [place] Performing Organization Address City/[facility]/ZIP Co de Phone Number [facility] [address] [place] [address] * PATHOLOGY PERIPHERAL SMEAR REVIEW (06/19/2023 3:13 AM REFRACTORY MANAGER) Only the most recent of2 resultswithin the time period is included. Pathologist [facility] Path Review Confirmed 06/19/2023 5:33 PM [facility] Blood BLOOD SPECIMEN / Unknown Lab Venipuncture / Unknown 06/19/2023 3:13 AM REFRACTORY MANAGER 06/19/2023 4:08 AM [facility] Narrative [facility] - 06/19/2023 5:33 PM REFRACTORY MANAGER Final Diagnosis: Peripheral blood smear review, venipuncture: 1. Leukocytosis, mild with mild absolute neutrophilia and mild absolute lymphocytosis 2. Normocytic normochromic anemia, moderate Clinical History: 53-year-old man with history of rheumatoid arthritis on Humira and a recent complicated course of Salmonella gastroenteritis. Peripheral Smear Description: White blood cells are present in mildly increased numbers with a differential of 70 percent neutrophils, 25 percent lymphocytes, 3 percent monocytes, 2 percent myelocytes and 2 nucleated red blood cells per 100 white blood cells. Dyspoietic myeloid elements and blasts are not identified. The erythrocytes are normocytic normochromic. Platelets are present in adequate numbers and are morphologically unremarkable. Test Performed By: Agustín Dumont MD 06/19/2023 5:20 PM Domingo Adam MD LAB - PATHOLOGY/CYTO LOGY ORDERABLES Performing Organization Address City/State/[facility] Co de Phone Number [facility] [address] [place] [address] * (ABNORMAL) DIFFERENTIAL MANUAL (06/19/2023 3:13 AM REFRACTORY MANAGER) Only the most recent of44 resultswithin the time period is included. Pathologist [facility] Neutrophil % 70 41 - 74 % 06/19/2023 5:29 AM [facility] Lymphocyte % 25 17 - 47 % 06/19/2023 5:29 AM [facility] Monocyte % 3 3 - 11 % 06/19/2023 5:29 AM [facility] Myelocyte % 2(H) 0% % 06/19/2023 5:29 AM [facility] Neutrophil Absolute 15.33(H) 1.60 - 7.50 x10E9/L 06/19/2023 5:29 AM [facility] Lymphocyte Absolute 5.48(H) 1.00 - 4.40 x10E9/L 06/19/2023 5:29 AM [facility] Monocyte Absolute 0.66 0.15 - 1.00 x10E9/L 06/19/2023 5:29 AM [facility] RBC Morphology REVIEWED 06/19/2023 5:29 AM [facility] Loly Cells MODERATE(A) (none) 06/19/2023 5:29 AM [facility] Schistocytes FEW(A) (none) 06/19/2023 5:29 AM [facility] Blood BLOOD SPECIMEN / Unknown Lab Venipuncture / Unknown 06/19/2023 3:13 AM REFRACTORY MANAGER 06/19/2023 4:08 AM [facility] Domingo Adam MD LAB - HEMATOLOGY ORD ERABLES [facility] [address] [place] [address] * (ABNORMAL) BASIC METABOLIC PANEL (CALCIUM TOTAL) (06/11/2023 3:28 AM REFRACTORY MANAGER) Only the most recent of15 resultswithin the time period is included. Glucose 103 70 - 105 mg/dL 06/11/2023 5:16 AM [facility] Sodium 138 136 - 145 mmol/L 06/11/2023 5:16 AM [facility] Potassium 4.8 3.5 - 5.1 mmol/L 06/11/2023 5:16 AM [facility] Chloride 115(H) 98 - 107 mmol/L 06/11/2023 5:16 AM [facility] CO2 17(L) 22 - 29 mmol/L 06/11/2023 5:16 AM [facility] Calcium 7.7(L) 8.4 - 10.4 mg/dL 06/11/2023 5:16 AM [facility] Anion Gap 6 6 - 16 mmol/L 06/11/2023 5:16 AM [facility] BUN 17 7 - 26 mg/dL 06/11/2023 5:16 AM [facility] Creatinine 1.90(H) 0.72 - 1.25 mg/dL 06/11/2023 5:16 AM [facility] eGFR by CKD-EPI 41(L) >=90 mL/min/1.7 3 m2 06/11/2023 5:16 AM [facility] Blood BLOOD SPECIMEN / Unknown Lab Venipuncture / Unknown 06/11/2023 3:28 AM REFRACTORY MANAGER 06/11/2023 4:29 AM REFRACTORY MANAGER [facility] LAB - CHEMISTRY ORDE RABLES [facility] [address] [place] [address] * (ABNORMAL) HGB HCT PANEL (06/06/2023 11:28 AM REFRACTORY MANAGER) Hemoglobin 9.9(L) 12.0 - 17.6 gm/dL 06/06/2023 11:45 AM [facility] Hematocrit 31.8(L) 35.2 - 51.7 % 06/06/2023 11:45 AM [facility] Blood BLOOD SPECIMEN / Unknown Lab Venipuncture / Unknown 06/06/2023 11:28 AM REFRACTORY MANAGER 06/06/2023 11:37 AM REFRACTORY MANAGER [facility] LAB - HEMATOLOGY ORD ERABLES Performing Organization Address City/[facility]/ZIP Co de Phone Number [facility] [address] [place] [address] * (ABNORMAL) IRON + TRANSFERRIN PANEL (06/06/2023 11:28 AM REFRACTORY MANAGER) Only the most recent of2 resultswithin the time period is included. Iron 78 50 - 175 ug/dL 06/06/2023 12:03 PM [facility] Transferrin 139(L) 174 - 382 mg/dL 06/06/2023 12:03 PM [facility] TIBC Calculated 174(L) 240 - 450 ug/dL 06/06/2023 12:03 PM [facility] Iron Saturation % 45 20 - 50 % 06/06/2023 12:03 PM [facility] Blood BLOOD SPECIMEN / Unknown Lab Venipuncture / Unknown 06/06/2023 11:28 AM REFRACTORY MANAGER 06/06/2023 11:37 AM REFRACTORY MANAGER Vianey Cueva DO LAB - CHEMISTRY [place] [facility] [address] [place] [address] * (ABNORMAL) FERRITIN (06/06/2023 11:28 AM REFRACTORY MANAGER) Ferritin 1,870(H) 22 - 275 ng/mL 06/06/2023 12:52 PM REFRACTORY MANAGER [facility] Blood BLOOD SPECIMEN / Unknown Lab Venipuncture / Unknown 06/06/2023 11:28 AM REFRACTORY MANAGER 06/06/2023 11:37 AM REFRACTORY MANAGER Vianey Cueva DO LAB - CHEMISTRY [place] Performing Organization Address City/[facility]/ZIP Co de Phone Number [facility] [address] [place] [phone] * XR CHEST 1VW PORTABLE (06/03/2023 10:53 AM REFRACTORY MANAGER) Anatomical Region Laterality Modality Chest Radiographic Cherelle ging 06/03/2023 11:1 7 AM REFRACTORY MANAGER Narrative 06/03/2023 12:45 PM REFRACTORY MANAGER PROCEDURE: XR CHEST 1VW PORTABLE DATE/TIME OF EXAM: 06/03/2023 10:53 AM CLINICAL INFORMATION: None relevant/not provided if blank. Indication: R06.02: Shortness of breath. Additional History: FINDINGS/IMPRESSION: No focal consolidation is seen. There is no evidence of pleural effusion. No pneumothorax is identified. The heart appears normal in size. The mediastinal contours appear normal. Edited by Haily Mckinley on 06/03/2023 11:20 AM > Interpreting Provider: David Clark MD on 06/03/2023 12:45 PM Procedure Note David Clark MD - 06/03/2023 PROCEDURE: XR CHEST 1VW PORTABLE DATE/TIME OF EXAM: 06/03/2023 10:53 AM CLINICAL INFORMATION: None relevant/not provided if blank. Indication: R06.02: Shortness of breath. Additional History: FINDINGS/IMPRESSION: No focal consolidation is seen. There is no evidence of pleuraleffusion. No pneumothorax is identified. The heart appears normal in size. The mediastinal contours appear normal. Edited by Haily Mckinley on 06/03/2023 11:20 AM > Interpreting Provider: David Clark MD on 06/03/2023 12:45 PM Vianey Cueva DO DIAGNOSTIC IMAGING O RDERABLES * (ABNORMAL) RENAL FUNCTION PANEL (06/03/2023 5:15 AM REFRACTORY MANAGER) Only the most recent of41 resultswithin the time period is included. Glucose 77 70 - 105 mg/dL 06/03/2023 5:57 AM [facility] Sodium 139 136 - 145 mmol/L 06/03/2023 5:57 AM [facility] Potassium 3.6 3.5 - 5.1 mmol/L 06/03/2023 5:57 AM [facility] Chloride 120(H) 98 - 107 mmol/L 06/03/2023 5:57 AM [facility] CO2 13(L) 22 - 29 mmol/L 06/03/2023 5:57 AM [facility] Calcium 8.2(L) 8.4 - 10.4 mg/dL 06/03/2023 5:57 AM [facility] Anion Gap 6 6 - 16 mmol/L 06/03/2023 5:57 AM [facility] BUN 26 7 - 26 mg/dL 06/03/2023 5:57 AM [facility] Creatinine 2.55(H) 0.72 - 1.25 mg/dL 06/03/2023 5:57 AM [facility] Albumin 2.1(L) 3.4 - 5.0 gm/dL 06/03/2023 5:57 AM [facility] Phosphorus 3.3 2.3 - 4.7 mg/dL 06/03/2023 5:57 AM [facility] eGFR by CKD-EPI 29(L) >=90 mL/min/1.7 3 m2 06/03/2023 5:57 AM [facility] Blood BLOOD SPECIMEN / Unknown Lab Venipuncture / Unknown 06/03/2023 5:15 AM REFRACTORY MANAGER 06/03/2023 5:18 AM REFRACTORY MANAGER Vianey Cueva DO LAB - CHEMISTRY [place] [facility] [address] [place] [address] * NM HEPATOBILIARY W EF (06/02/2023 10:58 AM REFRACTORY MANAGER) Anatomical Region Laterality Modality Abdomen Nuclear Medicine 06/02/2023 11:2 9 AM REFRACTORY MANAGER Impressions 06/02/2023 2:08 PM REFRACTORY MANAGER IMPRESSION: 1. Normal gallbladder function with a calculated GBEF of 45.97%. 2. No evidence of enterogastric reflux. 3. Patent cystic and common bile ducts. Edited by Radha Younger on 06/02/2023 1:12 PM > Interpreting Provider: David Clark MD on 06/02/2023 2:08 PM Narrative 06/02/2023 2:08 PM REFRACTORY MANAGER PROCEDURE: NM HEPATOBILIARY W EF DATE/TIME OF EXAM: 06/02/2023 10:59 AM CLINICAL INFORMATION: None relevant/not provided if blank. Indication: R78.81: Bacteremia R10.11: Right upper quadrant pain Additional History: Hepatobiliary scan with pharmacologic intervention. HISTORY: Right upper quadrant pain. TECHNIQUE: A dose of 5.4 mCi Tc-99m Choletec was administered intravenously. Dynamic anterior images of the abdomen were obtained for 1 hour. Ensure is given for ejection fraction calculation. FINDINGS: There is normal clearance of the blood pool. Tracer activity is seen in biliary system and common bile duct at 11 minutes. The gallbladder begins to fill at 16 minutes and is well filled by 26 minutes. Bowel activity is noted at 26 minutes. By computer analysis gallbladder ejection fraction is calculated to be 45.97% which is normal. Procedure Note David Clark MD - 06/02/2023 PROCEDURE: NM HEPATOBILIARY W EF DATE/TIME OF EXAM: 06/02/2023 10:59 AM CLINICAL INFORMATION: None relevant/not provided if blank. Indication: R78.81: Bacteremia R10.11: Right upper quadrant pain Additional History: Hepatobiliary scan with pharmacologic intervention. HISTORY: Right upper quadrant pain. TECHNIQUE: A dose of 5.4 mCi Tc-99m Choletec was administered intravenously. Dynamic anterior images of the abdomen were obtained for1 hour. Ensure is given for ejection fraction calculation. FINDINGS: There is normal clearance of the blood pool. Tracer activity is seen in biliary system and common bile duct at 11 minutes. The gallbladderbegins to fill at 16 minutes and is well filled by 26 minutes. Bowel activityis noted at 26 minutes. By computer analysis gallbladder ejection fraction is calculated to be 45.97% which is normal. IMPRESSION: 1. Normal gallbladder function with a calculated GBEF of 45.97%. 2. No evidence of enterogastric reflux. 3. Patent cystic and common bile ducts. Edited by Radha Younger on 06/02/2023 1:12 PM > Interpreting Provider: David Clark MD on 06/02/2023 2:08 PM Toby Almanza MD NM ORDERABLES * EKG 12-LEAD (05/30/2023 4:47 AM REFRACTORY MANAGER) Only the most recent of4 resultswithin the time period is included. Ventricular Rate 85 BPM [facility] Atrial Rate 85 BPM [facility] P-R Interval 124 ms [facility] QRS Duration ms 90 ms [facility] Q-T Interval ms 394 ms [facility] QTC Calculation (Bezet) 468 ms [facility] Calculated P [place] 65 degrees [facility] Calculated R [place] 83 degrees [facility] Calculated T [place] 20 degrees [facility] Interpretation EKG NORMAL SINUS RHYTHM NONSPECIFIC T WAVE ABNORMALITY ABNORMAL ECG WHEN COMPARED WITH ECG OF 19-APR-2023 06:03, NON-SPECIFIC CHANGE IN ST SEGMENT IN ANTERIOR LEADS T WAVE INVERSION NOW EVIDENT IN ANTERIOR LEADS Confirmed by DO OTT STEPHANIE ([id number]) on 06/02/2023 4:05:19 PM [facility] MUSE 05/30/2023 4:47 AM REFRACTORY MANAGER 06/02/2023 4:05 PM REFRACTORY MANAGER Ollie Brewer MD ECG ORDERABLES [facility] * TSH REFLEX FREE T4 (05/30/2023 3:26 AM REFRACTORY MANAGER) Only the most recent of2 resultswithin the time period is included. TSH 1.695 0.350 - 4.940 uIU/mL 05/30/2023 5:30 AM REFRACTORY MANAGER [facility] Blood BLOOD SPECIMEN / Unknown Lab Venipuncture / Unknown 05/30/2023 3:26 AM REFRACTORY MANAGER 05/30/2023 4:35 AM REFRACTORY MANAGER Suresh Kenney MD LAB - CHEMISTRY ORD ERABLES [facility] [address] [place] [phone] * O+P RST RFLXED (05/15/2023 5:59 PM REFRACTORY MANAGER) Only the most recent of2 resultswithin the time period is included. Pathologist [facility] Result 1 Comment 05/23/2023 8:08 PM REFRACTORY MANAGER [facility] ([facility]) Comment: No ova, cysts, or parasites seen. One negative specimen does not rule out the possibility of a parasitic infection. Stool STOOL SPECIMEN / Unknown Collection / Unknown 05/15/2023 5:59 PM REFRACTORY MANAGER 05/15/2023 5:59 PM REFRACTORY MANAGER Narrative [facility] ([facility]) - 05/23/2023 8:08 PM REFRACTORY MANAGER Performed at: [address] [place] [address] [address] [place], [place] [id number] Dry Wall Plasterer: Jarod Webster PhD, Phone: [phone] Rickie Colon MD LAB - MICROBIOLOGY ORDERABLES [facility] ([facility]) [address] [place] [address] * O+P PANEL (05/15/2023 5:59 PM REFRACTORY MANAGER) Only the most recent of2 resultswithin the time period is included. Pathologist [facility] O+P Exam Final report 05/23/2023 8:08 PM REFRACTORY MANAGER [facility] ([facility]) Comment: These results were obtained using wet preparation(s) and trichrome stained smear. This test does not include testing for Cryptosporidium parvum, Cyclospora, or Microsporidia. Stool STOOL SPECIMEN / Unknown Collection / Unknown 05/15/2023 5:59 PM REFRACTORY MANAGER 05/15/2023 5:59 PM REFRACTORY MANAGER N[facility]ative [facility] - 05/23/2023 8:08 PM REFRACTORY MANAGER Performed at: [address] [place] [id number] Dry Wall Plasterer: Jarod Webster PhD, Phone: [phone] Rickie Colon MD LAB - MICROBIOLOGY ORDERABLES Performing Organization Address [facility] Co de Phone Number [facility] ([facility]) [address] [place] [address] * GIARDIA CRYPTOSPORIDIUM ANTIGEN PANEL (05/15/2023 5:32 PM REFRACTORY MANAGER) Giardia Antigen Feces Negative Negative 05/16/2023 9:20 AM REFRACTORY MANAGER [facility] Cryptosporidium Antigen Feces Negative Negative 05/16/2023 9:20 AM REFRACTORY MANAGER [facility] Stool STOOL SPECIMEN / Unknown Collection / Unknown 05/15/2023 5:32 PM REFRACTORY MANAGER 05/15/2023 5:56 PM REFRACTORY MANAGER Narrative [facility] - 05/16/2023 9:20 AM REFRACTORY MANAGER A single Ova and Parasite exam may be insufficient to diagnose an intestinal parasite infection. Additional specimens are recommended if patient remains symptomatic. Daniel Croft MD LAB - MICROBIOLOGY O RDERABLES Performing Organization Address City/[facility]/ZIP Co de Phone Number [facility] [address] [place] [address], [facility] [phone] * MRI ENTEROGRAPHY (05/14/2023 12:48 PM REFRACTORY MANAGER) Anatomical Region Laterality Modality Abdomen Magnetic Resonan ce 05/14/2023 1:05 PM REFRACTORY MANAGER Impressions 05/14/2023 1:11 PM REFRACTORY MANAGER IMPRESSION: Question some mild colonic wall thickening versus nondistention involving the sigmoid colon. A mild colitis is not excluded. Colonoscopy may be helpful. Small bowel loops appear normal. > Interpreting Provider: Yonas Claudio MD on 05/14/2023 1:11 PM Narrative 05/14/2023 1:11 PM REFRACTORY MANAGER Procedure: MRI ENTEROGRAPHY Exam Date: 05/14/2023 12:48 PM Location: [facility] INDICATION: Salmonella sepsis TECHNIQUE: MR enterography was performed utilizing multiple pulse sequences in multiple planes both before and after administration gadolinium. Contrast: 18 cc of Dotarem was utilized. FINDINGS: No old studies are available for comparison purposes. The liver is homogeneous in signal. There is no liver mass. There is no biliary dilatation. No gallstones are seen within the gallbladder. The pancreas is unremarkable. The spleen is small. There is no adrenal mass. There is no renal mass. There is no hydronephrosis. The aorta and IVC are normal in caliber. There is no retroperitoneal or mesenteric adenopathy. The stomach is unremarkable. There is no gastric wall thickening. The small bowel loops are normal in caliber. No small bowel wall thickening is seen. There appears to be normal enhancement of the mucosa of the small bowel. There is no colonic distention. There does appear to be some mild colonic wall thickening involving the sigmoid colon. A mild colitis is not excluded. Colonoscopy may be helpful. The bladder is grossly unremarkable. There is a scant amount of free fluid within the pelvis which is nonspecific. Procedure Note Yonas Claudio MD - 05/14/2023 Procedure: MRI ENTEROGRAPHY Exam Date: 05/14/2023 12:48 PM Location: [facility] INDICATION: Salmonella sepsis TECHNIQUE: MR enterography was performed utilizing multiple pulsesequences in multiple planes both before and after administration gadolinium. Contrast: 18 cc of Dotarem was utilized. FINDINGS: No old studies are available for comparison purposes. The liver is homogeneous in signal. There is no liver mass. There is no biliary dilatation. No gallstones are seen within the gallbladder.The pancreas is unremarkable. The spleen is small. There is no adrenalmass. There is no renal mass. There is no hydronephrosis. The aorta and IVC are normal in caliber. There is no retroperitoneal or mesenteric adenopathy. The stomach is unremarkable. There is no gastric wall thickening. Thesmall bowel loops are normal in caliber. No small bowel wall thickening isseen. There appears to be normal enhancement of the mucosa of the small bowel. There is no colonic distention. There does appear to be some mildcolonic wall thickening involving the sigmoid colon. A mild colitis is not excluded. Colonoscopy may be helpful. The bladder is grossly unremarkable. There is a scant amount of freefluid within the pelvis which is nonspecific. IMPRESSION: Question some mild colonic wall thickening versus nondistentioninvolving the sigmoid colon. A mild colitis is not excluded. Colonoscopy may be helpful. Small bowel loops appear normal. > Interpreting Provider: Yonas Claudio MD on 05/14/2023 1:11 PM Rickie Colon MD MR ORDERABLES * NM INFECTION SCAN (05/14/2023 11:10 AM REFRACTORY MANAGER) Anatomical Region Laterality Modality Nuclear Medicine 05/14/2023 11:1 6 AM REFRACTORY MANAGER Impressions 05/14/2023 11:21 AM REFRACTORY MANAGER IMPRESSION: 1. Abnormal white cell accumulation in the nose. This could represent focal inflammation and/or abscess > Interpreting Provider: Kusum Ontiveros MD on 05/14/2023 11:21 AM Narrative 05/14/2023 11:21 AM REFRACTORY MANAGER PROCEDURE: NM INFECTION SCAN DATE/TIME OF EXAM: 05/14/2023 11:11 AM CLINICAL INFORMATION: None relevant/not provided if blank. Indication: A02.1: Salmonella sepsis (CMS/HCC) R65.20: Severe sepsis without septic shock (CMS/HCC) N17.9: Acute kidney failure, unspecified (CMS/HCC) Additional History: COMPARISON: None relevant TECHNIQUE: 571 uCi of In-111 labeled white cells were injected intravenously through the right arm catheter followed by 24-hour delayed whole body scintigraphy and spot views of the head and neck. FINDINGS: Whole body scan is obtained. There is a focal area of intense white cell uptake within the anterior portion of the nasal cavity, apparently slightly to the right of midline. Tracer distribution is otherwise normal throughout the chest abdomen and pelvis as well as the upper and lower extremities. Procedure Note Kusum Ontiveros MD - 05/14/2023 PROCEDURE: NM INFECTION SCAN DATE/TIME OF EXAM: 05/14/2023 11:11 AM CLINICAL INFORMATION: None relevant/not provided if blank. Indication: A02.1: Salmonella sepsis (CMS/HCC) R65.20: Severe sepsis without septic shock (CMS/HCC) N17.9: Acute kidney failure, unspecified (CMS/HCC) Additional History: COMPARISON: None relevant TECHNIQUE: 571 uCi of In-111 labeled white cells were injected intravenously through the right arm catheter followed by 24-hour delayed whole body scintigraphy and spot views of the head and neck. FINDINGS: Whole body scan is obtained. There is a focal area of intense whitecell uptake within the anterior portion of the nasal cavity, apparentlyslightly to the right of midline. Tracer distribution is otherwise normal throughout the chest abdomen and pelvis as well as the upper and lower extremities. IMPRESSION: 1. Abnormal white cell accumulation in the nose. This could represent focal inflammation and/or abscess > Interpreting Provider: Kusum Ontiveros MD on 05/14/2023 11:21 AM Torrie Martin MD NM ORDERABLE S * CELIAC DISEASE COMPREHENSIVE (05/12/2023 6:41 PM REFRACTORY MANAGER) Only the most recent of2 resultswithin the time period is included. Antigliadin Antibody IgA 5 0 - 19 units 05/14/2023 2:10 PM REFRACTORY MANAGER [facility] ([facility]) Comment: Negative 0 - 19 Weak Positive 20 - 30 Moderate to Strong Positive >30 Gliadin Deamidated Antibody IgG 2 0 - 19 units 05/14/2023 2:10 PM REFRACTORY MANAGER [facility] ([facility]) Comment: Negative 0 - 19 Weak Positive 20 - 30 Moderate to Strong Positive >30 TTG Antibody IgA <2 0 - 3 U/mL 05/14/20 23 2:10 PM REFRACTORY MANAGER [facility] ([facility]) Comment: Negative 0 - 3 Weak Positive 4 - 10 Positive >10 Tissue Transglutaminase (tTG) has been identified as the endomysial antigen. Studies have demonstr- ated that endomysial IgA antibodies have over 99% specificity for gluten sensitive enteropathy. TTG Antibody IgG <2 0 - 5 U/mL 05/14/20 2:10 PM REFRACTORY MANAGER [facility] ([facility]) Comment: Negative 0 - 5 Weak Positive 6 - 9 Positive >9 Endomysial Antibody IgA Negative Negative 05/14/2023 2:10 PM REFRACTORY MANAGER [facility] ([facility]) IgA Quantitative 192 90 - 386 mg/dL 05/14/2023 2:10 PM REFRACTORY MANAGER [facility] ([facility]) Blood BLOOD SPECIMEN / Unknown Lab Venipuncture / Unknown 05/12/2023 6:41 PM REFRACTORY MANAGER 05/12/2023 6:48 PM REFRACTORY MANAGER Narrative [facility] ([facility]) - 05/14/2023 2:10 PM REFRACTORY MANAGER Performed at: 01 - [facility] [address] [place], [place] [id number] Dry Wall Plasterer: Jarod Webster PhD, Phone: [phone] Rickie Colon MD LAB - CHEMISTRY OR DERABLES [facility] ([facility]) [address] [place] [address] * VAS ISRA ABD DOPPLER AO IVC ILIAC (05/12/2023 10:47 AM REFRACTORY MANAGER) Anatomical Region Laterality Modality Pelvis, Abdomen Ultrasound 05/12/2023 1:19 PM REFRACTORY MANAGER Narrative Procedure Note Kalin Carroll MD - 05/12/[address] [address] Abdominal Aorta-Iliac Report Pat.Name: DIEGO DEV J Pat.ID: [id number] .Date: 05/12/2023 Refer.MD: Daniel Croft Exam Time: 1:19:00 PM Study Type:Abd. Aorta-Iliac Age: 9 1970,53Y Sex: MALE Sonogrphr: Dre Palmer RVT Pat. Stat.:Inpatient ICD - 9: r78.81 CPT - 4: 49104 Reason for Study: SALMONELLA BACTEREMIA Procedures: Aortic Artery Duplex - Complete Race: 1 Visit ID: [id number] ++++++++++++++++++++++++++++++++++++ SUMMARY: ++++++++++++++++++++++++++++++++++++ No evidence of aortic or iliac artery aneurysm. ++++++++++++++++++++++++++++++++++++ FINDINGS: ++++++++++++++++++++++++++++++++++++ Procedure: Abdominal aorta and iliac arteries were examined with duplex and color flow imaging as well as spectral Doppler analysis. AO: There is no abdominal Aortic aneurysm visualized. The abdominal aorta measures 1.4 X 1.4 cm in the distal segment of the Aorta. The abdominal aorta measures 1.9 X 1.4 cm in the proximal segment of the Aorta. The abdominal aorta measures 1.8 X 1.4 cm in the mid segment of the Aorta. The maximum velocity in the Aorta is 68 cm/sec. Rt Iliac: The right iliac is well visualized and measures 1.0 X 1.1 m in transverse diameter. Maximum velocity in the iliac is 78 cm/sec. Lt Iliac: The left iliac is well visualized and measures 1.0 X 0.9 cm in transverse diameter. Maximum velocity in the iliac is 75 cm/sec. Signed 05/12/2023 05:51 PM Kalin Foster MD Daniel Croft MD VASCULAR LAB ORDERAB LES * US ABDOMEN COMPLETE (05/12/2023 8:24 AM REFRACTORY MANAGER) Only the most recent of2 resultswithin the time period is included. Anatomical Region Laterality Modality Abdomen Ultrasound 05/12/2023 10:1 4 AM REFRACTORY MANAGER Impressions 05/12/2023 10:37 AM REFRACTORY MANAGER IMPRESSION: Survey as outlined. Edited by Haily Mckinley on 05/12/2023 10:34 AM > Interpreting Provider: Ankush Ferrara MD on 05/12/2023 10:37 AM Narrative 05/12/2023 10:37 AM REFRACTORY MANAGER PROCEDURE: US ABDOMEN COMPLETE DATE/TIME OF EXAM: 05/12/2023 8:24 AM CLINICAL INFORMATION: None relevant/not provided if blank. Indication: A02.0: Salmonella enteritis. R78.81: Bacteremia. FINDINGS: Images of the abdomen show an unremarkable liver. The pancreas is not imaged. The portal vein and hepatic veins are patent. The common duct is 4.5 mm. In the gallbladder, there is a mildly prominent wall but there are no stones or pericholecystic fluid seen. The right kidney is 14.0 x 5.3 x 6.3 cm with a cortical thickness of 2.0 cm. The left kidney is 13.6 x 6.0 x 6.1 cm with a cortical thickness of 2.0 cm. There is no mass, cyst or hydronephrosis. The spleen is not identified. The aorta is not aneurysmal. The IVC is patent. The urinary bladder is unremarkable. Ureteral jets are not demonstrated. Procedure Note Ankush Ferrara MD - 05/12/2023 PROCEDURE: US ABDOMEN COMPLETE DATE/TIME OF EXAM: 05/12/2023 8:24 AM CLINICAL INFORMATION: None relevant/not provided if blank. Indication: A02.0: Salmonella enteritis. R78.81: Bacteremia. FINDINGS: Images of the abdomen show an unremarkable liver. The pancreas is not imaged. The portal vein and hepatic veins are patent. The common duct is 4.5 mm. In the gallbladder, there is a mildly prominent wall but there are no stones or pericholecystic fluid seen. The right kidney is 14.0 x 5.3 x6.3 cm with a cortical thickness of 2.0 cm. The left kidney is 13.6 x 6.0 x6.1 cm with a cortical thickness of 2.0 cm. There is no mass, cyst or hydronephrosis. The spleen is not identified. The aorta is not aneurysmal. The IVC is patent. The urinary bladder is unremarkable. Ureteral jets are not demonstrated. IMPRESSION: Survey as outlined. Edited by Haily Mckinley on 05/12/2023 10:34 AM > Interpreting Provider: Ankush Ferrara MD on 05/12/2023 10:37 AM Daniel Croft MD US ORDERABLES * (ABNORMAL) LIPID PROFILE (05/12/2023 6:54 AM REFRACTORY MANAGER) Cholesterol 124 <200 mg/dL 05/12/2023 7:32 AM REFRACTORY MANAGER [facility] Triglycerides 195(H) <150 mg/dL 05/12/2023 7:32 AM [facility] HDL Cholesterol 23(L) >40 mg/dL 3 7:32 AM REFRACTORY MANAGER [facility] LDL Calculated 62 <130 mg/dL 05/12/2023 7:32 AM [facility] VLDL Calculated 39(H) <=30 mg/dL 3 7:32 AM [facility] Chol HDL Ratio 5.4(H) <4.5 05/12/2023 7:32 AM [facility] LDL/HDL Ratio 2.7 <5.0 05/12/2023 7:32 AM [facility] Blood BLOOD SPECIMEN / Unknown Lab Venipuncture / Unknown 05/12/2023 6:54 AM REFRACTORY MANAGER 05/12/2023 7:02 AM [facility] Daniel Croft MD LAB - CHEMISTRY ORDE [facility] Organization Address City/State/ZIP Co de Phone Number [facility] [address] [place] [address] * (ABNORMAL) URINALYSIS REFLEX TO MICROSCOPIC NO CULTURE (05/10/2023 1:46 PM REFRACTORY MANAGER) Color UA Straw Straw, Yellow 05/10/2023 1:59 PM REFRACTORY MANAGER [facility] Clarity UA Clear Clear 05/10/2023 1:59 PM REFRACTORY MANAGER [facility] Glucose UA Negative Negative 05/10/2023 1:59 PM REFRACTORY MANAGER [facility] Bilirubin UA Negative Negative 05/10/2023 1:59 PM REFRACTORY MANAGER [facility] Ketone UA Negative Negative 05/10/2023 1:59 PM REFRACTORY MANAGER [facility] Specific [place] UA 1.004(L) 1.005 - 1.030 05/10/2023 1:59 PM REFRACTORY MANAGER [facility] Blood UA Negative Negative 05/10/2023 1:59 PM REFRACTORY MANAGER [facility] pH UA 5.0 5.0 - 8.0 pH 05/10/2023 1:59 PM REFRACTORY MANAGER [facility] Protein UA Negative Negative 05/10/2023 1:59 PM REFRACTORY MANAGER [facility] Urobilinogen UA Negative Negative mg/dL 05/10/2023 1:59 PM REFRACTORY MANAGER [facility] Nitrite UA Negative Negative 05/10/2023 1:59 PM REFRACTORY MANAGER [facility] Leukocyte UA Trace(A) Negative 05/10/2023 1:59 PM REFRACTORY MANAGER [facility] Urine Microscopy Urine microscopy to follow 05/10/2023 1:59 PM REFRACTORY MANAGER [facility] Urine URINE SPECIMEN OBTAINED BY CLEAN CATCH PROCEDURE / Unknown Collection / Unknown 05/10/2023 1:46 PM REFRACTORY MANAGER 05/10/2023 1:53 PM REFRACTORY MANAGER Narrative [facility] - 05/10/2023 1:59 PM REFRACTORY MANAGER Daniel Croft MD LAB - URINALYSIS ORD ERABLES Performing Organization Address City/[facility]/ZIP Co de Phone Number [facility] [address] [place] [id number] * (ABNORMAL) URINE MICROSCOPIC ONLY (05/10/2023 1:46 PM REFRACTORY MANAGER) RBC UA 0-2 0 - 5 # /hpf 05/10/2023 2:00 PM REFRACTORY MANAGER [facility] WBC UA 6-10(A) 0 - 5 # /hpf 05/10/2023 2:00 PM REFRACTORY MANAGER [facility] Bacteria UA Trace(A) None Seen 05/10/2023 2:00 PM REFRACTORY MANAGER [facility] Squamous Epithelial Cells None Seen 0 - 5 /hpf 05/10/2023 2:00 PM [facility] Mucus UA 1+ /LPF 05/10/2023 2:00 PM REFRACTORY MANAGER [facility] Urine URINE SPECIMEN OBTAINED BY CLEAN CATCH PROCEDURE / Unknown Collection / Unknown 05/10/2023 1:46 PM REFRACTORY MANAGER 05/10/2023 1:53 PM REFRACTORY MANAGER Narrative [facility] - 05/10/2023 2:00 PM REFRACTORY MANAGER Daniel Croft MD LAB - URINALYSIS ORD ERABLES Performing Organization Address City/[facility] Co de Phone Number [facility] [address] [place] [address] * CULTURE URINE (05/10/2023 1:46 PM REFRACTORY MANAGER) Culture Urine No growth (<100 CFU/mL) ZANE 05/11/2023 4:56 PM REFRACTORY MANAGER [facility] Urine URINE SPECIMEN OBTAINED BY CLEAN CATCH PROCEDURE / Unknown Collection / Unknown 05/10/2023 1:46 PM REFRACTORY MANAGER 05/10/2023 1:53 PM REFRACTORY MANAGER Daniel Croft MD LAB - MICROBIOLOGY O RDERABLES [facility] [address] [place] [address], [facility] [phone] * ECHO RASTA COMPLETE (05/09/2023 2:00 PM REFRACTORY MANAGER) Pathologist [facility] BSA [id number] m2 [facility] CV [employer]I PACS Anatomical Region Laterality Modality Ultrasound Narrative 05/09/2023 4:49 PM REFRACTORY MANAGER Left ventricle: normal size and systolic function. EF 60%. Right ventricle: normal size and function Left Atrium: normal. Right Atrium: normal. Left atrial appendage: no thrombus. Normal emptying velocity. 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 No PFO was identified by color Doppler. Aortic Valve: Trileaflet structure, without stenosis or regurgitation. No vegetation. Mitral Valve: Normal structure with trace regurgitation. No vegetation. Tricuspid Valve: Normal structure with mild regurgitation. No vegetation. Pulmonic Valve: Normal structure without significant regurgitation. Not well seen, no vegetation. Pulmonary veins: 4 veins identified with normal Doppler flow pattern. Thoracic Aorta: Normal caliber and size without atherosclerotic plaque. No complications. No mass, vegetation or thrombus identified. Study Details A complete echo was performed using complete 2D, color flow Doppler and spectral Doppler. During the study the esophageal view was captured. The probe was inserted by the delivery stock clerk. There was no probe insertion difficulty. Sedation was managed by the anesthesiologist. Prior Study Prior TTE study available for comparison. Prior study date: 04/16/2023. Husam Kang MD ECHO CUPID * CCL SOLUTION STRATEGIST DIAGNOSTIC RASTA (05/09/2023 1:30 PM REFRACTORY MANAGER) Anatomical Region Laterality Modality X-Ray Angiograph y Narrative 05/09/2023 1:31 PM REFRACTORY MANAGER This case was auto-finalized by a system utility. The result for this RASTA exam is stored on the other RASTA procedure. Please see the other line in chart review for the result. Husam Kang MD CV CARDIAC CATH CUPI D PROCS * UMPFA-8-CHDYHHCHVVR FECES (05/07/2023 8:12 PM REFRACTORY MANAGER) Ikety-9-Jpepjti psin Feces 0.058 0.037 - 0.319 mg/g 05/14/2023 11:11 AM REFRACTORY MANAGER [facility] ([facility]) Stool STOOL SPECIMEN / Unknown Collection / Unknown 05/07/2023 8:12 PM REFRACTORY MANAGER 05/07/2023 8:19 PM REFRACTORY MANAGER Narrative [facility] ([facility]) - 05/14/2023 11:11 AM REFRACTORY MANAGER Test(s) 855207-Bktex-2-Uosdrxtxizr, Fecal, Qn results are labeled for research purposes only by the assay's soils technician. The performance characteristics of this assay have not been established by the soils technician. The result should not be used for treatment or for diagnostic purposes without confirmation of the diagnosis by another medically established diagnostic product or procedure. The performance characteristics were determined by [facility]. Performed at: 01 - [address] [id number] Dry Wall Plasterer: David Winter MD, Phone: [phone] Rickie Colon MD LAB - BODY FLUID O RDERABLES [facility] ([facility]) [address] [place] [address] * SODIUM FECES (05/07/2023 11:30 AM REFRACTORY MANAGER) Only the most recent of2 resultswithin the time period is included. Sodium Feces 55 mmol/L 05/10/2023 4:35 PM REFRACTORY MANAGER [facility] ([facility]) Comment: INTERPRETIVE INFORMATION: Fecal Sodium A reference interval has not been established for fecal specimens. This test was developed and its performance characteristics determined by [facility] [employer]. It has not been cleared or approved by the US Food and Drug Administration. This test was performed in a CLIA certified laboratory and is intended for clinical purposes. Performed By: [place] [address] Motor Coach Driver: Zane Kapoor MD, PhD CLIA Number: [id number] Stool STOOL SPECIMEN / Unknown Collection / Unknown 05/07/2023 11:30 AM REFRACTORY MANAGER 05/07/2023 11:45 AM REFRACTORY MANAGER Rickie Colon MD LAB - BODY FLUID O RDRUFINA Performing Organization Address [facility] de Phone Number [facility]) [address] [place] [address] * POTASSIUM FECES (05/07/2023 11:30 AM REFRACTORY MANAGER) Only the most recent of2 resultswithin the time period is included. Potassium Feces 22 mmol/L 4:37 PM REFRACTORY MANAGER [facility] ([facility]) Comment: INTERPRETIVE INFORMATION: Fecal Potassium A reference interval has not been established for fecal specimens. This test was developed and its performance characteristics determined by [facility]. It has not been cleared or approved by the US Food and Drug Administration. This test was performed in a CLIA certified laboratory and is intended for clinical purposes. Performed By: [place] [address] Motor Coach Driver: Zane Kapoor MD, PhD CLIA Number: [id number] Stool STOOL SPECIMEN / Unknown Collection / Unknown 05/07/2023 11:30 AM REFRACTORY MANAGER 05/07/2023 11:45 AM REFRACTORY MANAGER Rickie Colon MD LAB - BODY FLUID O TANIYA Performing Organization Address [facility] de Phone Number [address] * OSMOLALITY FECES (05/06/2023 5:32 PM REFRACTORY MANAGER) Only the most recent of2 resultswithin the time period is included. Osmolality Feces 268 Not Estab. mOsmol/kg 05/09/2023 8:17 AM REFRACTORY MANAGER [facility] ([facility]) Stool STOOL SPECIMEN / Unknown Collection / Unknown 05/06/2023 5:32 PM REFRACTORY MANAGER 05/06/2023 5:36 PM REFRACTORY MANAGER Narrative [facility] ([facility]) - 05/09/2023 8:17 AM REFRACTORY MANAGER Performed at: - [address] [id number] Dry Wall Plasterer: David Winter MD, Phone: [phone] Torrie Martin MD LAB - BODY F LUID ORDERABLES [facility] ([facility]) [address] [place] [address] * (ABNORMAL) INFLAMMATORY BOWEL DISEASE PANEL (05/06/2023 2:42 AM REFRACTORY MANAGER) Pathologist [facility] Saccharomyces cerevisiae Antibody IgG 37.4(H) 0.0 - 24.9 Units 05/09/2023 1:09 PM REFRACTORY MANAGER [facility] ([facility]) Comment: Negative <20.0 Equivocal 20.1 - 24.9 Positive >or= 25.0 Saccharomyces cerevisiae Antibody IgA 38.9(H) 0.0 - 24.9 Units 05/09/2023 1:09 PM REFRACTORY MANAGER [facility] ([facility]) Comment: Negative <20.0 Equivocal 20.1 - 24.9 Positive >or= 25.0 IgA and IgG antibody testing for S. cerevisiae is useful adjunct testing for differentiating Crohn's disease and ulcerative colitis. Close to 80% of Crohn's disease patients are positive for either IgA or IgG. In ulcerative colitis, less than 15% are positive for IgG and less than 2% are positive for IgA. Fewer than 5% are positive for either IgG or IgA antibody, and no healthy controls had antibody for both. Atypical p-ANCA Titer 1:40(H) Neg:<1:20 titer 05/09/2023 1:09 PM REFRACTORY MANAGER [facility] ([facility]) Comment: The atypical pANCA pattern has been observed in a significant percentage of patients with ulcerative colitis, primary sclerosing cholangitis and autoimmune hepatitis. ASCA+/PANCA- Suggestive of Crohn's disease ASCA-/PANCA+ Suggestive of Ulcerative colitis Blood BLOOD SPECIMEN / Unknown Lab Venipuncture / Unknown 05/06/2023 2:42 AM REFRACTORY MANAGER 05/06/2023 3:35 AM REFRACTORY MANAGER Narrative [facility] ([facility]) - 05/09/2023 1:09 PM REFRACTORY MANAGER Performed at: - [address] [id number] Dry Wall Plasterer: David Winter MD, Phone: [phone] Performed at: - [address] [id number] Dry Wall Plasterer: Jarod Webster PhD, Phone: [phone] Rickie Colon MD LAB - CHEMISTRY OR DERABLES Performing Organization Address [facility] Co de Phone Number [facility] ([facility]) [address] [place] [address] * FAT QUALITATIVE FECES RANDOM (05/03/2023 11:27 AM REFRACTORY MANAGER) [facility] Fats Neutral Normal 05/09/2023 11:07 PM REFRACTORY MANAGER [facility] ([facility]) Comment:Normal (<60 Droplets /HPF) Fats Total Normal 05/09/2023 11:07 PM REFRACTORY MANAGER [facility] ([facility]) Comment:Normal (<100 Droplet s/HPF) Stool STOOL SPECIMEN / Unknown Collection / Unknown 05/03/2023 11:27 AM REFRACTORY MANAGER 05/03/2023 11:38 AM REFRACTORY MANAGER Narrative [facility] ([facility]) - 05/09/2023 11:07 PM REFRACTORY MANAGER Test(s) 735104-Gvus, Neutral; [id number]-Enpd, Total was developed and its performance characteristics determined by [facility]. It has not been cleared or approved by the Food and Drug Administration. Performed at: - [address] [id number] Dry Wall Plasterer: Jarod Webster PhD, Phone: [phone] Surinder Chamberlain MD LAB - BODY FLUID ORDERABLES Performing Organization Address [facility]/State/ZIP Co de Phone Number [facility]) [address] [place] [address] * ENDOSCOPY, COLON, DIAGNOSTIC (05/01/2023 11:19 AM REFRACTORY MANAGER) Report Endoscopy POC _ Patient Name: Dev Amaya Procedure Date: 05/01/2023 11:19 AM Date of : 1970 Admit Type: Inpatient Age: 53 Gender: Male Ethnicity: Not or Race: White Attending MD: Rickie Colon MD, [id number] _ Procedure: Colonoscopy Indications: Clinically significant diarrhea [...] bowel preparation was evaluated using the BBPS (Haugan Bowel Preparation Scale) with scores of: Right [...] screening purposes. Procedure Code(s): --- Professional --- 06265, Colonoscopy, flexible; with biopsy, single or multiple --- Technical --- 46956, Colonoscopy, flexible; with biopsy, single or multiple Diagnosis Code(s): --- Professional --- K63.3, Ulcer of intestine R19.7, Diarrhea, unspecified --- Technical --- K63.3, Ulcer of intestine R19.7, Diarrhea, unspecified CPT copyright 2020 [employer]. All rights reserved. The codes documented in this report are preliminary and upon dial mounter review may be revised to meet current compliance requirements. ___ Rickie Colon MD 05/01/2023 12:47:16 PM Number of Addenda: 0 Note Initiated On: 05/01/2023 11:19 AM [facility] 05/01/2023 11:1 9 AM REFRACTORY MANAGER Narrative Procedure Note Rickie Colon MD - 05/01/2023 12:48 PM CST Colonoscopy done for diarrhea. Normal colon. Single small ulcer in theTI. Biopsies taken from TI and random colon biopsies. f/u path. Rickie Colon MD GI PROCEDURE ORDER [facility] * C DIFFICILE GDH AG + TOXIN A+B (04/29/2023 5:35 AM REFRACTORY MANAGER) C difficile GDH antigen & toxin A/B NEGATIVE NEGATIVE 04/29/2023 10:32 PM REFRACTORY MANAGER [facility] MI[facility] Stool STOOL SPECIMEN / Unknown Collection / Unknown 04/29/2023 5:35 AM REFRACTORY MANAGER 04/29/2023 7:46 AM REFRACTORY MANAGER Narrative [facility] - 04/29/2023 10:32 PM REFRACTORY MANAGER Negative for toxigenic C. difficile Rickie Colon MD LAB - MICROBIOLOGY ORDERABLES [facility] [address] [place], [place] [address], [facility] [phone] * (ABNORMAL) CALPROTECTIN FECAL (04/29/2023 5:35 AM REFRACTORY MANAGER) Calprotectin Fecal 192(H) 0 - 120 ug/g 05/01/2023 6:08 PM REFRACTORY MANAGER [facility] ([facility]) Comment: Concentration Interpretation Follow-Up < 5 - 50 ug/g Normal None >50 -120 ug/g Borderline Re-evaluate in 4-6 weeks >120 ug/g Abnormal Repeat as clinically indicated Stool STOOL SPECIMEN / Unknown Collection / Unknown 04/29/2023 5:35 AM REFRACTORY MANAGER 04/29/2023 5:46 AM REFRACTORY MANAGER Narrative [facility] ([facility]) - 05/01/2023 6:08 PM REFRACTORY MANAGER Performed at: [address] [place] [id number] Dry Wall Plasterer: David Winter MD, Phone: [phone] Suresh Kenney MD LAB - BODY FLUID OR DERABLES [facility] ([facility]) [address] [place] [address] * (ABNORMAL) HERPES SIMPLEX 1+2 AB IGG SPEC (04/29/2023 4:05 AM REFRACTORY MANAGER) Herpes Simplex Virus I Antibody IgG Type Specific Index 27.50(H) 0.00 - 0.90 index 04/30/2023 6:12 AM REFRACTORY MANAGER [facility] ([facility]) Comment: Negative <0.91 Equivocal 0.91 - 1.09 Positive >1.09 Note: Negative indicates no antibodies detected to HSV-1. Equivocal may suggest early infection. If clinically appropriate, retest at later date. Positive indicates antibodies detected to HSV-1. Herpes Simplex Virus 2 Antibody IgG Type Specific <0.91 0.00 - 0.90 index 04/30/2023 6:12 AM REFRACTORY MANAGER [facility] ([facility]) Comment: Negative <0.91 Equivocal 0.91 - 1.09 Positive >1.09 HSV-2 Antibody Interpretation: Negative indicates no detectable antibodies to HSV-2 were found. If recent exposure is suspected, retest in 4-6 weeks. Equivocal samples should be retested in 4-6 weeks. Positive indicates the presence of detectable IgG antibody to HSV-2. False positive results may occur. Repeat testing, or testing by a different method, may be indicated in some settings (e.g. patients with low likelihood of HSV infection). If clinically appropriate, retest 4-6 weeks later. Blood BLOOD SPECIMEN / Unknown Lab Venipuncture / Unknown 04/29/2023 4:05 AM REFRACTORY MANAGER 04/29/2023 5:41 AM REFRACTORY MANAGER Narrative [facility] ([facility]) - 04/30/2023 6:12 AM REFRACTORY MANAGER Performed at: [address] [place] [id number] Dry Wall Plasterer: Jarod Webster PhD, Phone: [phone] Rickie Colon MD LAB - SEROLOGY ORD ERABLES [facility] ([facility]) [address] [place] [address] * CYTOMEGALOVIRUS ANTIBODY IGG/IGM BLOOD (04/29/2023 4:05 AM REFRACTORY MANAGER) Pathologist [facility] Cytomegalovirus Antibody IgG <0.60 0.00 - 0.59 U/mL 04/30/2023 6:12 AM [facility] ([facility]) Comment: Negative <0.60 Equivocal 0.60 - 0.69 Positive >0.69 Cytomegalovirus Antibody IgM <30.0 0.0 - 29.9 AU/mL 04/30/2023 6:12 AM [facility] ([facility]) Comment: Negative <30.0 Equivocal 30.0 - 34.9 Positive >34.9 A positive result is generally indicative of acute infection, reactivation or persistent IgM production. Blood BLOOD SPECIMEN / Unknown Lab Venipuncture / Unknown 04/29/2023 4:05 AM REFRACTORY MANAGER 04/29/2023 5:41 AM REFRACTORY MANAGER Narrative [facility] - 04/30/2023 6:12 AM REFRACTORY MANAGER Performed at: [address] [place] [id number] Dry Wall Plasterer: Jarod Webster PhD, Phone: [phone] Rickie Colon MD LAB - CHEMISTRY OR DERABLES Performing Organization Address City/[facility]/ZIP Co de Phone Number [facility] ([facility]) [address] [place] [address] * (ABNORMAL) GLUCOSE - POINT OF CARE (04/25/2023 8:26 PM CDT) [facility] Glucose WB/POC 129(H) 70 - 106 mg/dL 04/25/2023 8:36 PM CDT [facility] Specimen Type Cap Fingerstick 2022 8:36 PM CDT [facility] Blood BLOOD SPECIMEN / Unknown 04/25/2023 8:26 PM CDT 04/25/2023 8:36 PM CDT Daniel Croft MD LAB - POINT OF CARE ORDERABLES Performing Organization Address City/[facility]/ZIP Co de Phone Number [facility] [address] [place] [address] * ECHO COMPLETE W CONTRAST (04/16/2023 12:06 PM CDT) [facility] BSA 2.33549 m2 SSM CV FUJ I PACS LV biplane EF 71 52 - 72 % SSM CV FUJI PACS LV A2C EF 72 48 - 76 % SSM CV FUJ I PACS LV A4C EF 71 46 - 74 % SSM CV FUJ I PACS LV stroke vol BP 54.5 mL SSM CV FUJI PACS LV stroke vol BP index 25.5 mL/m2 SSM CV FUJI PACS LVOT stroke vol 49.93 mL SSM CV FUJI PACS LVOT stroke vol index 23.33 mL/m2 SSM CV FUJI PACS LV stroke vol 2D teich 26.306 ml SSM CV FUJI PACS LV Stroke Index 2D Teich 12.29 mL/m2 SSM CV FUJI PACS LV stroke vol index A4C MOD 49.5 ml/m2 SSM CV FUJI PACS LVIDd 3.08 4.2 - 5.8 cm SSM CV FUJI PACS LVIDs 1.89 2.5 - 4.0 cm SSM CV FUJI PACS IVSd 2D 1.46 0.6 - 1 cm SSM CV FUJI PACS LVPWd 1.39 0.6 - 1 cm SSM CV FUJI PACS Fractional Shortening 2D 39 28 - 44 % SSM CV FUJI PACS LV ESV BP 22.4 21 - 61 mL SSM CV FUJI PACS LV ESV index BP 10.5 11 - 31 mL/m2 SSM CV FUJI PACS LV ESV A2C 20.7 15 - 75 mL SSM CV FUJI PACS LV ESV index A2C 9.67 9 - 37 mL/m2 SSM CV FUJI PACS LV EDV BP 76.9 62 - 150 mL SSM CV FUJI PACS LV ESV A4C 20 22 - 78 mL SSM CV FUJI PACS LV ESV index A4C 9.34 12 - 40 mL/m2 SSM CV FUJI PACS LV EDV index BP 35.9 34 - 74 mL/m2 SSM CV FUJI PACS LV EDV A2C 71.3 59 - 175 mL SSM CV FUJI PACS LV EDV index A2C 33.31 31 - 87 mL/m2 SSM CV FUJI PACS LV EDV A4C 70.2 mL SSM CV FU JI PACS LV ESV 2D 11.016 21 - 61 mL SSM CV FUJI PACS LV EDV index A4C 32.80 37 - 93 mL/m2 SSM CV FUJI PACS LV ESV index 2D 5.15 11 - 31 mL/m2 SSM CV FUJI PACS LV EDV 2D 37.322 62 - 150 mL SSM CV FUJI PACS LV EDV index 2D 17.44 34 - 74 mL/m2 SSM CV FUJI PACS LV EDV A/L A4C 72.729 mL SSM C V FUJI PACS LV EDV index A/L A4C 33.98 mL/m2 SSM CV FUJI PACS LVOT diam 2.0 cm SSM CV FUJ I PACS LVOT area 3.14 cm2 SSM CV FUJ I PACS LV RWT 0.903 SSM CV FUJ I PACS LV Eaton A2C 7.19 cm SSM CV F UJI PACS LV [place] A4C 8.52 cm SSM CV F UJI PACS LV Area [place]aton A2C 24.7 cm2 SSM CV FUJI PACS LV Area [place] A4C 27 cm2 SSM CV FUJI PACS IVS/LVPW 1.05 SSM CV FUJ I PACS LV mass 2D 149.786 96 - 200 g SSM CV FUJI PACS LV mass index 2D 69.99 50 - 102 g/m2 SSM CV FUJI PACS MV E pk eliezer 41.7 cm/s SSM CV F UJI PACS MV avg E/e' ratio 5.47 SS M CV FUJI PACS MV A pk eliezer 74.7 cm/s SSM CV F UJI PACS MV E A ratio 0.56 SSM CV FUJI PACS MV E' lateral eliezer 8.27 cm/s SS M CV FUJI PACS MV DT 153 ms SSM CV FUJ I PACS MV E' septal eliezer 7.07 cm/s SSM CV FUJI PACS MV E/e' septal 5.898 SSM C V FUJI PACS MV E/e' lateral 5.042 SSM CV FUJI PACS LA vol BP 22.4 mL SSM CV FUJ I PACS LVOT pk eliezer 1.36 m/s SSM CV F UJI PACS LVOT mn eliezer 0.95 m/s SSM CV F UJI PACS LVOT mn grad 4.0 mmHg SSM CV FUJI PACS LA vol index 10.5 16 - 34 mL/m2 SSM CV FUJI PACS LA area A4C 11.6 20 cm2 SSM CV F UJI PACS LA size 2.8 3.0 - 4.0 cm SSM CV FUJI PACS LA vol BP A-L 23.124 mL SSM CV FUJI PACS TV S' eliezer 16 SSM CV FUJ I PACS TAPSE 1.89 1.7 cm SSM CV FUJ I PACS AV mn grad 5 mmHg SSM CV FU JI PACS AV pk grad 9 mmHg SSM CV FU JI PACS AV mn eliezer 1.08 m/s SSM CV FUJ I PACS AV pk eliezer 1.48 m/s SSM CV FUJ I PACS AV VTI 14.7 cm SSM CV FUJ I PACS LVOT pk grad 7 mmHg SSM CV FUJI PACS LVOT VTI 15.9 cm SSM CV FUJ I PACS AV area cont VTI 3.4 cm2 SSM CV FUJI PACS AV area pk eliezer 2.9 cm2 SSM C V FUJI PACS AV Doppler eliezer index pk eliezer 0.919 SSM CV FUJI PACS Dimensionless Index 1.082 SSM CV FUJI PACS MV PHT 45 ms SSM CV FUJ I PACS MV area PHT 4.89 cm2 SSM CV F UJI PACS MV decel slope 272 cm/s2 SSM C V FUJI PACS PV pk eliezer 117 cm/s SSM CV FUJ I PACS PV pk grad 5 mmHg SSM CV FU JI PACS Sinus of Valsalva 2.70 cm SS M CV FUJI PACS Sinus of valsalva index 1.26 cm/m2 SSM CV FUJI PACS LA ESV INDEX (BP) 10.47 ml/m2 SS M CV FUJI PACS LA ESV A4C MOD Index 9 ml/m2 SSM CV FUJI PACS LA ESV A2C MOD Index 12 ml/m2 SSM CV FUJI PACS [id number] 6.46 cm SSM CV FUJ I PACS [id number] 5.27 cm SSM CV FUJ I PACS Ao Root Diam Index (2D) 1.262 cm SSM CV FUJI PACS LA AREA (2C) 12.5 SSM CV FUJI PACS LVIDs index 0.88 1.3 - 2.1 cm/m2 SSM CV FUJI PACS LV LVIDd index 1.44 2.2 - 3.0 cm/m2 SSM CV FUJI PACS LA area A2C 12.5 20 cm2 SSM CV F UJI PACS Anatomical Region Laterality Modality Ultrasound Narrative 04/16/2023 2:00 PM CDT Hyperdynamic left ventricular systolic function. EF by 2D Pickard biplane is 71%. Normal diastolic function. Right ventricle size is normal. Normal systolic function. Unable to estimate the pulmonary artery systolic pressure due to lack of tricuspid regurgitation. No significatn valvular abnormalities. Left Ventricle Left ventricle size is normal. Increased wall thickness. Findings consistent with concentric remodeling. Hyperdynamic systolic function. EF by 2D [place]ard biplane is 71%. Normal wall motion. Normal diastolic function. Right Ventricle Right ventricle size is normal. Normal systolic function. Left Atrium Left atrium size is normal. Left atrium volume index is 10.5 mL/m2. Right Atrium Right atrium size is normal. IVC/SVC IVC diameter is less than or equal to 21 mm and decreases greater than 50% during inspiration; therefore the estimated right atrial pressure is normal (~3 mmHg). Mitral Valve Valve structure is normal. Mild mitral annular calcification. No restricted motion. No regurgitation. No stenosis. Tricuspid Valve Valve structure is normal. No restricted motion. Trace regurgitation. Unable to estimate the pulmonary artery systolic pressure due to lack of tricuspid regurgitation. No stenosis. Aortic Valve Valve structure is trileaflet. Mildly calcified leaflets. No restricted motion. Mild regurgitation. No stenosis. Pulmonic Valve Valve structure is normal. No restricted motion. No regurgitation. No stenosis. Ascending Aorta Normal sized sinus of Valsalva (aortic root) and ascending aorta. Pericardium No pericardial effusion. Study Details A complete 2D, color Doppler, spectral Doppler and M-mode echocardiogram was performed. The apical, parasternal and suprasternal views were obtained. Definity ultrasound enhancing agent used. Technical difficulties due to patient supine position and patient positioning. Prior Study No prior study available for comparison. Procedure Note Kalin Carroll MD - 04/16/2023 Hyperdynamic left ventricular systolic function. EF by 2D Simpsonbiplane is 71%. Normal diastolic function. Right ventricle size is normal. Normal systolic function. Unable to estimate the pulmonary artery systolic pressure due to lackof tricuspid regurgitation. No significatn valvular abnormalities. Uzma Bazzi MD ECHO CUPID * (ABNORMAL) LACTIC ACID BLOOD (04/16/2023 6:33 AM CDT) Only the most recent of3 resultswithin the time period is included. Lactic Acid 2.2(H) <=2 mmol/L 04/16/2023 7:17 AM CDT [facility] Blood BLOOD SPECIMEN / Unknown Lab Venipuncture / Unknown 04/16/2023 6:33 AM CDT 04/16/2023 6:54 AM CDT Uzma Bazzi MD LAB - CHEMISTRY ORDE FELISAMICHAEL Performing Organization Address [facility]/ZIP Co de Phone Number [facility] [address] [place] [address] * HIV-1 HIV-2 ANTIBODY + HIV P24 AG PANEL (04/15/2023 8:31 PM CDT) HIV1/2 Ab + P24 Ag Non Reactive Non Reactive 04/15/2023 9:16 PM CDT [facility] Blood BLOOD SPECIMEN / Unknown Lab Venipuncture / Unknown 04/15/2023 8:31 PM CDT 04/15/2023 8:36 PM CDT Narrative [facility] - 04/15/2023 9:16 PM CDT No Laboratory evidence of HIV infection. Uzma Bazzi MD LAB - CHEMISTRY BRYON FELISAMICHAEL Performing Organization Address [facility] Co de Phone Number [facility] [address] [place] [address] * US ABDOMEN LIMITED (04/15/2023 11:15 AM CDT) Anatomical Region Laterality Modality Abdomen Ultrasound 04/15/2023 11:3 6 AM CDT Impressions 04/15/2023 11:42 AM CDT IMPRESSION: Fatty infiltration of the liver. Thickened gallbladder wall with sludge in the gallbladder and pericholecystic fluid. However, the patient was not tender over the gallbladder. 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 The pancreas is unremarkable. There is fatty infiltration of the liver. There is no liver mass. There is no intrahepatic biliary dilatation. There is hepatopedal flow within the portal vein. The hepatic veins are patent. Common bile duct measured 6 mm. There are no ductal stones. There is sludge within the gallbladder. The gallbladder wall is thickened. There is a small amount of pericholecystic fluid. The patient was not tender over the gallbladder. The right kidney is unremarkable. 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 The pancreas is unremarkable. There is fatty infiltration of the liver. There is no liver mass.There is no intrahepatic biliary dilatation. There is hepatopedal flowwithin the portal vein. The hepatic veins are patent. Common bile ductmeasured 6 mm. There are no ductal stones. There is sludge within the gallbladder. The gallbladder wall isthickened. There is a small amount of pericholecystic fluid. The patient was not tender over the gallbladder. The right kidney is unremarkable. IMPRESSION: Fatty infiltration of the liver. Thickened gallbladder wall with sludge in the gallbladder and pericholecystic fluid. However, the patient was not tender over the gallbladder. > Interpreting Provider: Yonas Caludio MD on 04/15/2023 11:42 AM Cal Boo DO US ORDERABLES * HEPATITIS B SURFACE ANTIBODY QUANT (04/15/2023 9:14 AM CDT) Hepatitis B Virus Surface Antibody Quantitative 0.12 0.00 - 7.99 mIU/ml 04/15/2023 11:14 AM CDT [facility] HBsAb Non Reactive Non Reactive 04/15/2023 11:14 AM CDT [facility] Blood BLOOD SPECIMEN / Unknown Lab Venipuncture / Unknown 04/15/2023 9:14 AM CDT 04/15/2023 10:28 AM CDT Narrative [facility] - 04/15/2023 11:14 AM CDT Individual is considered not immune to HBV infection Surinder Chamberlain MD LAB - SEROLOGY OR DERABLES [facility] [address] [place] [id number] * HEPATITIS B SURFACE ANTIGEN W RFLX CONFIRMATION (04/15/2023 9:14 AM CDT) Only the most recent of3 resultswithin the time period is included. HBsAg Non Reactive Non Reactive 04/15/2023 11:14 AM CDT [facility] Blood BLOOD SPECIMEN / Unknown Lab Venipuncture / Unknown 04/15/2023 9:14 AM CDT 04/15/2023 10:28 AM CDT Surinder Chamberlain MD LAB - CHEMISTRY O RDERABLES [facility] [address] [place] [address] * XR PELVIS W BILAT HIP 2VW (06/19/2018 10:50 AM REFRACTORY MANAGER) Anatomical Region Laterality Modality Pelvis, Lower Extremity Radiogra phic Imaging 06/19/2018 11:5 4 AM REFRACTORY MANAGER Impressions 06/19/2018 11:54 AM REFRACTORY MANAGER Mild degenerative changes. Reading Radiologist: Linda Lanier MD on 06/19/2018 at 11:54 AM Narrative 06/19/2018 11:54 AM REFRACTORY MANAGER AP pelvis bilateral hips 2 views each INDICATION: Pelvic pain hip pain rheumatoid arthritis AP view of the pelvis, 2 views of the right hip 2 views of the left hip are provided. There is mild degenerative joint space narrowing. There is no fracture nor focal erosion. No destructive lesion is noted. Sacroiliac joints are degenerative as well. Procedure Note Linda Lanier MD - 06/19/2018 AP pelvis bilateral hips 2 views each INDICATION: Pelvic pain hip pain rheumatoid arthritis AP view of the pelvis, 2 views of the right hip 2 views of the left hip are provided. There is mild degenerative joint space narrowing. There is no fracture nor focal erosion. No destructive lesion is noted. Sacroiliac joints are degenerative as well. IMPRESSION Mild degenerative changes. Reading Radiologist: Linda Lanier MD on 06/19/2018 at 11:54 AM Gabe Luna MD DIAGNOSTIC IMAGING O RDERABLES * XR LUMBAR SPINE 2 OR 3VW (06/19/2018 10:50 AM REFRACTORY MANAGER) Anatomical Region Laterality Modality Spine Radiographic Cherelle ging 06/19/2018 11:5 2 AM REFRACTORY MANAGER Impressions 06/19/2018 11:53 AM REFRACTORY MANAGER Degenerative disc disease. Reading Radiologist: Linda Lanier MD on 06/19/2018 at 11:53 AM Narrative 06/19/2018 11:53 AM REFRACTORY MANAGER Lumbar spine 2 views PA and lateral INDICATION: Rheumatoid arthritis PA and lateral views of lumbosacral spine are provided and show robust anterior osteophytes. No fracture nor compression nor destructive lesion is noted. Procedure Note Linda Lanier MD - 06/19/2018 Lumbar spine 2 views PA and lateral INDICATION: Rheumatoid arthritis PA and lateral views of lumbosacral spine are provided and show robust anterior osteophytes. No fracture nor compression nor destructive lesion is noted. IMPRESSION Degenerative disc disease. Reading Radiologist: Linda Lanier MD on 06/19/2018 at 11:53 AM Gabe Luna MD DIAGNOSTIC IMAGING O RDERABLES * URINALYSIS MICROSCOPIC ONLY REFLEXED (04/29/2018 8:26 AM REFRACTORY MANAGER) Only the most recent of5 resultswithin the time period is included. WBC UA 0-5 0 - 5 /hpf [facility] INSURANCE BILL RBC UA None seen 0 - 2 /hpf [facility] INSURANCE BILL Epithelial Cells (non renal) 0-10 0 - 10 /hpf [facility] INSURANCE BILL Epithelial Cells (renal) NOT NEEDED [facility] INSURANCE BILL Comment:Ancillary determined the test is not needed Casts ua NOT NEEDED [facility] INSURANCE BILL Comment:Ancillary determined the test is not needed Casts UA NOT NEEDED [facility] INSURANCE BILL Comment:Ancillary determined the test is not needed Crystals UA NOT NEEDED [facility] INSURANCE BILL Comment:Ancillary determined the test is not needed Crystals UA NOT NEEDED [facility] INSURANCE BILL Comment:Ancillary determined the test is not needed Mucus UA NOT NEEDED [facility] INSURANCE BILL Comment:Ancillary determined the test is not needed Bacteria UA None seen None seen/Few [facility] INSURANCE BILL Yeast UA NOT NEEDED [facility] INSURANCE BILL Comment:Ancillary determined the test is not needed Trichomonas UA NOT NEEDED [facility] INSURANCE BILL Comment:Ancillary determined the test is not needed Comment Urine NOT NEEDED [facility] INSURANCE BILL Comment: FASTING Ancillary determined the test is not needed 04/29/2018 8:26 AM REFRACTORY MANAGER 04/29/2018 Narrative [facility] INSURANCE BILL - 04/30/2018 7:17 AM REFRACTORY MANAGER A courtesy copy of this report has been sent to the patient. Resulting Agency Comment [facility] [address] [facility] [phone] Kayla Cardona MD LAB - URINALYS IS ORDERABLES [facility] INSURANCE BILL [address] [place] [address] * URINALYSIS REFLEX MICROSCOPIC REFLEX CULTURE (04/29/2018 8:26 AM REFRACTORY MANAGER) Only the most recent of3 resultswithin the time period is included. Specific [place] UA 1.020 1.005 - 1.030 [facility] INSURANCE BILL pH UA 7.0 5.0 - 7.5 [facility] INSURANCE BILL Color UA Yellow Yellow [facility] INSURANCE BILL Appearance Clear Clear [facility] INSURANCE BILL Leukocyte UA Negative Negative [facility] INSURANCE BILL Protein UA Negative Negative/Tra ce [facility] INSURANCE BILL Glucose UA Negative Negative [facility] INSURANCE BILL Ketone UA Negative Negative [facility] INSURANCE BILL Occult Blood Urine Negative Negative [facility] INSURANCE BILL Bilirubin UA Negative Negative [facility] INSURANCE BILL Urobilinogen 0.2 0.2 - 1.0 mg/dL [facility] INSURANCE BILL Nitrite UA Negative Negative [facility] INSURANCE BILL Microscopic Examination Urine [facility] INSURANCE BILL Comment:Microscopic follows if indicated. Microscopic Examination Urine See below: [facility] INSURANCE BILL Comment: Microscopic was indicated and was performed. FASTING Urinalysis Reflex [facility] INSURANCE BILL Comment: This specimen will not reflex to a Urine Culture. FASTING 04/29/2018 8:26 AM REFRACTORY MANAGER 04/29/2018 Narrative [facility] INSURANCE BILL - 04/30/2018 7:17 AM REFRACTORY MANAGER A courtesy copy of this report has been sent to the patient. Resulting Agency Comment [facility] [address] [facility] [phone] Kayla Cardona MD LAB - URINALYS IS ORDERABLES Performing Organization Address [facility] Co de Phone Number [facility] INSURANCE BILL [address] [place] [address] * IMAGING/RADIOLOGY/XRAY RESULTS ORDER (01/21/2018 12:56 PM CDT) Anatomical Region Laterality Modality Other Narrative 01/21/2018 12:56 PM CDT Ordered by an unspecified provider. Scanned Document IMAGING * LAB RESULTS ORDER (11/20/2017 11:09 AM CDT) Narrative 11/20/2017 11:09 AM CDT Ordered by an unspecified provider. Scanned Document LAB - THERAPEUTIC DR GIOVANNI MONITORING ORDERABLES * LDH BLOOD (11/11/2017 8:34 AM CDT) Pathologist [facility] LDH 202 121 - 224 IU/L [facility] INSURANCE BILL Comment:FASTING Blood BLOOD SPECIMEN / Unknown 11/11/2017 8:34 AM CDT 11/11/2017 Narrative Resulting Agency Comment [facility] [address] [facility] [phone] Kayla Cardona MD LAB - CHEMISTR Y ORDERABLES Performing Organization Address [facility] Co de Phone Number [facility] INSURANCE BILL [address] [place] [address] * DNA ANTIBODY DS CRITHIDIA IFA (09/23/2017 3:56 PM CDT) Only the most recent of2 resultswithin the time period is included. dsDNA Antibody Screen Crithidia <1:10 titer [facility] INSURANCE BILL Comment: Reference Range: Negative: < 1:10 titer Positive: => 1:10 titer Double-stranded DNA (dsDNA) antibodies of the IgG class are an accepted criterion ([employer]) for the diagnosis of systemic lupus erythematosus (SLE). DsDNA antibodies detected by Crithidia method is highly specific (over 95%) for SLE. The sensitivity for this method is approximately 70-85% of patients with untreated SLE, and is rarely detectable in other connective tissue diseases. Weakly-positive results caused by low-avidity antibodies to dsDNA are not specific for SLE and can occur in a variety of diseases. The levels of IgG antibodies to dsDNA in serum are known to fluctuate with disease activity in lupus erythematous, often increasing prior to an increase in inflammation and decreasing in response to therapy. *This test has been developed and performance parameters have been validated by [employer] This test has not been approved by the U.S. Food and Drug Administration (FDA); however, FDA approval is not required for clinical use. It is not intended that clinical diagnosis and patient management decisions be made using these results alone. This test has been validated using serum samples. The soils technician has not determined the efficacy of this test when performed on CSF, plasma, joint or pleural fluid specimens. The performance characteristics of this test were determined by [employer] 09/23/2017 3:56 PM CDT 09/23/2017 Narrative Resulting Agency Comment [facility] [address] [place] [phone] Kayla Cardona MD LAB - SEROLOGY ORDERABLES [facility] INSURANCE BILL [address] [place] [address] * URINALYSIS W/MICROSCOPIC NO CULTURE (09/23/2017 3:56 PM CDT) Only the most recent of2 resultswithin the time period is included. Specific [place] UA 1.021 1.005 - 1.030 [facility] INSURANCE BILL pH UA 6.5 5.0 - 7.5 [facility] INSURANCE BILL Color UA Yellow Yellow [facility] INSURANCE BILL Appearance Clear Clear [facility] INSURANCE BILL Leukocyte UA Negative Negative [facility] INSURANCE BILL Protein UA Negative Negative/Tra ce [facility] INSURANCE BILL Glucose UA Negative Negative [facility] INSURANCE BILL Ketone UA Negative Negative [facility] INSURANCE BILL Occult Blood Urine Negative Negative [facility] INSURANCE BILL Bilirubin UA Negative Negative [facility] INSURANCE BILL Urobilinogen 0.2 0.2 - 1.0 mg/dL [facility] INSURANCE BILL Nitrite UA Negative Negative [facility] INSURANCE BILL Microscopic Examination Urine [facility] INSURANCE BILL Comment:Microscopic follows if indicated. Microscopic Examination Urine See below: [facility] INSURANCE BILL Comment:Microscopic was alejandro cated and was performed. 09/23/2017 3:56 PM CDT 09/23/2017 Narrative Resulting Agency Comment [facility] [address] [facility] [phone] Kayla Cardona MD LAB - URINALYS IS ORDERABLES Performing Organization Address [facility] Co de Phone Number [facility] INSURANCE BILL [address] [place] [address] * CHROMATIN ANTIBODY (09/23/2017 3:56 PM CDT) Only the most recent of2 resultswithin the time period is included. Antichromatin Antibodies <0.2 0.0 - 0.9 AI [facility] INSURANCE BILL 09/23/2017 3:56 PM CDT 09/23/2017 Narrative Resulting Agency Comment [facility] [address] [facility] [phone] Kayla Cardona MD LAB - SEROLOGY ORDERABLES Performing Organization Address [facility] Co de Phone Number [facility] INSURANCE BILL [address] [place] [address] * CYCLIC CITRUL PEPTIDE ANTIBODY IGG/IGA (CCP) (09/23/2017 3:56 PM CDT) CCP Antibodies IgG/IgA 3 0 - 19 units [facility] INSURANCE BILL Comment: Negative <20 Weak positive 20 - 39 Moderate positive 40 - 59 Strong positive >59 09/23/2017 3:56 PM CDT 09/23/2017 Narrative Resulting Agency Comment [facility] [phone] Kayla Cardona MD LAB - SEROLOGY ORDERABLES Performing Organization Address City/[facility] Co de Phone Number [facility] INSURANCE BILL [address] [place] [address] * QUANTIFERON IN TUBE REFLEXED (09/23/2017 3:56 PM CDT) QuantiFERON TB Gold Negative Negative [facility] INSURANCE BILL QuantiFERON Criteria [facility] INSURANCE BILL Comment: To be considered positive a specimen should have a TB Ag minus Nil value greater than or equal to 0.35 IU/mL and in addition the TB Ag minus Nil value must be greater than or equal to 25% of the Nil value. There may be insufficient information in these values to differentiate between some negative and some indeterminate test values. QuantiFERON TB Ag Value 0.07 IU/mL [facility] INSURANCE BILL QuantiFERON Nil Value 0.02 IU/mL [facility] INSURANCE BILL QuantiFERON Mitogen Value >10.00 IU/mL [facility] INSURANCE BILL QFT TB Ag Minus Nil Value IU/mL 0.05 IU/mL [facility] INSURANCE BILL Interpretation [facility] INSURANCE BILL Comment: The QuantiFERON TB Gold (in Tube) assay is intended for use as an aid in the diagnosis of TB infection. Negative results suggest that there is no TB infection. In patients with high suspicion of exposure, a negative test should be repeated. A positive test indicates infection with Mycobacterium tuberculosis. Among individuals without tuberculosis infection, a positive test may be due to exposure to M. kansasii, M. szulgai or M. marinum. On the Internet, go to cdc.gov/tb for further details. 09/23/2017 3:56 PM CDT 09/23/2017 Narrative Resulting Agency Comment [facility] [address] [phone] Kayla Cardona MD LAB - CHEMISTR Y ORDERABLES [facility] INSURANCE BILL [address] [place] [address] * URIC ACID BLOOD (09/23/2017 3:56 PM CDT) Only the most recent of2 resultswithin the time period is included. Uric Acid 7.2 3.7 - 8.6 mg/dL [facility] INSURANCE BILL Comment:Therapeutic target f or gout patients: <6.0 09/23/2017 3:56 PM CDT 09/23/2017 Narrative Resulting Agency Comment [facility] [address] [facility] [phone] Kayla Cardona MD LAB - CHEMISTR Y ORDERABLES Performing Organization Address City/[facility]/ZIP Co de Phone Number [facility] INSURANCE BILL [address] [place] [address] * OLIVARES (SM) ANTIBODY AFIA (09/23/2017 3:56 PM CDT) Only the most recent of2 resultswithin the time period is included. Olivares (AFIA) Antibody <0.2 0.0 - 0.9 AI [facility] INSURANCE BILL 09/23/2017 3:56 PM CDT 09/23/2017 Narrative Resulting Agency Comment [facility] [address] [facility] [phone] Kayla Cardona MD LAB - CHEMISTR Y ORDERABLES Performing Organization Address [facility] Co de Phone Number [facility] INSURANCE BILL [address] [place] [address] * FERTILIZER PROCESSING SUPERVISOR ANTIBODY (09/23/2017 3:56 PM CDT) Only the most recent of2 resultswithin the time period is included. FERTILIZER PROCESSING SUPERVISOR Antibody 0.5 0.0 - 0.9 AI [facility] INSURANCE BILL 09/23/2017 3:56 PM CDT 09/23/2017 Narrative Resulting Agency Comment [address] [phone] Kayla Cardona MD LAB - CHEMISTR Y ORDERABLES Performing Organization Address City/[facility] Co de Phone Number [facility] INSURANCE BILL [address] [place] [address] * RHEUMATOID FACTOR BLOOD QUANTITATIVE (09/23/2017 3:56 PM CDT) Only the most recent of2 resultswithin the time period is included. Rheumatoid Factor <10.0 0.0 - 13.9 IU/mL [facility] INSURANCE BILL 09/23/2017 3:56 PM CDT 09/23/2017 Narrative Resulting Agency Comment [facility] [address] [facility] [phone] Kayla Cardona MD LAB - CHEMISTR Y ORDERABLES Performing Organization Address City/[facility]/ZIP Co de Phone Number [facility] INSURANCE BILL [address] [place] [address] * MARIEL BLOOD SCREEN W/REFLEX TITER (09/23/2017 3:56 PM CDT) Only the most recent of2 resultswithin the time period is included. MARIEL Negative [facility] INSURANCE BILL Comment: Negative <1:80 Borderline 1:80 Positive >1:80 Serum is slightly lipemic. 09/23/2017 3:56 PM CDT 09/23/2017 Narrative Resulting Agency Comment [facility] [address] [facility] [address] [phone] Kayla Cardona MD LAB - CHEMISTR Y ORDERABLES Performing Organization Address [facility] Phone Number [facility] INSURANCE BILL [address] [place] [address] * SS-A/SS-B (SJOGRENS) ANTIBODY PANEL (09/23/2017 3:56 PM CDT) Only the most recent of2 resultswithin the time period is included. Sjogren's Antibodies (SSA) <0.2 0.0 - 0.9 AI [facility] INSURANCE BILL Sjogren's Antibodies (SSB) <0.2 0.0 - 0.9 AI [facility] INSURANCE BILL 09/23/2017 3:56 PM CDT 09/23/2017 Narrative Resulting Agency Comment [facility] [address] [facility] [address] [phone] Kayla Cardona MD LAB - CHEMISTR Y ORDERABLES Performing Organization Address [facility] Co de Phone Number [facility] INSURANCE BILL [address] [place] [address] * HLA TYPING B27 (09/23/2017 3:56 PM CDT) Only the most recent of2 resultswithin the time period is included. HLA-B27 Negative [facility] INSURANCE BILL Comment: HLA-B*27 Negative B27 allele interpretation for all loci based on IMGT/HLA database version 3.27 This test was developed and its performance characteristics determined by [facility]. It has not been cleared or approved by the Food and Drug Administration. [facility] CLIA ID Number [id number] . This test was performed using PCR (Polymerase Chain Reaction)/SSOP (Sequence Specific Oligonucleotide Probes) technique. SBT (Sequence Based Typing) and/or SSP (Sequence Specific Primers) may be used as supplemental methods when necessary. Please contact [facility] Customer Service at if you have any questions. . Director of HLA Laboratory Dr Gerardo Sutton, PhD 09/23/2017 3:56 PM CDT 09/23/2017 Narrative Resulting Agency Comment [facility] [address] [facility] [phone] Kayla Cardona MD LAB - CHEMISTR Y ORDERABLES Performing Organization Address [facility] de Phone Number [facility] INSURANCE BILL [address] [place] [address] * HISTONE ANTIBODY (09/23/2017 3:56 PM CDT) Only the most recent of2 resultswithin the time period is included. Anti-Histone Antibody 0.3 0.0 - 0.9 Units [facility] INSURANCE BILL Comment: Negative <1.0 Weak Positive 1.0 - 1.5 Moderate Positive 1.6 - 2.5 Strong Positive >2.5 09/23/2017 3:56 PM CDT 09/23/2017 Narrative Resulting Agency Comment [facility] [address] [facility] [phone] Kayla Cardona MD LAB - CHEMISTR Y ORDERABLES Performing Organization Address City/[facility] Co de Phone Number [facility] INSURANCE BILL [address] [place] [address] * SCLERODERMA 70 (SCL) ANTIBODY (09/23/2017 3:56 PM CDT) Only the most recent of2 resultswithin the time period is included. Antiscleroderma -70 Antibody <0.2 0.0 - 0.9 AI [facility] 09/23/2017 3:56 PM CDT 09/23/2017 Narrative Resulting Agency Comment [facility] [address] [phone] Kayla Cardona MD LAB - CHEMISTR Y ORDERABLES Performing Organization Address [facility] Co de Phone Number [facility] INSURANCE BILL [address] [place] [address] * VITAMIN D 25-HYDROXY (09/23/2017 3:56 PM CDT) Only the most recent of2 resultswithin the time period is included. Vitamin D, 25 Hydroxy 48.9 30.0 - 100.0 ng/mL [facility] Comment: Vitamin D deficiency has been defined by the [place] of Medicine and an Endocrine Society practice guideline as a level of serum 25-OH vitamin D less than 20 ng/mL (1,2). The Endocrine Society went on to further define vitamin D insufficiency as a level between 21 and 29 ng/mL (2). 1. IOM ([place] of Medicine). 2010. Dietary reference intakes for calcium and D. [place]: The National Academies Press. 2. Padmaja MF, Susy HAGEN, Barbara JEWELL, et al. Evaluation, treatment, and prevention of vitamin D deficiency: an Endocrine Society clinical practice guideline. JCEM. 2010; 96(7):1911-30. 09/23/2017 3:56 PM CDT 09/23/2017 Narrative Resulting Agency Comment [facility] [address] [phone] Kayla Cardona MD LAB - CHEMISTR Y ORDERABLES Performing Organization Address City/[facility] Co de Phone Number [facility] [address] [place] [address] * ALDOLASE (09/23/2017 3:56 PM CDT) Only the most recent of2 resultswithin the time period is included. Aldolase 4.9 3.3 - 10.3 U/L [facility] INSURANCE BILL 09/23/2017 3:56 PM CDT 09/23/2017 Narrative Resulting Agency Comment [facility] [address] [phone] Kayla Cardona MD LAB - CHEMISTR Y ORDERABLES Performing Organization Address City/[facility]/ZIP Co de Phone Number [facility] INSURANCE BILL [address] [place] [address] * CYCLIC CITRUL PEPTIDE AB IGG (CCP) (09/23/2017 3:56 PM CDT) Cyclic Citrullinated Peptide Antibody 3 0 - 19 units [facility] ([facility]) Comment: Negative <20 Weak positive 20 - 39 Moderate positive 40 - 59 Strong positive >59 Blood specimen (specimen) BLOOD SPECIMEN / Unknown 09/23/2017 3:56 PM CDT 09/23/2017 Narrative [facility] ([facility]) - 09/25/2017 7:13 AM CDT Performed at: 01 - [address] [id number] Dry Wall Plasterer: Brian Marcus MD, Phone: [phone] Kayla Cardona MD LAB - CHEMISTR Y ORDERABLES Performing Organization Address City/[facility] Co de Phone Number [facility] ([facility]) [address] [place] [address], [facility] * QUANTIFERON TB-GOLD (09/23/2017 3:56 PM CDT) Only the most recent of3 resultswithin the time period is included. QuantiFERON Incubation [facility] INSURANCE BILL Comment:Incubated, testing t o follow. 09/23/2017 3:56 PM CDT 09/23/2017 Narrative Resulting Agency Comment [facility] [address] [facility] [phone] aKyla Cardona MD LAB - CHEMISTR Y ORDERABLES [facility] INSURANCE BILL [address] [place] [address] * COMPLEMENT C4 (09/23/2017 3:56 PM CDT) Only the most recent of2 resultswithin the time period is included. Complement C4 16 14 - 44 mg/dL [facility] INSURANCE BILL 09/23/2017 3:56 PM CDT 09/23/2017 Narrative Resulting Agency Comment [facility] [address] [phone] Kayla Cardona MD LAB - SEROLOGY ORDERABLES [facility] INSURANCE BILL [address] [place] [address] * TSH (09/23/2017 3:56 PM CDT) Only the most recent of2 resultswithin the time period is included. TSH 1.830 0.450 - 4.500 uIU/mL [facility] INSURANCE BILL 09/23/2017 3:56 PM CDT 09/23/2017 Narrative Resulting Agency Comment [facility] [address] [facility] [address] [phone] Kayla Cardona MD LAB - CHEMISTR Y ORDERABLES Performing Organization Address City/[facility]/ZIP Co de Phone Number [facility] INSURANCE BILL [address] [place] [address] * T4 FREE (09/23/2017 3:56 PM CDT) Only the most recent of2 resultswithin the time period is included. T4 Free 1.03 0.82 - 1.77 ng/dL [facility] INSURANCE BILL 09/23/2017 3:5 6 PM CDT 09/23/2017 Narrative Resulting Agency Comment [facility] [address] [facility] [phone] Kayla Cardona MD LAB - CHEMISTR Y ORDERABLES Performing Organization Address City/[facility]/ZIP Co de Phone Number [facility] INSURANCE BILL [address] [place] [address] * HEPATITIS C ANTIBODY (09/23/2017 3:56 PM CDT) Only the most recent of2 resultswithin the time period is included. Hepatitis C Antibody 0.1 0.0 - 0.9 s/co ratio [facility] INSURANCE BILL Comment: Negative: < 0.8 Indeterminate: 0.8 - 0.9 Positive: > 0.9 . The CDC recommends that a positive HCV antibody result be followed up with a HCV Nucleic Acid Amplification test (911469). 09/23/2017 3:56 PM CDT 09/23/2017 Narrative Resulting Agency Comment [facility] [address] [facility] [phone] Kayla Cardona MD LAB - CHEMISTR Y ORDERABLES Performing Organization Address [facility] Co de Phone Number [facility] INSURANCE BILL [address] [place] [address] * COMPLEMENT C3 (09/23/2017 3:56 PM CDT) Only the most recent of2 resultswithin the time period is included. [facility] Complement C3 116 82 - 167 mg/dL [facility] INSURANCE BILL 09/23/2017 3:56 PM CDT 09/23/2017 Narrative Resulting Agency Comment [facility] [address] [facility] [phone] Kayla Cardona MD LAB - CHEMISTR Y ORDERABLES Performing Organization Address [facility]/ZIP Co de Phone Number [facility] INSURANCE BILL [address] [place] [address] * (ABNORMAL) STREP A SCREEN - POINT OF CARE (AMB) STL (06/06/2017) Pathologist [facility] Strep A Rapid POCT Positive(A) Negative Strep A Internal Control Present Lot # [id number] Expiration Date 12/06/2018 Throat ENTIRE THROAT (SURFACE REGION OF NECK) / Unknown 06/06/2017 Cathryn Lee APRN-SHAKER REPAIRER LAB - POINT OF CARE ORDERABLES
--- OUTSIDE RECORDS SUMMARY | 2024-08-09 07:03 | XMS_ITS | Clinical Summary ---
Author Organization [employer] [id number] [facility] Address [address] [place] [address] Care Team Providers Care Furnace Feeder Name Role Phone Hi Salmon DO Primary Care Provider Allergies No known active allergies Medications gabapentin (NEURONTIN) 300 mg capsule Take 900 mg by mouth daily. Active lisinopriL (PRINIVIL) 10 mg tablet Take 10 mg by mouth daily. Active folic acid (FOLVITE) 1 mg tablet Take 1 mg by mouth daily. Active tiZANidine (ZANAFLEX) 4 mg Tablet Take 4 mg by mouth daily. Active DULoxetine (CYMBALTA) 60 mg Capsule, Delayed Release(E.C.) Take 60 mg by mouth daily. Active tofacitinib (Xeljanz XR) 11 mg er tablet Take 11 mg by mouth daily. Active predniSONE (DELTASONE) 5 mg tablet Take 5 mg by mouth daily. Active celecoxib (CeleBREX) 200 mg capsule Take 200 mg by mouth 2 times daily. Active ezetimibe (ZETIA) 10 mg tablet Take 10 mg by mouth daily. Active methotrexate (RHEUMATREX) 2.5 mg Tablet Take 12.5 mg by mouth twice weekly. Active TESTOSTERONE IM Inject 0.75 mL by intramuscular injection every 7 days. Active azelastine (ASTELIN) 137 mcg/actuation nasal spray Administer 2 Sprays in each nostril 2 times daily. Active HYDROcodone-ac etaminophen (NORCO) 5-325 mg tablet Take 1 Tablet by mouth 1 time daily as needed for Pain, Moderate. Active aspirin (BONI CHEWABLE) 81 mg Tablet, Chewable Take 81 mg by mouth daily. Active ascorbic acid, vitamin C, (VITAMIN C) 500 mg tablet Take 500 mg by mouth daily. Active multivit with minerals/lutei n (MULTIVITAMIN 50 PLUS ORAL) Take 1 Tablet by mouth daily. Active coenzyme Q10 100 mg Capsule Take 100 mg by mouth daily. Active loratadine (CLARITIN) 10 mg tablet Take 10 mg by mouth daily. Active cholecalcifero l, Vitamin D3, (Vitamin D3) 25 mcg (1,000 unit) Capsule Take 2,000 Units by mouth daily. Active cyanocobalamin 1,000 mcg Tablet Take 1,000 mcg by mouth daily. Active diclofenac sodium (VOLTAREN) 1 % gel Apply 2 Grams to affected area 1 time daily as needed for Pain. Active Active Problems Problem Noted Date Diagnosed Date Cervical spondylosis with myelopathy 03/27/2020 Cervical spondylosis with radiculopathy 03/27/20 Carpal tunnel syndrome on right 03/27/2020 Social History Tobacco Use Types Packs/Day Years Used Date Smoking Tobacco: Never Smokeless Tobacco: Never Tobacco Cessation:Counseling Given: No Alcohol Use Standard Drinks/Week Comments Yes 0 (1 standard drink = 0.6 oz pur e alcohol) Sex and Gender Information Value Date Recorded Sex Assigned at Not on file Legal Sex Male 4:25 PM CDT Gender Identity Not on file Sexual Orientation Not on file Last Filed Vital Signs Vital Sign Reading Time Taken Comments Blood Pressure - - Pulse - - Temperature - - Respiratory Rate - - Oxygen Saturation - - Inhaled Oxygen Concentration - - Weight 103.9 kg (229 lb) 04/28/2020 3:16 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 Height 172.7 cm (5' 8 ) 04/28/2020 3:16 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 Body Mass Index 34.82 04/28/2020 3:16 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
--- OUTSIDE RECORDS SUMMARY | 2024-08-09 07:03 | XMS_ITS | Referral Summary ---
Author Organization [facility] al Address [address] [place] [address] Care Team Providers Care Drum Saw Operator Name Role Phone Hi Salmon DO Primary Care Provider [phone] Estefani Ch MD Unavailable [phone] Gabe Luna MD Unavailable [phone] Encounters Date Type Department Care Team Description 07/26/2024 6:25 AM ANALYTICAL TECHNICIAN - 07/26/2024 11:59 PM ANALYTICAL TECHNICIAN Hospital Encounter [facility] [address] [place] [address] Chronic kidney disease, unspecified CKD stage Discharge Disposition: Discharge to home or self care 07/21/2024 Telephone [facility] Nephrology [address] [place] [address] Advanced Medicine 5th [place] [address] [place] [address] Cynthia Bustamante 07/20/2024 5:45 PM ANALYTICAL TECHNICIAN Lab [facility] Advanced [facility] [address] [place] [address] Chronic kidney disease, unspecified CKD stage 07/20/2024 2:15 PM ANALYTICAL TECHNICIAN Office Visit [facility] Nephrology [address] [place] [address] Advanced Medicine 5th [place] [address] [place] [address] Calixto Cr MD Hypomagnesemia (Primary Dx); Chronic kidney disease, unspecified CKD stage 05/11/2024 Documentation [facility] Gastroenterology [address] [facility] Medicine 12th [place] [address] [place] [address] Lucio Nicolas CMA Lab Results 05/11/2024 2:00 PM ANALYTICAL TECHNICIAN Office Visit [facility] Gastroenterology [address] [facility] 12th [place] [address] [place] [address] Estefani Ch MD Chronic kidney disease, unspecified CKD stage 05/11/2024 2:19 PM ANALYTICAL TECHNICIAN - 05/11/2024 11:59 PM ANALYTICAL TECHNICIAN Hospital Encounter [facility] Radiology [facility] [address] [place] [address] Estefani Ch MD LLQ abdominal pain Discharge Disposition: Discharge to home or self care from Last 3 Months Allergies Active Allergy Reactions Criticality Noted Date [...] (1,000 mg total) by mouth daily Active fl-obv-wgkan-K1 -lycopen-lutein [id number] mcg tablet Take 1 tablet by mouth [...] within 12 hours or as directed by MD. 20 patch 4 07/20/19 25 Discontin ued(Thera [...] gabapentin Assessment & Plan (08/12/2023 4:58 PM ANALYTICAL TECHNICIAN): After receiving IVF for KALPANA, patient developed pitting b/l LUCHO likely due to hypoalbuminemia Normal echo 05/09/23 -OT lymphedema c/s Esophageal candidiasis (CMS/HCC) 08/07/2023 Assessment & Plan (08/14/2023 3:35 PM ANALYTICAL TECHNICIAN): - EGD (08/07) w/concerns for esophageal candidiasis. Biopsies taken. - Pt given 400mg PO fluconazole on 08/07. Plan: Continue 200mg fluconazole daily (08/08 - 08/28). Plan 21d course Asymptomatic bacteriuria 08/04/2023 Assessment & Plan (08/07/2023 12:54 PM ANALYTICAL TECHNICIAN): UA showing 11-20 WBC and 1+ LE however patient is asymptomatic denying dysuria, urinary frequency/urgency, difficulty urinating, or other urinary symptoms. Likely asymptomatic bacteriuria not requiring treatment at this time. - Urine Cx with NGTD - Started tamsulosin 0.4mg (08/05) with no improvement in symptoms, stopped 08/07 KALPANA (acute kidney injury) 08/03/2023 Assessment & Plan (08/20/2023 8:32 AM ANALYTICAL TECHNICIAN): Noted to have elevated Cr to 1.66 on 08/02 with baseline ~1. Suspect pre-renal initially given ongoing watery diarrhea as well as periods of NPO status for diagnostic procedures. Was hypotensive on 08/01 and received 1 L NS with BP improvement however Cr nichelle to 1.8 now 1.75. Suspect possible ATN. - Avoid hypotension - Given 1 L LR on 2/12 - Renal US (08/08) with no acute [...] 07/30/2023 Assessment & Plan (08/16/2023 12:44 PM ANALYTICAL TECHNICIAN): Improved All resolved Hypokalemia, hypophosphatemia, hypomagnesemia Continue [...] this time prior to admission. -continue pancrelipase 83757 units TID, colestipol 2g BID -with worsening diarrhea with antibiotics, suspect abx mediated though also some concern for c diff -c diff negative -started loperamide PRN with improvement in symptoms Assessment & Plan (10/27/2023 8:09 PM CDT): - Continue Lomotil, Imodium, Creon, tincture of opium, colestipol, fiber Assessment & Plan (08/18/2023 10:09 AM ANALYTICAL TECHNICIAN): Improving a little bit following deterioration 08/14/23, [...] identified. Interval development of nonspecific pancolitis. Findings circulation sales representative of remote injury to the left hemiliver. [...] bicarb Assessment & Plan (08/12/2023 4:46 PM ANALYTICAL TECHNICIAN): Resolved Most likely 2/2 ongoing severe diarrhea, [...] azathioprine Assessment & Plan (07/29/2023 3:03 PM ANALYTICAL TECHNICIAN): Follows with Dr. Gabe Luna ([facility]). He was previously on MTX and Humira which were both stopped during his admission for septic shock in March 2023. Humira was restarted by his outpatient Gr[employer] 1 6 Tutor 2 weeks prior to admission Outpatient follow-up snf current use of systemic steroids 07/24 Assessment & Plan (10/27/2023 8:09 PM CDT): Continue prednisone 5 mg daily Assessment & Plan (08/16/2023 12:43 PM ANALYTICAL TECHNICIAN): Stress dose steroids were started for septic [...] 07/24/2023 Assessment & Plan (08/12/2023 4:54 PM ANALYTICAL TECHNICIAN): Possible due to esophageal candidiasis, versus motility disorder, versus mechanical cause S/p EGD 08/07/23 showing esoph candidiasis The patient's reported several months of intermittent difficulty with swallowing foods and liquids. Patient reports feeling that solids and liquids get stuck in his throat and that his symptoms improve with repeat swallows --ENERGY EFFICIENCY ENGINEER evaluation: oral mechanism evaluation is within functional [...] monitoring Assessment & Plan (08/04/2023 2:00 PM ANALYTICAL TECHNICIAN): Likely 2/2 steroids Negative infectious workup, continue to monitor, improving Severe protein-calorie malnutrition (CMS/HCC) Assessment & Plan (08/02/2023 2:25 PM ANALYTICAL TECHNICIAN): Follow dietitian service recommendation Hypocalcemia 07/22/2023 Assessment & Plan (08/12/2023 4:49 PM ANALYTICAL TECHNICIAN): Normal when corrected for mild hypoalbuminemia, around 8.3 Possible due to nutritional deficiency from diarrhea/absorption Hypomagnesemia 06/18/2023 Hypokalemia 05/29/2023 Atrial fibrillation (CMS/HCC) 04/16/2023 Hemodialysis patient (CMS/HCC) 04/15/2023 Immunocompromised patient 04/15/2023 Salmonella enteritis 04/14/2023 Generalized abdominal pain 10/16/2020 Overview (10/16/2020): Added automatically from request for surgery [id number] Chronic pain syndrome 10/12/2020 Carpal tunnel syndrome on right 03/27/2020 Spondylosis of cervical spine 03/27/2020 Encounter for therapeutic drug monitoring 2017 Upper respiratory tract infection 05/25/2012 Immunizations Immunization Administration Dates Next Due Influenza, Quadrivalent, Spl it, Intramuscular 02/14/2019 Influenza, Quadrivalent, Spl it, Preservative Free, Intramuscular 03/16/2023,03/03/2022,02/27/2020,03/16 Influenza, Trivalent, IM (MDV) 03/25/2021,2016,04/05/2013 Influenza, Trivalent, Preser vative Free, Intramuscular 03/30/2016,04/10/2015,05/25/2012 PPD TEST 09/20/2011 Pfizer SARS-CoV-2 Monovalent Vaccination (12+ Yrs) PURPLE 10/02/2020 Pneumococcal Polysaccharide PPV23 03/27/2019 Tdap 05/28/2017 ZOSTER Recombinant 04/18/2019,02/14/2019 Social History Tobacco Use Types Packs/Day Years Used Date Smoking Tobacco: Former Cigarettes Q uit: 10/16/1998 Smokeless Tobacco: Never Tobacco Cessation:Counseling Given: Not Answered Alcohol Use Standard Drinks/Week Comments Not Currently 0 (1 standard drink = 0.6 oz pur e alcohol) OASIS D0700: Social Isolation Answer Da te Recorded Frequency of experiencing loneliness or isolatio n Never 12/26/2023 [facility] Utilities Answer Date Recorded In the past 12 months has e [employer] gas, oil, or water company threatened to [...] often do you attend chur ch or buddhism services? More than 4 times per year 02/18/2024 Do you belong to any clubs o r organizations such as scientologist groups, unions, fraternal or athletic groups, or [...] place to sleep or slept in a mcfp (including now)? No 11/03/2023 Housing Stability Vital Sign Answer Jomar e Recorded In the last 12 months, was t here a time when you were not able to pay the mortgage or rent on time? No 02/18/2024 In the past 12 months, how m any times have you moved where you were living? 0 02/18/2024 At any time in the past 12 m [facility], were you homeless or living in a mcfp (including now)? No 02/18/2024 Personal Safety Answer Date Recorded Have you ever been in or are you currently in a harmful physical or emotional relationship or is someone making you feel afraid or unsafe? Denies 02/17/2024 Sex and Gender Information Value Date Recorded Sex Assigned at Not on file Legal Sex Male 1:31 AM ANALYTICAL TECHNICIAN Gender Identity Male 09/30/2023 7:18 AM CDT Sexual Orientation Straight 09/30/2023 7: 18 AM CDT Last Filed Vital Signs Vital Sign Reading Time Taken Comments Blood Pressure 135/83 07/20/2024 2:09 PM ANALYTICAL TECHNICIAN Pulse 62 07/20/2024 2:09 PM ANALYTICAL TECHNICIAN Temperature 36.7 C (98 F) 05/11/2024 1:13 PM ANALYTICAL TECHNICIAN Respiratory Rate 16 05/11/2024 1:13 PM ANALYTICAL TECHNICIAN Oxygen Saturation 96% 05/11/2024 1:13 PM ANALYTICAL TECHNICIAN Inhaled Oxygen Concentration - - Weight 98 kg (216 lb) 07/20/2024 2:09 PM ANALYTICAL TECHNICIAN Height 172.7 cm (5' 8 ) 07/20/2024 2:09 PM ANALYTICAL TECHNICIAN Body Mass Index 32.84 07/20/2024 2:09 PM ANALYTICAL TECHNICIAN Plan of Treatment Not on file Procedures Procedure Name Priority Date/Time Associated Diagnosis Comments US RETROPERITONEAL COMPLETE Schedule Routine, Read Routine (OP Routine) 07/26/2024 7:36 AM ANALYTICAL TECHNICIAN Chronic kidney disease, unspecified CKD stage EGFR Routine 07/20/2024 3:16 PM ANALYTICAL TECHNICIAN Chronic kidney disease, unspecified CKD stage PTH Routine 07/20/2024 3:16 PM ANALYTICAL TECHNICIAN Chronic kidney disease, unspecified CKD stage VITAMIN D 25 HYDROXY Routine 07/20/2024 3:16 PM ANALYTICAL TECHNICIAN Chronic kidney disease, unspecified CKD stage COMPREHENSIVE METABOLIC PANEL Routine 07/20/2024 3:16 PM ANALYTICAL TECHNICIAN Chronic kidney disease, unspecified CKD stage CRP (ACUTE PHASE) Routine 07/20/2024 3:1 6 PM ANALYTICAL TECHNICIAN Chronic kidney disease, unspecified CKD stage URIC ACID Routine 07/20/2024 3:16 PM ANALYTICAL TECHNICIAN Chronic kidney disease, unspecified CKD stage PHOSPHORUS Routine 07/20/2024 3:16 PM ANALYTICAL TECHNICIAN Chronic kidney disease, unspecified CKD stage CT ABDOMEN PELVIS WO CONTRAST Schedule Routine, Read Routine (OP Routine) 05/11/2024 3:05 PM ANALYTICAL TECHNICIAN LLQ abdominal pain COLONOSCOPY 08/07/2023 8:46 AM ANALYTICAL TECHNICIAN from Last 3 Months or Most Recently Relevant to Health Maintenance Results * US Retroperitoneal Complete (07/26/2024 7:36 AM ANALYTICAL TECHNICIAN) Anatomical Region Laterality Modality Abdomen N/A Ultrasound 07/26/2024 8:33 AM ANALYTICAL TECHNICIAN Impressions 07/26/2024 8:33 AM ANALYTICAL TECHNICIAN NO SIGN OF RENAL CYSTS, NO MASS, NO EVIDENCE OF RENAL CALCIFICATION. PROSTATOMEGALY WITH POSSIBLE URINARY RETENTION Electronically signed by: Rajesh Oliveira M.D. Narrative 07/26/2024 8:33 AM ANALYTICAL TECHNICIAN EXAMINATION: US RETROPERITONEAL COMPLETE HISTORY: Chronic renal [...] Rajesh Oliveira M.D. us Jerod Hathaway MD IM US PROCEDURES Final Resu lt * (ABNORMAL) eGFR (07/20/2024 3:16 PM ANALYTICAL TECHNICIAN) eGFR 48(L) >=60 mL/min/1. 73 m2 Comment: Interpretive Data Reference Interval Normal >/= 90 mL/min/1.73m2 Mildly decreased* 60 - 89 mL/min/1.73m2 Mildly to moderately decreased 45 - 59 mL/min/1.73m2 Moderately to severely decreased 30 - 44 mL/min/1.73m2 Severely decreased 15 - 29 mL/min/1.73m2 Kidney Failure < 15 mL/min/1.73m2 *Relative to young adult level Estimated glomerular filtration rate is determined by the 2021 CKD-EPI equation recommended by the National Kidney Foundation (A Unifying Approach to GFR Estimation: Recommendations of the NKF-ASK Task Force on Reassessing the Inclusion of Race in Diagnosing Kidney Disease, JASN 2020). The CKD-EPI equation should not be used for patients with unstable renal function and has not been validated in children and those over 70. Current interpretive data was last reviewed 2021. Blood 07/20/2024 3:16 PM ANALYTICAL TECHNICIAN 07/20/2024 3:53 PM ANALYTICAL TECHNICIAN us Jerod Hathaway MD LAB BLOOD ORDERABLES Final R esult [facility] [place] [address] * Vitamin D 25 hydroxy (07/20/2024 3:16 PM ANALYTICAL TECHNICIAN) Pathologist [facility] Vitamin D 25-OH 45 30 - 80 ng/mL Blood 07/20/2024 3:16 PM ANALYTICAL TECHNICIAN 07/20/2024 3:43 PM ANALYTICAL TECHNICIAN Jerod Hathaway MD LAB BLOOD ORDERABLES Final R esult Performing Organization Address City/[facility]/ZIP Co de Phone Number [facility] Department [place] [address] * CRP (acute phase) (07/20/2024 3:16 PM ANALYTICAL TECHNICIAN) Pathologist [facility] CRP 0.8 <=10.0 mg/L Blood 07/20/2024 3:16 PM ANALYTICAL TECHNICIAN 07/20/2024 3:43 PM ANALYTICAL TECHNICIAN Jerod Hathaway MD LAB BLOOD ORDERABLES Final R esult Performing Organization Address City/State/[facility] Co de Phone Number [facility] [place] [address] * Uric acid (07/20/2024 3:16 PM ANALYTICAL TECHNICIAN) Pathologist [facility] Uric acid 7.9 3.0 - 8.0 mg/dL Blood 07/20/2024 3:16 PM ANALYTICAL TECHNICIAN 07/20/2024 3:43 PM ANALYTICAL TECHNICIAN us Jerod Hathaway MD LAB BLOOD ORDERABLES Final R esult Performing Organization Address City/[facility] Co de Phone Number [facility] [place] [address] * Phosphorus (07/20/2024 3:16 PM ANALYTICAL TECHNICIAN) [facility] Phosphorus, pl 3.3 2.3 - 4.5 mg/dL Blood 07/20/2024 3:16 PM ANALYTICAL TECHNICIAN 07/20/2024 3:43 PM ANALYTICAL TECHNICIAN us Jerod Hathaway MD LAB BLOOD ORDERABLES Final R esult Performing Organization Address [facility] Co de Phone Number [facility] [place] [address] * PTH (07/20/2024 3:16 PM ANALYTICAL TECHNICIAN) [facility] PTH 33 15 - 65 pg/mL Blood 07/20/2024 3:16 PM ANALYTICAL TECHNICIAN 07/20/2024 3:43 PM ANALYTICAL TECHNICIAN us Jerod Hathaway MD LAB BLOOD ORDERABLES Final R esult Performing Organization Address [facility] [place] [address] * (ABNORMAL) Comprehensive metabolic panel (07/20/2024 3:16 PM ANALYTICAL TECHNICIAN) [facility] Sodium 137 135 - 145 mmol/L Potassium, pl 4.6 3.3 - 4.9 mmol/L [facility] Chloride 98 97 - 110 mmol/L [facility] CO2 29 22 - 32 mmol/L [facility] Anion gap 10 2 - 15 mmol/L [facility] BUN 28(H) 6 - 25 mg/dL [facility] Creatinine 1.65(H) 0.80 - 1.30 mg/dL [facility] Glucose 85 70 - 199 mg/dL [facility] Comment: Interpretive Data Fasting glucose [...] 2022. Calcium 9.9 8.5 - 10.3 mg/dL [facility] Bilirubin, total 0.4 0.1 - 1.2 mg/dL [facility] Protein, pl 8.0 6.5 - 8.5 g/dL [facility] Albumin 4.6 3.5 - 5.0 g/dL [facility] Alk phos 83 40 - 130 Units/L [facility] ALT 40 7 - 55 Units/L [facility] AST 38 10 - 50 Units/L [facility] Blood 07/20/2024 3:16 PM ANALYTICAL TECHNICIAN 07/20/2024 3:43 PM ANALYTICAL TECHNICIAN us Jerod Hathaway MD LAB BLOOD ORDERABLES Final R esult [facility] [place] [address] * CT Abd/Pelvis w/o contrast (05/11/2024 3:05 PM ANALYTICAL TECHNICIAN) Anatomical Region Laterality Modality Body N/A Computed Tomogra phy 05/11/2024 3:08 PM ANALYTICAL TECHNICIAN Impressions 05/11/2024 3:08 PM ANALYTICAL TECHNICIAN 1. No CT correlate for abdominal pain. Electronically signed by: Nav Hernadez M.D. Narrative 05/11/2024 3:08 PM ANALYTICAL TECHNICIAN EXAMINATION: Computed tomography of the abdomen/pelvis without [...] Resu lt * COLONOSCOPY (08/07/2023 8:46 AM ANALYTICAL TECHNICIAN) Anatomical Region Laterality Modality Other Narrative Procedure Note Alexandra Flaherty MD - 08/07/2023 8:46 AM [facility] Patient Name: Dev Amaya Procedure Date: 08/07/2023 8:46 AM Date of : 1970 Admit Type: Inpatient Age: 53 Gender: Male Attending MD: Alexandra Flaherty M.D. Room: [facility] END[facility]COPY Note Status: Finalized Procedure: Colonoscopy Indications: [...] scope was passed under direct vision.The CF [id number] Endoscope was introduced through the anus [...] On: 08/07/2023 8:46 AM Recognized by the [employer] for promoting quality in endoscopy us Alexandra Flaherty MD ENDOSCOPY PROCEDURES Final Res ult from Last 3 Months or Most Recently Relevant to Health Maintenance Insurance CHOICE PLUS CHOICE PLUS CHOICE PLUS Advance Directives For more information, please contact: [phone] * Full Code (Latest Code Status on [...] 8:01 AM 08/20/2023 3:03 PM Care Teams Drum Saw Operator Relationship Specialty Start Date End Date Hi Salmon DO PCP - General Internal Medicine 07/30/23 Estefani Ch MD [address] [place] [address] Referring Physician Gastroenterology 09/10/23 Gabe Luna MD [address] [facility] [address] [place] [address] Consulting Physician Rheumatology 10/22/23
--- OUTSIDE RECORDS SUMMARY | 2024-08-09 07:03 | XMS_ITS | Patient Health Record ---
Author Organization [facility] Address [address] [place] [address] Care Team Providers Care Dressmaking Teacher Name Role Phone Farhana Marcus Primary Care Provider [phone] Allergies No Known Allergies Reason For Referral No Information Medications Medication SIG (Take, Route, Frequency, Duration) Notes Start Date End Date Status Amitriptyline HCl 25 MG TAKE 1 TABLET BY MOUTH ONCE DAILY AT BEDTIME . APPOINTMENT REQUIRED FOR FUTURE REFILLS for 30 PT NEEDS CELESTINA APPT -- NO OTHER REFILLS WILLBE GIVEN Active tiZANidine HCl 4 MG 1 tablet Orally once a day 09/10 Active DULoxetine HCl 60 MG 1 capsule Orally Once a day for 30 day(s) 1999 Active Folic Acid 1 MG 1 tablet Orally Once a day for 30 day(s) Active Methotrexate 2.5 MG 5 tablets Orally twice a day 1 year Active Vitamin D-3 25 MCG (1000 UT) 1 capsule Orally Once a day for 30 day(s) Active Omeprazole 40 MG 1 capsule 30 minutes before morning meal Orally Twice a day 09/10 Active Vitamin B 12 500 MCG 1 tablet Orally Onc e a day for 30 day(s) Active Testosterone Cypionate 100 MG/ML 1 ml Intramuscular once a week 2018 weekly Active Zofran 4 MG 1 tablet Orally Once a day for 30 day(s) Recent GI problems August 2020 Not-Taking HYDROcodone-Acetamin ophen 5-325 MG 1 tablet as needed Orally every 6 hrs Active Ezetimibe 10 MG 1 tablet Orally Once a day for 30 day(s) Active Humira 40 MG/0.8ML 0.8 mL Subcutaneous for 30 day(s) Active Nasal Allergy 24 Hour 55 MCG/ACT 1 spray in each nostril Nasally Once a day for 30 day(s) as needed Active QUEtiapine Fumarate 25 MG 1.5 tablets at bedtime Orally Once a day for 30 days Active Ninfa 60 MG as directed Orally Active Voltaren 1 % as directed Externally as needed Active Probiotic - as directed Orally Active Celecoxib 200 MG 1 capsule with food Orally Twice a day holding for now Active Aspirin 81 MG 1 tablet Orally Once a day for 30 day(s) Active Lisinopril 10 MG 1 tablet Orally Once a day for 30 day(s) Active predniSONE 5 MG 1 tablet Orally Once a day for 30 day(s) 2019 Active Gabapentin 300 MG 3 capsule Orally Once a day 2020 RA Active Social History Tobacco Use: Social History Observation Description Date Details (start date - stop date) Former Smoker NA - NA Dont use, Tobacco Use/Smoking Question Answer Notes 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 [employer] 28 y [employer] 28 y [employer] 28 y [employer] 28 y [employer] 28 y [employer] 28 y [employer] Problems Problem Type SNOMED Code ICD Code Onset Dates Problem Status W/U Status Risk Notes Problem 314236445 Chronic pain syndrome (G89.4) 10/12/2020 Active confirmed Problem [id number] Mood disorder (F39) Active confirmed Problem [id number] Intellectual disability (F79) Active confirmed Plan Of Treatment No Information Insurance Providers Payer Name Payer Address Payer Phone Subscriber Number Group Number Insured Name Patient Relationship to Insured Coverage Start Date Coverage End Date [facility] [address] [place] [address] [id number] Dev Amaya Self - patient is the insured 1 Medical (General) History Medical History History ICD Code Rheumatoid Arthritis HTN Dyslipidemia Low Testosterone Chronic pain Surgical History Surgery Date(Month/Year)
[2024-08-09 07:51] LABS: Anion Gap 10 mmol/L (4-12); Blood Urea Nitrogen 23 mg/dL (9-20); Calcium 9.9 mg/dL (8.4-10.2); Carbon Dioxide 28 mmol/L (22-30); Chloride 101 mmol/L (98-107); Cholesterol 275 mg/dL (0-200); Estimated Glomerular Filt Rate 48; Glucose 103 mg/dL (65-110); HDL Direct 61 mg/dL; Potassium 4.1 mmol/L (3.4-5.0); Sodium 139 mmol/L (137-145); Triglycerides 213 mg/dL (<150)
[2024-08-09 08:02] LABS: LDL Cholesterol Direct 177 mg/dL
== END 2024-08-09 07:00 | disposition home or self-care (01) ==
LOC: ANHLAB 07:00
PROVIDERS: PCP Internal Medicine; Visit Provider Internal Medicine
DX: E78.5 Hyperlipidemia, unspecified (principal); N18.31 Chronic kidney disease, stage 3a
CPT/HCPCS: 36415; 80048; 80061

== ENCOUNTER 2024-10-27 11:24 | Emergency (ER) | payer OTHER, SELFPAY ==
--- NOTE | ~2024-10-27 | XR_ITS ---
EXAMINATION: XR shoulder RT min 2V DATE: 10/27/2024 11:47 INDICATION: Right shoulder pain and limited range of motion TECHNIQUE: AP internally and externally rotated, AP oblique externally rotated and transscapular Y vi ews of the right shoulder were obtained. COMPARISON: None FINDINGS: Normal alignment. No fracture.Mild glenohumeral osteoarthritis. Moderate acromioclavicular osteoarth ritis with heterotopic ossification along the cephalad aspect of the joint capsule. Soft tissues are unremarkable. Visualized portion of the lungs are clear with no right-sided pleural effusion or pneum othorax. IMPRESSION: Mild right glenohumeral and moderate acromioclavicular osteoarthritis. Reviewed, dictated and finalized at location A.
[2024-10-27 11:35] VITALS: BP 148/82; PULSE 70; RESP 16; TEMP 36.8; O2SAT 98
--- NOTE | 2024-10-27 11:38 | ED_ITS ---
HPI - Extremity Injury (Upper) General Chief Complaint: Extremity Injury, Upper Stated Complaint: R SHOULDER INJURY Source: patient Mode of arrival: ambulatory Limitations: no limitations History of Present Illness HPI narrative: Patient is a 54 year old male that presents to the clinic with complaints of right shoulder pain x 1 day. He states that he fell backwards at home and landed on his shoulder. Currently rates his pain a 5/10 with rest and 10/10 with movement. He has been taking Vicodin at home for pain with minimal relief. Denies any numbness, but endorses tingling in fingers. He does state that he has a history of tingling in his fingers though. Related Data Home Medications ?Medication ?Instructions ?Recorded ?Confirmed ?Last Taken ?Type cholecalciferol (vitamin D3) 125 2,000 unit PO DAILY 11/09/19 08/16/24 Unknown History mcg (5,000 unit) capsule mecobalamin (vitamin B12) 1,000 1,000 mcg PO DAILY 11/09/19 08/16/24 Unknown History mcg chewable tablet tizanidine 4 mg tablet 4 mg PO HS 05/30/20 08/16/24 Unknown History quetiapine 25 mg tablet (Seroquel) 25 mg PO QHS 11/13/20 08/16/24 Unknown History amitriptyline 25 mg tablet 25 mg PO DAILY 04/07/23 08/16/24 Unknown History Lactobacillus acidophilus 10 mg PO DAILY 09/17/23 08/16/24 Unknown History (Acidophilus capsule) calcium 600 mg (as 2 cap PO TID 09/17/23 08/16/24 Unknown History carbonate)-vitamin D3 12.5 mcg (500 unit) capsule (Calcium with Vit D3) loratadine 10 mg tablet 10 mg PO DAILY 09/17/23 08/16/24 Unknown History multivitamin 1 tablet PO DAILY 09/17/23 08/16/24 Unknown History azathioprine 50 mg tablet 50 mg PO DAILY 05/17/24 08/16/24 Unknown History copper gluconate 2 mg tablet 2 mg PO BID 05/17/24 08/16/24 Unknown History gabapentin 300 mg capsule 600 mg PO DAILY 05/17/24 08/16/24 Unknown History omeprazole magnesium 20 mg 20 mg PO DAILY 05/17/24 08/16/24 Unknown History tablet,delayed release sodium bicarbonate 650 mg tablet 650 mg PO DAILY PRN 05/17/24 08/16/24 Unknown History tocilizumab 400 mg/20 mL (20 IV 05/17/24 08/16/24 Unknown History mg/mL) intravenous solution (Actemra) Allergies Allergy/AdvReac Type Severity Reaction Status Date / Time ceftriaxone (From Rocephin) Allergy Severe Rash Verified 10/27/24 11:40 Review of Systems Review of Systems: CONSTITUTIONAL: Denies body aches, fever, chillsEYES: Denies visual changes ENT: Denies rhinorrhea, congestion CARDIOVASCULAR: Denies chest pain, palpitations, or edema. RESPIRATORY: Denies cough or dyspnea. SKIN: Denies rash, itching, or wounds. MUSCULOSKELETAL: Reports right shoulder pain. NEUROLOGIC: Denies headache, numbness, tingling, or weakness. All systems reviewed & are unremarkable except as noted in HPI and below PMFSH Past Medical History Medical History Chronic kidney disease Immunocompromised patient Hyperlipidemia Gastroesophageal reflux disease Chronic sinus complaints Insomnia Hypogonadism in male Heart murmur Depression Hypertension Sleep apnea Rheumatoid arthritis Surgical History Surgical History History of ventral hernia repair Family History Family History Father Hypertension Family history of elevated blood lipids Acute myocardial infarction Family history of malignant neoplasm of stomach Mother Hypertension Family history of elevated blood lipids Social History Social History Social History: Surrogate medical decision maker: Santo Amaya, spouse. Code status: Full code. Smoking packs per day: 1 Smoking cigarettes per day: 20.0 Years smoked: 20 Smoking pack-years: 20.00 Smoking status: Former smoker Smoking end date: 06/23/98 Alcohol intake: never Alcohol use details: Very rare alcohol use in moderation. Substance use: never Do You Feel Safe in your Home?: Yes Lack of Transportation: No Lack of Food: Never True Current Housing: Decline to Answer Concerned About Future Housing: No Difficulty Paying Gas/Electric Bills: No Difficulty Paying for Meds: No Currently Unemployed: YES Education: Decline to Answer Difficulty w/ Childcare or Family Care: No Living arrangements: with family Additional living arrangements comments: Lives with spouse in [place]. They have a 17-year-old daughter. 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 Spiritual care concerns: No Comments At time of signature, I have reviewed and agree with nursing past medical, surgical, social and family history unless otherwise noted. Please see nursing chart for further information. There is no relevant family history pertinent to the presenting complaint. Exam Narrative: MUSCULOSKELETAL EXAM GENERAL: Well-appearing, well-nourished, and in no acute distress. HEAD: Normocephalic, atraumatic. NECK: Supple. CHEST: Speaks in full sentences. No respiratory distress. HEART: Regular rate and rhythm. Normal and equal peripheral pulses. EXTREMITIES: Right shoulder has decreased strength and normal sensation, decreased range of motion with flexion/extension/rotation. Not able to raise his right arm above his head. Endorses pain with movement. No edema or ecchymosis, No point tenderness. No open wounds, skin tenting, or obvious deformity; alignment normal, pulse palpable and equal bilaterally, skin warm, dry, pink. Capillary refill less than 3 seconds. Distal sensation intact. SKIN: Warm, dry, no rash. NEURO: Alert and oriented x3. PSYCH: Normal mood and affect Course Course Level of Care: Express Care Visit Vital Signs Vital signs: Vital Signs Temperature 98.2 F 10/27/24 11:35 Pulse Rate 70 10/27/24 11:35 Respiratory Rate 16 10/27/24 11:35 Blood Pressure 148/82 H 10/27/24 11:35 Pulse Oximetry 98 10/27/24 11:35 Temperature 98.2 F 10/27/24 11:35 Pulse Rate 70 10/27/24 11:35 Respiratory Rate 16 10/27/24 11:35 Blood Pressure 148/82 H 10/27/24 11:35 Pulse Oximetry 98 10/27/24 11:35 reviewed. MDM - Extremity Injury (Upper) MDM Narrative Medical decision making narrative: Discussed physical exam findings and xray Advised supportive measures and signs/symptoms to go to the ER. Pt is appropriate for outpatient treatment and follow up. Differential Diagnosis Differential diagnosis: Likely dislocation of shoulder and other (strain of shoulder, fracture of shoulder. ) Imaging Data Radiologist's impression: ITS Impressions Shoulder X-Ray 10/27/24 11:48 IMPRESSION: Mild right glenohumeral and moderate acromioclavicular osteoarthritis. Critical Care Time Critical Care Time Critical Care Time: No Discharge Plan Discharge Clinical Impression: Shoulder sprain Qualifiers: Encounter type: initial encounter Laterality: right Patient Disposition: Home Condition: Stable Instructions: Shoulder Sprain (ED) Additional Instructions: Rest. Avoid pushing, pulling, lifting or anything that worsens the symptoms He can alternate Tylenol and ibuprofen for pain. Alternate ice/heat to the site. Lidocaine or salon pas pain patch or use pain cream like icy/hot or biofreeze. Follow up with your primary care provider as needed in 1 week Go to the ER for worsening symptoms or concerns Patient Language: Italian Prescriptions: No Action tizanidine 4 mg tablet 4 mg PO HS quetiapine [Seroquel] 25 mg tablet 25 mg PO QHS (DME) BD Regular Bevel [place] 18 gauge x 1 1/2 needle See Rx Instructions .Route Qty: 100 2RF Rx Instructions: Use to draw up Testosterone (DME) BD Luer-Renata Syringe 3 mL 25 x 1 1/2 syringe See Rx Instructions .Route Qty: 100 2RF Rx Instructions: Use to inject Testosterone azathioprine 50 mg tablet 50 mg PO DAILY gabapentin 300 mg capsule 600 mg PO DAILY omeprazole magnesium 20 mg tablet,delayed release (DR/EC) 20 mg PO DAILY sodium bicarbonate 650 mg tablet 650 mg PO DAILY PRN Actemra 400 mg/20 mL (20 mg/mL) solution IV Rx Instructions: Every 4 weeks copper gluconate 2 mg tablet 2 mg PO BID cholecalciferol (vitamin D3) 125 mcg (5,000 unit) capsule 2,000 unit PO DAILY mecobalamin (vitamin B12) 1,000 mcg tablet,chewable 1,000 mcg PO DAILY Acidophilus Capsule 10 mg PO DAILY loratadine 10 mg tablet 10 mg PO DAILY calcium carbonate-vitamin D3 [Calcium 600 with Vitamin D3] 600 mg-12.5 mcg (500 unit) capsule 2 cap PO TID multivitamin Tablet 1 tablet PO DAILY prednisone 5 mg tablet 5 mg PO DAILY PRN (Reason: joint stiffness) Qty: 30 0RF Rx Instructions: Take 1-3 tablets daily PRN - Currently taking 1 daily duloxetine [Cymbalta] 60 mg capsule,delayed release(DR/EC) 60 mg PO DAILY Qty: 90 1RF Creon 24,000-76,000 -120,000 unit capsule,delayed release(DR/EC) See Rx Instructions PO .COMPLEX Qty: 450 0RF Rx Instructions: Take 3 capsules with each meal (three times per day) and 2 capsules with a snack three times per day orally; administer with meals and/or snacks. Total of 15 capsules daily hydrochlorothiazide 25 mg tablet 25 mg PO DAILY Qty: 30 4RF amlodipine 10 mg tablet 10 mg PO DAILY Qty: 30 6RF amitriptyline 25 mg tablet 25 mg PO DAILY (DME) syringe with needle [BD Luer-Renata Syringe] 3 mL 22 x 1 1/2 syringe See Rx Instructions .Route Qty: 100 3RF Rx Instructions: use to draw up testostrone (DME) syringe with needle [BD Luer-Renata Syringe] 3 mL 21 gauge x 1 1/2 syringe See Rx Instructions .Route Qty: 100 2RF Rx Instructions: Use to inject Testosterone (DME) BD Regular Bevel [place] 21 gauge x 1 1/2 needle See Rx Instructions .Route Qty: 100 2RF Rx Instructions: Use to draw up Testosterone ezetimibe [Zetia] 10 mg tablet 10 mg PO DAILY Qty: 90 1RF nebivolol 5 mg tablet 5 mg PO DAILY Qty: 30 3RF ropinirole 0.5 mg tablet 0.5 mg PO DAILY Qty: 30 5RF testosterone cypionate 200 mg/mL oil 120 mg IM WEEKLY Qty: 10 2RF Rx Instructions: Saturdays Follow-up/Referrals: Vinay Demarco MD [Physician] - Hi Salmon DO [Primary Care Provider] - Time of Disposition: 12:05
== END 2024-10-27 12:07 | disposition home or self-care (01) ==
PROVIDERS: PCP Internal Medicine
DX: S43.401A Unspecified sprain of right shoulder joint, initial encounter (principal); W19.XXXA Unspecified fall, initial encounter; I12.9 Hypertensive chronic kidney disease with stage 1 through stage 4 chronic kidney disease, or unspecified chronic kidney disease; N18.9 Chronic kidney disease, unspecified; E78.5 Hyperlipidemia, unspecified; M06.9 Rheumatoid arthritis, unspecified; K21.9 Gastro-esophageal reflux disease without esophagitis; R01.1 Cardiac murmur, unspecified; Z87.891 Personal history of nicotine dependence
CPT/HCPCS: 73030; 99213; G0463

== ENCOUNTER 2024-11-16 06:41 | Outpatient (CLI) | payer OTHER, SELFPAY ==
--- OUTSIDE RECORDS SUMMARY | 2024-11-16 06:44 | XMS_ITS | Clinical Summary ---
Author Organization [facility] al Address [address] [place] [address] Care Team Providers Care Shoes Salesperson Name Role Phone Hi Salmon DO Primary Care Provider [phone] Estefani Ch MD Unavailable [phone] Gabe Luna MD Unavailable [phone] Allergies Active Allergy Reactions Criticality Noted Date Comments Ceftriaxone Hives,Itching,Rash,O ther (See comments) High 04/16/2023 Medications acidophilus-pect in, citrus 100 million cell-10 mg capsuleIndicatio ns:adjunct therapy for irritable bowel syndrome Take by mouth Active folic acid (FOLVITE) 1 mg tabletIndication s:Folate Deficiency Take 1 tablet (1,000 mcg total) by mouth daily Active QUEtiapine (SEROquel) 25 mg tabletIndication s:Generalized Anxiety Disorder Take 1 tablet (25 mg total) by mouth nightly Active azelastine (ASTELIN) 137 mcg (0.1 %) nasal sprayIndications :Seasonal Allergic Rhinitis Administer 1 spray into each nostril 2 (two) times a day Use in each nostril as directed Active amitriptyline (ELAVIL) 25 mg tabletIndication s:anxiety Take 1 tablet (25 mg total) by mouth nightly Active predniSONE (DELTASONE) 5 mg tabletIndication s:Anti-inflammat ory Take 1 tablet (5 mg) by mouth daily Take by mouth as directed 30 tablet [address] (CYMBALTA) 60 mg capsuleIndicatio ns:Generalized Anxiety Disorder Take 1 capsule (60 mg total) by mouth daily 30 capsule 1 4 Active cyanocobalamin (Vitamin B-12) 1,000 mcg tabletIndication s:Prevention of Vitamin B12 Deficiency Take 0.5 tablets [...] (1,000 mg total) by mouth daily Active eb-gko-bsnoc-K1- lycopen-lutein [id number] mcg tablet Take 1 tablet by mouth daily Active diclofenac sodium (VOLTAREN) 1 % gel Apply 2 g topically daily Active testosterone cypionate (DEPO-TESTOTERON E) 200 mg/mL injection Inject 0.6 mL (120 mg total) into the muscle as instructed every 7 days 4 Active gabapentin (NEURONTIN) 600 mg tabletIndication s:Neuropathic Pain Take 1 tablet (600 mg total) by mouth nightly Pt takes 3 tablets- 900 mg 30 capsule 4 Active cholecalciferol (VITAMIN D-3) 2000 unit capsuleIndicatio ns:Vitamin D Deficiency Take 1 capsule (2,000 Units [...] tablet 4 Active sodium bicarbonate 650 mg tabletIndication s:metabolic acidosis Take 1 tablet (650 mg total) [...] mg total) by mouth daily 5 Active hydroCHLOROthiaz ayaan (HYDRODIURIL) 25 mg tablet 1 tablet (25 mg total) 4 Active nebivoloL (BYSTOLIC) 5 mg tablet 1 tablet (5 mg total) 5 Active amLODIPine (NORVASC) 10 mg tablet 1 tablet (10 mg total) 5 Active famotidine (PEPCID) 40 mg tablet Take 1 tablet (40 mg total) by mouth daily 30 tablet 5 5 07/20/19 26 Active coenzyme Q10 (CoQ-10) 100 mg capsule 4 Active Active Problems Problem Noted Date Diagnosed [...] at this time. Malnutrition compromising bodily function 2023 Assessment & Plan (10/31/2023 10:45 AM CDT): [...] AM CDT): With significant lower extremity pain. 2/2 hypoalbuminemia. - Continue Lasix 20 mg every other day - Continue tizanidine, ropinirole, gabapentin Assessment & Plan (08/12/2023 4:58 PM CASTING OPERATOR HELPER): After receiving IVF for KALPANA, patient developed pitting b/l LUCHO likely due to hypoalbuminemia Normal echo 05/09/23 -OT lymphedema c/s Esophageal candidiasis 08/07/2023 Assessment & Plan (08/14/2023 3:35 PM CASTING OPERATOR HELPER): - EGD (08/07) w/concerns for esophageal candidiasis. Biopsies taken. - Pt given 400mg PO fluconazole on 08/07. Plan: Continue 200mg fluconazole daily (08/08 - 08/28). Plan 21d course Asymptomatic bacteriuria 08/04/2023 Assessment & Plan (08/07/2023 12:54 PM CASTING OPERATOR HELPER): UA showing 11-20 WBC and 1+ LE however patient is asymptomatic denying dysuria, urinary frequency/urgency, difficulty urinating, or other urinary symptoms. Likely asymptomatic bacteriuria not requiring treatment at this time. - Urine Cx with NGTD - Started tamsulosin 0.4mg (08/05) with no improvement in symptoms, stopped 08/07 KALPANA (acute kidney injury) 08/03/2023 Assessment & Plan (08/20/2023 8:32 AM CASTING OPERATOR HELPER): Noted to have elevated Cr to 1.66 [...] 07/30/2023 Assessment & Plan (08/16/2023 12:44 PM CASTING OPERATOR HELPER): Improved All resolved Hypokalemia, hypophosphatemia, hypomagnesemia Continue [...] this time prior to admission. -continue pancrelipase 28600 units TID, colestipol 2g BID -with worsening diarrhea with antibiotics, suspect abx mediated though also some concern for c diff -c diff negative -started loperamide PRN with improvement in symptoms Assessment & Plan (10/27/2023 8:09 PM CDT): - Continue Lomotil, Imodium, Creon, tincture of opium, colestipol, fiber Assessment & Plan (08/18/2023 10:09 AM CASTING OPERATOR HELPER): Improving a little bit following deterioration 08/14/23, [...] identified. Interval development of nonspecific pancolitis. Findings leather goods sales representative of remote injury to the [...] bicarb Assessment & Plan (08/12/2023 4:46 PM CASTING OPERATOR HELPER): Resolved Most likely 2/2 ongoing severe diarrhea, [...] azathioprine Assessment & Plan (07/29/2023 3:03 PM CASTING OPERATOR HELPER): Follows with Dr. Gabe Luna ([facility]). He was previously on MTX and Humira which were both stopped during his admission for septic shock in March 2023. Humira was restarted by his outpatient Mobile Ui Developer 2 weeks prior to admission Outpatient follow-up [facility] current use of systemic steroids 07/24 Assessment & Plan (10/27/2023 8:09 PM CDT): Continue prednisone 5 mg daily Assessment & Plan (08/16/2023 12:43 PM CASTING OPERATOR HELPER): Stress dose steroids were started for septic [...] 07/24/2023 Assessment & Plan (08/12/2023 4:54 PM CASTING OPERATOR HELPER): Possible due to esophageal candidiasis, versus motility disorder, versus mechanical cause S/p EGD 08/07/23 showing esoph candidiasis The patient's reported several months of intermittent difficulty with swallowing foods and liquids. Patient reports feeling that solids and liquids get stuck in his throat and that his symptoms improve with repeat swallows --ALL PURPOSE CLERK evaluation: oral mechanism evaluation is within functional [...] monitoring Assessment & Plan (08/04/2023 2:00 PM CASTING OPERATOR HELPER): Likely 07/25 steroids Negative infectious workup, continue to monitor, improving Severe protein-calorie malnutrition 07/24/2023 Assessment & Plan (08/02/2023 2:25 PM CASTING OPERATOR HELPER): Follow dietitian service recommendation Hypocalcemia 07/22/2023 Assessment & Plan (08/12/2023 4:49 PM CASTING OPERATOR HELPER): Normal when corrected for mild hypoalbuminemia, around 8.3 Possible due to nutritional deficiency from diarrhea/absorption Hypomagnesemia 06/18/2023 Hypokalemia 05/29/2023 Atrial fibrillation 04/16/2023 Hemodialysis patient 04/15/2023 Immunocompromised patient 04/15/2023 Salmonella enteritis 04/14/2023 Generalized abdominal pain 10/16/2020 Overview (10/16/2020): Added automatically from request for surgery [id number] Chronic pain syndrome 10/12/2020 Carpal tunnel syndrome on right 03/27/2020 Spondylosis of cervical spine 03/27/2020 Encounter for therapeutic drug monitoring 2017 Upper respiratory tract infection 05/25/2012 Encounters Date Type Department Care Team Description 11/08/2024 Orders Only [facility] Nephrology [address] [place] [address] [place] [address] Calixto Cr MD Chronic kidney disease, unspecified CKD stage (Primary Dx); Hypomagnesemia; Persistent proteinuria; History of anemia 09/22/2024 11:30 AM CDT Office Visit [facility] Hematology [address] [place] [phone] Smita Grady MD Leukocytosis, unspecified type (Primary Dx); Anemia, unspecified type 09/22/2024 11:15 AM CDT Lab [facility] [address] [place] [phone] Leukocytosis, unspecified type 09/22/2024 11:00 AM CDT Lab [facility] Oncology [address] [place] [phone] Leukocytosis, unspecified type; Anemia, unspecified type from Last 3 Months Immunizations Immunization Administration [...] history of arthritis - (Added by TW Radha) Cancer Father Esophageal cancer Father Stomach cancer [...] experiencing loneliness or isolatio n Never 12/26/2023 [facility] Utilities Answer Date Recorded In the [...] often do you attend chur ch or restorationism services? More than 4 times per year 02/18/2024 Do you belong to any clubs o r organizations such as bahai groups, unions, fraternal or athletic groups, or school groups? No 02/18/2024 How often do you attend meet ings of the clubs or organizations you belong to? Never 02/18/2024 Are you , , di vorced, , never , or living with a partner? 02/18/2024 AUDIT-C Answer Date Recorded Q1: How often do you have a drink containing alc ohol? Never 12/31/2023 Average Number of Drinks Not on file 024 Frequency of Binge Drinking Not on file 12/21 Overall Financial Resource Strain (CARDIA) Answe r [...] place to sleep or slept in a retirement (including now)? No 11/03/2023 Housing Stability Vital Sign Answer Jomar e Recorded In the last 12 months, was t here a time when you were not able to pay the mortgage or rent on time? No 02/18/2024 In the past 12 months, how m any times have you moved where you were living? 0 02/18/2024 At any time in the past [address] [facility], were you homeless or living in a retirement (including now)? No 02/18/2024 Personal Safety Answer Date Recorded Have you ever been in or are you currently in a harmful physical or emotional relationship or is someone making you feel afraid or unsafe? Denies 02/17/2024 Sex and Gender Information Value Date Recorded Sex Assigned at Not on file Legal Sex Male 1:31 AM CASTING OPERATOR HELPER Gender Identity Male 09/30/2023 7:18 AM CDT Sexual Orientation Straight 09/30/2023 7: 18 AM CDT Obstetrics History Last Filed Vital Signs Vital Sign Reading Time Taken Comments Blood Pressure 134/82 09/22/2024 11:26 AM CDT Pulse 66 09/22/2024 11:26 AM CDT Temperature 37.1 C (98.8 F) 09/22/2024 11:26 AM CDT Respiratory Rate 18 09/22/2024 11:2 6 AM CDT Oxygen Saturation 96% 09/22/2024 11: 26 AM CDT Inhaled Oxygen Concentration - - Weight 101.4 kg (223 lb 9.6 oz) 025 11:26 AM CDT Height 172.7 cm (5' 8 ) 07/20/2024 2:09 PM CASTING OPERATOR HELPER Body Mass Index 34 07/20/2024 2:09 PM CASTING OPERATOR HELPER Plan of Treatment Health Maintenance Due Date Last Done Comments Hepatitis C Screening 1970 Prostate Cancer Screening-PSA 1970 Hepatitis B Screening 02/24/1986 Regular Well Visit/Exam 18-64 02/24/1986 Pneumococcal vaccine <65 (2 of 2 - PCV) 03/27/2020 03/27/2019 Covid-19 Vaccine (2 - Pfizer risk series) 10/23/2020 10/02/2020 Depression Screening 10/20/2024 10/21/2023, 07/21/19 Influenza Vaccine (Season Ended) 2025 03/16/2023, 03/03/2022, 03/25/2021, Additional history exists DTaP/Tdap/Td Vaccine (2 - Td or Tdap) 05/28/2027 05/28/2017 Colon Cancer Screening-Colonoscopy 08/07/2033 08/07/2023 Zoster Vaccine Completed 04/18/2019, 02/14/2019 Colon Cancer Screening-CT Colonography Discontinued 08/07/2023, 07/31/2023 Colon Cancer Screening-DNA Stool Discontinued 08/07/19 24, 07/31/2023 Colon Cancer Screening-FIT Discontinued 08/07/2023, Colon Cancer Screening-Sigmoidoscopy Discontinued 08/07/2023, 07/31/2023 Procedures Procedure Name Priority Date/Time Associated Diagnosis Comments DIFFERENTIAL AUTO Routine 09/22/2024 10: 58 AM CDT Leukocytosis, unspecified type CBC WITH AUTO DIFFERENTIAL Routine 09/22/2024 10:58 AM CDT Leukocytosis, unspecified type COLONOSCOPY 08/07/2023 8:46 AM CASTING OPERATOR HELPER from Last 3 Months or Most Recently Relevant to Health Maintenance Results * (ABNORMAL) Differential, auto (09/22/2024 10:58 AM CDT) Neutrophil abs 6.73(H) 1.50 - 6.50 K/cumm Comment:Testing performed by : [facility] [place] [address] Imm gran abs 0.14(H) 0.00 - 0.10 K/cumm CERNER CH Comment:Testing performed by : [facility] [place] [address] Lymphocyte abs 1.69 0.80 - 3.30 K/cumm CERNER CH Comment:Testing performed by : [facility] [place] [address] Monocyte abs 0.76 0.20 - 0.80 K/cumm CERNER CH Comment:Testing performed by : [facility] [place] [address] Eosinophil abs 0.06 0.00 - 0.50 K/cumm CERNER CH Comment:Testing performed by : [facility] [place] [address] Basophil abs 0.05 0.00 - 0.10 K/cumm CERNER CH Comment:Testing performed by : [facility] [place] [address] Neutrophil pct 71.4 % CERNER Comment: Interpretive Data Percent cell count reference ranges are not reported, since discordance with absolute values may lead to misinterpretation of CBC data. Current Interpretive Data was last revised on 2017. Testing performed by: [facility] [place] [address] Imm gran pct 1.5 % CERNER Comment: Interpretive Data Percent cell count reference ranges are not reported, since discordance with absolute values may lead to misinterpretation of CBC data. Current Interpretive Data was last revised on 2017. Testing performed by: [facility] [place] [address] Lymphocyte pct 17.9 % CERNER Comment: Interpretive Data Percent cell count reference ranges are not reported, since discordance with absolute values may lead to misinterpretation of CBC data. Current Interpretive Data was last revised on 2017. Testing performed by: [facility] [place] [address] Monocyte pct 8.1 % TIKA Comment: Interpretive Data Percent cell count reference ranges are not reported, since discordance with absolute values may lead to misinterpretation of CBC data. Current Interpretive Data was last revised on 2017. Testing performed by: [facility] [place] [address] Eosinophil pct 0.6 % TIKA LOVETT Comment: Interpretive Data Percent cell count reference ranges are not reported, since discordance with absolute values may lead to misinterpretation of CBC data. Current Interpretive Data was last revised on 2017. Testing performed by: [facility] [place] [address] Basophil pct 0.5 % TIKA Comment: Interpretive Data Percent cell count reference ranges are not reported, since discordance with absolute values may lead to misinterpretation of CBC data. Current Interpretive Data was last revised on 2017. Testing performed by: [place] [address] Blood 09/22/2024 10:5 8 AM CDT 09/22/2024 10:58 AM CDT us Smita Grady MD LAB BLOOD ORDERABLES Final Resul t TIKA [id number] [address] Department [place] [address] * (ABNORMAL) CBC with auto differential (09/22/2024 10:58 AM CDT) WBC 9.43 3.80 - 9.90 K/cumm Comment:Testing performed by : [facility] [place] [address] Hgb 15.7 13.0 - 17.5 g/dL TIKA LOVETT Comment:Testing performed by : [facility] [place] [address] Hct 47.5 38.9 - 50.3 % CERNER CH Comment:Testing performed by : [facility] [place] [address] Plt 280 150 - 400 K/cumm CERNER CH Comment:Testing performed by : [facility] [place] [address] MPV 9.5 9.1 - 12.3 fL CERNER CH Comment:Testing performed by : [facility] [place] [address] RBC 5.33 4.30 - 5.80 M/cumm CERNER CH Comment:Testing performed by : [facility] [place] [address] MCV 89.1 81.3 - 96.4 fL CERNER CH Comment:Testing performed by : [facility] [place] [address] MCH 29.5 27.1 - 33.3 pg CERNER CH Comment:Testing performed by : [facility] [place] [address] MCHC 33.1 32.3 - 35.7 g/dL CERNER CH Comment:Testing performed by : [facility] [place] [address] RDW CV 14.8 11.1 - 14.9 % CERNER CH Comment:Testing performed by : [facility] [place] [address] RDW SD 48.0 35.7 - 48.1 fL CERNER CH Comment:Testing performed by : [facility] [place] [address] NRBC abs 0.00 0.00 - 0.01 K/cumm CERNER CH Comment:Testing performed by : [facility] [place] [address] ANC Prelim 6.73(H) 1.50 - 6.50 K/cumm CERNER CH Comment: Interpretive Data The rapid ANC is a preliminary automated count and may vary from the final ANC (Neut Abs) reported in the WBC differential that follows. Current interpretive data was last revised 2024. Testing performed by: [facility] [place] [address] Blood 09/22/2024 10:5 8 AM CDT 09/22/2024 10:58 AM CDT Smita Grady MD LAB BLOOD ORDERABLES Final Resul t T[facility]A [id number] [facility] Department [place] [address] * COLONOSCOPY (08/07/2023 8:46 AM CASTING OPERATOR HELPER) Anatomical Region Laterality Modality Other Narrative Procedure Note Alexandra Flaherty MD - 08/07/2023 8:46 AM CST [facility] Patient Name: Dev Amaya Procedure Date: 08/07/2023 8:46 AM Date of : 1970 Admit Type: Inpatient Age: 53 Gender: Male Attending MD: Alexandra Flaherty M.D. Room: [facility] ENDOSCOPY Note Status: Finalized Procedure: Colonoscopy [...] scope was passed under direct vision.The CF [id number] Endoscope was introduced through the anus [...] On: 08/07/2023 8:46 AM Recognized by the [employer] for promoting quality in endoscopy us Alexandra Flaherty MD ENDOSCOPY PROCEDURES Final Res ult from Last 3 Months or Most Recently Relevant to Health Maintenance Insurance [facility]PPO Address: [place] [address] [facility] Address: [place] [address] [facility] Address: [facility] [address] [place] [address] Advance Directives For more information, please contact: [phone] * Full Code (Latest Code Status on [...] 8:01 AM 08/20/2023 3:03 PM Care Teams Shoes Salesperson Relationship Specialty Start Date End Date Hi Salmon DO PCP - General Internal Medicine 07/30/23 Estefani Ch MD [address] [place] [address] Referring Physician Gastroenterology 09/10/23 Gabe Luna MD [address] [facility] [address] [place] [address] Consulting Physician Rheumatology 10/22/23
--- OUTSIDE RECORDS SUMMARY | 2024-11-16 06:45 | XMS_ITS | Clinical Summary ---
Author Organization [facility] [address] [facility] Address [address] [place] [address] Care Team Providers Care Counseling Program Leader Name Role Phone Hi Salmon DO Primary [...] 103.9 kg (229 lb) 04/28/2020 3:16 PM TOBACCO DRYING MACHINE OPERATOR Height 172.7 cm (5' 8 ) 04/28/2020 3:16 PM TOBACCO DRYING MACHINE OPERATOR Body Mass Index 34.82 04/28/2020 3:16 PM TOBACCO DRYING MACHINE OPERATOR Plan of Treatment Health Maintenance Due Date Last Done Comments DTAP/TDAP/TD VACCINES (1 - Tdap) 02/24/1987 HEPATITIS B VACCINES (1 of 3 - 19+ 3-dose series) 09/1986 COLORECTAL SCREENING 02/24/2013 Colorectal Cancer Screening 02/24/2013 FIT-DNA Q 3 years 02/24/2013 FIT/FOBT Q 1 year 02/24/2013 Flex Sig/CT Colonography Q 5 years 02/24/2013 ZOSTER VACCINE (1 of 2) 02/24/2018 INFLUENZA VACCINE (#1) 2024 03/12/2020 Insurance [facility] Address: [facility] [address] [place] [address] Care Teams Counseling Program Leader Relationship Specialty Start Date End Date Hi Salmon DO [address] [phone] PCP - General Internal Medicine 03/23/20
--- OUTSIDE RECORDS SUMMARY | 2024-11-16 06:45 | XMS_ITS | Referral Summary ---
Author Organization [facility] al Address [address] [place] [address] Care Team Providers Care Centura Technical Lead Senior Developer Name Role Phone Hi Salmon DO Primary Care Provider [phone] Estefani Ch MD Unavailable [phone] Gabe Luna MD Unavailable [phone] Encounters Date Type Department Care Team Description 11/08/2024 Orders Only [facility] Nephrology [facility] 5th [place] [address] [place] [address] Calixto Cr MD Chronic kidney disease, unspecified CKD stage (Primary Dx); Hypomagnesemia; Persistent proteinuria; History of anemia 09/22/2024 11:15 AM CDT Lab [facility] Lab [address] [place] [address] Leukocytosis, unspecified type 09/22/2024 11:00 AM CDT Lab [facility] Oncology [address] [place] [address] Leukocytosis, unspecified type; Anemia, unspecified type 09/22/2024 11:30 AM CDT Office Visit [facility] Hematology [address] [place] [phone] Smita Grady MD Leukocytosis, unspecified type (Primary Dx); Anemia, unspecified type from Last 3 Months Allergies Active Allergy [...] (1,000 mg total) by mouth daily Active ta-oxy-bwqhh-K1- lycopen-lutein [id number] mcg tablet Take 1 tablet by mouth [...] gabapentin Assessment & Plan (08/12/2023 4:58 PM LOGISTICS TEAM LEADER): After receiving IVF for KALPANA, patient developed pitting b/l LUCHO likely due to hypoalbuminemia Normal echo 05/09/23 -OT lymphedema c/s Esophageal candidiasis 08/07/2023 Assessment & Plan (08/14/2023 3:35 PM LOGISTICS TEAM LEADER): - EGD (08/07) w/concerns for esophageal candidiasis. Biopsies taken. - Pt given 400mg PO fluconazole on 08/07. Plan: Continue 200mg fluconazole daily (08/08 - 08/28). Plan 21d course Asymptomatic bacteriuria 08/04/2023 Assessment & Plan (08/07/2023 12:54 PM LOGISTICS TEAM LEADER): UA showing 11-20 WBC and 1+ LE however patient is asymptomatic denying dysuria, urinary frequency/urgency, difficulty urinating, or other urinary symptoms. Likely asymptomatic bacteriuria not requiring treatment at this time. - Urine Cx with NGTD - Started tamsulosin 0.4mg (08/05) with no improvement in symptoms, stopped 08/07 KALPANA (acute kidney injury) 08/03/2023 Assessment & Plan (08/20/2023 8:32 AM LOGISTICS TEAM LEADER): Noted to have elevated Cr to 1.66 [...] 07/30/2023 Assessment & Plan (08/16/2023 12:44 PM LOGISTICS TEAM LEADER): Improved All resolved Hypokalemia, hypophosphatemia, hypomagnesemia Continue [...] this time prior to admission. -continue pancrelipase 71593 units TID, colestipol 2g BID -with worsening diarrhea with antibiotics, suspect abx mediated though also some concern for c diff -c diff negative -started loperamide PRN with improvement in symptoms Assessment & Plan (10/27/2023 8:09 PM CDT): - Continue Lomotil, Imodium, Creon, tincture of opium, colestipol, fiber Assessment & Plan (08/18/2023 10:09 AM LOGISTICS TEAM LEADER): Improving a little bit following deterioration 08/14/23, [...] identified. Interval development of nonspecific pancolitis. Findings underwriting account representative of remote injury to the left [...] bicarb Assessment & Plan (08/12/2023 4:46 PM LOGISTICS TEAM LEADER): Resolved Most likely 2/2 ongoing severe diarrhea, [...] azathioprine Assessment & Plan (07/29/2023 3:03 PM LOGISTICS TEAM LEADER): Follows with Dr. Gabe Luna ([facility]). He was previously on MTX and Humira which were both stopped during his admission for septic shock in March 2023. 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 Patient reports feeling that solids and liquids get stuck in his throat and that his symptoms improve with repeat swallows --WASTE REMOVALIST evaluation: oral mechanism evaluation is within functional [...] monitoring Assessment & Plan (08/04/2023 2:00 PM LOGISTICS TEAM LEADER): Likely 2/2 steroids Negative infectious workup, continue to monitor, improving Severe protein-calorie malnutrition 07/24/2023 Assessment & Plan (08/02/2023 2:25 PM LOGISTICS TEAM LEADER): Follow dietitian service recommendation Hypocalcemia 07/22/2023 Assessment & Plan (08/12/2023 4:49 PM LOGISTICS TEAM LEADER): Normal when corrected for mild hypoalbuminemia, around 8.3 Possible due to nutritional deficiency from diarrhea/absorption Hypomagnesemia 06/18/2023 Hypokalemia 05/29/2023 Atrial fibrillation 04/16/2023 Hemodialysis patient 04/15/2023 Immunocompromised patient 04/15/2023 Salmonella enteritis 04/14/2023 Generalized abdominal pain 10/16/2020 Overview (10/16/2020): Added automatically from request for surgery [id number] Chronic pain syndrome 10/12/2020 Carpal tunnel syndrome [...] experiencing loneliness or isolatio n Never 12/26/2023 [facility] Utilities Answer Date Recorded In the past 12 months has e [employer], gas, oil, or water company threatened to [...] often do you attend chur ch or zoroastrianism services? More than 4 times per year 02/18/2024 Do you belong to any clubs o r organizations such as druze groups, unions, fraternal or athletic groups, or [...] place to sleep or slept in a correction (including now)? No 11/03/2023 Housing Stability Vital Sign Answer Jomar e Recorded In the last 12 months, was t here a time when you were not able to pay the mortgage or rent on time? No 02/18/2024 In the past 12 months, how m any times have you moved where you were living? 0 02/18/2024 At any time in the past 12 m [facility], were you homeless or living in a correction (including now)? No 02/18/2024 Personal Safety Answer Date Recorded Have you ever been in or are you currently in a harmful physical or emotional relationship or is someone making you feel afraid or unsafe? Denies 02/17/2024 Sex and Gender Information Value Date Recorded Sex Assigned at Not on file Legal Sex Male 1:31 AM LOGISTICS TEAM LEADER Gender Identity Male 09/30/2023 7:18 AM CDT [...] Weight 101.4 kg (223 lb 9.6 oz) 04/02/2 025 11:26 AM CDT Height 172.7 cm (5' 8 ) 07/20/2024 2:09 PM LOGISTICS TEAM LEADER Body Mass Index 34 07/20/2024 2:09 PM LOGISTICS TEAM LEADER Plan of Treatment Not on file Procedures Procedure Name Priority Date/Time Associated Diagnosis Comments DIFFERENTIAL AUTO Routine 09/22/2024 10: 58 AM CDT Leukocytosis, unspecified type CBC WITH AUTO DIFFERENTIAL Routine 09/22/2024 10:58 AM CDT Leukocytosis, unspecified type COLONOSCOPY 08/07/2023 8:46 AM LOGISTICS TEAM LEADER from Last 3 Months or Most Recently Relevant to Health Maintenance Results * (ABNORMAL) Differential, auto (09/22/2024 10:58 AM CDT) Neutrophil abs 6.73(H) 1.50 - 6.50 K/cumm Comment:Testing performed by : [facility] [place] [address] Imm gran abs 0.14(H) 0.00 - 0.10 K/cumm CERNER CH Comment:Testing performed by : [facility] [place] [address] Lymphocyte abs 1.69 0.80 - 3.30 K/cumm CERNER CH Comment:Testing performed by : [facility] [place] [address] Monocyte abs 0.76 0.20 - 0.80 K/cumm CERNER CH Comment:Testing performed by : [facility] [place] [address] Eosinophil abs 0.06 0.00 - 0.50 K/cumm CERNER CH Comment:Testing performed by : [facility] [place] [address] Basophil abs 0.05 0.00 - 0.10 K/cumm CERNER CH Comment:Testing performed by : [facility] [place] [address] Neutrophil pct 71.4 % CERNER CH Comment: Interpretive Data Percent cell count reference ranges are not reported, since discordance with absolute values may lead to misinterpretation of CBC data. Current Interpretive Data was last revised on 2017. Testing performed by: [facility] [place] [address] Imm gran pct 1.5 % [facility] [place] Comment: Interpretive Data Percent cell count reference ranges are not reported, since discordance with absolute values may lead to misinterpretation of CBC data. Current Interpretive Data was last revised on 2017. Testing performed by: [facility] [place] [address] Lymphocyte pct 17.9 % [facility] [place] Comment: Interpretive Data Percent cell count reference ranges are not reported, since discordance with absolute values may lead to misinterpretation of CBC data. Current Interpretive Data was last revised on 2017. Testing performed by: [facility] [place] [address] Monocyte pct 8.1 % CERNER Comment: Interpretive Data Percent cell count reference ranges are not reported, since discordance with absolute values may lead to misinterpretation of CBC data. Current Interpretive Data was last revised on 2017. Testing performed by: [facility] [place] [address] Eosinophil pct 0.6 % CERNER Comment: Interpretive Data Percent cell count reference ranges are not reported, since discordance with absolute values may lead to misinterpretation of CBC data. Current Interpretive Data was last revised on 2017. Testing performed by: [facility] [place] [address] Basophil pct 0.5 % CERNER Comment: Interpretive Data Percent cell count reference ranges are not reported, since discordance with absolute values may lead to misinterpretation of CBC data. Current Interpretive Data was last revised on 2017. Testing performed by: [facility] [place] [address] Blood 09/22/2024 10:5 8 AM CDT 09/22/2024 10:58 AM CDT us Smita Grady MD LAB BLOOD ORDERABLES Final Resul t [facility] [address] [address] Department of Laboratories [place], [place] [id number] * (ABNORMAL) CBC with auto differential (09/22/2024 10:58 AM CDT) WBC 9.43 3.80 - 9.90 K/cumm Comment:Testing performed by : [facility] [place] [address] Hgb 15.7 13.0 - 17.5 g/dL CERNER CH Comment:Testing performed by : [facility] [place] [address] Hct 47.5 38.9 - 50.3 % CERNER CH Comment:Testing performed by : [facility] [place] [address] Plt 280 150 - 400 K/cumm CERNER CH Comment:Testing performed by : [facility] [place] [address] MPV 9.5 9.1 - 12.3 fL CERNER CH Comment:Testing performed by : [facility] [place] [address] RBC 5.33 4.30 - 5.80 M/cumm CERNER CH Comment:Testing performed by : [facility] [place] [address] MCV 89.1 81.3 - 96.4 fL CERNER CH Comment:Testing performed by : [facility] [place] [address] MCH 29.5 27.1 - 33.3 pg CERNER CH Comment:Testing performed by : [facility] [place] [address] MCHC 33.1 32.3 - 35.7 g/dL CERNER CH Comment:Testing performed by : [facility] [place] [address] RDW CV 14.8 11.1 - 14.9 % CERNER CH Comment:Testing performed by : [facility] [place] [address] RDW SD 48.0 35.7 - 48.1 fL CERNER CH Comment:Testing performed by : [facility] [place] [address] NRBC abs 0.00 0.00 - 0.01 K/cumm CERNER CH Comment:Testing performed by : [facility] [place] [address] ANC Prelim 6.73(H) 1.50 - 6.50 K/cumm TIKA LOVETT Comment: Interpretive Data The rapid ANC is a preliminary automated count and may vary from the final ANC (Neut Abs) reported in the WBC differential that follows. Current interpretive data was last revised 2024. Testing performed by: [facility], [place] [address] Blood 09/22/2024 10:5 8 AM CDT 09/22/2024 10:58 AM CDT us Smita Grady MD LAB BLOOD ORDERABLES Final Resul t [facility]OVETT [address] Department [place] [address] * COLONOSCOPY (08/07/2023 8:46 AM LOGISTICS TEAM LEADER) Anatomical Region Laterality Modality Other Narrative Procedure Note Alexandra Flaherty MD - 08/07/2023 8:46 AM [facility] Patient Name: Dev Amaya Procedure Date: 08/07/2023 8:46 AM Date of : 1970 Admit Type: Inpatient Age: 53 Gender: Male Attending MD: Alexandra Flaherty M.D. Room: [facility] ENDOSCOPY Note Status: Finalized Procedure: Colonoscopy Indications: [...] scope was passed under direct vision.The CF [id number] Endoscope was introduced through the anus [...] On: 08/07/2023 8:46 AM Recognized by the [employer] for promoting quality in endoscopy Alexandra Flaherty MD ENDOSCOPY PROCEDURES Final Res ult from Last 3 Months or Most Recently Relevant to Health Maintenance Insurance [facility] Address: [place] [address] [facility] Address: [address] [address] [place] [address] [facility] [employer] [facility] Address: [facility] [id number] [place] [id number] Advance Directives For more information, please contact: [phone] * Full Code (Latest Code Status on [...] 8:01 AM 08/20/2023 3:03 PM Care Teams Centura Technical Lead Senior Developer Relationship Specialty Start Date End Date Hi Salmon DO PCP - General Internal Medicine 07/30/23 Estefani Ch MD [facility] [address] [place] [address] Referring Physician Gastroenterology 09/10/23 Gabe Luna MD [address] [address] Consulting Physician Rheumatology 10/22/23
--- OUTSIDE RECORDS SUMMARY | 2024-11-16 06:45 | XMS_ITS | Encounter Summary ---
Author Organization [facility] Address [address] [place] [address] Phone Care Team Providers Care Director Part Name Role Phone Hi Salmon DO Primary Care Provider [phone] Estefani Ch MD Unavailable Gabe Luna MD Unavailable Encounter Details Date Type Department Care Team (Late st Contact Info) Description 01/02/2024 Documentation [facility] Gastroenterology [address] [facility] Advanced Medicine 12th [place] [address] [place] [id number] Estefani Ch MD [address] [place] [address] Social History Tobacco Use Types Packs/Day Years Used Date Smoking Tobacco: Former Cigarettes Q uit: 10/16/1998 Smokeless Tobacco: Never Alcohol Use Standard Drinks/Week Comments Not Currently 0 (1 standard drink = 0.6 oz pur e alcohol) OASIS D0700: Social Isolation Answer Da te Recorded Frequency of experiencing loneliness or isolatio n Never 12/26/2023 [facility] Utilities Answer Date Recorded In the [...] often do you attend chur ch or sabianist services? More than 4 times per year 11/03/2023 Do you belong to any clubs o r organizations such as hoahaoism groups, unions, fraternal or athletic groups, or [...] place to sleep or slept in a chcf (including now)? No 11/03/2023 Personal Safety Answer Date Recorded Have you ever been in or are you currently in a harmful physical or emotional relationship or is someone making you feel afraid or unsafe? Denies 12/31/2023 Sex and Gender Information Value Date Recorded Sex Assigned at Not on file Legal Sex Male 1:31 AM LPC Gender Identity Male 09/30/2023 7:18 AM CDT [...] documented as of this encounter Care Teams Director Part Relationship Specialty Start Date End Date Hi Salmon DO PCP - General Internal Medicine 07/30/23 Estefani Ch MD [address] [place] [address] Referring Physician Gastroenterology 09/10/23 Gabe Luna MD [address] [place] [address] Consulting Physician Rheumatology 10/22/23 documented as of this encounter
--- OUTSIDE RECORDS SUMMARY | 2024-11-16 06:45 | XMS_ITS | Patient Health Record ---
Author Organization [facility] Address [address] [place] [address] Care Team Providers Care Traveling Storekeeper Name Role Phone Farhana Marcus Primary Care Provider Allergies No Known Allergies Reason For Referral [...] Problem Status W/U Status Risk Notes Problem 061033490 Chronic pain syndrome (G89.4) 10/12/2020 Active confirmed Problem [id number] Mood disorder (F39) Active confirmed Problem [id number] Intellectual disability (F79) Active confirmed Plan Of Treatment No Information Insurance Providers Payer Name Payer Address Payer Phone Subscriber Number Group Number Insured Name Patient Relationship to Insured Coverage Start Date Coverage End Date [facility] [address] [place] [address] [id number] Dev Amaya Self - patient is the insured 1 Medical (General) History Medical History History ICD Code Rheumatoid Arthritis HTN Dyslipidemia Low Testosterone Chronic pain Surgical History Surgery Date(Month/Year)
--- OUTSIDE RECORDS SUMMARY | 2024-11-16 06:45 | XMS_ITS | Clinical Summary ---
Author Organization [facility] Address [address] [place] [address] Care Team Providers Care Remote Sensing Program Manager Name Role Phone Unavailable Primary Care Provider Unavailabl e Social History Tobacco Use Types Packs/Day Years Used Date Smoking Tobacco: Never Assessed Sex and Gender Information Value Date Recorded Sex Assigned at Not on file Legal Sex Male 11:24 AM SAP CRM DEVELOPER Gender Identity Not on file Sexual Orientation [...]
--- OUTSIDE RECORDS SUMMARY | 2024-11-16 06:45 | XMS_ITS | Clinical Summary ---
Author Organization [facility] [employer] Address [address] [address] Care Team Providers Care High Scaler Name Role Phone Unavailable Primary Care Provider Unavailabl e Source Comments [facility],non-owned Affiliates and Associated Physician Practices is amultiple site organization consisting of ambulatory clinics and hospital sitesin [place], [place], [place] and [place]. This disclosure is being madepursuant to the Care Everywhere program and may not contain all information available regarding this patient. Last updated 18.[facility] [employer] Allergies Active Allergy Reactions Criticality Noted Date Comments Ceftriaxone Rash,Renal Injury High 04/16/2023 Medications * Be aware that medications may not be up to date on this document. Alwaysverify current medications with the patient. QUEtiapine (SEROquel) 25 MG tablet Take 1 (one) tablet by mouth at bedtime Active petrolatum (Aquaphor;[place] phor) Apply to affected area as needed for Dry Skin 454 g 06/11/20 23 Active gabapentin (Neurontin) 300 MG capsule Take 1 (one) capsule by mouth 2 times daily 60 capsule 2 06/18/20 23 Active simethicone (Mylicon) 80 MG chew tablet Take 1 (one) tablet by mouth 4 times daily as needed for Gas Pain 60 tablet 2 06/18/20 23 Active rOPINIRole (Requip) 0.5 MG tabletIndicatio ns:Restless Leg Syndrome Take 1 (one) tablet by mouth at bedtime Reasons: Restless Leg Syndrome 30 tablet 2 06/18/20 23 Active DULoxetine (Cymbalta) 60 MG capsuleIndicati ons:Rheumatoid arthritis involving multiple sites, unspecified whether rheumatoid factor present (HCC),Encounter for therapeutic drug monitoring,Enco unter for long-term (current) use of high-risk medication Take 1 (one) capsule by mouth once daily 30 capsule 2 06/18/20 23 Active ondansetron (Zofran) 4 MG tablet Take 2 (two) tablets by mouth every 6 hours as needed for Nausea/Vomiting 180 tablet 2 06/18/20 23 Active thiamine (Vitamin B-1) 100 MG tablet Take 1 (one) tablet by mouth once daily 60 tablet 2 06/18/20 23 Active famotidine (Pepcid) 20 MG tablet Take 1 (one) tablet by mouth at bedtime 30 tablet 4 06/18/20 23 Active loperamide (Imodium) 2 MG capsule Take 2 (two) capsules by mouth 4 times daily 250 capsule 2 06/18/20 23 Active Crofelemer 125 MG Take 125 mg by mouth 2 times daily 60 tablet 1 06/18/20 23 Active opium (Opium Tincture) 10 MG/ML (1%) solutionIndicat ions:Sepsis due to Salmonella species with acute renal failure without septic shock, unspecified acute renal failure type (HCC) Take 0.6 mL by mouth every 6 hours 118 mL 06/19/20 23 Active predniSONE (Deltasone) 10 MG tablet Take 1 (one) tablet by mouth once daily 30 tablet 2 06/26/19 24 Active predniSONE (Deltasone) 5 MG tablet Take 1 (one) tablet by mouth once daily 30 tablet 2 06/26/19 24 Active predniSONE (Deltasone) 20 MG tablet Take 1 (one) tablet by mouth once daily 60 tablet 1 06/26/19 24 Active baclofen (Lioresal) 10 MG tabletIndicatio ns:Intractable Hiccups,Muscle Spasm Take 1 (one) tablet by mouth 3 times daily as needed for Muscle Spasms May cause drowsiness. Reasons: Hiccups that are Hard to Cure, Muscle Spasm 90 tablet 2 07/10/19 24 Active sodium bicarbonate 650 MG tablet Take 2 (two) tablets by mouth 3 times daily 180 tablet 2 07/10/19 24 Active nystatin (Mycostatin) 097078 UNIT/ML suspension Take 1 mL by mouth 4 times daily 473 mL 07/10/19 Active hydrocortisone (Anusol-HC) 25 MG suppository Insert 1 (one) suppository into the rectum 2 times daily 60 suppository 07/10/19 Active Additional Information Patient not taking.Reported on 07/10/2023 diphenoxylate-a tropine (Lomotil) 2.5-0.025 MG tablet Take 1 (one) tablet by mouth 4 times daily as needed for Diarrhea 120 tablet 07/10/19 Active amitriptyline (Elavil) 25 MG tablet Take 1 (one) tablet by mouth at bedtime 30 tablet 1 07/17/19 Active potassium chloride ER (Klor-Con M) 20 MEQ tablet Take 1 (one) tablet by mouth once daily 6 tablet 07/17/19 Active Active Problems Problem Noted Date Diagnosed [...] Dehydration 05/29/2023 06/12/2023 Diarrhea 04/14/2023 05/28/2023 Immunizations Immunization Administration Dates Next Due FLU VACCINE TRI [...] Recorded Patient Health Questionnaire-2 Score 0 07/17/2023 [facility] [place] [facility] Occupat ional Health - Occupational Stress [...] place to sleep or slept in a usp (including now)? No 05/29/2023 Housing Stability Vital [...] Sex Assigned at Male 05/29/2023 8:17 AM [employer] Legal Sex Male 6:30 PM [employer] Gender Identity Male 05/29/2023 8:17 AM [employer]AR[employer] Sexual Orientation Not on file Last Filed Vital Signs Vital Sign Reading Time Taken Comments Blood Pressure 132/77 07/17/2023 10:54 AM [employer] Pulse 103 07/17/2023 10:54 AM [employer] Temperature 37.3 C (99.1 F) 07/17/2023 10:54 AM [employer] Respiratory Rate 18 07/17/2023 10:54 AM [employer] Oxygen Saturation 100% 07/17/2023 10:54 AM [employer] Inhaled Oxygen Concentration - - Weight 73 kg (161 lb) 07/17/2023 9:27 AM [employer]AR[employer] Height 167.6 cm (5' 6 ) 07/17/2023 9:27 AM [employer] Body Mass Index 25.99 07/17/2023 9:27 AM [employer] Plan of Treatment Health Maintenance Due Date [...] 2024 02/15/2022, 05/20/2021, 10/23/2020, Additional history exists DEPRESSION SCREENING 06/23/2024 06/26/2023, 05/29/20 INFLUENZA VACCINE (Season Ended) 2025 03/16/2023, 03/03/2022, 03/25/2021, Additional history exists SCREENING FOR DIABETES 07/17/2026 , 07/10/2023, 07/03/2023, Additional history exists DTAP/TDAP/TD VACCINES [...] complete this topic MENINGOCOCCAL (Group B) VACCINE SHARED DECISION-MAKING Aged Out No longer eligible based on patient's age to complete this topic MENINGOCOCCAL GROUPS A/C/Y/W VACCINE Aged Out No longer eligible based on patient's age to complete this topic Procedures Procedure Name Priority Date/Time Associated Diagnosis Comments COMPREHENSIVE METABOLIC PANEL STAT 07/17/2023 9:20 AM [employer] Diarrhea, unspecified type LIPID PROFILE Routine 05/12/2023 6:54 AM [employer] ENDOSCOPY, COLON, DIAGNOSTIC Routine 05/01/2023 11:19 AM [employer] HIV-1 HIV-2 ANTIBODY + HIV P24 AG PANEL AM Draw 04/15/2023 8:31 PM CDT HEPATITIS C ANTIBODY Routine 09/23/2017 3:56 PM CDT from Last 3 Months or Most Recently Relevant to Health Maintenance Results * (ABNORMAL) COMPREHENSIVE METABOLIC PANEL (07/17/2023 9:20 AM [facility]) Glucose 107(H) 70 - 105 mg/dL 07/17/2023 10:13 AM [facility] Sodium 143 136 - 145 mmol/L 07/17/2023 10:13 AM [facility] Potassium 3.5 3.5 - 5.1 mmol/L 07/17/2023 10:13 AM [facility] Chloride 118(H) 98 - 107 mmol/L 07/17/2023 10:13 AM [facility] CO2 17(L) 22 - 29 mmol/L 07/17/2023 10:13 AM [facility] Calcium 7.5(L) 8.4 - 10.4 mg/dL 07/17/2023 10:13 AM [facility] Anion Gap 8 6 - 16 mmol/L 07/17/2023 10:13 AM [facility] BUN 13 7 - 26 mg/dL 07/17/2023 10:13 AM [facility] Creatinine 0.93 0.72 - 1.25 mg/dL 07/17/2023 10:13 AM [facility] Alkaline Phosphatase 214(H) 40 - 150 U/L 07/17/2023 10:13 AM [facility] ALT 76(H) 0 - 55 U/L 07/17/2023 10:13 AM [facility] AST 34 5 - 34 U/L 07/17/2023 10:13 AM [facility] Protein Total 4.0(L) 6.4 - 8.3 gm/dL 07/17/2023 10:13 AM [facility] Albumin 2.1(L) 3.4 - 5.0 gm/dL 07/17/2023 10:13 AM [facility] Bilirubin Total 0.2 0.2 - 1.2 mg/dL 07/17/2023 10:13 AM [facility] eGFR by CKD-EPI >90 >=90 mL/min/1.7 3 m2 07/17/2023 10:13 AM [facility] Blood BLOOD SPECIMEN / Unknown Venipuncture / Unknown 07/17/2023 9:20 AM [employer] 07/17/2023 9:45 AM [employer] Torrie Martin MD LAB - CHEMISTRY [place] Final Result Performing Organization Address [facility]/ZIP Co de Phone Number [facility] [address] [place] [address] * (ABNORMAL) LIPID PROFILE (05/12/2023 6:54 AM [employer]) Cholesterol 124 <200 mg/dL 05/12/2023 7:32 AM [employer] [facility] Triglycerides 195(H) <150 mg/dL 05/12/2023 7:32 AM [facility] HDL Cholesterol 23(L) >40 mg/dL 3 7:32 AM [facility] LDL Calculated 62 <130 mg/dL 05/12/2023 7:32 AM [facility] VLDL Calculated 39(H) <=30 mg/dL 3 7:32 AM [facility] Chol HDL Ratio 5.4(H) <4.5 05/12/2023 7:32 AM [facility] LDL/HDL Ratio 2.7 <5.0 05/12/2023 7:32 AM [facility] Blood BLOOD SPECIMEN / Unknown Lab Venipuncture / Unknown 05/12/2023 6:54 AM [employer] 05/12/2023 7:02 AM [employer] Daniel Croft MD LAB - CHEMISTRY ORDERABLES F inal Result Performing Organization Address City/[facility]/ZIP Co de Phone Number [facility] [address] [place] [address] * ENDOSCOPY, COLON, DIAGNOSTIC (05/01/2023 11:19 AM TARIFF EXPERT) Report Endoscopy POC _ Patient Name: Dev Amaya Procedure Date: 05/01/2023 11:19 AM Date of : 1970 Admit Type: Inpatient Age: 53 Gender: Male Ethnicity: Not or Race: White Attending MD: Rickie Colon MD, [id number] _ Procedure: Colonoscopy Indications: Clinically significant diarrhea [...] bowel preparation was evaluated using the BBPS (Sanford Bowel Preparation Scale) with scores of: Right [...] screening purposes. Procedure Code(s): --- Professional --- 69836, Colonoscopy, flexible; with biopsy, single or multiple --- Technical --- 54720, Colonoscopy, flexible; with biopsy, single or multiple Diagnosis Code(s): --- Professional --- K63.3, Ulcer of intestine R19.7, Diarrhea, unspecified --- Technical --- K63.3, Ulcer of intestine R19.7, Diarrhea, unspecified CPT copyright 2020 [employer]. All rights reserved. The codes documented in this report are preliminary and upon sand hauler review may be revised to meet current compliance requirements. ___ Rickie Colon MD 05/01/2023 12:47:16 PM Number of Addenda: 0 Note Initiated On: 05/01/2023 11:19 AM [facility] 05/01/2023 11:1 9 AM [employer] Narrative Procedure Note Rickie Colon MD - 05/01/2023 12:48 PM CST Colonoscopy done for diarrhea. Normal colon. Single small ulcer in theTI. Biopsies taken from TI and random colon biopsies. f/u path. Rickie Colon MD GI PROCEDURE ORDERABLES Ed ited Result - Final [facility] * HIV-1 HIV-2 ANTIBODY + HIV P24 AG PANEL (04/15/2023 8:31 PM CDT) HIV1/2 Ab + P24 Ag Non Reactive Non Reactive 04/15/2023 9:16 PM CDT [facility] Blood BLOOD SPECIMEN / Unknown Lab Venipuncture / Unknown 04/15/2023 8:31 PM CDT 04/15/2023 8:36 PM CDT Narrative [facility] - 04/15/2023 9:16 PM CDT No Laboratory evidence of HIV infection. us Uzma Bazzi MD LAB - CHEMISTRY ORDERABLES Fin al Result [facility] [address] [place] [address] * HEPATITIS C ANTIBODY (09/23/2017 3:56 PM CDT) Hepatitis C Virus Antibody 0.1 0.0 - 0.9 s/co ratio [facility] ([facility]) Comment: Negative: < 0.8 Indeterminate: 0.8 - 0.9 Positive: > 0.9 The CDC recommends that a positive HCV antibody result be followed up with a HCV Nucleic Acid Amplification test (615034). Blood specimen (specimen) BLOOD SPECIMEN / Unknown 09/23/2017 3:56 PM CDT 09/23/2017 Narrative [facility] ([facility]) - 09/24/2017 7:13 AM CDT Performed at: - [facility] [address], [place] [id number] Calibration Technician: Jarod Webster PhD, Phone: [phone] us Kayla Cardona MD LAB - CHEMISTRY ORDERA BLES Final Result [facility] ([facility]) [address] [place] [id number] from Last 3 Months or Most Recently Relevant to Health Maintenance Insurance [facility] Advance Directives * Full Code (Latest Code [...]
[2024-11-16 08:10] LABS: Add Urine Microscopic? NO; Appearance Urine Clear (Clear); Bilirubin Urine Negative (Negative); Blood Urine Negative (Negative); Color Urine Yellow (Yellow); Glucose Urine UA Negative (Negative); Ketones Urine Negative (Negative); Leukocyte Esterase Ur Negative LEU/UL (Negative); Nitrate Urine Negative (Negative); Protein Urine Negative (Negative); Urobilinogen Urine 0.2 mg/dL (<2.0); pH Urine 6.5 (5.0-9.0)
[2024-11-16 08:13] LABS: Basophils Absolute Auto 0.1 K/mm3 (0.0-0.1); Basophils Percent Auto 0.7 % (0.2-1.2); Eosinophils Absolute Auto 0.1 K/mm3 (0-0.3); Eosinophils Percent Auto 1.6 % (0-4.4); Hematocrit 48.6 % (42.0-52.0); Hemoglobin 15.7 g/dL (14.0-18.0); Immature Granulocyte Absolute 0.11 K/mm3 (0.00-0.031); Immature Granulocyte Percent A 1.2 % (0-0.5); Lymphocytes Absolute Auto 2.21 K/mm3 (0.9-3.2); Lymphocytes Percent Auto 24.7 % (18.3-44.2); Mean Corpuscular HGB Conc 32.3 g/dl (32-36); Mean Corpuscular Hemoglobin 29.4 pg (26-34); Mean Platelet Volume 9.9 fl (7.4-10.4); Monocytes Absolute Auto 0.9 K/mm3 (0.1-0.6); Monocytes Percent Auto 10.3 % (2.6-8.5); Neutrophils Absolute Auto 5.5 K/mm3 (1.3-6.7); Neutrophils Percent Auto 61.5 % (45.5-73.1); Platelet Count Result 250 k/mm3 (150-375); Red Blood Count 5.34 M/mm3 (4.6-6.20); Red Cell Distribution Width 15.9 % (11.5-14.5); White Blood Count 8.9 K/mm3 (4.5-10.0)
[2024-11-16 09:23] LABS: Albumin Level 4.6 g/dL (3.5-5.1); Anion Gap 8 mmol/L (4-12); Blood Urea Nitrogen 26 mg/dL (9-20); Calcium 9.6 mg/dL (8.4-10.2); Carbon Dioxide 25 mmol/L (22-30); Chloride 106 mmol/L (98-107); Estimated Glomerular Filt Rate 50; Glucose 102 mg/dL (65-110); Phosphorus 3.7 mg/dL (2.5-4.5); Potassium 4.1 mmol/L (3.4-5.0); Sodium 139 mmol/L (137-145)
[2024-11-16 09:41] LABS: Hemoglobin A1C 5.8 % (<5.7)
[2024-11-16 09:54] LABS: Prostate Specific Antigen 1.7 ng/mL (< OR = 4.0)
[2024-11-16 11:09] LABS: Creatinine Urine 120.2 mg/dL; Total Protein Urine Random 7 mg/dL; Ur Ttl Prot Creatinine Ratio 0.06 mg/mg (0-0.20)
== END 2024-11-16 06:42 | disposition home or self-care (01) ==
PROVIDERS: PCP Internal Medicine; Referring Provider Internal Medicine
DX: E78.5 Hyperlipidemia, unspecified (principal); Z51.81 Encounter for therapeutic drug level monitoring; Z79.890 Hormone replacement therapy; R73.9 Hyperglycemia, unspecified; E83.42 Hypomagnesemia; R80.1 Persistent proteinuria, unspecified; I12.9 Hypertensive chronic kidney disease with stage 1 through stage 4 chronic kidney disease, or unspecified chronic kidney disease; N18.31 Chronic kidney disease, stage 3a
CPT/HCPCS: 36415; 80069; 81003; 82570; 82728; 83036; 84153; 84156; 84402; 84403; 85025

== ENCOUNTER 2024-12-07 06:33 | Outpatient (CLI) | payer OTHER, SELFPAY ==
--- OUTSIDE RECORDS SUMMARY | 2024-12-07 06:42 | XMS_ITS | Clinical Summary ---
Author Organization [facility] Address [address] [place] [address] Care Team Providers Care Trade Economist Name Role Phone Hi Salmon DO Primary Care Provider [phone] Estefani Ch MD Unavailable [phone] Gabe Luna MD Unavailable [phone] Allergies Active Allergy Reactions Criticality Noted Date [...] (1,000 mg total) by mouth daily Active ef-kxj-vblld-K1- lycopen-lutein 803-11-420-300 mcg tablet Take 1 tablet by mouth [...] Q10 (CoQ-10) 100 mg capsule 4 Active ondansetron (ZOFRAN) 4 mg tablet 1 tablet (4 mg total) 5 Active ferrous sulfate 325 mg (65 mg of elemental iron) tabletIndication s:Iron Deficiency Anemia Take 1 tablet (65 mg of elemental iron total) by mouth daily Active fish oil-dha-epa 1,200-144-216 mg capsule Take by mouth Active glucosam-chondr- wem0-X0-D-kayy 750-625-1,000 mg-mg-unit tablet Take by mouth Active lisinopriL (PRINIVIL,ZESTRI L) 10 mg tablet Take 1 tablet (10 mg total) by mouth daily 30 tablet 11 5 11/24/19 26 Active lisinopriL (PRINIVIL,ZESTRI L) 10 mg tablet Take 1 tablet (10 mg total) by mouth daily Active Active Problems Problem Noted Date Diagnosed Date Primary hypertension 11/24/2024 Renal osteodystrophy 11/24/2024 Intellectual disability 03/22/2024 Mood disorder 03/22/2024 Fever [...] e/o refeeding. - D/c home today Anemia in stage 3 chronic kidney disease 024 Assessment & Plan (10/27/2023 8:08 PM CDT): Folate and B12 normal. Iron labs consistent with AOCD - continue folate/B12 supplementation - transfuse for Hgb < 7 Lower extremity edema 08/11/2023 Assessment & Plan (10/31/2023 10:46 AM CDT): With significant lower extremity pain. 2/2 hypoalbuminemia. - Continue Lasix 20 mg every other day - Continue tizanidine, ropinirole, gabapentin Assessment & Plan (08/12/2023 4:58 PM SIGNAL OPERATOR): After receiving IVF for KALPANA, patient developed pitting b/l LUCHO likely due to hypoalbuminemia Normal echo 05/09/23 -OT lymphedema c/s Esophageal candidiasis 08/07/2023 Assessment & Plan (08/14/2023 3:35 PM SIGNAL OPERATOR): - EGD (08/07) w/concerns for esophageal candidiasis. Biopsies taken. - Pt given 400mg PO fluconazole on 08/07. Plan: Continue 200mg fluconazole daily (08/08 - 08/28). Plan 21d course Asymptomatic bacteriuria 08/04/2023 Assessment & Plan (08/07/2023 12:54 PM SIGNAL OPERATOR): UA showing 11-20 WBC and 1+ LE however patient is asymptomatic denying dysuria, urinary frequency/urgency, difficulty urinating, or other urinary symptoms. Likely asymptomatic bacteriuria not requiring treatment at this time. - Urine Cx with NGTD - Started tamsulosin 0.4mg (08/05) with no improvement in symptoms, stopped 08/07 KALPANA (acute kidney injury) 08/03/2023 Assessment & Plan (08/20/2023 8:32 AM SIGNAL OPERATOR): Noted to have elevated Cr to 1.66 [...] 07/30/2023 Assessment & Plan (08/16/2023 12:44 PM SIGNAL OPERATOR): Improved All resolved Hypokalemia, hypophosphatemia, hypomagnesemia Continue [...] this time prior to admission. -continue pancrelipase 93223 units TID, colestipol 2g BID -with worsening diarrhea with antibiotics, suspect abx mediated though also some concern for c diff -c diff negative -started loperamide PRN with improvement in symptoms Assessment & Plan (10/27/2023 8:09 PM CDT): - Continue Lomotil, Imodium, Creon, tincture of opium, colestipol, fiber Assessment & Plan (08/18/2023 10:09 AM SIGNAL OPERATOR): Improving a little bit following deterioration 08/14/23, [...] identified. Interval development of nonspecific pancolitis. 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 Gabe Luna ([facility]). He was previously on MTX and Humira which were both stopped during his admission for septic shock in March 2023. 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 Patient reports feeling that solids and liquids get stuck in his throat and that his symptoms improve with repeat swallows --BUSINESS PERFORMANCE ANALYST evaluation: oral mechanism evaluation is within functional [...] monitoring Assessment & Plan (08/04/2023 2:00 PM SIGNAL OPERATOR): Likely 2/2 steroids Negative infectious workup, continue to monitor, improving Severe protein-calorie malnutrition 07/24/2023 Assessment & Plan (08/02/2023 2:25 PM SIGNAL OPERATOR): Follow dietitian service recommendation Hypocalcemia 07/22/2023 Assessment & Plan (08/12/2023 4:49 PM SIGNAL OPERATOR): Normal when corrected for mild hypoalbuminemia, around 8.3 Possible due to nutritional deficiency from diarrhea/absorption Hypomagnesemia 06/18/2023 Hypokalemia 05/29/2023 Atrial fibrillation 04/16/2023 Hemodialysis patient 04/15/2023 Immunocompromised patient 04/15/2023 Salmonella enteritis 04/14/2023 Generalized abdominal pain 10/16/2020 Overview (10/16/2020): Added automatically from request for surgery [id number] Chronic pain syndrome 10/12/2020 Carpal tunnel syndrome on right 03/27/2020 Spondylosis of cervical spine 03/27/2020 Encounter for therapeutic drug monitoring 2017 Upper respiratory tract infection 05/25/2012 Encounters Date Type Department Care Team Description 12/06/2024 Orders Only [facility] Nephrology [address] [place] [address] Medicine 5th [place] [address] [place] [address] Calixto Cr MD 11/30/2024 11:20 AM CDT Office Visit [facility] Gastroenterology [address] [place] [address] Medicine 12th [place] [address] [place] [address] Estefani Ch MD 11/23/2024 3:30 PM CDT Office Visit [facility] Nephrology [facility] 5th [place] [address] [place] [address] Calixto Cr MD Stage 3b chronic kidney disease (HCC) (Primary Dx); Chronic kidney disease, unspecified CKD stage; Primary hypertension; Anemia in stage 3a chronic kidney disease (HCC); Renal osteodystrophy 11/16/2024 Orders Only [facility]PH[facility] Scanning, Provider 11/08/2024 Orders Only [facility] Nephrology [address] [facility] 5th [place] [address] [place] [id number] Calixto Cr MD Chronic kidney disease, unspecified CKD stage (Primary Dx); Hypomagnesemia; Persistent proteinuria; History of anemia 09/22/2024 11:30 AM CDT Office Visit [facility] Hematology [address] [place] [phone] Smita Grady MD Leukocytosis, unspecified type (Primary Dx); Anemia, unspecified type 09/22/2024 11:15 AM CDT Lab [facility] [address] [place] [phone] Leukocytosis, unspecified type 09/22/2024 11:00 AM CDT Lab [facility] Oncology [address] [place] [phone] Leukocytosis, unspecified type; Anemia, unspecified type from [...] loneliness or isolatio n Never 12/26/2023 [facility] Utilities Answer Date Recorded In the past 12 months has th e Trellise, gas, oil, or water Seesmic threatened to shut off services in your [...] often do you attend chur ch or episcopalian services? More than 4 times per year 02/18/2024 Do you belong to any clubs o r organizations such as voodoo groups, unions, fraternal or athletic groups, or [...] time in the past [address] [facility], were you homeless or living [...] on file Legal Sex Male 1:31 AM SIGNAL OPERATOR Gender Identity Male 09/30/2023 7:18 AM CDT Sexual Orientation Straight 09/30/2023 7: 18 AM CDT Obstetrics History Last Filed Vital Signs Vital Sign Reading Time Taken Comments Blood Pressure 131/76 11/30/2024 11:13 AM CDT Pulse 62 11/30/2024 11:13 AM CDT Temperature 37.1 C (98.8 F) 11/30/2024 11:13 AM CDT Respiratory Rate 18 09/22/2024 11:26 AM CDT Oxygen Saturation 95% 11/30/2024 11:13 AM CDT Inhaled Oxygen Concentration - - Weight 100.2 kg (221 lb) 11/30/2024 11:13 AM CDT Height 172.7 cm (5' 8) 11/30/2024 11:13 AM CDT Body Mass Index 33.6 11/30/2024 11:13 AM CDT Plan of Treatment Health Maintenance Due Date [...] Procedure Name Priority Date/Time Associated Diagnosis Comments SCAN - LABS 11/16/2024 DIFFERENTIAL AUTO Routine 09/22/2024 10: 58 AM CDT Leukocytosis, unspecified type CBC WITH AUTO DIFFERENTIAL Routine 09/22/2024 10:58 AM CDT Leukocytosis, unspecified type COLONOSCOPY 08/07/2023 8:46 AM SIGNAL OPERATOR from Last 3 Months or Most Recently Relevant to Health Maintenance Results * SCAN - LABS (11/16/2024) us Provider Scanning Edited Result - Final * (ABNORMAL) Differential, auto (09/22/2024 10:58 AM CDT) Neutrophil abs 6.73(H) 1.50 - 6.50 K/cumm Comment:Testing performed by : [facility] [place] [address] Imm gran abs 0.14(H) 0.00 - 0.10 K/cumm CERNER CH Comment:Testing performed by : [facility] [place] [address] Lymphocyte abs 1.69 0.80 - 3.30 K/cumm CERNER CH Comment:Testing performed by : [facility] [place] [address] Monocyte abs 0.76 0.20 - 0.80 K/cumm CERNER CH Comment:Testing performed by : [facility] [place] [address] Eosinophil abs 0.06 0.00 - 0.50 K/cumm CERNER CH Comment:Testing performed by : [facility] [place] [address] Basophil abs 0.05 0.00 - 0.10 K/cumm CERNER CH Comment:Testing performed by : [facility] [place] [address] Neutrophil pct 71.4 % CERNER CH Comment: Interpretive Data Percent cell count reference ranges are not reported, since discordance with absolute values may lead to misinterpretation of CBC data. Current Interpretive Data was last revised on 2017. Testing performed by: [facility] [place] [address] Imm gran pct 1.5 % CERNER CH Comment: Interpretive Data Percent cell count reference ranges are not reported, since discordance with absolute values may lead to misinterpretation of CBC data. Current Interpretive Data was last revised on 2017. Testing performed by: [facility] [place] [address] Lymphocyte pct 17.9 % CERNER CH Comment: Interpretive Data Percent cell count reference ranges are not reported, since discordance with absolute values may lead to misinterpretation of CBC data. Current Interpretive Data was last revised on 2017. Testing performed by: [facility] [place] [address] Monocyte pct 8.1 % TIKA LOVETT Comment: Interpretive Data Percent cell count reference ranges are not reported, since discordance with absolute values may lead to misinterpretation of CBC data. Current Interpretive Data was last revised on 2017. Testing performed by: [facility] [place] [address] Eosinophil pct 0.6 % TIKA LOVETT Comment: Interpretive Data Percent cell count reference ranges are not reported, since discordance with absolute values may lead to misinterpretation of CBC data. Current Interpretive Data was last revised on 2017. Testing performed by: [facility] [place] [address] Basophil pct 0.5 % TIKA LOVETT Comment: Interpretive Data Percent cell count reference ranges are not reported, since discordance with absolute values may lead to misinterpretation of CBC data. Current Interpretive Data was last revised on 2017. Testing performed by: [facility] [place] [address] Blood 09/22/2024 10:5 8 AM CDT 09/22/2024 10:58 AM CDT Smita Grady MD LAB BLOOD ORDERABLES Final Resul t TIKA [address] [address] [place] [address] * (ABNORMAL) CBC with auto differential (09/22/2024 10:58 AM CDT) WBC 9.43 3.80 - 9.90 K/cumm Comment:Testing performed by : [facility] [place] [address] Hgb 15.7 13.0 - 17.5 g/dL TIKA LOVETT Comment:Testing performed by : [facility] [place] [address] Hct 47.5 38.9 - 50.3 % TIKA LOVETT Comment:Testing performed by : [facility] [place] [address] Plt 280 150 - 400 K/cumm CERNER CH Comment:Testing performed by : [facility] [place] [address] MPV 9.5 9.1 - 12.3 fL CERNER CH Comment:Testing performed by : [facility] [place] [address] RBC 5.33 4.30 - 5.80 M/cumm CERNER CH Comment:Testing performed by : [facility] [place] [address] MCV 89.1 81.3 - 96.4 fL CERNER CH Comment:Testing performed by : [facility] [place] [address] MCH 29.5 27.1 - 33.3 pg CERNER CH Comment:Testing performed by : [facility] [place] [address] MCHC 33.1 32.3 - 35.7 g/dL CERNER CH Comment:Testing performed by : [facility] [place] [address] RDW CV 14.8 11.1 - 14.9 % CERNER CH Comment:Testing performed by : [facility] [place] [address] RDW SD 48.0 35.7 - 48.1 fL CERNER CH Comment:Testing performed by : [facility] [place] [address] NRBC abs 0.00 0.00 - 0.01 K/cumm CERNER CH Comment:Testing performed by : [facility] [place] [address] ANC Prelim 6.73(H) 1.50 - 6.50 K/cumm CERNER CH Comment: Interpretive Data The rapid ANC is a preliminary automated count and may vary from the final ANC (Neut Abs) reported in the WBC differential that follows. Current interpretive data was last revised 2024. Testing performed by: [facility] [place] [address] Blood 09/22/2024 10:5 8 AM CDT 09/22/2024 10:58 AM CDT Smita Grady MD LAB [place] [address] [address] Department of Laboratories [place] [id number] * COLONOSCOPY (08/07/2023 8:46 AM SIGNAL OPERATOR) Anatomical Region Laterality Modality Other Narrative Procedure Note Alexandra Flaherty MD - 08/07/2023 8:46 AM CST [facility] Patient Name: Dev Amaya Procedure Date: 08/07/2023 8:46 AM Date of : 1970 Admit Type: Inpatient Age: 53 Gender: Male Attending MD: Alexandra Flaherty M.D. Room: [facility] ENDOSCOPY Note Status: Finalized Procedure: Colonoscopy Indications: [...] scope was passed under direct vision.The CF [id number] Endoscope was introduced through the anus [...] On: 08/07/2023 8:46 AM Recognized by the [place] [employer] for promoting quality in endoscopy us Alexandra Flaherty MD ENDOSCOPY PROCEDURES Final Res ult from Last 3 Months or Most Recently Relevant to Health Maintenance Insurance CHOICE PLUS CHOICE PLUS CHOICE PLUS Advance Directives For more information, please contact: [phone] * Full Code (Latest Code Status on [...] 8:01 AM 08/20/2023 3:03 PM Care Teams Trade Economist Relationship Specialty Start Date End Date Hi Salmon DO PCP - General Internal Medicine 07/30/23 Estefani Ch MD [address] [facility] [address] [place] [address] Referring Physician Gastroenterology 09/10/23 Gabe Luna MD [address] [address] Consulting Physician Rheumatology 10/22/23
--- OUTSIDE RECORDS SUMMARY | 2024-12-07 06:43 | XMS_ITS | Clinical Summary ---
Author Organization [employer] [id number] [facility] Address [address] [place] [address] Care Team Providers Care Piecer Name Role Phone Hi Salmon DO Primary [...] 103.9 kg (229 lb) 04/28/2020 3:16 PM CREDIT REVIEW MANAGER Height 172.7 cm (5' 8) 04/28/2020 3:16 PM CREDIT REVIEW MANAGER Body Mass Index 34.82 04/28/2020 3:16 PM CREDIT REVIEW MANAGER Plan of Treatment Health Maintenance Due Date [...] VACCINE (#1) 2024 03/12/2020 Insurance Care Teams Piecer Relationship Specialty Start Date End Date Hi Salmon DO [address] [address] PCP - General Internal Medicine 03/23/20
--- OUTSIDE RECORDS SUMMARY | 2024-12-07 06:43 | XMS_ITS | Encounter Summary ---
Author Organization [facility] Address [address] [place] [address] Phone Care Team Providers Care President & Ceo Name Role Phone Hi Salmon DO Primary Care Provider [phone] Estefani Ch MD Unavailable [phone] Gabe Luna MD Unavailable Encounter Details Date Type Department Care Team (Late st Contact Info) Description 11/08/2024 Orders Only [facility] Nephrology [address] [facility] Advanced Medicine 5th [place] [address] [place] [address] Calixto Cr MD [facility] [place] [address] Chronic kidney disease, unspecified CKD stage (Primary Dx); Hypomagnesemia; Persistent proteinuria; History of anemia Social History Tobacco Use Types Packs/Day Years Used Date Smoking Tobacco: Former Cigarettes Q uit: 10/16/1998 Smokeless Tobacco: Never Alcohol Use Standard Drinks/Week Comments Not Currently 0 (1 standard drink = 0.6 oz pur e alcohol) OASIS D0700: Social Isolation Answer Da te Recorded Frequency of experiencing loneliness or isolatio n Never 12/26/2023 [facility] Utilities Answer Date Recorded In the past [...] often do you attend chur ch or tenriism services? More than 4 times per year 02/18/2024 Do you belong to any clubs o r organizations such as moravian groups, unions, fraternal or athletic groups, or [...] place to sleep or slept in a halfway (including now)? No 11/03/2023 Housing Stability Vital Sign Answer Jomar e Recorded In the last 12 months, was t here a time when you were not able to pay the mortgage or rent on time? No 02/18/2024 In the past 12 months, how m any times have you moved where you were living? 0 02/18/2024 At any time in the past 12 m [facility], were you homeless or living in a halfway (including now)? No 02/18/2024 Personal Safety Answer Date Recorded Have you ever been in or are you currently in a harmful physical or emotional relationship or is someone making you feel afraid or unsafe? 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 Gender Identity Male 09/30/2023 7:18 AM CDT Sexual Orientation Straight 09/30/2023 7: 18 AM CDT documented as of this encounter Miscellaneous Notes * Addendum Note - Rebecca Boo - 11/08/2024 1:48 PM CDTAddended by: REBECCA BOO on: 12/06/2024 10:13 AM Modules accepted: Orders documented in this encounter Plan of Treatment Scheduled Orders Name Type Priority Associated Diagnoses Orde r Schedule CBC with auto differential Lab Routine Chronic kidney disease, unspecified CKD stage Hypomagnesemia Persistent proteinuria History of anemia Expected: 11/08/2024, Expires: 11/08/2025 Protein / creatinine ratio, urine, random Lab Routine Chronic kidney disease, unspecified CKD stage Hypomagnesemia Persistent proteinuria History of anemia Expected: 11/08/2024, Expires: 11/08/2025 Urinalysis reflex to microscopic and culture Urine, clean voided Microbiology Routine Chronic kidney disease, unspecified CKD stage Hypomagnesemia Persistent proteinuria History of anemia Expected: 11/08/2024, Expires: 11/08/2025 Renal function panel Lab Routine Chronic kidney disease, unspecified CKD stage Hypomagnesemia Persistent proteinuria History of anemia Expected: 11/08/2024, Expires: 11/08/2025 documented as of this encounter Visit Diagnoses Diagnosis Chronic kidney disease, unspecified CKD stage- Primary Hypomagnesemia Disorders of magnesium metabolism Persistent proteinuria History of anemia Personal history of diseases of blood and blood-forming organs documented in this encounter Care Teams President & Ceo Relationship Specialty Start Date End Date Hi Salmon DO PCP - General Internal Medicine 07/30/23 Estefani Ch MD [address] [facility] [address] [place] [address] Referring Physician Gastroenterology 09/10/23 Gabe Luna MD [address] [address] Consulting Physician Rheumatology 10/22/23 documented as of this encounter
--- OUTSIDE RECORDS SUMMARY | 2024-12-07 06:43 | XMS_ITS | Referral Summary ---
Author Organization [facility] Address [address] [place] [address] Care Team Providers Care Hospice Clinical Supervisor Name Role Phone Hi Salmon DO Primary Care Provider [phone] Estefani Ch MD Unavailable [phone] Gabe Luna MD Unavailable [phone] Encounters Date Type Department Care Team Description 12/06/2024 Orders Only [facility] Nephrology [facility] 5th [place] [address] [place] [address] Calixto Cr MD 11/30/2024 11:20 AM CDT Office Visit [facility] Gastroenterology [address] [facility] 12th [place] [address] [place] [address] Estefani Ch MD 11/23/2024 3:30 PM CDT Office Visit [facility] Nephrology [address] [facility] [address] 5th [place] [address] [place] [address] Calixto Cr MD Stage 3b chronic kidney disease (HCC) (Primary Dx); Chronic kidney disease, unspecified CKD stage; Primary hypertension; Anemia in stage 3a chronic kidney disease (HCC); Renal osteodystrophy 11/16/2024 Orders Only [facility] Scanning, Provider 11/08/2024 Orders Only [facility] Nephrology [address] [facility] 5th [place] [address] [place] [phone] Calixto Cr MD Chronic kidney disease, unspecified CKD stage (Primary Dx); Hypomagnesemia; Persistent proteinuria; History of anemia 09/22/2024 11:15 AM CDT Lab [facility] Lab [address] [place] [phone] Leukocytosis, unspecified type 09/22/2024 11:00 AM CDT Lab [facility] Oncology [address] [place] [phone] Leukocytosis, unspecified type; Anemia, unspecified type 09/22/2024 11:30 AM CDT Office Visit [facility] Hematology [address] [place] [phone] Smita Grady MD Leukocytosis, unspecified type [...] (1,000 mg total) by mouth daily Active yo-xak-gyxco-K1- lycopen-lutein [id number] mcg tablet Take 1 tablet by mouth [...] mg capsule Take by mouth Active glucosam-chondr- uip2-R3-L-kayy 750-625-1,000 mg-mg-unit tablet Take by mouth Active [...] gabapentin Assessment & Plan (08/12/2023 4:58 PM FINANCIAL REPORTING ACCOUNTANT): After receiving IVF for KALPANA, patient developed pitting b/l LUCHO likely due to hypoalbuminemia Normal echo 05/09/23 -OT lymphedema c/s Esophageal candidiasis 08/07/2023 Assessment & Plan (08/14/2023 3:35 PM FINANCIAL REPORTING ACCOUNTANT): - EGD (08/07) w/concerns for esophageal candidiasis. Biopsies taken. - Pt given 400mg PO fluconazole on 08/07. Plan: Continue 200mg fluconazole daily (08/08 - 08/28). Plan 21d course Asymptomatic bacteriuria 08/04/2023 Assessment & Plan (08/07/2023 12:54 PM FINANCIAL REPORTING ACCOUNTANT): UA showing 11-20 WBC and 1+ LE however patient is asymptomatic denying dysuria, urinary frequency/urgency, difficulty urinating, or other urinary symptoms. Likely asymptomatic bacteriuria not requiring treatment at this time. - Urine Cx with NGTD - Started tamsulosin 0.4mg (08/05) with no improvement in symptoms, stopped 08/07 KALPANA (acute kidney injury) 08/03/2023 Assessment & Plan (08/20/2023 8:32 AM FINANCIAL REPORTING ACCOUNTANT): Noted to have elevated Cr to 1.66 [...] 07/30/2023 Assessment & Plan (08/16/2023 12:44 PM FINANCIAL REPORTING ACCOUNTANT): Improved All resolved Hypokalemia, hypophosphatemia, hypomagnesemia Continue [...] this time prior to admission. -continue pancrelipase 79167 units TID, colestipol 2g BID -with worsening diarrhea with antibiotics, suspect abx mediated though also some concern for c diff -c diff negative -started loperamide PRN with improvement in symptoms Assessment & Plan (10/27/2023 8:09 PM CDT): - Continue Lomotil, Imodium, Creon, tincture of opium, colestipol, fiber Assessment & Plan (08/18/2023 10:09 AM FINANCIAL REPORTING ACCOUNTANT): Improving a little bit following deterioration 08/14/23, [...] identified. Interval development of nonspecific pancolitis. Findings customer sales representative of remote injury to the [...] bicarb Assessment & Plan (08/12/2023 4:46 PM FINANCIAL REPORTING ACCOUNTANT): Resolved Most likely 2/2 ongoing severe diarrhea, [...] azathioprine Assessment & Plan (07/29/2023 3:03 PM FINANCIAL REPORTING ACCOUNTANT): Follows with Dr. Gabe Luna ([facility]). He was previously on MTX and Humira which were both stopped during his admission for septic shock in March 2023. 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 Patient reports feeling that solids and liquids get stuck in his throat and that his symptoms improve with repeat swallows --ASSOCIATE VICE PRESIDENT evaluation: oral mechanism evaluation is within functional [...] monitoring Assessment & Plan (08/04/2023 2:00 PM FINANCIAL REPORTING ACCOUNTANT): Likely / steroids Negative infectious workup, continue to monitor, improving Severe protein-calorie malnutrition 07/24/2023 Assessment & Plan (08/02/2023 2:25 PM FINANCIAL REPORTING ACCOUNTANT): Follow dietitian service recommendation Hypocalcemia 07/22/2023 Assessment & Plan (08/12/2023 4:49 PM FINANCIAL REPORTING ACCOUNTANT): Normal when corrected for mild hypoalbuminemia, around 8.3 Possible due to nutritional deficiency from diarrhea/absorption Hypomagnesemia 06/18/2023 Hypokalemia 05/29/2023 Atrial fibrillation 04/16/2023 Hemodialysis patient 04/15/2023 Immunocompromised patient 04/15/2023 Salmonella enteritis 04/14/2023 Generalized abdominal pain 10/16/2020 Overview (10/16/2020): Added automatically from request for surgery [id number] Chronic pain syndrome 10/12/2020 Carpal tunnel syndrome [...] experiencing loneliness or isolatio n Never 12/26/2023 [facility] Utilities Answer Date Recorded In the past [...] often do you attend chur ch or temple services? More than 4 times per year [...] to sleep or slept in a senior living (including now)? No 11/03/2023 Housing Stability Vital Sign Answer Jomar e Recorded In the last 12 months, was t here a time when you were not able to pay the mortgage or rent on time? No 02/18/2024 In the past 12 months, how m any times have you moved where you were living? 0 02/18/2024 At any time in the past 12 m [facility], were you homeless or living in a senior living (including now)? No 02/18/2024 Personal Safety Answer Date Recorded Have you ever been in or are you currently in a harmful physical or emotional relationship or is someone making you feel afraid or unsafe? Denies 02/17/2024 Sex and Gender Information Value Date Recorded Sex Assigned at Not on file Legal Sex Male 1:31 AM FINANCIAL REPORTING ACCOUNTANT Gender Identity Male 09/30/2023 7:18 AM CDT [...] 11/30/2024 11:13 AM CDT Plan of Treatment Not on file Procedures Procedure Name Priority Date/Time Associated Diagnosis Comments SCAN - LABS 11/16/2024 DIFFERENTIAL AUTO Routine 09/22/2024 10: 58 AM CDT Leukocytosis, unspecified type CBC WITH AUTO DIFFERENTIAL Routine 09/22/2024 10:58 AM CDT Leukocytosis, unspecified type COLONOSCOPY 08/07/2023 8:46 AM FINANCIAL REPORTING ACCOUNTANT from Last 3 Months or Most Recently Relevant to Health Maintenance Results * SCAN - LABS (11/16/2024) us Provider Scanning Edited Result - Final * (ABNORMAL) Differential, auto (09/22/2024 10:58 AM CDT) Neutrophil abs 6.73(H) 1.50 - 6.50 K/cumm Comment:Testing performed by : [facility] [place] [address] Imm gran abs 0.14(H) 0.00 - 0.10 K/cumm CERNER CH Comment:Testing performed by : [facility] [place] [address] Lymphocyte abs 1.69 0.80 - 3.30 K/cumm CERNER CH Comment:Testing performed by : [facility] [place] [address] Monocyte abs 0.76 0.20 - 0.80 K/cumm CERNER CH Comment:Testing performed by : [facility] [place] [address] Eosinophil abs 0.06 0.00 - 0.50 K/cumm CERNER CH Comment:Testing performed by : [facility] [place] [address] Basophil abs 0.05 0.00 - 0.10 K/cumm CERNER CH Comment:Testing performed by : [facility] [place] [address] Neutrophil pct 71.4 % CERNER CH Comment: Interpretive Data Percent cell count reference ranges are not reported, since discordance with absolute values may lead to misinterpretation of CBC data. Current Interpretive Data was last revised on 2017. Testing performed by: [facility] [place] [address] Imm gran pct 1.5 % CERNER CH Comment: Interpretive Data Percent cell count reference ranges are not reported, since discordance with absolute values may lead to misinterpretation of CBC data. Current Interpretive Data was last revised on 2017. Testing performed by: [facility] [place] [address] Lymphocyte pct 17.9 % CERRAMIN Comment: Interpretive Data Percent cell count reference ranges are not reported, since discordance with absolute values may lead to misinterpretation of CBC data. Current Interpretive Data was last revised on 2017. Testing performed by: [facility] [place] [id number] Monocyte pct 8.1 % CERRAMIN Comment: Interpretive Data Percent cell count reference ranges are not reported, since discordance with absolute values may lead to misinterpretation of CBC data. Current Interpretive Data was last revised on 2017. Testing performed by: [facility] [place] [address] Eosinophil pct 0.6 % CERRAMIN Comment: Interpretive Data Percent cell count reference ranges are not reported, since discordance with absolute values may lead to misinterpretation of CBC data. Current Interpretive Data was last revised on 2017. Testing performed by: [facility] [place] [address] Basophil pct 0.5 % CERRAMIN Comment: Interpretive Data Percent cell count reference ranges are not reported, since discordance with absolute values may lead to misinterpretation of CBC data. Current Interpretive Data was last revised on 2017. Testing performed by: [facility] [place] [address] Blood 09/22/2024 10:5 8 AM CDT 09/22/2024 10:58 AM CDT us Smita Grady MD LAB BLOOD ORDERABLES Final Resul t [address] [address] [address] Department [place] [address] * (ABNORMAL) CBC with auto differential (09/22/2024 10:58 AM CDT) WBC 9.43 3.80 - 9.90 K/cumm Comment:Testing performed by : [facility] [place] [address] Hgb 15.7 13.0 - 17.5 g/dL CERNER CH Comment:Testing performed by : [facility] [place] [address] Hct 47.5 38.9 - 50.3 % CERNER CH Comment:Testing performed by : [facility] [place] [address] Plt 280 150 - 400 K/cumm CERNER CH Comment:Testing performed by : [facility] [place] [address] MPV 9.5 9.1 - 12.3 fL CERNER CH Comment:Testing performed by : [facility] [place] [address] RBC 5.33 4.30 - 5.80 M/cumm CERNER CH Comment:Testing performed by : [facility] [place] [address] MCV 89.1 81.3 - 96.4 fL CERNER CH Comment:Testing performed by : [facility] [place] [address] MCH 29.5 27.1 - 33.3 pg CERNER CH Comment:Testing performed by : [facility] [place] [address] MCHC 33.1 32.3 - 35.7 g/dL CERNER CH Comment:Testing performed by : [facility] [place] [address] RDW CV 14.8 11.1 - 14.9 % CERNER CH Comment:Testing performed by : [facility] [place] [address] RDW SD 48.0 35.7 - 48.1 fL CERNER CH Comment:Testing performed by : [facility] [place] [address] NRBC abs 0.00 0.00 - 0.01 K/cumm CERNER CH Comment:Testing performed by : [facility] [place] [address] ANC Prelim 6.73(H) 1.50 - 6.50 K/cumm CERNER CH Comment: Interpretive Data The rapid ANC is a preliminary automated count and may vary from the final ANC (Neut Abs) reported in the WBC differential that follows. Current interpretive data was last revised 2024. Testing performed by: [facility], [place] [address] Blood 09/22/2024 10:5 8 AM CDT 09/22/2024 10:58 AM CDT Smita Grady MD LAB BLOOD ORDERABLES Final Resul t [address] [address] [address] Department [place] [address] * COLONOSCOPY (08/07/2023 8:46 AM FINANCIAL REPORTING ACCOUNTANT) Anatomical Region Laterality Modality Other Narrative Procedure Note Alexandra Flaherty MD - 08/07/2023 8:46 AM [facility] Patient Name: Dev Amaya Procedure Date: 08/07/2023 8:46 AM Date of : 1970 Admit Type: Inpatient Age: 53 Gender: Male Attending MD: Alexandra Flaherty M.D. Room: [facility] ENDOSCOPY Note Status: Finalized Procedure: [...] scope was passed under direct vision.The CF [id number] Endoscope was introduced through the anus [...] Electronically signed by Alexandra Flaherty MD Alexandra Flhaerty M.D. 08/07/2023 9:19:52 AM Number of Addenda: 0 Note Initiated On: 08/07/2023 8:46 AM Recognized by the [employer] for promoting quality in endoscopy Alexandra Flaherty MD ENDOSCOPY PROCEDURES Final Res ult from Last 3 Months or Most Recently Relevant to Health Maintenance Insurance CHOICE PLUS CHOICE PLUS CHOICE PLUS Advance Directives For more information, please contact: [phone] * Full Code (Latest Code Status on [...] 8:01 AM 08/20/2023 3:03 PM Care Teams Hospice Clinical Supervisor Relationship Specialty Start Date End Date Hi Salmon DO PCP - General Internal Medicine 07/30/23 Estefani Ch MD [address] [place] [address] Referring Physician Gastroenterology 09/10/23 Gabe Luna MD [address] [address] Consulting Physician Rheumatology 10/22/23
--- OUTSIDE RECORDS SUMMARY | 2024-12-07 06:43 | XMS_ITS | Clinical Summary ---
Author Organization [facility] Address [address] [place] [address] Care Team Providers Care Clerical Associate Name Role Phone Unavailable Primary Care Provider [...] of 3 - 19+ 3-dose series) 02/24/1987 Pneumococcal Vaccine: 50+ Ye ars (1 of 1 - PCV) 02/24/2018 Zoster Vaccines (1 of 2) 02/24/2018 COVID-19 Vaccine (2023-2 5 season) 2024 Meningococcal B Vaccine Aged Out No l onger eligible based on patient's age to complete this topic Meningococcal Vaccine Aged Out No juan jose harsh eligible based on patient's age to complete this topic RSV Immunizations Under 20 Months Aged Out No longer eligible based on patient's age to complete this topic
--- OUTSIDE RECORDS SUMMARY | 2024-12-07 06:43 | XMS_ITS | Clinical Summary ---
Author Organization [facility] Address [address] [place] [address] Care Team Providers Care High School English Teacher Name Role Phone Unavailable Primary Care Provider Unavailabl e Source Comments [facility],non-owned Affiliates and Associated Physician Practices is amultiple site organization consisting of ambulatory clinics and hospital sitesin [place], [place], [place] and [place]. This disclosure is being madepursuant to the Care Everywhere program and may not contain all information available regarding this patient. Last updated 18.[facility] Allergies Active Allergy Reactions Criticality Noted Date Comments Ceftriaxone Rash,Renal Injury High 04/16/2023 Medications * Be aware that medications may not be up to date on this document. Alwaysverify current medications with the patient. QUEtiapine (SEROquel) 25 MG tablet Take 1 (one) tablet by mouth at bedtime Active petrolatum (Aquaphor;Mendon phor) Apply to affected area as needed [...] tablet 2 07/10/19 24 Active nystatin (Mycostatin) 259142 UNIT/ML suspension Take 1 mL by mouth [...] Recorded Patient Health Questionnaire-2 Score 0 07/17/2023 [facility] [place] of Occupat ional Health - Occupational Stress [...] in a senior living (including now)? No 05/29/2023 Housing Stability Vital [...] Sex Assigned at Male 05/29/2023 8:17 AM TEXTILE WORKER Legal Sex Male 6:30 PM TEXTILE WORKER Gender Identity Male 05/29/2023 8:17 AM TEXTILE WORKER Sexual Orientation Not on file Last Filed Vital Signs Vital Sign Reading Time Taken Comments Blood Pressure 132/77 07/17/2023 10:54 AM TEXTILE WORKER Pulse 103 07/17/2023 10:54 AM TEXTILE WORKER Temperature 37.3 C (99.1 F) 07/17/2023 10:54 AM TEXTILE WORKER Respiratory Rate 18 07/17/2023 10:54 AM TEXTILE WORKER Oxygen Saturation 100% 07/17/2023 10:54 AM TEXTILE WORKER Inhaled Oxygen Concentration - - Weight 73 kg (161 lb) 07/17/2023 9:27 AM TEXTILE WORKER Height 167.6 cm (5' 6) 07/17/2023 9:27 AM TEXTILE WORKER Body Mass Index 25.99 07/17/2023 9:27 AM TEXTILE WORKER Plan of Treatment Health Maintenance Due Date [...] 05/28/2017 LIPID TESTING 05/12/2028 05/12/2023 COLON MONITORING 08/07/2033 08/07/2023, 02/2023, 05/01/2023, Additional history exists COLONOSCOPY - COLON CA SCREENING 08/07/2033 08/07/2023, [...] COMPREHENSIVE METABOLIC PANEL STAT 07/17/2023 9:20 AM TEXTILE WORKER Diarrhea, unspecified type LIPID PROFILE Routine 05/12/2023 6:54 AM TEXTILE WORKER ENDOSCOPY, COLON, DIAGNOSTIC Routine 05/01/2023 11:19 AM TEXTILE WORKER HIV-1 HIV-2 ANTIBODY + HIV P24 AG PANEL AM Draw 04/15/2023 8:31 PM CDT HEPATITIS C ANTIBODY Routine 09/23/2017 3:56 PM CDT from Last 3 Months or Most Recently Relevant to Health Maintenance Results * (ABNORMAL) COMPREHENSIVE METABOLIC PANEL (07/17/2023 9:20 AM [facility]) Glucose 107(H) 70 - 105 mg/dL 07/17/2023 10:13 AM [facility] Sodium 143 136 - 145 mmol/L 07/17/2023 10:13 AM [facility] Potassium 3.5 3.5 - 5.1 mmol/L 07/17/2023 10:13 AM [facility] Chloride 118(H) 98 - 107 mmol/L 07/17/2023 10:13 AM [facility] CO2 17(L) 22 - 29 mmol/L 07/17/2023 10:13 AM [facility] Calcium 7.5(L) 8.4 - 10.4 mg/dL 07/17/2023 10:13 AM [facility] Anion Gap 8 6 - 16 mmol/L 07/17/2023 10:13 AM [facility] BUN 13 7 - 26 mg/dL 07/17/2023 10:13 AM [facility] Creatinine 0.93 0.72 - 1.25 mg/dL 07/17/2023 10:13 AM [facility] Alkaline Phosphatase 214(H) 40 - 150 U/L 07/17/2023 10:13 AM [facility] ALT 76(H) 0 - 55 U/L 07/17/2023 10:13 AM [facility] AST 34 5 - 34 U/L 07/17/2023 10:13 AM [facility] Protein Total 4.0(L) 6.4 - 8.3 gm/dL 07/17/2023 10:13 AM [facility] Albumin 2.1(L) 3.4 - 5.0 gm/dL 07/17/2023 10:13 AM [facility] Bilirubin Total 0.2 0.2 - 1.2 mg/dL 07/17/2023 10:13 AM [facility] eGFR by CKD-EPI >90 >=90 mL/min/1.7 3 m2 07/17/2023 10:13 AM [facility] Blood BLOOD SPECIMEN / Unknown Venipuncture / Unknown 07/17/2023 9:20 AM TEXTILE WORKER 07/17/2023 9:45 AM TEXTILE WORKER Torrie Martin MD LAB - CHEMISTRY [place] Final Result Performing Organization Address [facility]/ZIP Co de Phone Number [facility] [address] [place], [place] [id number] * (ABNORMAL) LIPID PROFILE (05/12/2023 6:54 AM TEXTILE WORKER) Cholesterol 124 <200 mg/dL 05/12/2023 7:32 AM TEXTILE WORKER [facility] Triglycerides 195(H) <150 mg/dL 05/12/2023 7:32 AM [facility] HDL Cholesterol 23(L) >40 mg/dL 3 7:32 AM [facility] LDL Calculated 62 <130 mg/dL 05/12/2023 7:32 AM [facility] VLDL Calculated 39(H) <=30 mg/dL 3 7:32 AM [facility] Chol HDL Ratio 5.4(H) <4.5 05/12/2023 7:32 AM [facility] LDL/HDL Ratio 2.7 <5.0 05/12/2023 7:32 AM [facility] Blood BLOOD SPECIMEN / Unknown Lab Venipuncture / Unknown 05/12/2023 6:54 AM TEXTILE WORKER 05/12/2023 7:02 AM TEXTILE WORKER Daniel Croft MD LAB - CHEMISTRY ORDERABLES F inal Result [facility] [address] [place], [place] [id number] * ENDOSCOPY, COLON, DIAGNOSTIC (05/01/2023 11:19 AM TEXTILE WORKER) Report Endoscopy POC _ Patient Name: Dev Amaya Procedure Date: 05/01/2023 11:19 AM Date of : 1970 Admit Type: Inpatient Age: 53 Gender: Male Ethnicity: Not or Race: White Attending MD: Rickie Colon MD, [id number] _ Procedure: Colonoscopy Indications: Clinically significant diarrhea [...] bowel preparation was evaluated using the BBPS ([place] Bowel Preparation Scale) with scores of: Right [...] screening purposes. Procedure Code(s): --- Professional --- 43575, Colonoscopy, flexible; with biopsy, single or multiple --- Technical --- 96609, Colonoscopy, flexible; with biopsy, single or multiple Diagnosis Code(s): --- Professional --- K63.3, Ulcer of intestine R19.7, Diarrhea, unspecified --- Technical --- K63.3, Ulcer of intestine R19.7, Diarrhea, unspecified CPT copyright 2020 [employer]. All rights reserved. The codes documented in this report are preliminary and upon museum service scheduler review may be revised to meet current compliance requirements. ___ Rickie Colon MD 05/01/2023 12:47:16 PM Number of Addenda: 0 Note Initiated On: 05/01/2023 11:19 AM [facility] ENDOSCOPY 05/01/2023 11:1 9 AM TEXTILE WORKER Narrative Procedure Note Rickie Colon MD - 05/01/2023 12:48 PM CST Colonoscopy done for diarrhea. Normal colon. Single small ulcer in theTI. Biopsies taken from TI and random colon biopsies. f/u path. Rickie Colon MD GI PROCEDURE ORDERABLES Ed ited Result - Final [facility] ENDOSCOPY * HIV-1 HIV-2 ANTIBODY + HIV P24 AG PANEL (04/15/2023 8:31 PM CDT) HIV1/2 Ab + P24 Ag Non Reactive Non Reactive 04/15/2023 9:16 PM CDT [facility] Blood BLOOD SPECIMEN / Unknown Lab Venipuncture / Unknown 04/15/2023 8:31 PM CDT 04/15/2023 8:36 PM CDT Narrative [facility] - 04/15/2023 9:16 PM CDT No Laboratory evidence of HIV infection. Uzma Bazzi MD LAB - CHEMISTRY ORDERABLES Fin al Result [facility] [address] [place] [address] * HEPATITIS C ANTIBODY (09/23/2017 3:56 PM CDT) Hepatitis C Virus Antibody 0.1 0.0 - 0.9 s/co ratio [facility] ([facility]) Comment: Negative: < 0.8 Indeterminate: 0.8 - 0.9 Positive: > 0.9 The CDC recommends that a positive HCV antibody result be followed up with a HCV Nucleic Acid Amplification test (573663). Blood specimen (specimen) BLOOD SPECIMEN / Unknown 09/23/2017 3:56 PM CDT 09/23/2017 Narrative [facility] ([facility]) - 09/24/2017 7:13 AM CDT Performed at: [facility] - [facility] [address] [place], [place] [id number] [employer] Director: Jarod Webster PhD, Phone: [phone] us Kayla Cardona MD LAB - CHEMISTRY ORDERA LUIS CARLOS Final Result [facility] ([facility]) [address] [place] [address], [facility] from Last 3 Months or Most Recently Relevant to Health Maintenance Insurance [facility] Advance Directives * Full Code [...]
--- OUTSIDE RECORDS SUMMARY | 2024-12-07 06:43 | XMS_ITS | Encounter Summary ---
Author Organization [facility] Address [address] [place] [address] Phone Care Team Providers Care Crimp Setter Name Role Phone Hi Salmon DO Primary Care Provider [phone] Estefani Ch MD Unavailable [phone] Gabe Luna MD Unavailable [phone] Encounter Details Date Type Department Care Team (Late st Contact Info) Description 01/02/2024 Documentation [facility] Gastroenterology [address] [facility] Advanced Medicine 12th [place] [address] [place] [id number] Estefani Ch MD [address] [place] [address] Social History Tobacco Use Types Packs/Day Years Used Date Smoking Tobacco: Former Cigarettes Q uit: 10/16/1998 Smokeless Tobacco: Never Alcohol Use Standard Drinks/Week Comments Not Currently 0 (1 standard drink = 0.6 oz pur e alcohol) OASIS D0700: Social Isolation Answer Da te Recorded Frequency of experiencing loneliness or isolatio n Never 12/26/2023 [facility] Utilities Answer Date Recorded In the past [...] often do you attend chur ch or yazidism services? More than 4 times per year 11/03/2023 Do you belong to any clubs o r organizations such as baptist groups, unions, fraternal or athletic groups, or [...] [place] [facility] (including now)? No 11/03/2023 Personal Safety Answer Date Recorded Have you ever been in or are you currently in a harmful physical or emotional relationship or is someone making you feel afraid or unsafe? Denies 12/31/2023 Sex and Gender Information Value Date Recorded Sex Assigned at Not on file Legal Sex Male 1:31 AM EMPLOYMENT COORDINATOR Gender Identity Male 09/30/2023 7:18 AM CDT [...] documented as of this encounter Care Teams Crimp Setter Relationship Specialty Start Date End Date Hi Salmon DO PCP - General Internal Medicine 07/30/23 Estefani Ch MD [address] [place] [address] Referring Physician Gastroenterology 09/10/23 Gabe Luna MD [address] [place] [address] Consulting Physician Rheumatology 10/22/23 documented as of this encounter
--- OUTSIDE RECORDS SUMMARY | 2024-12-07 06:43 | XMS_ITS | Patient Health Record ---
Author Organization [facility] Address [address] [place] [address] Care Team Providers Care Splash Line Operator Name Role Phone Farhana Marcus Primary Care [...] Problem Status W/U Status Risk Notes Problem [id number] Chronic pain syndrome (G89.4) 10/12/2020 Active confirmed Problem [id number] Mood disorder (F39) Active confirmed Problem [id number] Intellectual disability (F79) Active confirmed Plan Of Treatment No Information Insurance Providers Payer Name Payer Address Payer Phone Subscriber Number Group Number Insured Name Patient Relationship to Insured Coverage Start Date Coverage End Date [facility] [address] [place] [address] [id number] Dev Amaya Self - patient is the insured 1 Medical (General) History Medical History History ICD Code Rheumatoid Arthritis HTN Dyslipidemia Low Testosterone Chronic pain Surgical History Surgery Date(Month/Year)
--- OUTSIDE RECORDS SUMMARY | 2024-12-07 06:43 | XMS_ITS | Clinical Summary ---
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
--- OUTSIDE RECORDS SUMMARY | 2024-12-07 06:43 | XMS_ITS | Encounter Summary ---
Author Organization [facility] Address [address] [place] [address] Phone Care Team Providers Care Measurement Technician Name Role Phone Hi Salmon DO Primary Care Provider [phone] Estefani Ch MD Unavailable [phone] Gabe Luna MD Unavailable [phone] Encounter Details Date Type Department Care Team (Late st Contact Info) Description 12/06/2024 Orders Only [facility] Nephrology [address] [facility] Advanced Medicine 5th [place] [address] [place] [address] Calixto Cr MD [address] [place], [place] [id number] Social History Tobacco Use Types Packs/Day Years Used Date Smoking Tobacco: Former Cigarettes Q uit: 10/16/1998 Smokeless Tobacco: Never Alcohol Use Standard Drinks/Week Comments Not Currently 0 (1 standard drink = 0.6 oz pur e alcohol) OASIS D0700: Social Isolation Answer Da te Recorded Frequency of experiencing loneliness or isolatio n Never 12/26/2023 [facility] Utilities Answer Date Recorded In the [...] often do you attend chur ch or sikhism services? More than 4 times per year 02/18/2024 Do you belong to any clubs o r organizations such as adventism groups, unions, fraternal or athletic groups, or [...] place to sleep or slept in a prison (including now)? No 11/03/2023 Housing Stability Vital [...] were you homeless or living in a prison (including now)? No 02/18/2024 Personal Safety Answer Date Recorded Have you ever been in or are you currently in a harmful physical or emotional relationship or is someone making you feel afraid or unsafe? 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 Gender Identity Male 09/30/2023 7:18 AM CDT Sexual Orientation Straight 09/30/2023 7: 18 AM CDT documented as of this encounter Plan of Treatment Not on file documented as of this encounter Visit Diagnoses Not on filedocumented in this encounter Care Teams Measurement Technician Relationship Specialty Start Date End Date Hi Salmon DO PCP - General Internal Medicine 07/30/23 Estefani Ch MD [address] [place] [address] Referring Physician Gastroenterology 09/10/23 Gabe Luna MD [address] [facility] [address] [place] [address] Consulting Physician Rheumatology 10/22/23 documented as of this encounter
[2024-12-07 08:08] LABS: Albumin Level 4.7 g/dL (3.5-5.1); Anion Gap 9 mmol/L (4-12); Blood Urea Nitrogen 25 mg/dL (9-20); Calcium 9.9 mg/dL (8.4-10.2); Carbon Dioxide 25 mmol/L (22-30); Chloride 104 mmol/L (98-107); Estimated Glomerular Filt Rate 50; Glucose 99 mg/dL (65-110); Phosphorus 3.8 mg/dL (2.5-4.5); Potassium 4.4 mmol/L (3.4-5.0); Sodium 138 mmol/L (137-145)
== END 2024-12-07 06:34 | disposition home or self-care (01) ==
PROVIDERS: PCP Internal Medicine
DX: E83.42 Hypomagnesemia (principal); N18.9 Chronic kidney disease, unspecified; R80.1 Persistent proteinuria, unspecified; Z86.2 Personal history of diseases of the blood and blood-forming organs and certain disorders involving the immune mechanism
CPT/HCPCS: 36415; 80069

== ENCOUNTER 2024-12-14 06:36 | Outpatient (CLI) | payer OTHER, SELFPAY ==
[2024-12-14 09:20] LABS: Vitamin B12 > 1000.0 pg/mL (239-931)
[2024-12-17 17:19] LABS: Copper. 43 mcg/dL (70-175)
== END 2024-12-14 06:37 | disposition home or self-care (01) ==
PROVIDERS: PCP Internal Medicine; Visit Provider Internal Medicine Gastroenterology
DX: E59 Dietary selenium deficiency (principal); Z86.19 Personal history of other infectious and parasitic diseases; E61.0 Copper deficiency
CPT/HCPCS: 36415; 82525; 82607; 84255; 84630

== ENCOUNTER 2025-03-21 06:44 | Outpatient (CLI) | payer OTHER, SELFPAY ==
--- OUTSIDE RECORDS SUMMARY | 2025-03-21 06:49 | XMS_ITS | Patient Health Record ---
Author Organization [facility] Address [address] [place] [address] Care Team Providers Care Medical Health Researcher Name Role Phone Farhana Marcus Primary Care Provider Allergies No Known Allergies Reason For Referral No Information Medications Medication SIG (Take, Route, Frequency, Duration) Notes Start Date End Date Status Amitriptyline HCl 25 MG TAKE 1 TABLET BY MOUTH ONCE DAILY AT BEDTIME . APPOINTMENT REQUIRED FOR FUTURE REFILLS; Duration: 30 PT NEEDS CELESTINA APPT -- NO OTHER REFILLS WILLBE GIVEN Active tiZANidine HCl 4 MG 1 tablet Orally once a day 09/10 Active DULoxetine HCl 60 MG 1 capsule Orally Once a day; Duration: 30 day(s) 1999 Active Folic Acid 1 MG 1 tablet Orally Once a day; Duration: 30 day(s) Active Methotrexate 2.5 MG 5 tablets Orally twice a day 1 year Active Vitamin D-3 25 MCG (1000 UT) 1 capsule Orally Once a day; Duration: 30 day(s) Active Omeprazole 40 MG 1 capsule 30 minutes before morning meal Orally Twice a day 09/10 Active Vitamin B 12 500 MCG 1 tablet Orally Onc e a day; Duration: 30 day(s) Active Testosterone Cypionate 100 MG/ML 1 ml Intramuscular once a week 2018 Active Zofran 4 MG 1 tablet Orally Once a day; Duration: 30 day(s) Recent GI problems August 2020 Not-Taking HYDROcodone-Acetamin ophen 5-325 MG 1 tablet as needed Orally every 6 hrs Active Ezetimibe 10 MG 1 tablet Orally Once a day; Duration: 30 day(s) Active Humira 40 MG/0.8ML 0.8 mL Subcutaneous; Duration: 30 day(s) Active Nasal Allergy 24 Hour 55 MCG/ACT 1 spray in each nostril Nasally Once a day; Duration: 30 day(s) as needed Active QUEtiapine Fumarate 25 MG 1.5 tablets at bedtime Orally Once a day; Duration: 30 days Active Ninfa 60 MG as directed Orally Active Voltaren 1 % as directed Externally as needed Active Probiotic - as directed Orally Active Celecoxib 200 MG 1 capsule with food Orally Twice a day holding for now Active Aspirin 81 MG 1 tablet Orally Once a day; Duration: 30 day(s) Active Lisinopril 10 MG 1 tablet Orally Once a day; Duration: 30 day(s) Active predniSONE 5 MG 1 tablet Orally Once a day; Duration: 30 day(s) 2020 Active Gabapentin 300 MG 3 capsule Orally [...] Problem Status W/U Status Risk Notes Problem Chronic pain syndrome (067602856) Chronic pain syndrome (G89.4) 1 Active confirmed Problem Mood disorder (42793985) Mood disorder (F39) Active confirmed Problem Intellectual disability (220990656) Intellectual disability (F79) Active confirmed Plan Of Treatment No Information Insurance Providers Payer Name Payer Address Payer Phone Subscriber Number Group Number Insured Name Patient Relationship to Insured Coverage Start Date Coverage End Date [facility] [address] [place] [address] [id number] Dev Amaya Self - patient is the insured 1 Medical (General) History Medical History History ICD Code Rheumatoid Arthritis HTN Dyslipidemia Low Testosterone Chronic pain Surgical History Surgery Date(Month/Year)
--- OUTSIDE RECORDS SUMMARY | 2025-03-21 06:49 | XMS_ITS | Clinical Summary ---
Author Organization [facility] Address [address] [place] [address] Care Team Providers Care Side Show Entertainer Name Role Phone Unavailable Primary Care Provider [...] 2) 02/24/2018 COVID-19 Vaccine (2023-2 5 season) 2025 Meningococcal B Vaccine Aged Out No l onger eligible based on patient's age to complete this topic Meningococcal Vaccine Aged Out No juan jose harsh eligible based on patient's age to complete this topic RSV Immunizations Under 20 Months Aged Out No longer eligible based on patient's age to complete this topic
--- OUTSIDE RECORDS SUMMARY | 2025-03-21 06:49 | XMS_ITS | Clinical Summary ---
Author Organization [facility] [employer] Address [address] [place] [address] Care Team Providers Care Human Resources Operations Coordinator Name Role Phone Unavailable Primary Care Provider Unavailabl e Source Comments [facility],non-owned Affiliates and Associated Physician Practices is amultiple site organization consisting of ambulatory clinics and hospital sitesin [place], [place], [place] and [place]. This disclosure is being madepursuant to the Care Everywhere program and may not contain all information available regarding this patient. Last updated 18.[facility] [employer] Allergies Active Allergy Reactions Criticality Noted Date Comments Ceftriaxone Rash,Renal Injury High 04/16/2023 Medications * Be aware that medications may not be up to date on this document. Alwaysverify current medications with the patient. QUEtiapine (SEROquel) 25 MG tablet Take 1 (one) tablet by mouth at bedtime Active petrolatum (Aquaphor;Clearwater phor) Apply to affected area as needed [...] tablet 2 07/10/19 24 Active nystatin (Mycostatin) 748165 UNIT/ML suspension Take 1 mL by mouth [...] Recorded Patient Health Questionnaire-2 Score 0 07/17/2023 [facility] of Occupat ional Health - Occupational Stress [...] place to sleep or slept in a custodial (including now)? No 05/29/2023 Housing Stability Vital [...] Sex Assigned at Male 05/29/2023 8:17 AM CABLE SPLICER Legal Sex Male 6:30 PM CABLE SPLICER Gender Identity Male 05/29/2023 8:17 AM CABLE SPLICER Sexual Orientation Not on file Last Filed Vital Signs Vital Sign Reading Time Taken Comments Blood Pressure 132/77 07/17/2023 10:54 AM CABLE SPLICER Pulse 103 07/17/2023 10:54 AM CABLE SPLICER Temperature 37.3 C (99.1 F) 07/17/2023 10:54 AM CABLE SPLICER Respiratory Rate 18 07/17/2023 10:54 AM CABLE SPLICER Oxygen Saturation 100% 07/17/2023 10:54 AM CABLE SPLICER Inhaled Oxygen Concentration - - Weight 73 kg (161 lb) 07/17/2023 9:27 AM CABLE SPLICER Height 167.6 cm (5' 6) 07/17/2023 9:27 AM CABLE SPLICER Body Mass Index 25.99 07/17/2023 9:27 AM CABLE SPLICER Plan of Treatment Health Maintenance Due Date Last Done Comments COLOGUARD (AGES 45-75) - COLON CA SCREENING 1970 CT COLONOGRAPHY - COLON CA SCREENING 1970 FIT - COLON CA SCREENING 1970 FLEX SIG - COLON CA SCREENING 1970 HEPATITIS B VACCINE (1 of 3 - Risk Dialysis 4-dose series) 1988 PNEUMOCOCCAL VACCINE 50+ (2 of 2 - PCV) 03/27/2020 03/27/2019 DEPRESSION SCREENING 06/23/2024 06/26/2023, 05/29/20 23 COVID-19 VACCINE ( season) 2025 02/15/2022, 05/20/2021, 10/23/2020, Additional history exists INFLUENZA VACCINE (#1) 2025 3, 03/03/2022, 03/25/2021, Additional history exists SCREENING FOR DIABETES 07/17/2026 4, 07/10/2023, 07/03/2023, [...] COMPREHENSIVE METABOLIC PANEL STAT 07/17/2023 9:20 AM CABLE SPLICER Diarrhea, unspecified type LIPID PROFILE Routine 05/12/2023 6:54 AM CABLE SPLICER ENDOSCOPY, COLON, DIAGNOSTIC Routine 05/01/2023 11:19 AM CABLE SPLICER HIV-1 HIV-2 ANTIBODY + HIV P24 AG PANEL AM Draw 04/15/2023 8:31 PM CDT HEPATITIS C ANTIBODY Routine 09/23/2017 3:56 PM CDT from Last 3 Months or Most Recently Relevant to Health Maintenance Results * (ABNORMAL) COMPREHENSIVE METABOLIC PANEL (07/17/2023 9:20 AM [facility]) Glucose 107(H) 70 - 105 mg/dL 07/17/2023 10:13 AM [facility] Sodium 143 136 - 145 mmol/L 07/17/2023 10:13 AM [facility] Potassium 3.5 3.5 - 5.1 mmol/L 07/17/2023 10:13 AM [facility] Chloride 118(H) 98 - 107 mmol/L 07/17/2023 10:13 AM [facility] CO2 17(L) 22 - 29 mmol/L 07/17/2023 10:13 AM [facility] Calcium 7.5(L) 8.4 - 10.4 mg/dL 07/17/2023 10:13 AM [facility] Anion Gap 8 6 - 16 mmol/L 07/17/2023 10:13 AM [facility] BUN 13 7 - 26 mg/dL 07/17/2023 10:13 AM [facility] Creatinine 0.93 0.72 - 1.25 mg/dL 07/17/2023 10:13 AM [facility] Alkaline Phosphatase 214(H) 40 - 150 U/L 07/17/2023 10:13 AM [facility] ALT 76(H) 0 - 55 U/L 07/17/2023 10:13 AM [facility] AST 34 5 - 34 U/L 07/17/2023 10:13 AM [facility] Protein Total 4.0(L) 6.4 - 8.3 gm/dL 07/17/2023 10:13 AM [facility] Albumin 2.1(L) 3.4 - 5.0 gm/dL 07/17/2023 10:13 AM [facility] Bilirubin Total 0.2 0.2 - 1.2 mg/dL 07/17/2023 10:13 AM [facility] eGFR by CKD-EPI >90 >=90 mL/min/1.7 3 m2 07/17/2023 10:13 AM [facility] Blood BLOOD SPECIMEN / Unknown Venipuncture / Unknown 07/17/2023 9:20 AM CABLE SPLICER 07/17/2023 9:45 AM CABLE SPLICER Torrie Martin MD LAB - CHEMISTRY [place] Final Result Performing Organization Address [facility]/ZIP Co de Phone Number [facility] [address] [place], [place] [id number] * (ABNORMAL) LIPID PROFILE (05/12/2023 6:54 AM CABLE SPLICER) Cholesterol 124 <200 mg/dL 05/12/2023 7:32 AM CABLE SPLICER [facility] Triglycerides 195(H) <150 mg/dL 05/12/2023 7:32 AM [facility] HDL Cholesterol 23(L) >40 mg/dL 3 7:32 AM [facility] LDL Calculated 62 <130 mg/dL 05/12/2023 7:32 AM [facility] VLDL Calculated 39(H) <=30 mg/dL 3 7:32 AM [facility] Chol HDL Ratio 5.4(H) <4.5 05/12/2023 7:32 AM [facility] LDL/HDL Ratio 2.7 <5.0 05/12/2023 7:32 AM [facility] Blood BLOOD SPECIMEN / Unknown Lab Venipuncture / Unknown 05/12/2023 6:54 AM CABLE SPLICER 05/12/2023 7:02 AM CABLE SPLICER Daniel Croft MD LAB - CHEMISTRY ORDERABLES F inal Result [facility] [address] [place], [place] [id number] * ENDOSCOPY, COLON, DIAGNOSTIC (05/01/2023 11:19 AM CABLE SPLICER) Report Endoscopy POC _ Patient Name: Dev mAaya Procedure Date: 05/01/2023 11:19 AM Date of : 1970 Admit Type: Inpatient Age: 53 Gender: Male Ethnicity: Not or Race: White Attending MD: Rickie Colon MD, [id number] _ Procedure: Colonoscopy Indications: Clinically significant diarrhea [...] bowel preparation was evaluated using the BBPS ([place] Bowel Preparation Scale) with scores of: Right [...] screening purposes. Procedure Code(s): --- Professional --- 12395, Colonoscopy, flexible; with biopsy, single or multiple --- Technical --- 63902, Colonoscopy, flexible; with biopsy, single or multiple Diagnosis Code(s): --- Professional --- K63.3, Ulcer of intestine R19.7, Diarrhea, unspecified --- Technical --- K63.3, Ulcer of intestine R19.7, Diarrhea, unspecified CPT copyright 2020 [employer]. All rights reserved. The codes documented in this report are preliminary and upon radiator tester review may be revised to meet current compliance requirements. ___ Rickie Colon MD 05/01/2023 12:47:16 PM Number of Addenda: 0 Note Initiated On: 05/01/2023 11:19 AM [facility] 05/01/2023 11:1 9 AM CABLE SPLICER Narrative Procedure Note Rickie Colon MD - 05/01/2023 12:48 PM CST Colonoscopy done for diarrhea. Normal colon. Single small ulcer in theTI. Biopsies taken from TI and random colon biopsies. f/u path. Rickie Colon MD GI PROCEDURE ORDERABLES Ed ited Result - Final [facility] * HIV-1 HIV-2 ANTIBODY + HIV P24 AG PANEL (04/15/2023 8:31 PM CDT) HIV1/2 Ab + P24 Ag Non Reactive Non Reactive 04/15/2023 9:16 PM CDT [facility] Blood BLOOD SPECIMEN / Unknown Lab Venipuncture / Unknown 04/15/2023 8:31 PM CDT 04/15/2023 8:36 PM CDT Narrative [facility] - 04/15/2023 9:16 PM CDT No Laboratory evidence of HIV infection. Uzma Bazzi MD LAB - CHEMISTRY ORDERABLES Fin al Result [facility] [address] [place] [address] * HEPATITIS C ANTIBODY (09/23/2017 3:56 PM CDT) Hepatitis C Virus Antibody 0.1 0.0 - 0.9 s/co ratio [facility] ([facility]) Comment: Negative: < 0.8 Indeterminate: 0.8 - 0.9 Positive: > 0.9 The CDC recommends that a positive HCV antibody result be followed up with a HCV Nucleic Acid Amplification test (399025). Blood specimen (specimen) BLOOD SPECIMEN / Unknown 09/23/2017 3:56 PM CDT 09/23/2017 Narrative [facility] ([facility]) - 09/24/2017 7:13 AM CDT Performed at: [facility] [address] [place], [place] [id number] Title Searcher: Jarod Webster PhD, Phone: [phone] us Kayla Cardona MD LAB - CHEMISTRY ORDERA LUIS CARLOS Final Result [facility] ([facility]) [address] [place] [address], [facility] from Last 3 Months or Most Recently Relevant to Health Maintenance Insurance [facility] Advance Directives * Full Code [...]
--- OUTSIDE RECORDS SUMMARY | 2025-03-21 06:49 | XMS_ITS | Encounter Summary ---
Author Organization [facility] Address [address] [place] [address] Phone Care Team Providers Care Cloth Spreader Screen Printing Name Role Phone Hi Salmon DO Primary Care Provider [phone] Estefani Ch MD Unavailable [phone] Gabe Luna MD Unavailable [phone] Encounter Details Date Type Department Care Team (Latest Contact Info) Description 11/06/2024 Orders Only [facility] Scanning, Provider Social History Tobacco Use Types Packs/Day Years Used Date Smoking Tobacco: Former Cigarettes Q uit: 10/16/1998 Smokeless Tobacco: Never Alcohol Use Standard Drinks/Week Comments Not Currently 0 (1 standard drink = 0.6 oz pur e alcohol) OASIS D0700: Social Isolation Answer Da te Recorded Frequency of experiencing loneliness or isolatio n Never 12/26/2023 [facility] Utilities Answer Date Recorded In the past 12 months has e [employer], gas, oil, or water company threatened to shut off services in your home? No 02/18/2024 Social Connection and Isolation Panel Answer Date Recorded In a typical week, [...] any clubs o r organizations such as spiritism groups, unions, fraternal or athletic groups, or [...] place to sleep or slept in a jail (including now)? No 11/03/2023 Housing Stability Vital Sign Answer Jomar e Recorded In the last 12 months, was t here a time when you were not able to pay the mortgage or rent on time? No 02/18/2024 In the past 12 months, how m any times have you moved where you were living? 0 02/18/2024 At any time in the past 12 m [facility], were you homeless or living in a jail (including now)? No 02/18/2024 Personal Safety Answer Date Recorded Have you ever been in or are you currently in a harmful physical or emotional relationship or is someone making you feel afraid or unsafe? 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 Gender Identity Male 09/30/2023 7:18 AM CDT Sexual Orientation Straight 09/30/2023 7: 18 AM CDT documented as of this encounter Plan of Treatment Not on file documented as of this encounter Procedures Procedure Name Priority Date/Time Associated Diagnosis Comments SCAN - LABS 11/06/2024 documented in this encounter Results * SCAN - LABS (11/06/2024) us Provider Scanning Final Result documented in this encounter Visit Diagnoses Not on filedocumented in this encounter Care Teams Cloth Spreader Screen Printing Relationship Specialty Start Date End Date Hi Salmon DO PCP - General Internal Medicine 07/30/23 Estefani Ch MD [address] [place] [address] Referring Physician Gastroenterology 09/10/23 Gabe Luna MD [address] [place] [address] Consulting Physician Rheumatology 10/22/23 documented as of this encounter
--- OUTSIDE RECORDS SUMMARY | 2025-03-21 06:49 | XMS_ITS | Clinical Summary ---
Author Organization [facility] Address [address] [place] [address] Care Team Providers Care Lead Generation Specialist Name Role Phone Hi Salmon DO Primary Care Provider [phone] Estefani Ch MD Unavailable [phone] Gabe Luna MD Unavailable [phone] Allergies Active Allergy Reactions Criticality Noted Date [...] (1,000 mg total) by mouth daily Active zb-ogw-vqfyp-K1- lycopen-lutein 035-93-211-300 mcg tablet Take 1 tablet by mouth [...] under the tongue 30 tablet 4 Active ezetimibe (ZETIA) 10 mg tablet Take 1 tablet (10 mg total) by mouth daily 5 Active hydroCHLOROthiaz ayaan (HYDRODIURIL) 25 mg tablet 1 tablet (25 mg total) 4 Active nebivoloL (BYSTOLIC) 5 mg tablet 1 tablet (5 mg total) 5 Active amLODIPine (NORVASC) 10 mg tablet 1 tablet (10 mg total) 5 Active coenzyme Q10 (CoQ-10) 100 mg capsule 4 Active ondansetron (ZOFRAN) 4 mg tablet 1 tablet (4 mg total) 5 Active ferrous sulfate 325 mg (65 mg of elemental iron) tabletIndication s:Iron Deficiency Anemia Take 1 tablet (65 mg of elemental iron total) by mouth daily Active fish oil-dha-epa 1,200-144-216 mg capsule Take by mouth Active glucosam-chondr- jgx4-Q4-L-kayy 750-625-1,000 mg-mg-unit tablet Take by mouth Active lisinopriL (PRINIVIL,ZESTRI L) 10 mg tablet Take 1 tablet (10 mg total) by mouth daily 30 tablet 11 5 11/24/19 26 Active lisinopriL (PRINIVIL,ZESTRI L) 10 mg tablet Take 1 tablet (10 mg total) by mouth daily Active famotidine (PEPCID) 40 mg tablet Take 1 tablet by mouth once daily 90 tablet 1 5 Active Active Problems Problem Noted Date Diagnosed [...] gabapentin Assessment & Plan (08/12/2023 4:58 PM TECHNICAL SUPPORT ENGINEER): After receiving IVF for KALPANA, patient developed pitting b/l LUCHO likely due to hypoalbuminemia Normal echo 05/09/23 -OT lymphedema c/s Esophageal candidiasis 08/07/2023 Assessment & Plan (08/14/2023 3:35 PM TECHNICAL SUPPORT ENGINEER): - EGD (08/07) w/concerns for esophageal candidiasis. Biopsies taken. - Pt given 400mg PO fluconazole on 08/07. Plan: Continue 200mg fluconazole daily (08/08 - 08/28). Plan 21d course Asymptomatic bacteriuria 08/04/2023 Assessment & Plan (08/07/2023 12:54 PM TECHNICAL SUPPORT ENGINEER): UA showing 11-20 WBC and 1+ LE however patient is asymptomatic denying dysuria, urinary frequency/urgency, difficulty urinating, or other urinary symptoms. Likely asymptomatic bacteriuria not requiring treatment at this time. - Urine Cx with NGTD - Started tamsulosin 0.4mg (08/05) with no improvement in symptoms, stopped 08/07 KALPANA (acute kidney injury) 08/03/2023 Assessment & Plan (08/20/2023 8:32 AM TECHNICAL SUPPORT ENGINEER): Noted to have elevated Cr to 1.66 [...] 07/30/2023 Assessment & Plan (08/16/2023 12:44 PM TECHNICAL SUPPORT ENGINEER): Improved All resolved Hypokalemia, hypophosphatemia, hypomagnesemia Continue [...] this time prior to admission. -continue pancrelipase 48063 units TID, colestipol 2g BID -with worsening diarrhea with antibiotics, suspect abx mediated though also some concern for c diff -c diff negative -started loperamide PRN with improvement in symptoms Assessment & Plan (10/27/2023 8:09 PM CDT): - Continue Lomotil, Imodium, Creon, tincture of opium, colestipol, fiber Assessment & Plan (08/18/2023 10:09 AM TECHNICAL SUPPORT ENGINEER): Improving a little bit following deterioration 08/14/23, [...] identified. Interval development of nonspecific pancolitis. Findings district sales representative of remote injury to the [...] bicarb Assessment & Plan (08/12/2023 4:46 PM TECHNICAL SUPPORT ENGINEER): Resolved Most likely 2/2 ongoing severe diarrhea, [...] azathioprine Assessment & Plan (07/29/2023 3:03 PM TECHNICAL SUPPORT ENGINEER): Follows with Dr. Gabe Luna ([facility]). He was previously on MTX and Humira which were both stopped during his admission for septic shock in March 2023. Humira was restarted by his outpatient [employer] 2 weeks prior to admission Outpatient follow-up nursing home current use of systemic steroids 07/24 Assessment & Plan (10/27/2023 8:09 PM CDT): Continue prednisone 5 mg daily Assessment & Plan (08/16/2023 12:43 PM TECHNICAL SUPPORT ENGINEER): Stress dose steroids were started for septic [...] 07/24/2023 Assessment & Plan (08/12/2023 4:54 PM TECHNICAL SUPPORT ENGINEER): Possible due to esophageal candidiasis, versus motility disorder, versus mechanical cause S/p EGD 08/07/23 showing esoph candidiasis The patient's reported several months of intermittent difficulty with swallowing foods and liquids. Patient reports feeling that solids and liquids get stuck in his throat and that his symptoms improve with repeat swallows --MELLOWING MACHINE OPERATOR evaluation: oral mechanism evaluation is within functional [...] monitoring Assessment & Plan (08/04/2023 2:00 PM TECHNICAL SUPPORT ENGINEER): Likely 07/25 steroids Negative infectious workup, continue to monitor, improving Severe protein-calorie malnutrition 07/24/2023 Assessment & Plan (08/02/2023 2:25 PM TECHNICAL SUPPORT ENGINEER): Follow dietitian service recommendation Hypocalcemia 07/22/2023 Assessment & Plan (08/12/2023 4:49 PM TECHNICAL SUPPORT ENGINEER): Normal when corrected for mild hypoalbuminemia, around 8.3 Possible due to nutritional deficiency from diarrhea/absorption Hypomagnesemia 06/18/2023 Hypokalemia 05/29/2023 Atrial fibrillation 04/16/2023 Hemodialysis patient 04/15/2023 Immunocompromised patient 04/15/2023 Salmonella enteritis 04/14/2023 Generalized abdominal pain 10/16/2020 Overview (10/16/2020): Added automatically from request for surgery [id number] Chronic pain syndrome 10/12/2020 Carpal tunnel syndrome on right 03/27/2020 Spondylosis of cervical spine 03/27/2020 Encounter for therapeutic drug monitoring 2017 Upper respiratory tract infection 05/25/2012 Encounters Date Type Department Care Team Description 01/20/2025 Home Infusion [facility] [address] [place] [address] Holly Jordan 12/26/2024 Results Follow-Up [facility] Gastroenterology [address] Advanced Medicine [address] [place] [address] [place] [address] Estefani Ch MD Copper, serum, Zinc, Vitamin B12, Selenium 12/23/2024 Documentation [facility] Medicine Gastroenterology [address] Medicine [address] [place] [address] [place] [address] Lucio Nicolas CMA Lab Results from Last 3 Months Immunizations [...] experiencing loneliness or isolatio n Never 12/26/2023 [facility] Utilities Answer Date Recorded In the past 12 months has [employer], gas, oil, or water [employer] threatened to shut off services in your [...] week 02/18/2024 How often do you attend [facility] or episcopalian services? More than 4 times per year 02/18/2024 Do you belong to any clubs o r organizations such as jain groups, unions, fraternal or athletic groups, or [...] Average Number of Drinks Not on file 07/10/2 024 Frequency of Binge Drinking Not on [...] place to sleep or slept in a fpc (including now)? No 11/03/2023 Housing Stability Vital [...] time in the past 12 m [facility], were you homeless or living in a fpc (including now)? No 02/18/2024 Personal Safety Answer Date Recorded Have you ever been in or are you currently in a harmful physical or emotional relationship or is someone making you feel afraid or unsafe? Denies 02/17/2024 Sex and Gender Information Value Date Recorded Sex Assigned at Not on file Legal Sex Male 1:31 AM TECHNICAL SUPPORT ENGINEER Gender Identity Male 09/30/2023 7:18 AM CDT [...] (2 of 2 - PCV) 03/27/2020 03/27/2019 Depression Screening 10/20/2024 10/21/2023, 07/21/19 Covid-19 Vaccine ( - 2024-2 6 season) 2025 05/20/2021, 10/23/2020, 10/02/2020 Influenza Vaccine (#1) 2025 , 03/03/2022, 03/25/2021, Additional history exists DTaP/Tdap/Td Vaccine (2 - Td or Tdap) 05/28/2027 05/28/2017 Colon Cancer Screening-Colonoscopy 08/07/2033 08/07/2023 Zoster Vaccine Completed 04/18/2019, 02/14/2019 Colon Cancer Screening-CT Colonography Discontinued 08/07/2023, 07/31/2023 Colon Cancer Screening-DNA Stool Discontinued 08/07/19 24, 07/31/2023 Colon Cancer Screening-FIT Discontinued 08/07/2023, Colon Cancer Screening-Sigmoidoscopy Discontinued 08/07/2023, 07/31/2023 Procedures Procedure Name Priority Date/Time Associated Diagnosis Comments COLONOSCOPY 08/07/2023 8:46 AM TECHNICAL SUPPORT ENGINEER from Last 3 Months or Most Recently Relevant to Health Maintenance Results * COLONOSCOPY (08/07/2023 8:46 AM TECHNICAL SUPPORT ENGINEER) Anatomical Region Laterality Modality Other Narrative Procedure Note Alexandra Flaherty MD - 08/07/2023 8:46 AM CST [facility] Patient Name: Dev Amaya Procedure Date: 08/07/2023 8:46 AM Date of : 1970 Admit Type: Inpatient Age: 53 Gender: Male Attending MD: Alexandra Flaherty M.D. Room: [facility] ENDOSCOPY Note Status: Finalized Procedure: Colonoscopy [...] scope was passed under direct vision.The CF [id number] Endoscope was introduced through the anus [...] On: 08/07/2023 8:46 AM Recognized by the [employer] for promoting quality in endoscopy us Alexandra Flaherty MD ENDOSCOPY PROCEDURES Final Res ult from Last 3 Months or Most Recently Relevant to Health Maintenance Insurance CHOICE PLUS CHOICE PLUS CHOICE PLUS Advance Directives For more information, please contact: [phone] * Full Code (Latest Code Status on [...] 8:01 AM 08/20/2023 3:03 PM Care Teams Lead Generation Specialist Relationship Specialty Start Date End Date Hi Salmon DO PCP - General Internal Medicine 07/30/23 Estefani Ch MD [facility] [address] [facility] [address] [place] [address] Referring Physician Gastroenterology 09/10/23 Gabe Luna MD [address] [address] Consulting Physician Rheumatology 10/22/23
--- OUTSIDE RECORDS SUMMARY | 2025-03-21 06:49 | XMS_ITS | Encounter Summary ---
Author Organization [facility] Address [address] [place] [address] Phone Care Team Providers Care Stator Plate Washer Name Role Phone Hi Salmon DO Primary Care Provider [phone] Estefani Ch MD Unavailable [phone] Gabe Luna MD Unavailable [phone] Encounter Details Date Type Department Care Team (Late st Contact Info) Description 01/02/2024 Documentation [facility] Medicine Gastroenterology [address] [facility] Advanced Medicine 12th [place] [address] [place] [id number] Estefani Ch MD [address] [place] [address] Social History Tobacco Use Types Packs/Day Years Used Date Smoking Tobacco: Former Cigarettes Q uit: 10/16/1998 Smokeless Tobacco: Never Alcohol Use Standard Drinks/Week Comments Not Currently 0 (1 standard drink = 0.6 oz pur e alcohol) OASIS D0700: Social Isolation Answer Da te Recorded Frequency of experiencing loneliness or isolatio n Never 12/26/2023 [facility] Utilities Answer Date Recorded In the past 12 months has th e electric, gas, oil, or water Zounds Hearing Aids threatened to shut off services in your home? No 11/03/2023 Social Connection and Isolation Panel Answer Date Recorded In a typical week, how many times do you talk on the phone with family, friends, or neighbors? More than three times a week 11/03/2023 How often do you get togethe r with friends or relatives? More than three times a week 11/03/2023 How often do you attend chur ch or judaism services? More than 4 times per year 11/03/2023 Do you belong to any clubs o r organizations such as holiness groups, unions, fraternal or athletic groups, or [...] place to sleep or slept in a penitentiary (including now)? No 11/03/2023 Personal Safety Answer Date Recorded Have you ever been in or are you currently in a harmful physical or emotional relationship or is someone making you feel afraid or unsafe? 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
--- OUTSIDE RECORDS SUMMARY | 2025-03-21 06:49 | XMS_ITS | Clinical Summary ---
Author Organization [facility] Address [address] [place] [id number] Care Team Providers Care Balance Wheel Motion Inspector Name Role Phone Unavailable Primary Care Provider Unavailabl e Social History Tobacco Use Types Packs/Day Years Used Date Smoking Tobacco: Never Assessed Sex and Gender Information Value Date Recorded Sex Assigned at Not on file Legal Sex Male 11:24 AM SMALL ENGINE SPECIALIST Gender Identity Not on file Sexual Orientation Not on file Plan of Treatment Health Maintenance Due Date Last Done Comments Hepatitis C Virus (HCV) Screening 1970 Hepatitis B Immunization (1 of 3 - 19+ 3-dose series) 02/24/1987 Cologuard 02/24/2013 Colonoscopy 02/24/2013 Colorectal Cancer Screening 02/24/2013 Immunochemical Fecal Occult Blood 02/24/2013 Pneumococcal Immunization (50+ years) (2 of 2 - PCV) 03/27/2020 03/27/2019 SARS-COV-2 Immunization (1 - 2023- season) 2024 Influenza Immunization (#1) 2025 09/0 11/2019, 02/14/2019, 03/16/2018, Additional history exists Respiratory Syncytial Virus (RSV) Immunization (Adult) (1 - 1-dose 75+ series) 02/24/2043 DTaP/Tdap/Td Immunization Discontinued 05/28/2017 TdaP Immunization Completed 05/28/2017 Pneumococcal Immunization Combined Discontinued 03/27/2019 Zoster Immunization Completed 04/18/2019, 9 Human Papillomavirus (HPV) Immunization Aged Out No longer eligible based on patient's age to complete this topic Meningococcal Immunization (ACWY) Aged Out No longer eligible based on patient's age to complete this topic Rotavirus Immunization Aged Out No lo nger eligible based on patient's age to complete this topic
--- OUTSIDE RECORDS SUMMARY | 2025-03-21 06:49 | XMS_ITS | Clinical Summary ---
Author Organization [facility] [id number] [facility] Address [address] [place] [address] [address] Team [address] Care Lane Attendant Name Role Phone Hi Salmon DO Primary [...] 103.9 kg (229 lb) 04/28/2020 3:16 PM PRODUCT MGMT DEV MANAGER Height 172.7 cm (5' 8) 04/28/2020 3:16 PM PRODUCT MGMT DEV MANAGER Body Mass Index 34.82 04/28/2020 3:16 PM PRODUCT MGMT DEV MANAGER Plan of Treatment Health Maintenance Due Date Last Done Comments DTAP/TDAP/TD VACCINES (1 - Tdap) 02/24/1987 HEPATITIS B VACCINES (1 of 3 - 19+ 3-dose series) 09/1986 COLORECTAL SCREENING 02/24/2013 Colorectal Cancer Screening 02/24/2013 FIT-DNA Q 3 years 02/24/2013 FIT/FOBT Q 1 year 02/24/2013 Flex Sig/CT Colonography Q 5 years 02/24/2013 ZOSTER VACCINE (1 of 2) 02/24/2018 INFLUENZA VACCINE (#1) 2025 03/12/2020 Insurance [facility] [employer] PPO [id number] Attendant Relationship Specialty Start Date End Date Hi Salmon DO [address] [address] PCP - General Internal Medicine 03/23/20
[2025-03-21 07:49] LABS: Add Urine Microscopic? NO; Appearance Urine Clear (Clear); Glucose Urine UA Negative (Negative); Leukocyte Esterase Ur Negative LEU/UL (Negative); Nitrate Urine Negative (Negative); Specific Grav Ur 1.019 (1.001-1.035)
[2025-03-21 07:50] LABS: Hematocrit 48.3 % (42.0-52.0); Hemoglobin 15.5 g/dL (14.0-18.0); Immature Granulocyte Percent A 1.4 % (0-0.5); Lymphocytes Absolute Auto 1.86 K/mm3 (0.9-3.2); Mean Corpuscular HGB Conc 32.1 g/dl (32-36); Mean Corpuscular Hemoglobin 30.5 pg (26-34); Mean Corpuscular Volume 95.1 fl (80-100); Nucleated Red Blood Cells Absolute Auto 0.000 K/mm3 (0.0-0.012); Nucleated Red Blood Cells Perc 0.0 % (0.0-0.2); Platelet Count Result 222 k/mm3 (150-375); Red Blood Count 5.08 M/mm3 (4.6-6.20); White Blood Count 8.8 K/mm3 (4.5-10.0)
[2025-03-21 08:08] LABS: Parathyroid Intact 20.5 pg/mL (14.5-75.2)
[2025-03-21 08:11] LABS: Albumin Level 4.5 g/dL (3.5-5.1); Anion Gap 8 mmol/L (4-12); Blood Urea Nitrogen 27 mg/dL (9-20); Calcium 9.7 mg/dL (8.4-10.2); Carbon Dioxide 27 mmol/L (22-30); Chloride 101 mmol/L (98-107); Estimated Glomerular Filt Rate 46; Glucose 100 mg/dL (65-110); Potassium 4.2 mmol/L (3.4-5.0); Sodium 136 mmol/L (137-145)
[2025-03-21 09:05] LABS: Total Protein Urine Random 9 mg/dL; Ur Ttl Prot Creatinine Ratio 0.06 mg/mg (0-0.20)
== END 2025-03-21 06:45 | disposition home or self-care (01) ==
PROVIDERS: PCP Internal Medicine; Referring Provider Internal Medicine
DX: N18.31 Chronic kidney disease, stage 3a (principal); E83.42 Hypomagnesemia; R80.1 Persistent proteinuria, unspecified; Z86.2 Personal history of diseases of the blood and blood-forming organs and certain disorders involving the immune mechanism; N25.0 Renal osteodystrophy; D63.1 Anemia in chronic kidney disease
CPT/HCPCS: 36415; 80069; 81003; 82306; 82570; 83970; 84156; 85025

== ENCOUNTER 2025-03-29 16:33 | Outpatient (CLI) | payer OTHER, SELFPAY ==
--- OUTSIDE RECORDS SUMMARY | 2025-03-29 14:00 | XMS_ITS | Encounter Summary ---
Author Organization [facility] Address [address] [place] [address] Phone Care Team Providers Care Newborn Photographer Name Role Phone Hi Salmon DO Primary Care Provider [phone] Estefani Ch MD Unavailable [phone] Gabe Luna MD Unavailable [phone] Encounter Details Date Type Department Care Team (Late st Contact Info) Description 03/29/2025 2:00 PM CDT Office Visit [facility] Medicine Nephrology [address] [facility] Advanced Medicine 5th [place] [address] [place] [address] Calixto Cr MD [address] [place] [address] Anemia in stage 3a chronic kidney disease (HCC) (Primary Dx); Primary hypertension; Stage 3 chronic kidney disease, unspecified whether stage 3a or 3b CKD (HCC); Renal osteodystrophy Social History Tobacco Use Types Packs/Day Years Used Date Smoking Tobacco: Former Cigarettes Q uit: 10/16/1998 Smokeless Tobacco: Never Tobacco Cessation:Counseling Given: Not Answered Alcohol Use Standard Drinks/Week Comments Not Currently 0 (1 standard drink = 0.6 oz pur e alcohol) OASIS D0700: Social Isolation Answer Da te Recorded Frequency of experiencing loneliness or isolatio n Never 12/26/2023 [facility] Utilities Answer Date Recorded In the past [...] often do you attend chur ch or scientology services? 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 Gender Identity Male 09/30/2023 7:18 AM CDT Sexual Orientation Straight 09/30/2023 7: 18 AM CDT documented as of this encounter Last Filed Vital Signs Vital Sign Reading Time Taken Comments Blood Pressure 133/73 03/29/2025 1:56 PM CDT Pulse 61 03/29/2025 1:56 PM CDT Temperature - - Respiratory Rate - - Oxygen Saturation - - Inhaled Oxygen Concentration - - Weight 101.2 kg (223 lb) 03/29/2025 1:56 PM CDT Height 172.7 cm (5' 8) 03/29/2025 1:56 PM CDT Body Mass Index 33.91 03/29/2025 1:56 PM CDT documented in this encounter Progress Notes * Calixto Cr MD - 03/29/2025 2:00 PM CDT PATIENT NAME: Dev Amaya : 1970 JOAN: 03/29/2025 PHYSICIAN REQUESTING CONSULTATION: CHIEF COMPLAINT: Establish care for CKD Stage 3a PROBLEM LIST: Patient Active Problem List Diagnosis Generalized abdominal pain Hypocalcemia Chronic diarrhea Normal anion gap metabolic acidosis Rheumatoid arthritis (HCC) 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 current use of systemic steroids Difficulty swallowing Leukocytosis Severe protein-calorie malnutrition Electrolyte imbalance KALPANA (acute kidney injury) Asymptomatic bacteriuria Esophageal candidiasis Lower extremity edema Malnutrition compromising bodily function Anemia in stage 3 chronic kidney disease (HCC) Elevated alkaline phosphatase level Odynophagia Gram-negative bacteremia Acute renal failure superimposed on stage 3 chronic kidney disease (HCC) Fever with chills Neuropathy Carpal tunnel syndrome on right Atrial fibrillation (HCC) Chronic pain syndrome Encounter for therapeutic drug monitoring Hemodialysis patient Hypokalemia Hypomagnesemia Immunocompromised patient Intellectual disability Mood disorder Spondylosis of cervical spine Salmonella enteritis Upper respiratory tract infection Primary hypertension Renal osteodystrophy HISTORY OF PRESENT ILLNESS: Mr. Amaya is a 55 y.o. male is here for evaluation and management of increased creatinine. The consultation was requested by Dr. Pedro Ch, patient's GI search engine optimization consultant. He has a history of RA on azathioprine and tocilizumab ( Actemra), HLD, h/o Salmonella enterocolitis s/p antibiotics,history of H pylori gastritis, treated, and candidal esophagitis, h/o congenital abdominal hernia repair. History of salmonella enteritis and malnutrition requiring initiation of parenteral nutrition, now off TPN. He has a long history of recurrent episodes of volume depletion leading to KALPANA's, and needed HD fora short period of time back in 2022. Since last seen he has been quite will and notes his GI symptoms are largely quiescent. His mot recent creatinine was 1.5, at baseline for him. He no longer takes ay NSAIDs. We successfully reintroduced lisinopril at his last visit. PAST MEDICAL HISTORY: Past Medical History: Diagnosis Date Colon polyp Dysphagia GERD (gastroesophageal reflux disease) High cholesterol Hypertension Odynophagia Sleep apnea PAST SURGICAL HISTORY: Past Surgical History: Procedure Laterality Date COLONOSCOPY HERNIA REPAIR REMOVE TUNNELED LINE Left 01/27/2024 TUNNELED LINE PLACEMENT > 5 YEARS N/A 10/29/2023 UPPER GASTROINTESTINAL ENDOSCOPY ALLERGIES: Allergies Allergen Reactions Ceftriaxone Hives, Itching, Rash and Other (See comments) CURRENT MEDICATIONS: Current Outpatient Medications: acetaminophen 500 mg capsule, Take 2 capsules (1,000 mg total) by mouth daily, Disp: , Rfl: acidophilus-pectin, citrus 100 million cell-10 mg capsule, Take by mouth , Disp: , Rfl: amitriptyline (ELAVIL) 25 mg tablet, Take 1 tablet (25 mg total) by mouth nightly, Disp: , Rfl: amLODIPine (NORVASC) 10 mg tablet, 1 tablet (10 mg total), Disp: , Rfl: azaTHIOprine (IMURAN) 50 mg tablet, Take 1 tablet (50 mg total) by mouth daily, Disp: , Rfl: azelastine (ASTELIN) 137 mcg (0.1 %) nasal spray, Administer 1 spray into each nostril 2 (two) times a day Use in each nostril as directed, Disp: , Rfl: cholecalciferol (VITAMIN D-3) 2000 unit capsule, Take 1 capsule (2,000 Units total) by mouth daily,Disp: 30 capsule, Rfl: 5 coenzyme Q10 (CoQ-10) 100 mg capsule, , Disp: , Rfl: copper gluconate 2 mg tablet, Take 2 mg by mouth daily Recheck copper level in 4-6 months., Disp: ,Rfl: cyanocobalamin (Vitamin B-12) 1,000 mcg tablet, Take 0.5 tablets (500 mcg total) by mouth daily, Disp: 30 tablet, Rfl: 5 diclofenac sodium (VOLTAREN) 1 % gel, Apply 2 g topically daily, Disp: , Rfl: DULoxetine DR (CYMBALTA) 60 mg capsule, Take 1 capsule (60 mg total) by mouth daily, Disp: 30 capsule, Rfl: 1 ezetimibe (ZETIA) 10 mg tablet, Take 1 tablet (10 mg total) by mouth daily, Disp: , Rfl: famotidine (PEPCID) 40 mg tablet, Take 1 tablet by mouth once daily, Disp: 90 tablet, Rfl: 1 ferrous sulfate 325 mg (65 mg of elemental iron) tablet, Take 1 tablet (65 mg of elemental iron total) by mouth daily, Disp: , Rfl: fish oil-dha-epa 1,200-144-216 mg capsule, Take by mouth, Disp: , Rfl: gabapentin (NEURONTIN) 600 mg tablet, Take 1 tablet (600 mg total) by mouth nightly Pt takes 3 tablets- 900 mg, Disp: 30 capsule, Rfl: 0 xhlrgjvq-krpizu-hng6-D3-C-kayy 750-625-1,000 mg-mg-unit tablet, Take by mouth, Disp: , Rfl: hydroCHLOROthiazide (HYDRODIURIL) 25 mg tablet, 1 tablet (25 mg total), Disp: , Rfl: hyoscyamine (LEVSIN) 0.125 mg SL tablet, Take 1 tablet (0.125 mg total) by mouth every 8 (eight) hours as needed for cramping (abdominal pain) Place under the tongue, Disp: 30 tablet, Rfl: 0 lisinopriL (PRINIVIL,ZESTRIL) 10 mg tablet, Take 1 tablet (10 mg total) by mouth daily, Disp: 30 tablet, Rfl: 11 lisinopriL (PRINIVIL,ZESTRIL) 10 mg tablet, Take 1 tablet (10 mg total) by mouth daily, Disp: , Rfl: go-fnk-vupgx-S6-tvgnnei-fcwnap 268-06-734-300 mcg tablet, Take 1 tablet by mouth daily, Disp: , Rfl: nebivoloL (BYSTOLIC) 5 mg tablet, 1 tablet (5 mg total), Disp: , Rfl: ondansetron (ZOFRAN) 4 mg tablet, 1 tablet (4 mg total), Disp: , Rfl: predniSONE (DELTASONE) 5 mg tablet, Take 1 tablet (5 mg) by mouth daily Take by mouth as directed, Disp: 30 tablet, Rfl: 1 QUEtiapine (SEROquel) 25 mg tablet, Take 1 tablet (25 mg total) by mouth nightly, Disp: , Rfl: rOPINIRole (REQUIP) 0.5 mg tablet, Take 1 tablet by mouth nightly, Disp: 30 tablet, Rfl: 0 sodium bicarbonate 650 mg tablet, Take 1 tablet (650 mg total) by mouth daily, Disp: 60 tablet, Rfl: 2 testosterone cypionate (DEPO-TESTOTERONE) 200 mg/mL injection, Inject 0.6 mL (120 mg total) into the muscle as instructed every 7 days, Disp: , Rfl: tiZANidine (ZANAFLEX) 4 mg tablet, Take 1 tablet (4 mg total) by mouth nightly, Disp: , Rfl: tocilizumab (ACTEMRA) 200 mg/10 mL (20 mg/mL) solution, Infuse 8 mg/kg into a venous catheter every28 (twenty-eight) days, Disp: , Rfl: traMADoL (ULTRAM) 50 mg tablet, Take 2 tablets (100 mg total) by mouth daily, Disp: , Rfl: folic acid (FOLVITE) 1 mg tablet, Take 1 tablet (1,000 mcg total) by mouth daily (Patient not taking: Reported on 03/29/2025), Disp: , Rfl: FAMILY HISTORY: Family History Problem Relation Age of Onset Esophageal cancer Father Stomach cancer Father Arthritis Father Family history of arthritis - (Added by TW Conv) Cancer Father SOCIAL HISTORY: Social History Tobacco Use Smoking status: Former Current packs/day: 0.00 Types: Cigarettes Quit date: 10/16/1998 Years since quittin.4 Smokeless tobacco: Never Substance and Sexual Activity Drug use: Not Currently Sexual activity: None Alcohol Use: Not At Risk (12/31/2023) AUDIT-C Frequency of Alcohol Consumption: Never Average Number of Drinks: Not on file Frequency of Binge Drinking: Not on file REVIEW OF SYSTEMS: As per HPI above. No recent complains of SOB, CP's, upper or lower GI symptoms. No lower extremity edema, nocturia, dysuria or hematuria. All other review of systems are negative. PHYSICAL EXAM: Vitals BP 133/73 (BP Location: Left arm, Patient Position: Sitting) Pulse 61 Ht 172.7 cm (5' 8) Wt 101.2 kg (223 lb) BMI 33.91 kg/m?? GEN: Calm, in no apparent distress HENT: Mucus membranes pink and moist. Oropharynx clear. EYES: sclera anicteric CVS: S1 S2 normal, no murmurs, rub or gallop. No LE edema. LUNGS: clear to auscultation bilaterally ABD: Soft, distended non-tender, non-distended, bowel sounds normal. No masses. 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 No focal motor deficits PSYCH: Pleasant, cooperative, in no apparent distress. MSK: No joint swelling or tenderness LABS: OSH labs Creatinine 1.5 Na 136 K 4.2 BUN 27 CO2 27 PATHOLOGY: 1ASSESSMENT AND PLAN: 1. CKD 3b: -Multifactorial etiology. 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 Discussed at length diagnosis and prognosis. -Renal US normal -No blood or protein on UA 2. Hypertension -Improved back on lisinopril 3. Renal anemia -Hb at target 4. Renal osteodystrophy -PTH, vitamin D and PO4 at target DISPOSITION: Return to clinic in 6 months. documented in this encounter Plan of Treatment Not on file documented as of this encounter Visit Diagnoses Diagnosis Anemia in stage 3a chronic kidney disease (HCC)- Primary Primary hypertension Unspecified essential hypertension Stage 3 chronic kidney disease, unspecified whether stage 3a or 3b CKD (HCC) Renal osteodystrophy documented in this encounter Care Teams Newborn Photographer Relationship Specialty Start Date End Date Hi Salmon DO PCP - General Internal Medicine 07/30/23 Estefani Ch MD [address] [facility] [address] [place] [address] Referring Physician Gastroenterology 09/10/23 Gabe Luna MD [address] [address] Consulting Physician Rheumatology 10/22/23 documented as of this encounter
--- OUTSIDE RECORDS SUMMARY | 2025-03-29 16:49 | XMS_ITS | Clinical Summary ---
Author Organization [facility] al Address [address] [place] [address] Care Team Providers Care Carriage Dogger Name Role Phone Hi Salmon DO Primary Care Provider [phone] Estefani Ch MD Unavailable [phone] Gabe Luna MD Unavailable [phone] Allergies Active Allergy Reactions Criticality Noted [...] (1,000 mg total) by mouth daily Active ew-fea-ectst-K1- lycopen-lutein 287-78-681-300 mcg tablet Take 1 tablet by mouth [...] mg capsule Take by mouth Active glucosam-chondr- htz2-L2-E-kayy 750-625-1,000 mg-mg-unit tablet Take by mouth Active [...] Active Problems Problem Noted Date Diagnosed Date CKD (chronic kidney disease) stage 3, GFR 30-59 ml/min 03/29/2025 Primary hypertension 11/24/2024 Renal osteodystrophy 11/24/2024 Intellectual [...] ertapenem for ease of dosing -ID consulted: elvis to switch to ciprofloxacin 750 mg BID [...] gabapentin Assessment & Plan (08/12/2023 4:58 PM APPLICATIONS DEVELOPMENT CONSULTANT): After receiving IVF for KALPANA, patient developed pitting b/l LUCHO likely due to hypoalbuminemia Normal echo 05/09/23 -OT lymphedema c/s Esophageal candidiasis 08/07/2023 Assessment & Plan (08/14/2023 3:35 PM APPLICATIONS DEVELOPMENT CONSULTANT): - EGD (08/07) w/concerns for esophageal candidiasis. Biopsies taken. - Pt given 400mg PO fluconazole on 08/07. Plan: Continue 200mg fluconazole daily (08/08 - 08/28). Plan 21d course Asymptomatic bacteriuria 08/04/2023 Assessment & Plan (08/07/2023 12:54 PM APPLICATIONS DEVELOPMENT CONSULTANT): UA showing 11-20 WBC and 1+ LE however patient is asymptomatic denying dysuria, urinary frequency/urgency, difficulty urinating, or other urinary symptoms. Likely asymptomatic bacteriuria not requiring treatment at this time. - Urine Cx with NGTD - Started tamsulosin 0.4mg (08/05) with no improvement in symptoms, stopped 08/07 KALPANA (acute kidney injury) 08/03/2023 Assessment & Plan (08/20/2023 8:32 AM APPLICATIONS DEVELOPMENT CONSULTANT): Noted to have elevated Cr to 1.66 [...] 07/30/2023 Assessment & Plan (08/16/2023 12:44 PM APPLICATIONS DEVELOPMENT CONSULTANT): Improved All resolved Hypokalemia, hypophosphatemia, hypomagnesemia Continue [...] this time prior to admission. -continue pancrelipase 98424 units TID, colestipol 2g BID -with worsening diarrhea with antibiotics, suspect abx mediated though also some concern for c diff -c diff negative -started loperamide PRN with improvement in symptoms Assessment & Plan (10/27/2023 8:09 PM CDT): - Continue Lomotil, Imodium, Creon, tincture of opium, colestipol, fiber Assessment & Plan (08/18/2023 10:09 AM APPLICATIONS DEVELOPMENT CONSULTANT): Improving a little bit following deterioration 08/14/23, [...] Interval development of nonspecific pancolitis. Findings customer service representative of remote injury to the left [...] bicarb Assessment & Plan (08/12/2023 4:46 PM APPLICATIONS DEVELOPMENT CONSULTANT): Resolved Most likely 2/2 ongoing severe diarrhea, [...] azathioprine Assessment & Plan (07/29/2023 3:03 PM APPLICATIONS DEVELOPMENT CONSULTANT): Follows with Dr. Gabe Luna ([facility]). He was previously on MTX and Humira which were both stopped during his admission for septic shock in March 2023. 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 Patient reports feeling that solids and liquids get stuck in his throat and that his symptoms improve with repeat swallows --SOLIDS CONTROL TECHNICIAN evaluation: oral mechanism evaluation is within [...] monitoring Assessment & Plan (08/04/2023 2:00 PM APPLICATIONS DEVELOPMENT CONSULTANT): Likely 07/25 steroids Negative infectious workup, continue to monitor, improving Severe protein-calorie malnutrition 07/24/2023 Assessment & Plan (08/02/2023 2:25 PM APPLICATIONS DEVELOPMENT CONSULTANT): Follow dietitian service recommendation Hypocalcemia 07/22/2023 Assessment & Plan (08/12/2023 4:49 PM APPLICATIONS DEVELOPMENT CONSULTANT): Normal when corrected for mild hypoalbuminemia, around 8.3 Possible due to nutritional deficiency from diarrhea/absorption Hypomagnesemia 06/18/2023 Hypokalemia 05/29/2023 Atrial fibrillation 04/16/2023 Hemodialysis patient 04/15/2023 Immunocompromised patient 04/15/2023 Salmonella enteritis 04/14/2023 Generalized abdominal pain 10/16/2020 Overview (10/16/2020): Added automatically from request for surgery [id number] Chronic pain syndrome 10/12/2020 Carpal tunnel syndrome on right 03/27/2020 Spondylosis of cervical spine 03/27/2020 Encounter for therapeutic drug monitoring 2017 Upper respiratory tract infection 05/25/2012 Encounters Date Type Department Care Team Description 03/29/2025 2:00 PM CDT Office Visit [facility] Medicine Nephrology [address] [place] [address] [place] [address] Calixto Cr MD Anemia in stage 3a chronic kidney disease (HCC) (Primary Dx); Primary hypertension; Stage 3 chronic kidney disease, unspecified whether stage 3a or 3b CKD (HCC); Renal osteodystrophy 03/23/2025 Orders Only [facility] Medicine Gastroenterology [address] [place] [address] Millie Diallo MD Copper deficiency (Primary Dx) 03/21/2025 Orders Only [facility] NEPHROLOGY Scanning, Provider 01/20/2025 Home Infusion [facility] [address] [place] [address] Holly Jordan from Last 3 Months Immunizations Immunization Administration [...] experiencing loneliness or isolatio n Never 12/26/2023 [facility] Utilities Answer Date Recorded In the past 12 months has e [employer], gas, oil, or water [employer] threatened to shut off services in your [...] often do you attend chur ch or christianity services? More than 4 times per year 02/18/2024 Do you belong to any clubs o r organizations such as mandaen groups, unions, fraternal or athletic groups, or [...] any time in the past 12 m [facility], were you homeless or living in a halfway (including now)? No 02/18/2024 Personal Safety Answer Date Recorded Have you ever been in or are you currently in a harmful physical or emotional relationship or is someone making you feel afraid or unsafe? Denies 02/17/2024 Sex and Gender Information Value Date Recorded Sex Assigned at Not on file Legal Sex Male 1:31 AM APPLICATIONS DEVELOPMENT CONSULTANT Gender Identity Male 09/30/2023 7:18 AM CDT Sexual Orientation Straight 09/30/2023 7: 18 AM CDT Obstetrics History Last Filed Vital Signs Vital Sign Reading Time Taken Comments Blood Pressure 133/73 03/29/2025 1:56 PM CDT Pulse 61 03/29/2025 1:56 PM CDT Temperature 37.1 C (98.8 F) 11/30/2024 11:13 AM CDT Respiratory Rate 18 09/22/2024 11:26 AM CDT Oxygen Saturation 95% 11/30/2024 11:13 AM CDT Inhaled Oxygen Concentration - - Weight 101.2 kg (223 lb) 03/29/2025 1:56 PM CDT Height 172.7 cm (5' 8) 03/29/2025 1:56 PM CDT Body Mass Index 33.91 03/29/2025 1:56 PM CDT Plan of Treatment Health Maintenance Due Date Last Done Comments Hepatitis C Screening 1970 Prostate Cancer Screening-PSA 1970 Hepatitis B Screening 02/24/1986 Regular Well Visit/Exam 18-64 02/24/1986 Pneumococcal vaccine <65 (2 of 2 - PCV) 03/27/2020 03/27/2019 Depression Screening 10/20/2024 10/21/2023, 07/21/19 24 Covid-19 Vaccine (4 - 2024-2 6 season) 2025 05/20/2021, 10/23/2020, 10/02/2020 Influenza Vaccine (#1) 2025 3, 03/03/2022, 03/25/2021, Additional history exists DTaP/Tdap/Td Vaccine (2 - Td or Tdap) 05/28/2027 05/28/2017 Colon Cancer Screening-Colonoscopy 08/07/2033 08/07/2023 Zoster Vaccine Completed 04/18/2019, 02/14/2019 Colon Cancer Screening-CT Colonography Discontinued 08/07/2023, 07/31/2023 Colon Cancer Screening-DNA Stool Discontinued 08/07/19 24, 07/31/2023 Colon Cancer Screening-FIT Discontinued 08/07/2023, Colon Cancer Screening-Sigmoidoscopy Discontinued 08/07/2023, 07/31/2023 Procedures Procedure Name Priority Date/Time Associated Diagnosis Comments SCAN - LABS 03/21/2025 COLONOSCOPY 08/07/2023 8:46 AM APPLICATIONS DEVELOPMENT CONSULTANT from Last 3 Months or Most Recently Relevant to Health Maintenance Results * SCAN - LABS (03/21/2025) us Provider Scanning Edited Result - Final * COLONOSCOPY (08/07/2023 8:46 AM APPLICATIONS DEVELOPMENT CONSULTANT) Anatomical Region Laterality Modality Other Narrative Procedure Note Alexandra Flaherty MD - 08/07/2023 8:46 AM CST [facility] Patient Name: Dev Amaya Procedure Date: 08/07/2023 8:46 AM Date of : 1970 Admit Type: Inpatient Age: 53 Gender: Male Attending MD: Alexandra Flaherty M.D. Room: [facility] ENDOSCOPY Note Status: Finalized Procedure: Colonoscopy [...] The scope was passed under direct vision.The [id number] Endoscope was introduced through the anus [...] On: 08/07/2023 8:46 AM Recognized by the [employer] for promoting quality in endoscopy Alexandra Flaherty MD ENDOSCOPY PROCEDURES Final Res ult from Last 3 Months or Most Recently Relevant to Health Maintenance Insurance CHOICE PLUS CHOICE PLUS CHOICE PLUS Advance Directives For more information, please contact: [phone] * Full Code (Latest Code Status on [...] 8:01 AM 08/20/2023 3:03 PM Care Teams Carriage Dogger Relationship Specialty Start Date End Date Hi Salmon DO PCP - General Internal Medicine 07/30/23 Estefani Ch MD [facility] [address] [place] [address] Referring Physician Gastroenterology 09/10/23 Gabe Luna MD [address] [address] Consulting Physician Rheumatology 10/22/23
--- OUTSIDE RECORDS SUMMARY | 2025-03-29 16:49 | XMS_ITS | Clinical Summary ---
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 Gender Identity Not on file Sexual Orientation Not on file Plan of Treatment Health Maintenance Due Date Last Done Comments Hepatitis C Virus (HCV) Screening 1970 Hepatitis B Immunization (1 of 3 - 19+ 3-dose series) 02/24/1987 Cologuard 02/24/2013 Colonoscopy 02/24/2013 Colorectal Cancer Screening 02/24/2013 Immunochemical Fecal Occult Blood 02/24/2013 Pneumococcal Immunization (50+ years) (2 of 2 - PCV) 03/27/2020 03/27/2019 Influenza Immunization (#1) 02/21/202511/2019, 02/14/2019, 03/16/2018, Additional history exists SARS-COV-2 Immunization ( - season) 2025 Respiratory Syncytial Virus (RSV) Immunization (Adult) (1 [...]
--- OUTSIDE RECORDS SUMMARY | 2025-03-29 16:49 | XMS_ITS | Clinical Summary ---
Author Organization [facility] [employer] Address [address] [place] [address] Care Team Providers Care Coding Specialist Name Role Phone Unavailable Primary Care Provider Unavailabl e Source Comments [facility],non-owned Affiliates and Associated Physician Practices is amultiple site organization consisting of ambulatory clinics and hospital sitesin [place], [place], [place] and [place]. This disclosure is being madepursuant to the Care Everywhere program and may not contain all information available regarding this patient. Last updated 18.[facility] [employer] Allergies Active Allergy Reactions Criticality Noted Date Comments Ceftriaxone Rash,Renal Injury High 04/16/2023 Medications * Be aware that medications may not be up to date on this document. Alwaysverify current medications with the patient. QUEtiapine (SEROquel) 25 MG tablet Take 1 (one) tablet by mouth at bedtime Active petrolatum (Aquaphor;[place] phor) Apply to affected area as needed [...] tablet 2 07/10/19 24 Active nystatin (Mycostatin) 465641 UNIT/ML suspension Take 1 mL by mouth [...] Recorded Patient Health Questionnaire-2 Score 0 07/17/2023 [facility] of Occupat ional Health - Occupational Stress [...] Sex Assigned at Male 05/29/2023 8:17 AM MANAGER RELIABILITY Legal Sex Male 6:30 PM MANAGER RELIABILITY Gender Identity Male 05/29/2023 8:17 AM MANAGER RELIABILITY Sexual Orientation Not on file Last Filed Vital Signs Vital Sign Reading Time Taken Comments Blood Pressure 132/77 07/17/2023 10:54 AM MANAGER RELIABILITY Pulse 103 07/17/2023 10:54 AM MANAGER RELIABILITY Temperature 37.3 C (99.1 F) 07/17/2023 10:54 AM MANAGER RELIABILITY Respiratory Rate 18 07/17/2023 10:54 AM MANAGER RELIABILITY Oxygen Saturation 100% 07/17/2023 10:54 AM MANAGER RELIABILITY Inhaled Oxygen Concentration - - Weight 73 kg (161 lb) 07/17/2023 9:27 AM MANAGER RELIABILITY Height 167.6 cm (5' 6) 07/17/2023 9:27 AM MANAGER RELIABILITY Body Mass Index 25.99 07/17/2023 9:27 AM MANAGER RELIABILITY Plan of Treatment Health Maintenance Due Date [...] COMPREHENSIVE METABOLIC PANEL STAT 07/17/2023 9:20 AM MANAGER RELIABILITY Diarrhea, unspecified type LIPID PROFILE Routine 05/12/2023 6:54 AM MANAGER RELIABILITY ENDOSCOPY, COLON, DIAGNOSTIC Routine 05/01/2023 11:19 AM MANAGER RELIABILITY HIV-1 HIV-2 ANTIBODY + HIV P24 AG PANEL AM Draw 04/15/2023 8:31 PM CDT HEPATITIS C ANTIBODY Routine 09/23/2017 3:56 PM CDT from Last 3 Months or Most Recently Relevant to Health Maintenance Results * (ABNORMAL) COMPREHENSIVE METABOLIC PANEL (07/17/2023 9:20 AM [facility]) Glucose 107(H) 70 - 105 mg/dL 07/17/2023 10:[address] [facility] Sodium 143 136 - 145 mmol/L 07/17/2023 10:[address] [facility] Potassium 3.5 3.5 - 5.1 mmol/L 07/17/2023 10:[address] [facility] Chloride 118(H) 98 - 107 mmol/L 07/17/2023 10:[address] [facility] CO2 17(L) 22 - 29 mmol/L 07/17/2023 10:[address] [facility] Calcium 7.5(L) 8.4 - 10.4 mg/dL 07/17/2023 10:[address] [facility] Anion Gap 8 6 - 16 mmol/L 07/17/2023 10:[address] [facility] BUN 13 7 - 26 mg/dL 07/17/2023 10:[address] [facility] Creatinine 0.93 0.72 - 1.25 mg/dL 07/17/2023 10:[address] [facility] Alkaline Phosphatase 214(H) 40 - 150 U/L 07/17/2023 10:[address] [facility] ALT 76(H) 0 - 55 U/L 07/17/2023 10:[address] [facility] AST 34 5 - 34 U/L 07/17/2023 10:[address] [facility] Protein Total 4.0(L) 6.4 - 8.3 gm/dL 07/17/2023 10:[address] [facility] Albumin 2.1(L) 3.4 - 5.0 gm/dL 07/17/2023 10:[address] [facility] Bilirubin Total 0.2 0.2 - 1.2 mg/dL 07/17/2023 10:[address] [facility] eGFR by CKD-EPI >90 >=90 mL/min/1.7 3 m2 07/17/2023 10:[address] [facility] Blood BLOOD SPECIMEN / Unknown Venipuncture / Unknown 07/17/2023 9:20 AM MANAGER RELIABILITY 07/17/2023 9:45 AM MANAGER RELIABILITY Torrie Martin MD LAB - CHEMISTRY [place] Final Result Performing Organization Address [facility]/ZIP Co de Phone Number [facility] [address] [place], [place] [id number] * (ABNORMAL) LIPID PROFILE (05/12/2023 6:54 AM MANAGER RELIABILITY) Cholesterol 124 <200 mg/dL 05/12/2023 7:32 AM MANAGER RELIABILITY [facility] Triglycerides 195(H) <150 mg/dL 05/12/2023 7:[address] [facility] HDL Cholesterol 23(L) >40 mg/dL 3 7:[address] [facility] LDL Calculated 62 <130 mg/dL 05/12/2023 7:[address] [facility] VLDL Calculated 39(H) <=30 mg/dL 3 7:[address] [facility] Chol HDL Ratio 5.4(H) <4.5 05/12/2023 7:[address] [facility] LDL/HDL Ratio 2.7 <5.0 05/12/2023 7:[address] [facility] Blood BLOOD SPECIMEN / Unknown Lab Venipuncture / Unknown 05/12/2023 6:54 AM MANAGER RELIABILITY 05/12/2023 7:02 AM MANAGER RELIABILITY Daniel Croft MD LAB - CHEMISTRY ORDERABLES F inal Result [facility] [address] [place], [place] [id number] * ENDOSCOPY, COLON, DIAGNOSTIC (05/01/2023 11:19 AM MANAGER RELIABILITY) Report Endoscopy POC _ Patient Name: Dev Amaya Procedure Date: 05/01/2023 11:19 AM Date of : 1970 Admit Type: Inpatient Age: 53 Gender: Male Ethnicity: Not or Race: White Attending MD: Rickie Colon MD, [id number] _ Procedure: Colonoscopy Indications: Clinically significant diarrhea [...] bowel preparation was evaluated using the BBPS ([place] Bowel Preparation Scale) with scores of: Right [...] screening purposes. Procedure Code(s): --- Professional --- 67440, Colonoscopy, flexible; with biopsy, single or multiple --- Technical --- 23306, Colonoscopy, flexible; with biopsy, single or multiple Diagnosis Code(s): --- Professional --- K63.3, Ulcer of intestine R19.7, Diarrhea, unspecified --- Technical --- K63.3, Ulcer of intestine R19.7, Diarrhea, unspecified CPT copyright 2020 [employer]. All rights reserved. The codes documented in this report are preliminary and upon business risk analyst review may be revised to meet current compliance requirements. ___ Rickie Colon MD 05/01/2023 12:47:16 PM Number of Addenda: 0 Note Initiated On: 05/01/2023 11:19 AM [facility] 05/01/2023 11:1 9 AM MANAGER RELIABILITY Narrative Procedure Note Rickie Colon MD - 05/01/2023 12:48 PM CST Colonoscopy done for diarrhea. Normal colon. Single small ulcer in theTI. Biopsies taken from TI and random colon biopsies. f/u path. Rickie Colon MD GI PROCEDURE ORDERABLES Ed ited Result - Final [facility] * HIV-1 HIV-2 ANTIBODY + HIV P24 AG PANEL (04/15/2023 8:31 PM CDT) HIV1/2 Ab + P24 Ag Non Reactive Non Reactive 04/15/2023 9:16 PM CDT [facility] Blood BLOOD SPECIMEN / Unknown Lab Venipuncture / Unknown 04/15/2023 8:31 PM CDT 04/15/2023 8:36 PM CDT Narrative [facility] - 04/15/2023 9:16 PM CDT No Laboratory evidence of HIV infection. Uzma Bazzi MD LAB - CHEMISTRY ORDERABLES Fin al Result [facility] [address] [place] [address] * HEPATITIS C ANTIBODY (09/23/2017 3:56 PM CDT) Hepatitis C Virus Antibody 0.1 0.0 - 0.9 s/co ratio [facility] ([facility]) Comment: Negative: < 0.8 Indeterminate: 0.8 - 0.9 Positive: > 0.9 The CDC recommends that a positive HCV antibody result be followed up with a HCV Nucleic Acid Amplification test (881032). Blood specimen (specimen) BLOOD SPECIMEN / Unknown 09/23/2017 3:56 PM CDT 09/23/2017 Narrative [facility] ([facility]) - 09/24/2017 7:13 AM CDT Performed at: [facility] [address] [place], [place] [id number] Second Grade Teacher: Jarod Webster PhD, Phone: [phone] us Kayla Cardona MD LAB - CHEMISTRY ORDERA LUIS CARLOS Final Result [facility] ([facility]) [address] [place] [address], [facility] from Last 3 Months or Most Recently Relevant to Health Maintenance Insurance [facility] Advance Directives * Full Code [...]
--- OUTSIDE RECORDS SUMMARY | 2025-03-29 16:49 | XMS_ITS | Encounter Summary ---
Author Organization [facility] Address [address] [place] [address] Phone Care Team Providers Care Mainspring Former Name Role Phone Hi Salmon DO Primary Care Provider [phone] Estefani Ch MD Unavailable [phone] Gabe Luna MD Unavailable [phone] Encounter Details Date Type Department Care Team (Late st Contact Info) Description 01/02/2024 Documentation [facility] Medicine Gastroenterology [address] [facility] [address] [place] [address] [place] [phone] Estefani Ch MD [address] [place] [address] Social History Tobacco Use Types Packs/Day Years Used Date Smoking Tobacco: Former Cigarettes Q uit: 10/16/1998 Smokeless Tobacco: Never Alcohol Use Standard Drinks/Week Comments Not Currently 0 (1 standard drink = 0.6 oz pur e alcohol) OASIS D0700: Social Isolation Answer Da te Recorded Frequency of experiencing loneliness or isolatio n Never 12/26/2023 [facility] Utilities Answer Date Recorded In the past 12 months has th e electric, gas, oil, or water [employer] threatened to shut off services in your [...] often do you attend chur ch or presybeterian services? More than 4 times per year 11/03/2023 Do you belong to any clubs o r organizations such as rastafarian groups, unions, fraternal or athletic groups, or [...] place to sleep or slept in a mcc (including now)? No 11/03/2023 Personal Safety Answer Date Recorded Have you ever been in or are you currently in a harmful physical or emotional relationship or is someone making you feel afraid or unsafe? Denies 12/31/2023 Sex and Gender Information Value Date Recorded Sex Assigned at Not on file Legal Sex Male 1:31 AM DEVELOPER ADVOCATE Gender Identity Male 09/30/2023 7:18 AM CDT [...] documented as of this encounter Care Teams Mainspring Former Relationship Specialty Start Date End Date Hi Salmon DO PCP - General Internal Medicine 07/30/23 Estefani Ch MD [address] [place] [address] Referring Physician Gastroenterology 09/10/23 Gabe Luna MD [address] [place] [address] Consulting Physician Rheumatology 10/22/23 documented as of this encounter
--- OUTSIDE RECORDS SUMMARY | 2025-03-29 16:49 | XMS_ITS | Clinical Summary ---
Author Organization [facility] Address [address] [place] [address] Care Team Providers Care Roof Painter Name Role Phone Hi Salmon DO Primary [...] 103.9 kg (229 lb) 04/28/2020 3:16 PM FRUIT PICKER MACHINE OPERATOR Height 172.7 cm (5' 8) 04/28/2020 3:16 PM FRUIT PICKER MACHINE OPERATOR Body Mass Index 34.82 04/28/2020 3:16 PM FRUIT PICKER MACHINE OPERATOR Plan of Treatment Health Maintenance [...] 02/24/2018 INFLUENZA VACCINE (#1) 2025 03/12/2020 Insurance [facility] OPTIONS PPO [id number] Care Teams Roof Painter Relationship Specialty Start Date End Date Hi aSlmon DO [address] [address] PCP - General Internal Medicine 03/23/20
--- OUTSIDE RECORDS SUMMARY | 2025-03-29 16:49 | XMS_ITS | Encounter Summary ---
Author Organization [facility] Address [address] [place] [address] Phone Care Team Providers Care Hospice Clinical Manager Name Role Phone Hi Salmon DO Primary Care Provider [phone] Estefani Ch MD Unavailable [phone] Gabe Luna MD Unavailable [phone] Encounter Details Date Type Department Care [...] experiencing loneliness or isolatio n Never 12/26/2023 [facility] Utilities Answer Date Recorded In the past 12 months has e [employer], gas, oil, or water company threatened to [...] often do you attend chur ch or alevism services? More than 4 times per year 02/18/2024 Do you belong to any clubs o r organizations such as caodaism groups, unions, fraternal or athletic groups, or [...] place to sleep or slept in a residential (including now)? No 11/03/2023 Housing Stability Vital Sign Answer Jomar e Recorded In the last 12 months, was t here a time when you were not able to pay the mortgage or rent on time? No 02/18/2024 In the past 12 months, how m any times have you moved where you were living? 0 02/18/2024 At any time in the past 12 m [facility], were you homeless or living in a residential (including now)? No 02/18/2024 Personal Safety Answer Date Recorded Have you ever been in or are you currently in a harmful physical or emotional relationship or is someone making you feel afraid or unsafe? Denies 02/17/2024 Sex and Gender Information Value Date Recorded Sex Assigned at Not on file Legal Sex Male 1:31 AM TELETYPE INSTALLER Gender Identity Male 09/30/2023 7:18 AM [...] on filedocumented in this encounter Care Teams Hospice Clinical Manager Relationship Specialty Start Date End Date Hi Salmon DO PCP - General Internal Medicine 07/30/23 Estefani Ch MD [address] [place] [address] Referring Physician Gastroenterology 09/10/23 Gabe Luna MD [address] [facility] [address] [place] [address] Consulting Physician Rheumatology 10/22/23 documented as of this encounter
[2025-04-02 23:07] LABS: Copper, Serum or Plasma 54 ug/dL (69-132)
== END 2025-03-29 16:34 | disposition home or self-care (01) ==
PROVIDERS: PCP Internal Medicine
DX: E61.0 Copper deficiency (principal)
CPT/HCPCS: 82525

== ENCOUNTER 2025-05-03 06:41 | Outpatient (CLI) | payer OTHER, SELFPAY ==
--- OUTSIDE RECORDS SUMMARY | 2025-05-02 08:13 | XMS_ITS | Clinical Summary ---
Author Organization [facility] [employer] Address [address] [place] [address] Care Team Providers Care Compliance Director Name Role Phone Unavailable Primary Care Provider Unavailabl e Source Comments [facility],non-owned Affiliates and Associated Physician Practices is amultiple site organization consisting of ambulatory clinics and hospital sitesin [place], [place], [place] and [place]. This disclosure is being madepursuant to the Care Everywhere program and may not contain all information available regarding this patient. Last updated 18.[facility] [employer] Allergies Active Allergy Reactions Criticality Noted Date Comments Ceftriaxone Rash,Renal Injury High 04/16/2023 Medications * Be aware that medications may not be up to date on this document. Alwaysverify current medications with the patient. QUEtiapine (SEROquel) 25 MG tablet Take 1 (one) tablet by mouth at bedtime Active petrolatum (Aquaphor;Quinhag[place] phor) Apply to affected area as needed [...] tablet 2 07/10/19 24 Active nystatin (Mycostatin) 349052 UNIT/ML suspension Take 1 mL by mouth [...] Recorded Patient Health Questionnaire-2 Score 0 07/17/2023 [facility] - Occupational Stress [...] slept in a halfway (including now)? No 05/29/2023 Housing Stability Vital [...] Sex Assigned at Male 05/29/2023 8:17 AM FLEET TECHNICIAN Legal Sex Male 6:30 PM FLEET TECHNICIAN Gender Identity Male 05/29/2023 8:17 AM FLEET TECHNICIAN Sexual Orientation Not on file Last Filed Vital Signs Vital Sign Reading Time Taken Comments Blood Pressure 132/77 07/17/2023 10:54 AM FLEET TECHNICIAN Pulse 103 07/17/2023 10:54 AM FLEET TECHNICIAN Temperature 37.3 C (99.1 F) 07/17/2023 10:54 AM FLEET TECHNICIAN Respiratory Rate 18 07/17/2023 10:54 AM FLEET TECHNICIAN Oxygen Saturation 100% 07/17/2023 10:54 AM FLEET TECHNICIAN Inhaled Oxygen Concentration - - Weight 73 kg (161 lb) 07/17/2023 9:27 AM FLEET TECHNICIAN Height 167.6 cm (5' 6) 07/17/2023 9:27 AM FLEET TECHNICIAN Body Mass Index 25.99 07/17/2023 9:27 AM FLEET TECHNICIAN Plan of Treatment Health Maintenance Due Date [...] COMPREHENSIVE METABOLIC PANEL STAT 07/17/2023 9:20 AM FLEET TECHNICIAN Diarrhea, unspecified type LIPID PROFILE Routine 05/12/2023 6:54 AM FLEET TECHNICIAN ENDOSCOPY, COLON, DIAGNOSTIC Routine 05/01/2023 11:19 AM FLEET TECHNICIAN HIV-1 HIV-2 ANTIBODY + HIV P24 AG PANEL AM Draw 04/15/2023 8:31 PM CDT HEPATITIS C ANTIBODY Routine 09/23/2017 3:56 PM CDT from Last 3 Months or Most Recently Relevant to Health Maintenance Results * (ABNORMAL) COMPREHENSIVE METABOLIC PANEL (07/17/2023 9:20 AM [facility]) Glucose 107(H) 70 - 105 mg/dL 07/17/2023 10:13 AM [facility] Sodium 143 136 - 145 mmol/L 07/17/2023 10:13 AM [facility] Potassium 3.5 3.5 - 5.1 mmol/L 07/17/2023 10:13 AM [facility] Chloride 118(H) 98 - 107 mmol/L 07/17/2023 10:13 AM [facility] CO2 17(L) 22 - 29 mmol/L 07/17/2023 10:13 AM [facility] Calcium 7.5(L) 8.4 - 10.4 mg/dL 07/17/2023 10:13 AM [facility] Anion Gap 8 6 - 16 mmol/L 07/17/2023 10:13 AM [facility] BUN 13 7 - 26 mg/dL 07/17/2023 10:13 AM [facility] Creatinine 0.93 0.72 - 1.25 mg/dL 07/17/2023 10:13 AM [facility] Alkaline Phosphatase 214(H) 40 - 150 U/L 07/17/2023 10:13 AM [facility] ALT 76(H) 0 - 55 U/L 07/17/2023 10:13 AM [facility] AST 34 5 - 34 U/L 07/17/2023 10:13 AM [facility] Protein Total 4.0(L) 6.4 - 8.3 gm/dL 07/17/2023 10:13 AM [facility] Albumin 2.1(L) 3.4 - 5.0 gm/dL 07/17/2023 10:13 AM [facility] Bilirubin Total 0.2 0.2 - 1.2 mg/dL 07/17/2023 10:13 AM [facility] eGFR by CKD-EPI >90 >=90 mL/min/1.7 3 m2 07/17/2023 10:13 AM [facility] Blood BLOOD SPECIMEN / Unknown Venipuncture / Unknown 07/17/2023 9:20 AM FLEET TECHNICIAN 07/17/2023 9:45 AM FLEET TECHNICIAN Torrie Martin MD LAB - CHEMISTRY [place] Final Result Performing Organization Address [facility]/ZIP Co de Phone Number [facility] [address] [place], [place] [phone] * (ABNORMAL) LIPID PROFILE (05/12/2023 6:54 AM FLEET TECHNICIAN) Cholesterol 124 <200 mg/dL 05/12/2023 7:32 AM FLEET TECHNICIAN [facility] Triglycerides 195(H) <150 mg/dL 05/12/2023 7:32 AM [facility] HDL Cholesterol 23(L) >40 mg/dL 3 7:32 AM [facility] LDL Calculated 62 <130 mg/dL 05/12/2023 7:32 AM [facility] VLDL Calculated 39(H) <=30 mg/dL 3 7:32 AM [facility] Chol HDL Ratio 5.4(H) <4.5 05/12/2023 7:32 AM [facility] LDL/HDL Ratio 2.7 <5.0 05/12/2023 7:32 AM [facility] Blood BLOOD SPECIMEN / Unknown Lab Venipuncture / Unknown 05/12/2023 6:54 AM FLEET TECHNICIAN 05/12/2023 7:02 AM FLEET TECHNICIAN Daniel Croft MD LAB - CHEMISTRY ORDERABLES F inal Result [facility] [address] [place], [place] [id number] * ENDOSCOPY, COLON, DIAGNOSTIC (05/01/2023 11:19 AM FLEET TECHNICIAN) Report Endoscopy POC _ Patient Name: Dev Amaya Procedure Date: 05/01/2023 11:19 AM Date of : 1970 Admit Type: Inpatient Age: 53 Gender: Male Ethnicity: Not or Race: White Attending MD: Rickie Colon MD, [id number] _ Procedure: Colonoscopy Indications: Clinically significant diarrhea [...] bowel preparation was evaluated using the BBPS ([place] Bowel Preparation Scale) with scores of: Right [...] screening purposes. Procedure Code(s): --- Professional --- 81884, Colonoscopy, flexible; with biopsy, single or multiple --- Technical --- 90882, Colonoscopy, flexible; with biopsy, single or multiple Diagnosis Code(s): --- Professional --- K63.3, Ulcer of intestine R19.7, Diarrhea, unspecified --- Technical --- K63.3, Ulcer of intestine R19.7, Diarrhea, unspecified CPT copyright 2020 [employer] [place] [employer]. All rights reserved. The codes documented in this report are preliminary and upon multi line claims adjuster review may be revised to meet current compliance requirements. ___ Rickie Colon MD 05/01/2023 12:47:16 PM Number of Addenda: 0 Note Initiated On: 05/01/2023 11:19 AM [facility] 05/01/2023 11:1 9 AM FLEET TECHNICIAN Narrative Procedure Note Rickie Colon MD - 05/01/2023 12:48 PM CST Colonoscopy done for diarrhea. Normal colon. Single small ulcer in theTI. Biopsies taken from TI and random colon biopsies. f/u path. Rickie Colon MD GI PROCEDURE ORDERABLES Ed ited Result - Final [facility] * HIV-1 HIV-2 ANTIBODY + HIV P24 AG PANEL (04/15/2023 8:31 PM CDT) HIV1/2 Ab + P24 Ag Non Reactive Non Reactive 04/15/2023 9:16 PM CDT [facility] Blood BLOOD SPECIMEN / Unknown Lab Venipuncture / Unknown 04/15/2023 8:31 PM CDT 04/15/2023 8:36 PM CDT Narrative [facility] - 04/15/2023 9:16 PM CDT No Laboratory evidence of HIV infection. Uzma Bazzi MD LAB - CHEMISTRY ORDERABLES Fin al Result [facility] [address] [place] [address] * HEPATITIS C ANTIBODY (09/23/2017 3:56 PM CDT) Hepatitis C Virus Antibody 0.1 0.0 - 0.9 s/co ratio [facility] ([facility] Comment: Negative: < 0.8 Indeterminate: 0.8 - 0.9 Positive: > 0.9 The CDC recommends that a positive HCV antibody result be followed up with a HCV Nucleic Acid Amplification test (443911). Blood specimen (specimen) BLOOD SPECIMEN / Unknown 09/23/2017 3:56 PM CDT 09/23/2017 Narrative [facility] ([facility]) - 09/24/2017 7:13 AM CDT Performed at: [facility] [address] [place], [place] [id number] Emergency Spill Response Technician: Jarod Webster PhD, Phone: [phone] us Kayla Cardona MD LAB - CHEMISTRY ORDERA LUIS CARLOS Final Result [facility] ([facility]) [address] [place] [address], [facility] from Last 3 Months or Most Recently Relevant to Health Maintenance Insurance [facility] Advance Directives * Full Code [...]
--- OUTSIDE RECORDS SUMMARY | 2025-05-02 08:13 | XMS_ITS | Clinical Summary ---
Author Organization [facility] Address [address] [place] [address] Care Team Providers Care Data Center Manager Name Role Phone Hi Salmon DO Primary Care Provider Estefani Ch MD Unavailable [phone] Gabe Luna MD Unavailable [phone] Allergies Active Allergy Reactions Criticality Noted [...] (1,000 mg total) by mouth daily Active cg-vxy-qfszu-K1- lycopen-lutein 963-66-363-300 mcg tablet Take 1 tablet by mouth [...] mg capsule Take by mouth Active glucosam-chondr- irf6-W9-R-kayy 750-625-1,000 mg-mg-unit tablet Take by mouth Active lisinopriL (PRINIVIL,ZESTRI L) 10 mg tablet Take 1 tablet (10 mg total) by mouth daily 30 tablet 11 5 11/24/19 26 Active lisinopriL (PRINIVIL,ZESTRI L) 10 mg tablet Take 1 tablet (10 mg total) by mouth daily Active famotidine (PEPCID) 40 mg tablet Take 1 tablet by mouth once daily 90 tablet 1 5 Active copper gluconate 2 mg tabletIndication s:Copper deficiency Take 2 mg by mouth daily 30 tablet 2 5 07/14/19 26 Active Active Problems Problem Noted Date Diagnosed [...] gabapentin Assessment & Plan (08/12/2023 4:58 PM ADJUSTER PIANO ACTION): After receiving IVF for KALPANA, patient developed pitting b/l LUCHO likely due to hypoalbuminemia Normal echo 05/09/23 -OT lymphedema c/s Esophageal candidiasis 08/07/2023 Assessment & Plan (08/14/2023 3:35 PM ADJUSTER PIANO ACTION): - EGD (08/07) w/concerns for esophageal candidiasis. Biopsies taken. - Pt given 400mg PO fluconazole on 08/07. Plan: Continue 200mg fluconazole daily (08/08 - 08/28). Plan 21d course Asymptomatic bacteriuria 08/04/2023 Assessment & Plan (08/07/2023 12:54 PM ADJUSTER PIANO ACTION): UA showing 11-20 WBC and 1+ LE however patient is asymptomatic denying dysuria, urinary frequency/urgency, difficulty urinating, or other urinary symptoms. Likely asymptomatic bacteriuria not requiring treatment at this time. - Urine Cx with NGTD - Started tamsulosin 0.4mg (08/05) with no improvement in symptoms, stopped 08/07 KALPANA (acute kidney injury) 08/03/2023 Assessment & Plan (08/20/2023 8:32 AM ADJUSTER PIANO ACTION): Noted to have elevated Cr to 1.66 [...] 07/30/2023 Assessment & Plan (08/16/2023 12:44 PM ADJUSTER PIANO ACTION): Improved All resolved Hypokalemia, hypophosphatemia, hypomagnesemia Continue [...] this time prior to admission. -continue pancrelipase 69941 units TID, colestipol 2g BID -with worsening diarrhea with antibiotics, suspect abx mediated though also some concern for c diff -c diff negative -started loperamide PRN with improvement in symptoms Assessment & Plan (10/27/2023 8:09 PM CDT): - Continue Lomotil, Imodium, Creon, tincture of opium, colestipol, fiber Assessment & Plan (08/18/2023 10:09 AM ADJUSTER PIANO ACTION): Improving a little bit following deterioration 08/14/23, [...] identified. Interval development of nonspecific pancolitis. Findings employment representative of remote injury to the left [...] bicarb Assessment & Plan (08/12/2023 4:46 PM ADJUSTER PIANO ACTION): Resolved Most likely 2/2 ongoing severe diarrhea, [...] azathioprine Assessment & Plan (07/29/2023 3:03 PM ADJUSTER PIANO ACTION): Follows with Dr. Gabe Luna ([facility]). He was previously on MTX and Humira which were both stopped during his admission for septic shock in March 2023. Humira was restarted by his outpatient [employer] 2 weeks prior to admission Outpatient follow-up senior living current use of systemic steroids 07/24 Assessment & Plan (10/27/2023 8:09 PM CDT): Continue prednisone 5 mg daily Assessment & Plan (08/16/2023 12:43 PM ADJUSTER PIANO ACTION): Stress dose steroids were started for septic [...] 07/24/2023 Assessment & Plan (08/12/2023 4:54 PM ADJUSTER PIANO ACTION): Possible due to esophageal candidiasis, versus motility disorder, versus mechanical cause S/p EGD 08/07/23 showing esoph candidiasis The patient's reported several months of intermittent difficulty with swallowing foods and liquids. Patient reports feeling that solids and liquids get stuck in his throat and that his symptoms improve with repeat swallows --LABORATORY APPARATUS GLASS GRINDER evaluation: oral mechanism evaluation is within functional [...] monitoring Assessment & Plan (08/04/2023 2:00 PM ADJUSTER PIANO ACTION): Likely 2/2 steroids Negative infectious workup, continue to monitor, improving Severe protein-calorie malnutrition 07/24/2023 Assessment & Plan (08/02/2023 2:25 PM ADJUSTER PIANO ACTION): Follow dietitian service recommendation Hypocalcemia 07/22/2023 Assessment & Plan (08/12/2023 4:49 PM ADJUSTER PIANO ACTION): Normal when corrected for mild hypoalbuminemia, around 8.3 Possible due to nutritional deficiency from diarrhea/absorption Hypomagnesemia 06/18/2023 Hypokalemia 05/29/2023 Atrial fibrillation 04/16/2023 Hemodialysis patient 04/15/2023 Immunocompromised patient 04/15/2023 Salmonella enteritis 04/14/2023 Generalized abdominal pain 10/16/2020 Overview (10/16/2020): Added automatically from request for surgery [id number] Chronic pain syndrome 10/12/2020 Carpal tunnel syndrome on right 03/27/2020 Spondylosis of cervical spine 03/27/2020 Encounter for therapeutic drug monitoring 2017 Upper respiratory tract infection 05/25/2012 Encounters Date Type Department Care Team Description 04/15/2025 Telephone [facility] Gastroenterology [address] [facility] 2nd [address] [place] [address] Conchis Fenton LPN 04/15/2025 Results Follow-Up [facility] Gastroenterology [address] [facility] 12th [place] [address] [place] [address] Millie Diallo MD Copper, serum 04/04/2025 Documentation [facility] Gastroenterology [address] [facility] 12th [place] [address] [place] [address] Jeri Ruelas BS Lab Results 03/29/2025 2:00 PM CDT Office Visit [facility] Nephrology [address] [facility] [address] [place] [address] [place] [address] Calixto Cr MD Anemia in stage 3a chronic kidney disease (HCC) (Primary Dx); Primary hypertension; Stage 3 chronic kidney disease, unspecified whether stage 3a or 3b CKD (HCC); Renal osteodystrophy 03/29/2025 Orders Only [facility] Scanning, Provider 03/23/2025 Orders Only [facility] Gastroenterology [address] [facility] 2[address] [place] [address] Millie Diallo MD 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 More than 4 times per year 02/18/2024 Do you belong to any clubs o r organizations such as jehovah's witness groups, unions, fraternal or athletic groups, or [...] any time in the past 12 m [facility], were you homeless or living in a senior living (including now)? No 02/18/2024 Personal Safety Answer Date Recorded Have you ever been in or are you currently in a harmful physical or emotional relationship or is someone making you feel afraid or unsafe? Denies 02/17/2024 Sex and Gender Information Value Date Recorded Sex Assigned at Not on file Legal Sex Male 1:31 AM ADJUSTER PIANO ACTION Gender Identity Male 09/30/2023 7:18 AM CDT [...] Date/Time Associated Diagnosis Comments SCAN - LABS 03/29/2025 COPPER, SERUM Routine 03/29/2025 Copper deficiency SCAN - LABS 03/21/2025 COLONOSCOPY 08/07/2023 8:46 AM ADJUSTER [employer]O [employer] from Last 3 Months or Most Recently Relevant to Health Maintenance Results * SCAN - LABS (03/29/2025) us Provider Scanning Final Result * (ABNORMAL) Copper, serum (03/29/2025) Blood 03/29/2025 Narrative EXTERNAL LAB - 04/04/2025 11:45 AM CDT Copper, Serum or Plasma Result Flag Reference 54 L 69-132 ug/dL us Millie Diallo MD LAB BLOOD ORDERABLES Final Result EXTERNAL LAB * SCAN - LABS (03/21/2025) us Provider Scanning Edited Result - Final * COLONOSCOPY (08/07/2023 8:46 AM ADJUSTER PIANO ACTION) Anatomical Region Laterality Modality Other Narrative Procedure Note Alexandra Flaherty MD - 08/07/2023 8:46 AM CST [facility] Patient Name: Dev Amaya Procedure Date: 08/07/2023 8:46 AM Date of : 1970 Admit Type: Inpatient Age: 53 Gender: Male Attending MD: Alexandra Flaherty M.D. Room: [facility] Note Status: Finalized Procedure: Colonoscopy [...] The scope was passed under direct vision.The [id number] Endoscope was introduced through the anus [...] On: 08/07/2023 8:46 AM Recognized by the [place] for promoting quality in endoscopy us Alexandra Flaherty MD ENDOSCOPY PROCEDURES Final Res ult from Last 3 Months or Most Recently Relevant to Health Maintenance Insurance [facility] HMO/PPO Address: [address] [place] [address] [facility] HMO/PPO Address: [place] [address] [employer] HMO/PPO Address: [address] [place] [address] Advance Directives For more information, please contact: [phone] * Full Code (Latest Code Status on [...] 8:01 AM 08/20/2023 3:03 PM Care Teams Data Center Manager Relationship Specialty Start Date End Date Hi Salmon DO PCP - General Internal Medicine 07/30/23 Estefani hC MD Referring Physician Gastroenterology 09/10/23 Gabe Luna MD [address] [address] Consulting Physician Rheumatology 10/22/23
--- OUTSIDE RECORDS SUMMARY | 2025-05-02 08:13 | XMS_ITS | Patient Health Record ---
Author Organization [facility] Address [address] [place] [address] Care Team Providers Care Carpenters Helper Name Role Phone Farhana Marcus Primary Care [...] Orally Once a day; Duration: 30 day(s) 2019 Active Gabapentin 300 MG [...] Status Risk Notes Problem Chronic pain syndrome (286130485) Chronic pain syndrome (G89.4) 1 Active confirmed Problem Mood disorder (87342393) Mood disorder (F39) Active confirmed Problem Intellectual disability (852449052) Intellectual disability (F79) Active confirmed Plan Of Treatment No Information Insurance Providers Payer Name Payer Address Payer Phone Subscriber Number Group Number Insured Name Patient Relationship to Insured Coverage Start Date Coverage End Date [facility] [address] [place] [address] [id number] Dev Amaya Self - patient is the insured 1 Medical (General) History Medical History History ICD Code Rheumatoid Arthritis HTN Dyslipidemia Low Testosterone Chronic pain Surgical History Surgery Date(Month/Year)
--- OUTSIDE RECORDS SUMMARY | 2025-05-02 08:13 | XMS_ITS | Encounter Summary ---
Author Organization [facility] Address [address] [place] [address] Phone Care Team Providers Care Office Technologist Name Role Phone Hi Salmon DO Primary Care Provider Estefani Ch MD Unavailable [phone] Gabe Luna MD Unavailable [phone] Encounter Details Date Type Department Care [...] experiencing loneliness or isolatio n Never 12/26/2023 [facility] Utilities Answer Date Recorded In the past 12 months has th e [employer], gas, oil, or water company threatened to [...] often do you attend chur ch or sikh services? More than 4 times per year 02/18/2024 Do you belong to any clubs o r organizations such as religion groups, unions, fraternal or athletic groups, or [...] slept in a custodial (including now)? No 11/03/2023 Housing Stability Vital Sign Answer Jomar e Recorded In the last 12 months, was t here a time when you were not able to pay the mortgage or rent on time? No 02/18/2024 In the past 12 months, how m any times have you moved where you were living? 0 02/18/2024 At any time in the past 12 m [facility], were you homeless or living in a custodial (including now)? No 02/18/2024 Personal Safety Answer Date Recorded Have you ever been in or are you currently in a harmful physical or emotional relationship or is someone making you feel afraid or unsafe? Denies 02/17/2024 Sex and Gender Information Value Date Recorded Sex Assigned at Not on file Legal Sex Male 1:31 AM GROUP SEGMENT CONSULTANT Gender Identity Male 09/30/2023 7:18 AM [...] on filedocumented in this encounter Care Teams Office Technologist Relationship Specialty Start Date End Date Hi Salmon DO PCP - General Internal Medicine 07/30/23 Estefani Ch MD Referring Physician Gastroenterology 09/10/23 Gabe Luna MD [address] [place] [address] Consulting Physician Rheumatology 10/22/23 documented as of this encounter
--- OUTSIDE RECORDS SUMMARY | 2025-05-02 08:13 | XMS_ITS | Clinical Summary ---
Author Organization [employer] [address] [facility] Address [address] [place] [address] Care Team Providers Care Multimedia Engineer Name Role Phone Hi Salmon DO Primary [...] 103.9 kg (229 lb) 04/28/2020 3:16 PM ZIPPER LINING FOLDER Height 172.7 cm (5' 8) 04/28/2020 3:16 PM ZIPPER LINING FOLDER Body Mass Index 34.82 04/28/2020 3:16 PM ZIPPER LINING FOLDER Plan of Treatment Health Maintenance Due Date Last Done Comments DTAP/TDAP/TD VACCINES (1 - Tdap) 02/24/1987 HEPATITIS B VACCINES (1 of 3 - 19+ 3-dose series) 09/1986 COLORECTAL SCREENING 02/24/2013 Colorectal Cancer Screening 02/24/2013 FIT-DNA Q 3 years 02/24/2013 FIT/FOBT Q 1 year 02/24/2013 Flex Sig/CT Colonography Q 5 years 02/24/2013 ZOSTER VACCINE (1 of 2) 02/24/2018 INFLUENZA VACCINE (#1) 2025 03/12/2020 Insurance [facility] OPTIONS PPO [id number] Care Teams Multimedia Engineer Relationship Specialty Start Date End Date Hi Salmon DO [address] [address] PCP - General Internal Medicine 03/23/20
--- OUTSIDE RECORDS SUMMARY | 2025-05-02 08:13 | XMS_ITS | Encounter Summary ---
Author Organization [facility] Address [address] [place] [address] Phone Care Team Providers Care Architectural Designer Name Role Phone Bryanroxanne Hi Dashian Primary Care Provider Estefani Ch MD Unavailable [phone] Gabe Luna MD Unavailable [phone] Encounter Details Date Type Department Care Team (Late st Contact Info) Description 01/02/2024 Documentation [facility] Medicine Gastroenterology [address] [facility] Advanced Medicine 12th [place] [address] [place] [id number] Estefani Ch MD [address] [place] [address] Social History Tobacco Use Types Packs/Day Years Used Date Smoking Tobacco: Former Cigarettes Q uit: 10/16/1998 Smokeless Tobacco: Never Alcohol Use Standard Drinks/Week Comments Not Currently 0 (1 standard drink = 0.6 oz pur e alcohol) OASIS D0700: Social Isolation Answer Da te Recorded Frequency of experiencing loneliness or isolatio n Never 12/26/2023 [facility] Utilities Answer Date Recorded In the past 12 months has th e electric, gas, oil, or water [employer] threatened to shut off services in your [...] often do you attend chur ch or jainism services? More than 4 times per year 11/03/2023 Do you belong to any clubs o r organizations such as restorationism groups, unions, fraternal or athletic groups, or [...] place to sleep or slept in a snf (including now)? No 11/03/2023 Personal Safety Answer Date Recorded Have you ever been in or are you currently in a harmful physical or emotional relationship or is someone making you feel afraid or unsafe? Denies 12/31/2023 Sex and Gender Information Value Date Recorded Sex Assigned at Not on file Legal Sex Male 1:31 AM CLINICAL EXERCISE PHYSIOLOGIST Gender Identity Male 09/30/2023 7:18 AM CDT Sexual Orientation Straight 09/30/2023 7: 18 AM CDT documented as of this encounter Functional Status * BP Location Answer Date of Assessment Author Left arm 01/05/2024 7:23 AM CDT Nikki Escalante sa, RN * BP Location Answer Date of Assessment Author Left arm 01/05/2024 7:23 AM CDT Nikki Escalante sa, RN documented as of this encounter Plan of [...] documented as of this encounter Care Teams Architectural Designer Relationship Specialty Start Date End Date Hi Salmon DO PCP - General Internal Medicine 07/30/23 Estefani Ch MD Referring Physician Gastroenterology 09/10/23 Gabe Luna MD [address] [address] Consulting Physician Rheumatology 10/22/23 documented as of this encounter
--- OUTSIDE RECORDS SUMMARY | 2025-05-02 08:14 | XMS_ITS | Clinical Summary ---
Author Organization [facility] Address [address] [place] [address] Care Team Providers Care Salesforce Administrator Name Role Phone Unavailable Primary Care Provider [...] Vaccines (1 of 2) 02/24/2018 COVID-19 Vaccine (2024-2 6 season) 2025 Influenza Adult (#1) 2025 Hepatitis A Vaccines Aged Out No long er eligible based on patient's age to complete this topic Meningococcal B Vaccine Aged Out No l onger eligible based on patient's age to complete this topic Meningococcal Vaccine Aged Out No juan jose harsh eligible based on patient's age to complete this topic RSV Immunizations Under 20 Months Aged Out No longer eligible based on patient's age to complete this topic
--- OUTSIDE RECORDS SUMMARY | 2025-05-02 08:14 | XMS_ITS | Clinical Summary ---
Author Organization [facility] Address [address] [place] [address] Care Team Providers Care Puppet Engineer Name Role Phone Unavailable Primary Care Provider Unavailabl e Social History Tobacco Use Types Packs/Day Years Used Date Smoking Tobacco: Never Assessed Sex and Gender Information Value Date Recorded Sex Assigned at Not on file Legal Sex Male 11:24 AM CABLE TELEVISION PROGRAM DIRECTOR Gender Identity Not on file Sexual Orientation [...]
--- OUTSIDE RECORDS SUMMARY | 2025-05-02 08:14 | XMS_ITS | Encounter Summary ---
Author Organization [facility] Address [address] [place] [address] Phone Care Team Providers Care Air Motor Repairer Name Role Phone Luis Antonio Hi Anton DO Primary Care Provider Estefani Ch MD Unavailable [phone] Gabe Luna MD Unavailable [phone] Encounter Details Date Type Department Care Team (Late st Contact Info) Description 04/15/2025 Results Follow-Up [facility] Medicine Gastroenterology [address] [facility] Advanced Medicine 12th [place] [address] [place] [address] Millie Diallo MD [address] [place] [address] Copper, serum Social History Tobacco Use Types Packs/Day Years Used Date Smoking Tobacco: Former Cigarettes Q uit: 10/16/1998 Smokeless Tobacco: Never Alcohol Use Standard Drinks/Week Comments Not Currently 0 (1 standard drink = 0.6 oz pur e alcohol) OASIS D0700: Social Isolation Answer Da te Recorded Frequency of experiencing loneliness or isolatio n Never 12/26/2023 [facility] Utilities Answer Date Recorded In the [...] often do you attend chur ch or jain services? More than 4 times per year 02/18/2024 Do you belong to any clubs o r organizations such as buddhism groups, unions, fraternal or athletic groups, or [...] place to sleep or slept in a care home (including now)? No 11/03/2023 Housing Stability [...] any time in the past 12 m [facility], were you homeless or living in a care home (including now)? No 02/18/2024 Personal Safety Answer Date Recorded Have you ever been in or are you currently in a harmful physical or emotional relationship or is someone making you feel afraid or unsafe? Denies 02/17/2024 Sex and Gender Information Value Date Recorded Sex Assigned at Not on file Legal Sex Male 1:31 AM SQL SERVER DBA Gender Identity Male 09/30/2023 7:18 AM CDT Sexual Orientation Straight 09/30/2023 7: 18 AM CDT documented as of this encounter Miscellaneous Notes * Result Encounter Note - Millie Diallo MD - 04/15/2025 10:34 AM CDT Please check with patient if he is taking the prescribed copper 2 mg daily. Copper level improved but still low, if patient was taking them, recommend refill 2 mg per day for 30 days with 2 refills and recheck level in 3 months. documented in this encounter Plan of Treatment Not on file documented as of this encounter Visit Diagnoses Not on filedocumented in this encounter Care Teams Air Motor Repairer Relationship Specialty Start Date End Date Hi Salmon DO PCP - General Internal Medicine 07/30/23 Estefani Ch MD Referring Physician Gastroenterology 09/10/23 Gabe Luna MD [address] [address] Consulting Physician Rheumatology 10/22/23 documented as of this encounter
--- OUTSIDE RECORDS SUMMARY | 2025-05-03 06:44 | XMS_ITS | Clinical Summary ---
Author Organization [facility] Address [address] [place] [address] Care Team Providers Care Bandsaw Operator Name Role Phone Unavailable Primary Care Provider [...]
--- OUTSIDE RECORDS SUMMARY | 2025-05-03 06:44 | XMS_ITS | Patient Health Record ---
Author Organization [facility] Address [address] [place] [address] Care Team Providers Care Non Profit Director Name Role Phone Farhana Marcus Primary Care [...] Status Risk Notes Problem Chronic pain syndrome (290332571) Chronic pain syndrome (G89.4) 1 Active confirmed Problem Mood disorder (53982974) Mood disorder (F39) Active confirmed Problem Intellectual disability (814702127) Intellectual disability (F79) Active confirmed Plan Of Treatment No Information Insurance Providers Payer Name Payer Address Payer Phone Subscriber Number Group Number Insured Name Patient Relationship to Insured Coverage Start Date Coverage End Date [facility] [address] [place] [address] [id number] Dev Amaya Self - patient is the insured 1 Medical (General) History Medical History History ICD Code Rheumatoid Arthritis HTN Dyslipidemia Low Testosterone Chronic pain Surgical History Surgery Date(Month/Year)
--- OUTSIDE RECORDS SUMMARY | 2025-05-03 06:44 | XMS_ITS | Encounter Summary ---
Author Organization [facility] Address [address] [place] [address] Phone Care Team Providers Care Paper Baler Name Role Phone Hi Salmon DO Primary Care Provider [phone] Estefani Ch MD Unavailable [phone] Gabe Luna MD Unavailable Encounter Details Date Type Department Care Team (Late st Contact Info) Description 01/02/2024 Documentation [facility] Medicine Gastroenterology [address] [facility] Advanced Medicine 12th [place] [address] [place] [id number] Estefani Ch MD [address] [place] [address] Social History Tobacco Use Types Packs/Day Years Used Date Smoking Tobacco: Former Cigarettes Q uit: 10/16/1998 Smokeless Tobacco: Never Alcohol Use Standard Drinks/Week Comments Not Currently 0 (1 standard drink = 0.6 oz pur e alcohol) OASIS D0700: Social Isolation Answer Da te Recorded Frequency of experiencing loneliness or isolatio n Never 12/26/2023 [facility] Utilities Answer Date Recorded In the past 12 months has th e electric, gas, oil, or water [employer] threatened to shut off services in your [...] often do you attend chur ch or mu-ism services? More than 4 times per year 11/03/2023 Do you belong to any clubs o r organizations such as synagogue groups, unions, fraternal or athletic groups, or [...] file Legal Sex Male 1:31 AM CASTING PLUG ASSEMBLER Gender Identity Male 09/30/2023 7:18 AM CDT [...] documented as of this encounter Care Teams Paper Baler Relationship Specialty Start Date End Date Hi Salmon DO PCP - General Internal Medicine 07/30/23 Estefani Ch MD Referring Physician Gastroenterology 09/10/23 Gabe Luna MD [address] [address] Consulting Physician Rheumatology 10/22/23 documented as of this encounter
--- OUTSIDE RECORDS SUMMARY | 2025-05-03 06:44 | XMS_ITS | Clinical Summary ---
Author Organization [facility] [employer] Address [address] [place] [address] Care Team Providers Care Mothers Helper Name Role Phone Unavailable Primary Care Provider Unavailabl e Source Comments [facility],non-owned Affiliates and Associated Physician Practices is amultiple site organization consisting of ambulatory clinics and hospital sitesin [place], [place], [place] and [place]. This disclosure is being madepursuant to the Care Everywhere program and may not contain all information available regarding this patient. Last updated 18.[facility] [employer] Allergies Active Allergy Reactions Criticality Noted Date Comments Ceftriaxone Rash,Renal Injury High 04/16/2023 Medications * Be aware that medications may not be up to date on this document. Alwaysverify current medications with the patient. QUEtiapine (SEROquel) 25 MG tablet Take 1 (one) tablet by mouth at bedtime Active petrolatum (Aquaphor;[place] phor) Apply to affected area as needed [...] tablet 2 07/10/19 24 Active nystatin (Mycostatin) 261092 UNIT/ML suspension Take 1 mL by mouth [...] Recorded Patient Health Questionnaire-2 Score 0 07/17/2023 [facility] [place] of Occupat ional Health - Occupational Stress [...] slept in a jail (including now)? No 05/29/2023 Housing Stability Vital [...] Sex Assigned at Male 05/29/2023 8:17 AM PICKING SUPERVISOR Legal Sex Male 6:30 PM PICKING SUPERVISOR Gender Identity Male 05/29/2023 8:17 AM PICKING SUPERVISOR Sexual Orientation Not on file Last Filed Vital Signs Vital Sign Reading Time Taken Comments Blood Pressure 132/77 07/17/2023 10:54 AM PICKING SUPERVISOR Pulse 103 07/17/2023 10:54 AM PICKING SUPERVISOR Temperature 37.3 C (99.1 F) 07/17/2023 10:54 AM PICKING SUPERVISOR Respiratory Rate 18 07/17/2023 10:54 AM PICKING SUPERVISOR Oxygen Saturation 100% 07/17/2023 10:54 AM PICKING SUPERVISOR Inhaled Oxygen Concentration - - Weight 73 kg (161 lb) 07/17/2023 9:27 AM PICKING SUPERVISOR Height 167.6 cm (5' 6) 07/17/2023 9:27 AM PICKING SUPERVISOR Body Mass Index 25.99 07/17/2023 9:27 AM PICKING SUPERVISOR Plan of Treatment Health Maintenance Due [...] COMPREHENSIVE METABOLIC PANEL STAT 07/17/2023 9:20 AM PICKING SUPERVISOR Diarrhea, unspecified type LIPID PROFILE Routine 05/12/2023 6:54 AM PICKING SUPERVISOR ENDOSCOPY, COLON, DIAGNOSTIC Routine 05/01/2023 11:19 AM PICKING SUPERVISOR HIV-1 HIV-2 ANTIBODY + HIV P24 AG PANEL AM Draw 04/15/2023 8:31 PM CDT HEPATITIS C ANTIBODY Routine 09/23/2017 3:56 PM CDT from Last 3 Months or Most Recently Relevant to Health Maintenance Results * (ABNORMAL) COMPREHENSIVE METABOLIC PANEL (07/17/2023 9:20 AM [facility]) Glucose 107(H) 70 - 105 mg/dL 07/17/2023 10:13 AM [facility] Sodium 143 136 - 145 mmol/L 07/17/2023 10:13 AM [facility] Potassium 3.5 3.5 - 5.1 mmol/L 07/17/2023 10:13 AM [facility] Chloride 118(H) 98 - 107 mmol/L 07/17/2023 10:13 AM [facility] CO2 17(L) 22 - 29 mmol/L 07/17/2023 10:13 AM [facility] Calcium 7.5(L) 8.4 - 10.4 mg/dL 07/17/2023 10:13 AM [facility] Anion Gap 8 6 - 16 mmol/L 07/17/2023 10:13 AM [facility] BUN 13 7 - 26 mg/dL 07/17/2023 10:13 AM [facility] Creatinine 0.93 0.72 - 1.25 mg/dL 07/17/2023 10:13 AM [facility] Alkaline Phosphatase 214(H) 40 - 150 U/L 07/17/2023 10:13 AM [facility] ALT 76(H) 0 - 55 U/L 07/17/2023 10:13 AM [facility] AST 34 5 - 34 U/L 07/17/2023 10:13 AM [facility] Protein Total 4.0(L) 6.4 - 8.3 gm/dL 07/17/2023 10:13 AM [facility] Albumin 2.1(L) 3.4 - 5.0 gm/dL 07/17/2023 10:13 AM [facility] Bilirubin Total 0.2 0.2 - 1.2 mg/dL 07/17/2023 10:13 AM [facility] eGFR by CKD-EPI >90 >=90 mL/min/1.7 3 m2 07/17/2023 10:13 AM [facility] Blood BLOOD SPECIMEN / Unknown Venipuncture / Unknown 07/17/2023 9:20 AM PICKING SUPERVISOR 07/17/2023 9:45 AM PICKING SUPERVISOR Torrie Martin MD LAB - CHEMISTRY [place] Final Result Performing Organization Address [facility]/ZIP Co de Phone Number [facility] [address] [place], [place] [id number] * (ABNORMAL) LIPID PROFILE (05/12/2023 6:54 AM PICKING SUPERVISOR) Cholesterol 124 <200 mg/dL 05/12/2023 7:32 AM PICKING SUPERVISOR [facility] Triglycerides 195(H) <150 mg/dL 05/12/2023 7:32 AM [facility] HDL Cholesterol 23(L) >40 mg/dL 3 7:32 AM [facility] LDL Calculated 62 <130 mg/dL 05/12/2023 7:32 AM [facility] VLDL Calculated 39(H) <=30 mg/dL 3 7:32 AM [facility] Chol HDL Ratio 5.4(H) <4.5 05/12/2023 7:32 AM [facility] LDL/HDL Ratio 2.7 <5.0 05/12/2023 7:32 AM [facility] Blood BLOOD SPECIMEN / Unknown Lab Venipuncture / Unknown 05/12/2023 6:54 AM PICKING SUPERVISOR 05/12/2023 7:02 AM PICKING SUPERVISOR Daniel Croft MD LAB - CHEMISTRY ORDERABLES F inal Result [facility] [address] [place], [place] [id number] * ENDOSCOPY, COLON, DIAGNOSTIC (05/01/2023 11:19 AM PICKING SUPERVISOR) Report Endoscopy POC _ Patient Name: Dev Amaya Procedure Date: 05/01/2023 11:19 AM Date of : 1970 Admit Type: Inpatient Age: 53 Gender: Male Ethnicity: Not or Race: White Attending MD: Rcikie Colon MD, [id number] _ Procedure: Colonoscopy Indications: Clinically significant diarrhea [...] bowel preparation was evaluated using the BBPS ([place] Bowel Preparation Scale) with scores of: Right [...] screening purposes. Procedure Code(s): --- Professional --- 05886, Colonoscopy, flexible; with biopsy, single or multiple --- Technical --- 05136, Colonoscopy, flexible; with biopsy, single or multiple Diagnosis Code(s): --- Professional --- K63.3, Ulcer of intestine R19.7, Diarrhea, unspecified --- Technical --- K63.3, Ulcer of intestine R19.7, Diarrhea, unspecified CPT copyright 2020 [employer]. All rights reserved. The codes documented in this report are preliminary and upon traffic operations manager review may be revised to meet current compliance requirements. ___ Rickie Colon MD 05/01/2023 12:47:16 PM Number of Addenda: 0 Note Initiated On: 05/01/2023 11:19 AM [facility] 05/01/2023 11:1 9 AM PICKING SUPERVISOR Narrative Procedure Note Rickie Colon MD - 05/01/2023 12:48 PM CST Colonoscopy done for diarrhea. Normal colon. Single small ulcer in theTI. Biopsies taken from TI and random colon biopsies. f/u path. Rickie Colon MD GI PROCEDURE ORDERABLES Ed ited Result - Final [facility] * HIV-1 HIV-2 ANTIBODY + HIV P24 AG PANEL (04/15/2023 8:31 PM CDT) HIV1/2 Ab + P24 Ag Non Reactive Non Reactive 04/15/2023 9:16 PM CDT [facility] Blood BLOOD SPECIMEN / Unknown Lab Venipuncture / Unknown 04/15/2023 8:31 PM CDT 04/15/2023 8:36 PM CDT Narrative [facility] - 04/15/2023 9:16 PM CDT No Laboratory evidence of HIV infection. Uzma Bazzi MD LAB - CHEMISTRY ORDERABLES Fin al Result [facility] [address] [place] [address] * HEPATITIS C ANTIBODY (09/23/2017 3:56 PM CDT) Hepatitis C Virus Antibody 0.1 0.0 - 0.9 s/co ratio [facility] ([facility]) Comment: Negative: < 0.8 Indeterminate: 0.8 - 0.9 Positive: > 0.9 The CDC recommends that a positive HCV antibody result be followed up with a HCV Nucleic Acid Amplification test (520335). Blood specimen (specimen) BLOOD SPECIMEN / Unknown 09/23/2017 3:56 PM CDT 09/23/2017 Narrative [facility] ([facility]) - 09/24/2017 7:13 AM CDT Performed at: [facility] - [facility] [address] [place], [place] [id number] Social Worker Health Services: Jarod Webster PhD, Phone: [phone] us Kayla Cardona MD LAB - CHEMISTRY ORDERA LUIS CARLOS Final Result [facility] ([facility]) [address] [place] [address], [facility] from Last 3 Months or Most Recently Relevant to Health Maintenance Insurance [facility] Advance Directives * Full Code [...]
--- OUTSIDE RECORDS SUMMARY | 2025-05-03 06:44 | XMS_ITS | Clinical Summary ---
Author Organization [email or web address] [address] [facility] Address [address] [place] [address] Care Team Providers Care Insole Coverer Name Role Phone Hi Salmon DO Primary [...] 103.9 kg (229 lb) 04/28/2020 3:16 PM FEED HOUSE SUPERVISOR Height 172.7 cm (5' 8) 04/28/2020 3:16 PM FEED HOUSE SUPERVISOR Body Mass Index 34.82 04/28/2020 3:16 PM FEED HOUSE SUPERVISOR Plan of Treatment Health Maintenance Due [...] 02/24/2018 INFLUENZA VACCINE (#1) 2025 03/12/2020 Insurance [facility] OPTIONS PPO [id number] Care Teams Insole Coverer Relationship Specialty Start Date End Date Hi Salmon DO [address] [address] PCP - General Internal Medicine 03/23/20
--- OUTSIDE RECORDS SUMMARY | 2025-05-03 06:44 | XMS_ITS | Clinical Summary ---
Author Organization [facility] al Address [address] [place] [address] Care Team Providers Care Entry Level Manager Name Role Phone Hi Salmon DO Primary Care Provider [phone] Estefani Ch MD Unavailable [phone] Gabe Luna MD Unavailable [phone] Allergies Active Allergy Reactions Criticality Noted [...] (1,000 mg total) by mouth daily Active lm-fdk-bkdrz-K1- lycopen-lutein 783-05-903-300 mcg tablet Take 1 tablet by mouth [...] mg capsule Take by mouth Active glucosam-chondr- ysy2-W1-B-kayy 750-625-1,000 mg-mg-unit tablet Take by mouth Active [...] gabapentin Assessment & Plan (08/12/2023 4:58 PM HEATER PLANER OPERATOR): After receiving IVF for KALPANA, patient developed pitting b/l LUCHO likely due to hypoalbuminemia Normal echo 05/09/23 -OT lymphedema c/s Esophageal candidiasis 08/07/2023 Assessment & Plan (08/14/2023 3:35 PM HEATER PLANER OPERATOR): - EGD (08/07) w/concerns for esophageal candidiasis. Biopsies taken. - Pt given 400mg PO fluconazole on 08/07. Plan: Continue 200mg fluconazole daily (08/08 - 08/28). Plan 21d course Asymptomatic bacteriuria 08/04/2023 Assessment & Plan (08/07/2023 12:54 PM HEATER PLANER OPERATOR): UA showing 11-20 WBC and 1+ LE however patient is asymptomatic denying dysuria, urinary frequency/urgency, difficulty urinating, or other urinary symptoms. Likely asymptomatic bacteriuria not requiring treatment at this time. - Urine Cx with NGTD - Started tamsulosin 0.4mg (08/05) with no improvement in symptoms, stopped 08/07 KALPANA (acute kidney injury) 08/03/2023 Assessment & Plan (08/20/2023 8:32 AM HEATER PLANER OPERATOR): Noted to have elevated Cr to [...] 07/30/2023 Assessment & Plan (08/16/2023 12:44 PM HEATER PLANER OPERATOR): Improved All resolved Hypokalemia, hypophosphatemia, hypomagnesemia [...] this time prior to admission. -continue pancrelipase 32946 units TID, colestipol 2g BID -with worsening diarrhea with antibiotics, suspect abx mediated though also some concern for c diff -c diff negative -started loperamide PRN with improvement in symptoms Assessment & Plan (10/27/2023 8:09 PM CDT): - Continue Lomotil, Imodium, Creon, tincture of opium, colestipol, fiber Assessment & Plan (08/18/2023 10:09 AM HEATER PLANER OPERATOR): Improving a little bit following deterioration [...] identified. Interval development of nonspecific pancolitis. Findings outreach representative of remote injury to the left [...] bicarb Assessment & Plan (08/12/2023 4:46 PM HEATER PLANER OPERATOR): Resolved Most likely 2/2 ongoing severe [...] azathioprine Assessment & Plan (07/29/2023 3:03 PM HEATER PLANER OPERATOR): Follows with Dr. Gabe Luna ([facility]). He was previously on MTX and Humira which were both stopped during his admission for septic shock in March 2023. Humira was restarted by his outpatient [facility] 2 weeks prior to admission Outpatient follow-up assisted current use of systemic steroids 07/24 Assessment & Plan (10/27/2023 8:09 PM CDT): Continue prednisone 5 mg daily Assessment & Plan (08/16/2023 12:43 PM HEATER PLANER OPERATOR): Stress dose steroids were started for [...] 07/24/2023 Assessment & Plan (08/12/2023 4:54 PM HEATER PLANER OPERATOR): Possible due to esophageal candidiasis, versus motility disorder, versus mechanical cause S/p EGD 08/07/23 showing esoph candidiasis The patient's reported several months of intermittent difficulty with swallowing foods and liquids. Patient reports feeling that solids and liquids get stuck in his throat and that his symptoms improve with repeat swallows --GUYLINE OPERATOR evaluation: oral mechanism evaluation is within [...] monitoring Assessment & Plan (08/04/2023 2:00 PM HEATER PLANER OPERATOR): Likely 2/2 steroids Negative infectious workup, continue to monitor, improving Severe protein-calorie malnutrition 07/24/2023 Assessment & Plan (08/02/2023 2:25 PM HEATER PLANER OPERATOR): Follow dietitian service recommendation Hypocalcemia 07/22/2023 Assessment & Plan (08/12/2023 4:49 PM HEATER PLANER OPERATOR): Normal when corrected for mild hypoalbuminemia, around 8.3 Possible due to nutritional deficiency from diarrhea/absorption Hypomagnesemia 06/18/2023 Hypokalemia 05/29/2023 Atrial fibrillation 04/16/2023 Hemodialysis patient 04/15/2023 Immunocompromised patient 04/15/2023 Salmonella enteritis 04/14/2023 Generalized abdominal pain 10/16/2020 Overview (10/16/2020): Added automatically from request for surgery [id number] Chronic pain syndrome 10/12/2020 Carpal tunnel syndrome on right 03/27/2020 Spondylosis of cervical spine 03/27/2020 Encounter for therapeutic drug monitoring 2017 Upper respiratory tract infection 05/25/2012 Encounters Date Type Department Care Team Description 04/15/2025 Telephone [facility] Medicine Gastroenterology [address] [facility] 2nd Floor [address] [place] [address] Conchis Fenton LPN 04/15/2025 Results Follow-Up [facility] Medicine Gastroenterology [address] [facility] Advanced Medicine 12th [place] [address] [place] [address] Millie Diallo MD Copper, serum 04/04/2025 Documentation [facility] Medicine Gastroenterology [address] [facility] Medicine 12th [place] [address] [place] [address] Jeri Ruelas BS Lab Results 03/29/2025 2:00 PM CDT Office Visit [facility] Medicine Nephrology [address] [facility] 5th [place] [address] [place] [address] Calixto Cr MD Anemia in stage 3a chronic kidney disease (HCC) (Primary Dx); Primary hypertension; Stage 3 chronic kidney disease, unspecified whether stage 3a or 3b CKD (HCC); Renal osteodystrophy 03/29/2025 Orders Only [facility] Scanning, Provider 03/23/2025 Orders Only [facility] Medicine Gastroenterology [address] [facility] 2nd Floor [address] [place] [address] Millie Diallo MD Copper deficiency (Primary Dx) [...] experiencing loneliness or isolatio n Never 12/26/2023 [facility] Utilities Answer Date Recorded In the [...] often do you attend chur ch or faith services? More than 4 times per year [...] any time in the past 12 m [facility], were you homeless or living [...] on file Legal Sex Male 1:31 AM HEATER PLANER OPERATOR Gender Identity Male 09/30/2023 7:18 AM [...] - LABS 03/21/2025 COLONOSCOPY 08/07/2023 8:46 AM HEATER PLANER OPERATOR from Last 3 Months or Most [...] - Final * COLONOSCOPY (08/07/2023 8:46 AM HEATER PLANER OPERATOR) Anatomical Region Laterality Modality Other Narrative Procedure Note Alexandra Flaherty MD - 08/07/2023 8:46 AM [facility] Patient Name: Dev Amaya Procedure Date: 08/07/2023 8:46 AM Date of : 1970 Admit Type: Inpatient Age: 53 Gender: Male Attending MD: Alexandra Flaherty M.D. Room: [facility] ENDOSCOPY Note Status: Finalized Procedure: Colonoscopy [...] The scope was passed under direct vision.The [id number] Endoscope was introduced through the anus [...] On: 08/07/2023 8:46 AM Recognized by the [employer] for promoting quality in endoscopy us Alexandra Flaherty MD ENDOSCOPY PROCEDURES Final Res ult from Last 3 Months or Most Recently Relevant to Health Maintenance Insurance [facility] CHOICE PLUS CHOICE PLUS CHOICE PLUS Advance Directives For more information, please contact: [phone] * Full Code (Latest Code Status on [...] 8:01 AM 08/20/2023 3:03 PM Care Teams Entry Level Manager Relationship Specialty Start Date End Date Hi Salmon DO PCP - General Internal Medicine 07/30/23 Estefani Ch MD Referring Physician Gastroenterology 09/10/23 Gabe Luna MD [address] [address] Consulting Physician Rheumatology 10/22/23
--- OUTSIDE RECORDS SUMMARY | 2025-05-03 06:44 | XMS_ITS | Encounter Summary ---
Author Organization [facility] Address [address] [place] [address] Phone Care Team Providers Care Pay Clerk Name Role Phone Hi Salmon DO Primary Care Provider [phone] Estefani Ch MD Unavailable [phone] Gabe Luna MD Unavailable [phone] Encounter Details Date Type Department Care [...] experiencing loneliness or isolatio n Never 12/26/2023 [facility] Utilities Answer Date Recorded In the past 12 months has th e [employer], gas, oil, or water company threatened to [...] often do you attend chur ch or cheondoism services? More than 4 times per year 02/18/2024 Do you belong to any clubs o r organizations such as tenriism groups, unions, fraternal or athletic groups, or [...] place to sleep or slept in a long term (including now)? No 11/03/2023 Housing Stability Vital Sign Answer Jomar e Recorded In the last 12 months, was t here a time when you were not able to pay the mortgage or rent on time? No 02/18/2024 In the past 12 months, how m any times have you moved where you were living? 0 02/18/2024 At any time in the past 12 m [facility], were you homeless or living in a long term (including now)? No 02/18/2024 Personal Safety Answer Date Recorded Have you ever been in or are you currently in a harmful physical or emotional relationship or is someone making you feel afraid or unsafe? Denies 02/17/2024 Sex and Gender Information Value Date Recorded Sex Assigned at Not on file Legal Sex Male 1:31 AM DIRECTOR UNIVERSITY Gender Identity Male 09/30/2023 7:18 AM CDT [...] on filedocumented in this encounter Care Teams Pay Clerk Relationship Specialty Start Date End Date Hi Salmon DO PCP - General Internal Medicine 07/30/23 Estefani Ch MD Referring Physician Gastroenterology 09/10/23 Gabe Luna MD [address] [place] [address] Consulting Physician Rheumatology 10/22/23 documented as of this encounter
--- OUTSIDE RECORDS SUMMARY | 2025-05-03 06:45 | XMS_ITS | Encounter Summary ---
Author Organization [facility] Address [address] [place] [address] Phone Care Team Providers Care Caterpillar Driver Name Role Phone Hi Salmon DO Primary Care Provider [phone] Estefani Ch MD Unavailable [phone] Gabe Luna MD Unavailable Encounter Details Date Type Department Care Team (Late st Contact Info) Description 04/15/2025 Results Follow-Up [facility] Medicine Gastroenterology [address] [facility] Advanced Medicine 12th [place] [address] [place] [address] Millie Diallo MD [address] [place] [address] Copper, serum Social History Tobacco Use Types Packs/Day Years Used Date Smoking Tobacco: Former Cigarettes Q uit: 10/16/1998 Smokeless Tobacco: Never Alcohol Use Standard Drinks/Week Comments Not Currently 0 (1 standard drink = 0.6 oz pur e alcohol) OASIS D0700: Social Isolation Answer Da te Recorded Frequency of experiencing loneliness or isolatio n Never 12/26/2023 [facility] Utilities Answer Date Recorded In the [...] any clubs o r organizations such as scientology groups, unions, fraternal or athletic groups, or [...] place to sleep or slept in a detention (including now)? No 11/03/2023 Housing Stability Vital Sign Answer Jomar e Recorded In the last 12 months, was t here a time when you were not able to pay the mortgage or rent on time? No 02/18/2024 In the past 12 months, how m any times have you moved where you were living? 0 02/18/2024 At any time in the past 12 m [facility], were you homeless or living in a detention (including now)? No 02/18/2024 Personal Safety Answer Date Recorded Have you ever been in or are you currently in a harmful physical or emotional relationship or is someone making you feel afraid or unsafe? Denies 02/17/2024 Sex and Gender Information Value Date Recorded Sex Assigned at Not on file Legal Sex Male 1:31 AM DIVISION SALES MANAGER Gender Identity Male 09/30/2023 7:18 AM CDT [...] on filedocumented in this encounter Care Teams Caterpillar Driver Relationship Specialty Start Date End Date Hi Salmon DO PCP - General Internal Medicine 07/30/23 Estefani Ch MD Referring Physician Gastroenterology 09/10/23 Gabe Luna MD [address] [address] Consulting Physician Rheumatology 10/22/23 documented as of this encounter
--- OUTSIDE RECORDS SUMMARY | 2025-05-03 06:45 | XMS_ITS | Clinical Summary ---
Author Organization [facility] Address [address] [place] [address] Care Team Providers Care Dermatopathologist Name Role Phone Unavailable Primary Care Provider Unavailabl e Social History Tobacco Use Types Packs/Day Years Used Date Smoking Tobacco: Never Assessed Sex and Gender Information Value Date Recorded Sex Assigned at Not on file Legal Sex Male 11:24 AM JACKET PREPARER Gender Identity Not on file Sexual Orientation [...]
--- NOTE | 2025-05-11 12:57 | WPDHOMESLEEP ---
Sleep Study - Home Unattended Date of Study: 05/03/25 Ordering Provider: Cynthia Mixon DO Interpreting Provider: Cynthia Mixon DO Home Sleep Study Type: Watch PAT Height: 1.73 m Weight: 102.058 kg Body Mass Index: 34.2 Neck Circumference (inches): 18 Highspire: 7 Reason for Sleep Study snoring, excessive daytime sleepiness Sleep History The patient is is a 55-year-old male with previously diagnosed sleep apnea on AutoPAP that had a sleep study ordered to get new equipment. His current CPAP machine is showing an error code. The patient admits to snoring loudly, interruptions in breathing while asleep, excessive daytime sleepiness and trouble maintaining sleep. he denies choking or gasping at night. He does have trouble breathing on his back. He denies morning headaches. He does have a dry or sore mouth /throat in the morning. He denies nocturnal heartburn. He urinates twice throughout the night. He denies having trouble falling asleep. He does have difficulty falling back asleep if he wakes up throughout the night. He denies any hypnotic or sedative use. He denies feeling anxious about sleep. He does feel tired or sleepy during the day. He does feel tired in the morning. He denies having the urge to fall asleep during the day. He denies feeling drowsy while driving. He denies sleep paralysis, cataplexy and hypnagogic/ hypnopompic hallucinations. He does clench or grind his teeth. He kicks and jerks his legs excessively. He does have a restless feeling in his legs at causes an urge to move his legs. It gets worse with rest and better with activity. It is present mainly in the evening and it does cause a disturbance in his sleep. He goes to bed at 10:00 p.m. on work days and at 11:00 p.m. on his days off. It takes him 15 minutes to fall asleep. He gets 6 hours of sleep per night. His sleep is not restorative on his days off. He denies taking any planned naps. He denies dream enactment behavior. He denies sleep walking. He consumes 1-2 cups of caffeinated beverage per day. He denies tobacco and alcohol use. He denies exercising on a regular basis. [facility] Past Medical History Medical History Chronic kidney disease Immunocompromised patient Hyperlipidemia Gastroesophageal reflux disease Chronic sinus complaints Insomnia Hypogonadism in male Heart murmur Depression Hypertension Sleep apnea Rheumatoid arthritis Surgical History Surgical History History of ventral hernia repair Family History Family History Father Hypertension Family history of elevated blood lipids Acute myocardial infarction Family history of malignant neoplasm of stomach Mother Hypertension Family history of elevated blood lipids Social History Social History Social History: Surrogate medical decision maker: Santo Amaya, spouse. Code status: Full code. Smoking packs per day: 1 Smoking cigarettes per day: 20.0 Years smoked: 20 Smoking pack-years: 20.00 Smoking status: Former smoker Smoking end date: 06/23/98 Alcohol intake: never Alcohol use details: Very rare alcohol use in moderation. Substance use: never Do You Feel Safe in your Home?: Yes Lack of Transportation: No Lack of Food: Never True Current Housing: Decline to Answer Concerned About Future Housing: No Difficulty Paying Gas/Electric Bills: No Difficulty Paying for Meds: No Currently Unemployed: YES Education: Decline to Answer Difficulty w/ Childcare or Family Care: No Living arrangements: with family Additional living arrangements comments: Lives with spouse in [place]. They have a 17-year-old daughter. 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 Spiritual care concerns: No Medications Home Medications ?Medication ?Instructions ?Recorded ?Confirmed ?Type cholecalciferol (vitamin D3) 125 2,000 unit PO DAILY 11/09/19 02/28/25 History mcg (5,000 unit) capsule mecobalamin (vitamin B12) 1,000 1,000 mcg PO DAILY 11/09/19 02/28/25 History mcg chewable tablet quetiapine 25 mg tablet (Seroquel) 25 mg PO QHS 11/13/20 02/28/25 History needle (disp) 18 G 18 gauge x 1 #100 ea 04/02/21 02/28/25 Rx 1/2 (BD Regular Bevel Bittinger) syringe with needle 3 mL 22 x 1 #100 ea 08/29/22 02/28/25 Rx 1/2 (BD Luer-Renata Syringe) needle (disp) 21 G 21 gauge x 1 #100 ea 01/17/23 02/28/25 Rx 1/2 (BD Regular Bevel Bittinger) syringe with needle 3 mL 21 gauge #100 ea 01/17/23 02/28/25 Rx x 1 1/2 (BD Luer-Renata Syringe) Lactobacillus acidophilus 10 mg PO DAILY 09/17/23 02/28/25 History (Acidophilus capsule) calcium 600 mg (as 2 cap PO TID 09/17/23 02/28/25 History carbonate)-vitamin D3 12.5 mcg (500 unit) capsule (Calcium with Vit D3) ddguta-ivaxowsf-xqtfeh(pork)24,000-76,000-120,000 See Rx Instructions PO .COMPLEX 09/17/23 02/28/25 Rx unit capsule,del rel (Creon) #450 caps loratadine 10 mg tablet 10 mg PO DAILY 09/17/23 02/28/25 History multivitamin 1 tablet PO DAILY 09/17/23 02/28/25 History prednisone 5 mg tablet 5 mg PO DAILY PRN joint stiffness 09/17/23 02/28/25 Rx #30 tabs copper gluconate 2 mg tablet 2 mg PO BID 05/17/24 02/28/25 History gabapentin 300 mg capsule 600 mg PO DAILY 05/17/24 02/28/25 History sodium bicarbonate 650 mg tablet 650 mg PO DAILY PRN 05/17/24 02/28/25 History testosterone cypionate 200 mg/mL 120 mg (0.6 mL) IM WEEKLY #10 mL 10/18/24 02/28/25 Rx intramuscular oil azathioprine 50 mg tablet 100 mg PO DAILY 11/23/24 02/28/25 History ferrous sulfate 325 mg (65 mg 325 mg PO DAILY 11/23/24 02/28/25 History iron) tablet tocilizumab 400 mg/20 mL (20 8 mg IV Q28D 11/23/24 02/28/25 History mg/mL) intravenous solution (Actemra) amitriptyline 25 mg tablet 25 mg PO DAILY #90 tabs 11/29/24 02/28/25 Rx ezetimibe 10 mg tablet (Zetia) 10 mg PO DAILY #90 tabs 11/29/24 02/28/25 Rx amlodipine 10 mg tablet 10 mg PO DAILY #90 tabs 12/31/24 02/28/25 Rx duloxetine 60 mg capsule,delayed 60 mg PO DAILY #90 caps 01/07/25 02/28/25 Rx release lisinopril 10 mg tablet 10 mg PO DAILY 01/20/25 02/28/25 History nebivolol 5 mg tablet 5 mg PO DAILY #30 tabs 02/28/25 02/28/25 Rx ropinirole 0.5 mg tablet 0.5 mg PO DAILY #30 tabs 03/14/25 Rx hydrochlorothiazide 25 mg tablet 25 mg PO DAILY #30 tabs 03/28/25 Rx CPAP #1 ea 03/30/25 03/30/25 Rx eszopiclone 2 mg tablet (Lunesta) 2 mg PO QHS #1 tablet 04/07/25 04/07/25 Rx tizanidine 4 mg tablet 4 mg PO HS PRN muscle spasticity 04/25/25 Rx #30 tabs Sleep Procedure The sleep study was completed using MuleSoftT a technically adequate device with seven channels: peripheral arterial tone, actigraphy, body position, snore, respiratory movement, pulse oximetry, sleep staging, and heart rate. Prior to using the device, the patient received verbal and written instructions for its application and was provided with the help desk phone number for additional telephonic instruction with 24-hour availability of qualified personnel to answer questions. The study was scored using CMS guidelines. Sleep Architecture The total recording time is 8 hrs, 44 min. The total sleep time is 7 hrs, 12 min. Sleep latency is 19 minutes. REM latency is 106 minutes. The patient had 10 episodes of waking. Sleep architecture shows 14.7% deep sleep, 66.5% light sleep, and (as % Total Sleep Time) showed NREM (Light 66.5%; Deep 14.7%), and a 18.8% stage REM. The patient spent 100.0% of total sleep time in the supine position. Sleep efficiency was 82.44. Respiratory Analysis The overall AHI (pAHI 4%:) is 17.8. The overall AHI (pAHI 3%:) is 26.3. The central AHI is 1.0. The AHI was 23.1 in NREM and 39.7 in REM sleep. The AHI was 26.3 in Supine and N/A in Non-supine sleep. Percent of Ponce Pollard respirations is 0.0. Oximetry Data The oxygen desaturation index (AARON 4%:) is 12.9. The mean saturation is 93%, and the lowest saturation is 84%. Time spent with saturation < 88% is 1.0 minutes. Snoring Profile Snoring average intensity is 43 dB. The patient snored above 45 decibels for 113.1 minutes, 26.1% of sleep time. Cardiac Profile The average pulse rate is 49 beats per minutes. The lowest pulse rate is 39 bpm. The highest pulse rate reported is 70 bpm. Atrial fibrillation was not detected. Premature beats occur <0.1 per minute. Assessment and Plan Assessment and Plan (1) JORGE ALBERTO (obstructive sleep apnea): Code(s): G47.33 - Obstructive sleep apnea (adult) (pediatric) Status: Acute Assessment and Plan: The patient had an overall AHI of 17.8 with desaturation down to 84%. This is consistent with moderate sleep apnea. I recommend that the patient be prescribed Resmed AutoPAP 5-20 cm H2O, CPAP mask/filters/tubing and heated humidity. This should be used with all episodes of sleep.? Compliance should be reviewed within 31-90 days of starting therapy for usage greater than 4 hours per night greater than 70% of the nights. The patient should be asked about symptoms such as?excessive daytime sleepiness, quality of sleep, decreased nocturia, increased?mental functioning such as memory, mood, and concentration. Data The data obtained during this sleep study is adequate for interpretation. Certification This sleep study has been reviewed by a board certified sleep medicine physician.
[2025-05-11 13:05] VITALS: BMI 34.2
== END 2025-05-04 14:18 | disposition home or self-care (01) ==
LOC: ANHCSM 06:41
PROVIDERS: PCP Internal Medicine; Visit Provider Family Medicine
DX: G47.33 Obstructive sleep apnea (adult) (pediatric) (principal)
CPT/HCPCS: 95800

== ENCOUNTER 2025-05-24 06:41 | Outpatient (CLI) | payer OTHER, SELFPAY ==
[2025-05-24 07:06] LABS: Hematocrit 48.1 % (42.0-52.0); Hemoglobin 16.5 g/dL (14.0-18.0); Immature Granulocyte Percent A 1.6 % (0-0.5); Lymphocytes Absolute Auto 1.82 K/mm3 (0.9-3.2); Mean Corpuscular HGB Conc 34.3 g/dl (32-36); Mean Corpuscular Hemoglobin 31.6 pg (26-34); Mean Corpuscular Volume 92.1 fl (80-100); Nucleated Red Blood Cells Absolute Auto 0.020 K/mm3 (0.0-0.012); Nucleated Red Blood Cells Perc 0.2 % (0.0-0.2); Platelet Count Result 236 k/mm3 (150-375); Red Blood Count 5.22 M/mm3 (4.6-6.20); White Blood Count 8.8 K/mm3 (4.5-10.0)
[2025-05-24 07:12] LABS: Hemoglobin A1C 5.8 % (<5.7)
[2025-05-24 07:19] LABS: Alanine Aminotransferase 44 U/L (6-50); Albumin Level 4.8 g/dL (3.5-5.1); Alkaline Phosphatase 56 U/L (38-126); Anion Gap 5 mmol/L (4-12); Aspartate Amino Transferase 45 U/L (17-59); Bilirubin,Total 0.7 mg/dL (0.2-1.3); Blood Urea Nitrogen 32 mg/dL (9-20); Calcium 9.5 mg/dL (8.4-10.2); Carbon Dioxide 24 mmol/L (22-30); Chloride 103 mmol/L (98-107); Cholesterol 274 mg/dL (0-200); Estimated Glomerular Filt Rate 48; Glucose 104 mg/dL (65-110); HDL Direct 42 mg/dL; Potassium 3.9 mmol/L (3.4-5.0); Sodium 132 mmol/L (137-145); Total Protein 8.0 g/dL (6.3-8.2); Triglycerides 431 mg/dL (<150)
[2025-05-24 07:50] LABS: Prostate Specific Antigen 1.6 ng/mL (< OR = 4.0)
[2025-05-26 03:07] LABS: Free Testosterone (Direct) 25.0 pg/mL (7.2-24.0)
== END 2025-05-24 06:42 | disposition home or self-care (01) ==
LOC: ANHLAB 06:43
PROVIDERS: PCP Internal Medicine; Visit Provider Internal Medicine
DX: E78.5 Hyperlipidemia, unspecified (principal); R73.9 Hyperglycemia, unspecified; Z51.81 Encounter for therapeutic drug level monitoring; Z79.890 Hormone replacement therapy; Z12.5 Encounter for screening for malignant neoplasm of prostate; I12.9 Hypertensive chronic kidney disease with stage 1 through stage 4 chronic kidney disease, or unspecified chronic kidney disease; N18.31 Chronic kidney disease, stage 3a
CPT/HCPCS: 36415; 80053; 80061; 82172; 83036; 84153; 84402; 84403; 85025; G0103